=== PATIENT | female | born 1935 | race Caucasian/White ===

== ENCOUNTER 2023-03-26 15:46 | Emergency (ER) | payer MEDICARE, BC, SELFPAY ==
[2023-03-26 15:49] VITALS: BP 171/61; PULSE 65; RESP 18; TEMP 36.6; O2SAT 99; BMI 23.6
--- NOTE | 2023-03-26 15:59 | ED.GENADULT ---
HPI - General Adult General Time Seen by Provider: 15:59 Date Seen: 03/26/23 Chief complaint: Weakness Stated complaint: stiff fingers Time Seen by Provider: 03/26/23 15:59 Source: patient and RN notes reviewed Mode of arrival: ambulatory Limitations: no limitations History of Present Illness HPI narrative: Charley Summers is a very pleasant 87-year-old female with history of presumed aortic stenosis, diabetes currently on metformin and insulin who comes to the emergency room for evaluation of lightheadedness blurred vision and right arm discomfort and limited mobility. Charley Summers notes that she was baking on apple crisp this morning at approximately 1000 hours. Suddenly she became sweaty and her vision was blurred in both eyes. She states that this lasted for about 5 minutes and then she started having discomfort down her right arm. She thought perhaps she was having a low blood sugar episode and therefore drank some non diet soda in the Fridge. However, the discomfort began creeping further down her arm and eventually involved her hand and she was unable to bend her fingers or move her wrist. This lasted for an additional 15 minutes and then completely went away. Since that time she has had complete resolution of all symptoms and no further abnormalities. She has had no chest pain during this entire day and no shortness of breath. She has not been ill lately. She denies any abnormality when walking into the hospital today. She had called the clinic with the event that happened this morning and they told her to come to the emergency room. Fortunately patient did not fall today. She denies any lower extremity symptoms or loss of bowel or bladder control. Recently patient has had evaluation for aortic stenosis with recent echocardiogram. She has not heard the results of that. This was not a stress test but strictly an echocardiogram at [facility] facility. Related Data Home Medications Medication Instructions Recorded Confirmed amlodipine 5 mg tablet 5 mg PO DAILY 03/26/23 03/26/23 atorvastatin 40 mg tablet 40 mg PO QPM 03/26/23 03/26/23 chlorthalidone 25 mg tablet 25 mg PO DAILY 03/26/23 03/26/23 fosinopril 40 mg tablet 40 mg PO DAILY 03/26/23 03/26/23 insulin NPH isoph U-100 human 100 13 unit subcut BID 03/26/23 03/26/23 unit/mL subcutaneous suspension (Humulin N NPH U-100 Insulin (isophane susp)) ketorolac 0.5 % eye drops 1 drp ophthalmic (eye) BID 03/26/23 03/26/23 metformin 500 mg tablet 500 mg PO BID 03/26/23 03/26/23 timolol maleate 0.5 % eye drops 1 drp ophthalmic (eye-left) BID 03/26/23 03/26/23 Allergies Allergy/AdvReac Type Severity Reaction Status Date / Time Sulfa (Sulfonamide AdvReac Verified 03/26/23 17:32 Antibiotics) penecillin AdvReac swelling Uncoded 03/26/23 17:32 Review of Systems Status of ROS: Reports: 10 or more systems reviewed and unremarkable except as noted in History and below Const: Denies: fever, chills or fatigue Eyes: Reports: blurry vision; Denies: blind spots or eye discomfort ENMT: Denies: throat pain, neck pain or difficulty swallowing Cardio: Denies: chest pain, palpitations, swelling of feet/ankles or shortness of breath with exertion Resp: Denies: shortness of breath or cough GI: Denies: abdominal pain, nausea, vomiting, diarrhea or difficulty swallowing : Denies: painful urination Musculo: Reports: extremity pain (Right arm) and muscle weakness; Denies: neck pain Neuro: Reports: weakness in extremities; Denies: headache or dizziness Endo: Denies: fatigue [facility] Social History Smoking Status: Never smoker How often do you have a drink containing alcohol: never How often do you have six or more drinks on one occasion: Never AUDIT-C Alcohol total score: 0 Non-prescribed substance use: denies use Exam Narrative: Exam Narrative: Alert and oriented. No acute distress. GCS of 15. NIH SS 0. EOM is full with pupils are equal minimal reactivity with left pupil which has had recent retinal surgery. No field cut. Head is atraumatic normocephalic. Cranial nerves 2-12 intact Oral cavity with moist mucous membranes. Eyebrow raise smile gritting of the teeth all symmetrical. Tongue is midline. No lymphadenopathy and neck is supple. Heart with regular rate and rhythm and lungs are clear bilaterally. Three to 4/6 systolic murmur is noted. Lungs clear bilaterally Abdomen soft nontender Lower extremities without edema calf tenderness. Moving all extremities. Romberg is negative. Finger to nose bilaterally within normal limits. Const: Vital Signs, click to edit/add: Vital Signs - 24 hr 03/26/23 15:49 03/26/23 19:36 Temperature 97.8 F Pulse Rate [Right Pulse Oximeter] 65 68 Respiratory Rate 18 18 Blood Pressure [Ri ght Upper Arm] 171/61 H 159/68 H Pulse Oximetry 99 99 Oxygen Delivery Me thod Room Air Room Air Documenting provider has reviewed patient's vital signs: yes Course Course ED Course: Differential diagnosis includes but is not limited to acute stroke, TIA, hypotensive episode, cardiac arrhythmia, acute coronary event, anxiety. At this time patient has had resolution of all symptoms. Examination is reassuring. Will check CT of the brain, neck and head angio as well as chest x-ray EKG cardiac enzymes CBC comprehensive panel and urinalysis. Reevaluation(s) Reevaluation #1: Patient continues to be asymptomatic. Chest x-ray without any abnormality. Laboratory values are reassuring with normal kidney function and white count. Glucose is elevated at 293. Reevaluation #2: Head CT including angio negative for acute findings at this time. Reevaluation #3: Able to obtain copy of echocardiogram which does show progression of aortic stenosis to severe. Ejection fraction of 60-65%. Consultations Consultation #1: [facility] contacted in regards to this patient. At this time given reassuring head CT and angios recommending outpatient follow-up for MRI of the brain without contrast. In the meantime suggested of aspirin 81 mg daily. Vital Signs Vital signs: Initial Vital Signs Temperature 97.8 F 03/26/23 15:49 Temperature Source Temporal Artery Scan 03/26/23 15:49 Pulse Rate 65 03/26/23 15:49 Pulse Rhythm Regular 03/26/23 15:49 Respiratory Rate 18 03/26/23 15:49 Blood Pressure 171/61 H 03/26/23 15:49 Blood Pressure Mean 97 03/26/23 15:49 Blood Pressure Position Sitting 03/26/23 15:49 Pulse Oximetry 99 03/26/23 15:49 Oxygen Delivery Method Room Air 03/26/23 15:49 Vital Signs Temperature 97.8 F 03/26/23 15:49 Pulse Rate 65 03/26/23 15:49 Respiratory Rate 18 03/26/23 15:49 Blood Pressure 171/61 H 03/26/23 15:49 Pulse Oximetry 99 03/26/23 15:49 Oxygen Delivery Method Room Air 03/26/23 15:49 Temperature 97.8 F 03/26/23 15:49 Pulse Rate 68 03/26/23 19:36 Respiratory Rate 18 03/26/23 19:36 Blood Pressure 159/68 H 03/26/23 19:36 Pulse Oximetry 99 03/26/23 19:36 Oxygen Delivery Method Room Air 03/26/23 19:36 Medications Administered Medications: Discontinued Medications Generic Name Dose Route Start Last Admin Trade Name Jenaro PRN Reason Stop Dose Admin Aspirin 81 mg 03/26/23 19:09 03/26/23 18:14 Aspirin 81 Mg Tab.Chew PO 03/26/23 19:10 81 mg ONCE ONE Administration Medical Decision Making MDM Narrative Medical decision making narrative: 1. TIA-patient appears to have had 20 minute episode of blurred vision, diaphoresis, right arm discomfort but with difficulty moving arm. She had no difficulty standing and denies any right leg symptoms. She had no headache. Brain CT as well as head and neck angio do not show any acute findings at this time but certainly some chronic stenosis in atherosclerotic plaques. Patient remained stable in the emergency room. I had the pleasure of speaking to a neurologist from [facility] and this time he does suggest baby aspirin 81 mg daily. First dose given in the emergency room tonight. Does recommend outpatient follow-up for MRI without contrast of the brain. 2. Hyperglycemia-likely secondary to non diet ingestion of soda. Will need to continue to monitor. Will hold off on metformin at this time. Patient may elect to increase her nighttime dose of insulin based on suggestions from primary doctor. She states sometimes she forgets the nighttime dose but I am encouraging her to make sure she does take the full dose tonight as well as recheck her blood sugar. 3. Aortic stenosis-systolic murmur very obvious upon auscultation. I was able to obtain echocardiogram which does show severe aortic stenosis. This is progression from moderate for since 2020. Recommend follow-up with network support manager as she has this already scheduled. No evidence of heart failure tonight. No evidence of cardiac arrhythmia during her time in the emergency room. 2. Disposition-home at this time. Return to the emergency room for recurrence of symptoms. Recommend if this happens again to sit down immediately and to avoid a fall. Then call 911 or proceed immediately to the hospital. Medical Records Medical records reviewed: Yes I reviewed the patient's medical records Lab Data Lab results reviewed: Yes I reviewed the patient's lab results Labs: Lab Results 03/26/23 03/26/23 Range/Units 16:30 18:44 WBC 9.27 (4.50-11.00) K/uL RBC 4.21 (4.00-5.20) m/uL Hgb 12.3 (12.0-16.0) gm/dL Hct 37.7 (33.0-51.0) % MCV 90 (80-100) fL MCH 29 (26-34) pg MCHC 33 (32-36) gm/dL RDW Coeff of Yoel 12.8 (11.5-15.5) % Plt Count 249 (140-440) K/uL Neut % (Auto) 73.9 H (42.0-72.0) % Lymph % (Auto) 17.0 L (20-44) % Mcleod % (Auto) 5.8 (0.0-11.0) % Eos % (Auto) 2.7 (0.0-7.0) % Baso % (Auto) 0.4 (0.0-3.0) % Neut # (Auto) 6.90 (1.7-7.0) K/uL Lymph # (Auto) 1.60 (0.90-2.90) K/uL Mcleod # (Auto) 0.50 (0.00-0.90) K/UL Eos # (Auto) 0.25 (0.00-0.50) K/uL Baso # (Auto) 0.04 (0.00-0.30) K/uL Abs Immat Gran (auto) 0.02 (0.00-0.30) K/uL Imm/Tot Granulo (auto) 0.2 % Sodium 138 (135-149) mmol/L Potassium 3.8 (3.6-5.1) mmol/L Chloride 103 (96-114) mmol/L Carbon Dioxide 25 (20-32) mmol/L Anion Gap 10 (7-15) mEq/L BUN 29 (7-30) mg/dL Creatinine 1.2 (0.5-1.5) mg/dL Estimated Creat Clear 25.39 Estimated GFR 44 ml/min Glucose 293 H (60-115) mg/dL Calcium 9.3 (8.4-10.6) mg/dL Total Bilirubin 0.7 (0.1-1.5) mg/dL AST 20 (12-35) U/L ALT 14 (4-35) U/L Alkaline Phosphatase 99 (40-150) U/L Total Protein 7.1 (6.0-8.3) g/dL Albumin 4.3 (3.3-5.0) g/dL Urine Color Yellow (Yellow) Urine Appearance Clear (Clear) Urine pH 6.5 (5.0-8.5) Ur Specific Labelle 1.015 (1.000-1.030) Urine Protein Negative (Negative) Urine Glucose (UA) 2+ A (Negative) Urine Ketones Negative (Negative) Urine Blood Negative (Negative) Urine Nitrite Negative (Negative) Urine Bilirubin Negative (Negative) Urine Urobilinogen 0.2 (0.2-1.0) Ur Leukocyte Esterase Trace A (Negative) Urine RBC 0-2 (0-2) Urine WBC 2-5 (0-5) Ur Squamous Epith Cells None (None-Few) Urine Bacteria None (None) POC Troponin I 0.00 L (0.01-0.04) ng/ml Imaging Data Chest x-ray: Attestation: I have reviewed the pertinent imaging results. My impression: no acute infiltrates. No evidence of a widened mediastinum. Radiologist's impression: Cardiovasculature and mediastinum: Heart size and vasculature are normal in caliber and appearance. Lungs and pleural spaces: Lungs are clear. No sign of infiltrate or mass. No sign of pleural effusion. No pneumothorax. Bones and soft tissues: No significant findings. IMPRESSION: No acute findings and no significant changes from the prior exam. CT scan - head: Attestation: I have reviewed the pertinent imaging results. Radiologist's impression: No acute intracranial hemorrhage. The salcedo-white matter interface is preserved. No ventricular obstruction. Mild diffuse parenchymal volume loss. Prominent atherosclerotic calcification of the carotid siphons and left intracranial vertebral artery. No suspicious calvarial lesion. Evidence of prior left lens replacement. Paranasal sinuses and mastoid air cells are predominantly clear. IMPRESSION: 1. No acute intracranial abnormality. 2. Mild diffuse parenchymal volume loss and prominent intracranial atherosclerotic vascular calcifications. Head and neck angio: Attestation: I have reviewed the pertinent imaging results. Radiologist's impression: CTA head: No proximal large vessel occlusion or flow-limiting stenosis involving the major intracranial arteries. Atherosclerotic plaque involving the dominant left intradural vertebral artery. CTA neck: Mild stenosis and atherosclerotic irregularity of the internal carotid artery origins from atherosclerotic plaque. Major cervical arteries are otherwise patent. ECG Data Attestation: I personally reviewed and interpreted this ECG as follows: Interpretation: by my interpretation EKG shows sinus bradycardia at a rate of 59. Obvious left bundle-branch block is noted. No other acute ST or T-wave changes are noted. Normal QT and MN intervals. Discharge Plan Discharge Clinical Impression: TIA (transient ischemic attack) Patient Disposition: Home, Self-Care Condition: Unchanged Additional Instructions: After my discussion with Neurology we are going to put you on a baby aspirin daily for the prevention of stroke. You will need to follow-up with your primary MD for scheduling of an outpatient MRI brain without contrast. Return for any worsening symptoms. Follow-up with your network support manager as scheduled. Prescriptions: No Action atorvastatin 40 mg tablet 40 mg PO QPM metformin 500 mg tablet 500 mg PO BID chlorthalidone 25 mg tablet 25 mg PO DAILY amlodipine 5 mg tablet 5 mg PO DAILY ketorolac 0.5 % drops 1 drp ophthalmic (eye) BID fosinopril 40 mg tablet 40 mg PO DAILY Humulin N NPH U-100 Insulin 100 unit/mL suspension 13 unit subcut BID timolol maleate 0.5 % drops 1 drp ophthalmic (eye-left) BID Follow Up/Referrals: Jhonny Guerrero MD [Primary Care Provider] - Stand Alone Forms: [employer] Info Instructions
--- NOTE | 2023-03-26 16:24 | CRLHL7_ITS ---
For Patients: As a result of the Century Cures Act, medical imaging exams and procedure reports are released immediately into your electronic medical record. You may view this report before your referring provider. If you have questions, please contact your health care provider. INDICATION: Cardiac murmur. TECHNIQUE: Chest 1 views. COMPARISON: July 09, 2009. FINDINGS: Cardiovasculature and mediastinum: Heart size and vasculature are normal in caliber and appearance. Lungs and pleural spaces: Lungs are clear. No sign of infiltrate or mass. No sign of pleural effusion. No pneumothorax. Bones and soft tissues: No significant findings. IMPRESSION: No acute findings and no significant changes from the prior exam. Dictated by Rafael Pierre MD @ 03/26/2023 5:37:26 PM (Electronically Signed)
--- NOTE | 2023-03-26 16:24 | CRLHL7_ITS ---
For Patients: As a result of the Century Cures Act, medical imaging exams and procedure reports are released immediately into your electronic medical record. You may view this report before your referring provider. If you have questions, please contact your health care provider. INDICATION: Vision changes, night sweats, diarrhea, right upper extremity paresthesias. TECHNIQUE: Noncontrast CT of the head with multiplanar reformat in bone and soft tissue algorithms. COMPARISON: None available. FINDINGS: No acute intracranial hemorrhage. The salcedo-white matter interface is preserved. No ventricular obstruction. Mild diffuse parenchymal volume loss. Prominent atherosclerotic calcification of the carotid siphons and left intracranial vertebral artery. No suspicious calvarial lesion. Evidence of prior left lens replacement. Paranasal sinuses and mastoid air cells are predominantly clear. IMPRESSION: 1. No acute intracranial abnormality. 2. Mild diffuse parenchymal volume loss and prominent intracranial atherosclerotic vascular calcifications. Please note that all CT scans at this facility use dose modulation, iterative reconstruction, and/or weight-based dosing when appropriate to reduce radiation dose to as low as reasonably achievable. Dictated by Keron Lyon MD @ 03/26/2023 6:17:19 PM (Electronically Signed)
--- NOTE | 2023-03-26 16:24 | CRLHL7_ITS ---
For Patients: As a result of the Century Cures Act, medical imaging exams and procedure reports are released immediately into your electronic medical record. You may view this report before your referring provider. If you have questions, please contact your health care provider. INDICATION: Acute stroke, blurry vision, right shoulder numbness. TECHNIQUE: CTA neck with contrast bolus tracking, 3D angiographic rendering using maximum intensity projection (MIP) and images permanently archived. FINDINGS: There is carotid atherosclerosis. There is a mild stenosis of the proximal left ICA, less than 50% by NASCET. There is no significant right carotid artery stenosis or dissection. There is no significant vertebral artery stenosis or dissection. The soft tissues of the neck are within normal limits. The cervical spine is in normal alignment. Degenerative changes are noted in the cervical spine. IMPRESSION: Mild left ICA stenosis, less than 50% by NASCET. Please note that all CT scans at this facility use dose modulation, iterative reconstruction, and/or weight-based dosing when appropriate to reduce radiation dose to as low as reasonably achievable. Dictated by Leo Iqbal MD @ 03/27/2023 7:15:31 AM (Electronically Signed)
--- NOTE | 2023-03-26 16:24 | CRLHL7_ITS ---
For Patients: As a result of the Century Cures Act, medical imaging exams and procedure reports are released immediately into your electronic medical record. You may view this report before your referring provider. If you have questions, please contact your health care provider. INDICATION: Acute stroke, blurry vision, right shoulder numbness. TECHNIQUE: CTA head with contrast bolus tracking, 3D angiographic rendering using maximum intensity projection (MIP) and images permanently archived. FINDINGS: There is scattered intracranial atherosclerotic disease with heavily calcified plaque around the carotid siphons and intracranial vertebral arteries. There is otherwise normal opacification of the intracranial vasculature. There is no large vessel occlusion. No aneurysm is identified. IMPRESSION: No large vessel occlusion. Please note that all CT scans at this facility use dose modulation, iterative reconstruction, and/or weight-based dosing when appropriate to reduce radiation dose to as low as reasonably achievable. Dictated by Leo Iqbal MD @ 03/27/2023 7:12:36 AM (Electronically Signed)
[2023-03-26 16:40] LABS: Basophils Absolute Auto 0.04 K/uL (0.00-0.30); Basophils Percent Auto 0.4 % (0.0-3.0); Eosinophils Absolute Auto 0.25 K/uL (0.00-0.50); Eosinophils Percent Auto 2.7 % (0.0-7.0); Hematocrit 37.7 % (33.0-51.0); Hemoglobin* 12.3 gm/dL (12.0-16.0); Immature Granulocytes Abs Auto 0.02 K/uL (0.00-0.30); Immature Granulocytes Pct Auto 0.2 %; Mean Corpuscular HGB Conc 33 gm/dL (32-36); Mean Corpuscular Hemoglobin 29 pg (26-34); Mean Corpuscular Volume 90 fL (80-100); Monocytes Percent Auto 5.8 % (0.0-11.0); Neutrophils Percent Auto 73.9 % (42.0-72.0); Platelet Count* 249 K/uL (140-440); RDW Coefficient of Variation % 12.8 % (11.5-15.5); Red Blood Count 4.21 m/uL (4.00-5.20); White Blood Count* 9.27 K/uL (4.50-11.00)
[2023-03-26 16:52] LABS: Albumin* 4.3 g/dL (3.3-5.0); Chloride* 103 mmol/L (96-114)
[2023-03-26 16:53] LABS: Potassium* 3.8 mmol/L (3.6-5.1); Sodium* 138 mmol/L (135-149)
[2023-03-26 16:55] LABS: Alanine Aminotransferase* 14 U/L (4-35); Alkaline Phosphatase* 99 U/L (40-150); Anion Gap 10 mEq/L (7-15); Aspartate Amino Transferase* 20 U/L (12-35); Bilirubin Total* 0.7 mg/dL (0.1-1.5); Blood Urea Nitrogen* 29 mg/dL (7-30); Carbon Dioxide* 25 mmol/L (20-32); Creatinine* 1.2 mg/dL (0.5-1.5); Est. Creatinine Clearance* 25.39; Estimated Glomerular Filt Rate 44 ml/min; Glucose* 293 mg/dL (60-115); Total Protein* 7.1 g/dL (6.0-8.3)
[2023-03-26 16:56] LABS: Calcium* 9.3 mg/dL (8.4-10.6)
[2023-03-26 17:29] LABS: Slide Review Reflex No
[2023-03-26] MEDS: ASPIRIN 81 MG TAB.CHEW PO (18:14)
[2023-03-26 18:53] LABS: Appearance Urine Clear (Clear); Bilirubin Urine Negative (Negative); Blood Urine Negative (Negative); Color Urine Yellow (Yellow); Glucose Urine 2+ (Negative); Ketones Urine Negative (Negative); Leukocyte Esterase Urine Trace (Negative); Nitrite Urine Negative (Negative); Protein Urine Negative (Negative); Specific Gravity Urine 1.015 (1.000-1.030); Urobilinogen Urine 0.2 (0.2-1.0); pH Urine 6.5 (5.0-8.5)
[2023-03-26 19:04] LABS: RBC Urine 0-2 (0-2)
--- NOTE | 2023-03-26 19:09 | ED.NURSE ---
on phone with neuro. Images pushed to [facility].
[2023-03-26 19:36] VITALS: BP 159/68; PULSE 68; RESP 18; O2SAT 99
== END 2023-03-26 19:35 | disposition home or self-care (01) ==
PROVIDERS: Emergency Provider Family Medicine; PCP Family Medicine
DX: G45.9 Transient cerebral ischemic attack, unspecified (principal)
CPT/HCPCS: 36415; 70450; 70496; 70498; 71045; 80053; 81001; 84484; 85025; 87086; 93005; 99284; 99285; A9270; Q9967

== ENCOUNTER 2023-04-08 07:00 | Outpatient (CLI) | payer MEDICARE, BC, SELFPAY ==
--- NOTE | 2023-04-08 07:15 | MR_ITS ---
Final Report Patient: PAU NAVA Facility:?[facility] Patient ID:?[id number] Site Patient ID:?[id number]. Site :?[id number] Study:?MRI Head W/O-04/08/2023 9:29:27 AM Ordering Physician:MYRIAM ONEAL Final Report: Indication: Transient ischemic attack Technique: Noncontrast sagittal T1 weighted, axial FLAIR, axial T2 weighted, and axial diffusion weighted sequences are provided. Comparison: CT 03/26/2023 Findings: Mild age-related generalized parenchymal volume loss. Multiple scattered foci of T2 prolongation in the subcortical white matter of both cerebral hemispheres. The midline structures are centrally located with no evidence of shift. There are no suspicious intra or extra-axial fluid collections. No region of restricted diffusion. Expected flow voids in the cavernous carotids and basilar artery. Left globe pseudophakia. Impression: 1. No evidence of acute intracranial abnormality. No recent ischemic infarcts. 2. Moderate supratentorial chronic small vessel white matter ischemic changes. 3. Mild age related parenchymal volume loss. Dictated by Chilo Deleon MD @ 04/12/2023 9:27:56 PM Dictated by: Chilo Deleon MD @ 04/12/2023 21:28:04 (Electronic Signature)
== END 2023-04-08 07:01 | disposition home or self-care (01) ==
LOC: MRI 07:02
PROVIDERS: PCP Family Medicine; Visit Provider Family Medicine
DX: G45.9 Transient cerebral ischemic attack, unspecified (principal)
CPT/HCPCS: 70551

== ENCOUNTER 2023-08-20 07:39 | Outpatient (CLI) | payer MEDICARE, BC, SELFPAY ==
--- NOTE | 2023-08-20 08:00 | CRLHL7_ITS ---
For Patients: As a result of the Century Cures Act, medical imaging exams and procedure reports are released immediately into your electronic medical record. You may view this report before your referring provider. If you have questions, please contact your health care provider. Indication: Right hydronephrosis, left renal mass Technique: Nuclear medicine renal Lasix study per protocol after the intravenous administration of 10.2 millicuries technetium 99 M Mag 3 and 20 milligrams of IV Lasix. Comparison: Report only CT angio chest, abdomen and pelvis April 30, 2023 Findings: Flow: Prompt and symmetric. Split renal function: 50 percent left, 50 percent right. Renal phase: Normal extraction and excretion of the radiopharmaceutical bilaterally. Residual activity throughout the dilated right renal pelvis is noted prior to administration of Lasix. Collecting system clearance: Left is normal prior to administration of Lasix. After the administration of Lasix there is minimal clearance from the right collecting system, with the right T 1/2<< 20 minutes. Impression: Symmetric renal function with high-grade right-sided obstruction Dictated by Vern Guzman MD @ 08/20/2023 12:21:52 PM (Electronically Signed)
== END 2023-08-20 07:40 | disposition home or self-care (01) ==
PROVIDERS: PCP Family Medicine; Visit Provider Urology
DX: N13.30 Unspecified hydronephrosis (principal); N28.89 Other specified disorders of kidney and ureter
CPT/HCPCS: 78708; A9562; J1940

== ENCOUNTER 2023-10-09 21:00 | Emergency (ER) | payer MEDICARE, BC, SELFPAY ==
[2023-10-09 21:03] VITALS: BP 166/71; PULSE 70; RESP 16; TEMP 36.2; O2SAT 97; BMI 21.4
--- NOTE | 2023-10-09 22:54 | ED_ITS ---
HPI - General Adult General Chief complaint: Abdominal Pain Stated complaint: R flank pain, catheter removed yesterday Time Seen by Provider: 10/09/23 22:53 History of Present Illness HPI narrative: pain on right side and all over stomach. Pt has greenberg cath removed yesterday. Did a self cath last night and this morning. Little urine production throughout the day. Stomach pain started all afternoon. Pain rated 5/ 10. 88-year-old woman presenting to the emergency depart with concern of right and low abdominal pain. 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 Apparently during this evaluation noted a cyst or lesion on the right kidney and then during subsequent evaluation noting marked hydronephrosis in the right renal collecting system. She does acknowledge a history of urinary retention but unclear as to why this was occurring when I ask. Did have a Greenberg removed yesterday and since that time has only dribbled a little bit of urine. Increasing pain over the course the day. No fever. She does admit to some chills but she says she always feels cold like that. No complaint of nausea. No vomiting. Daughter does emphasize history of recurrent urinary tract infections. Related Data Home Medications ?Medication ?Instructions ?Recorded ?Confirmed amlodipine 5 mg tablet 5 mg PO DAILY 03/26/23 03/26/23 atorvastatin 40 mg tablet 40 mg PO QPM 03/26/23 03/26/23 chlorthalidone 25 mg tablet 25 mg PO DAILY 03/26/23 03/26/23 fosinopril 40 mg tablet 40 mg PO DAILY 03/26/23 03/26/23 insulin NPH isoph U-100 human 100 13 unit subcut BID 03/26/23 03/26/23 unit/mL subcutaneous suspension (Humulin N NPH U-100 Insulin (isophane susp)) ketorolac 0.5 % eye drops 1 drp ophthalmic (eye) BID 03/26/23 03/26/23 metformin 500 mg tablet 500 mg PO BID 03/26/23 03/26/23 timolol maleate 0.5 % eye drops 1 drp ophthalmic (eye-left) BID 03/26/23 03/26/23 Allergies Allergy/AdvReac Type Severity Reaction Status Date / Time Sulfa (Sulfonamide AdvReac Verified 03/26/23 17:32 Antibiotics) penecillin AdvReac swelling Uncoded 03/26/23 17:32 Review of Systems Status of ROS: Reports: 6 or more systems reviewed and unremarkable except as noted in History and below [facility] Social History Smoking Status: Never smoker How often do you have a drink containing alcohol: never How often do you have six or more drinks on one occasion: Never AUDIT-C Alcohol total score: 0 Non-prescribed substance use: denies use Exam Narrative: Exam Narrative: Pleasant. NAD. Sitting quite still. Breathing easily. Lungs are clear. Heart in regular rate and rhythm. Abdomen is soft and mildly uncomfortable to palpation in the low abdomen. I think she is rather stoic. Abdomen is little protuberant. No flank pain to percussion. Extremities are well perfused without edema. Const: Vital Signs, click to edit/add: Vital Signs - 24 hr 10/09/23 21:03 Temperature 97.2 F L Pulse Rate [Left P ulse Oximeter] 70 Respiratory Rate 16 Blood Pressure [Le ft Upper Arm] 166/71 H Pulse Oximetry 97 Oxygen Delivery Me thod Room Air Documenting provider has reviewed patient's vital signs: yes Course Vital Signs Vital signs: Initial Vital Signs Temperature 97.2 F L 10/09/23 21:03 Temperature Source Temporal Artery Scan 10/09/23 21:03 Pulse Rate 70 10/09/23 21:03 Pulse Rhythm Regular 10/09/23 21:03 Respiratory Rate 16 10/09/23 21:03 Blood Pressure 166/71 H 10/09/23 21:03 Blood Pressure Mean 102 10/09/23 21:03 Blood Pressure Position Sitting 10/09/23 21:03 Pulse Oximetry 97 10/09/23 21:03 Oxygen Delivery Method Room Air 10/09/23 21:03 Vital Signs Temperature 97.2 F L 10/09/23 21:03 Pulse Rate 70 10/09/23 21:03 Respiratory Rate 16 10/09/23 21:03 Blood Pressure 166/71 H 10/09/23 21:03 Pulse Oximetry 97 10/09/23 21:03 Oxygen Delivery Method Room Air 10/09/23 21:03 Temperature 97.9 F 10/10/23 01:15 Pulse Rate 70 10/10/23 01:15 Respiratory Rate 18 10/10/23 01:15 Blood Pressure 158/68 H 10/10/23 01:15 Pulse Oximetry 98 10/10/23 01:15 Oxygen Delivery Method Room Air 10/10/23 01:15 Medications Administered Medications: Discontinued Medications Generic Name Dose Route Start Last Admin Trade Name Jenaro PRN Reason Stop Dose Admin Ceftriaxone Sodium 1 gm 10/10/23 01:01 10/10/23 01:17 Ceftriaxone 1 Gm Vial IM 10/10/23 01:02 1 gm ONCE ONE Administration Lidocaine HCl 2.1 ml 10/10/23 01:01 10/10/23 01:17 Lidocaine 1% 5 Ml (Pf) 5 Ml Vial IM 2.1 ml DIRECTED PRN Administration Pain Medical Decision Making MDM Narrative Medical decision making narrative: Likely urinary retention. Like to assess with a bladder scan. Anticipate replacing catheter and urinalysis. Differential would include urinary retention, urinary tract infection/cystitis/pyelo Scan for nearly 250 mL of urine. Suspect closer to double that due to troublesome measurements historically with this bladder scanner. Greenberg is placed. She does feel much better on reassessment. Did have closer to 500 mL out. Urinalysis concerning [place] [id number]. Some elevated blood pressure here but otherwise vitals look good. Was given a g of Rocephin prior to departure. Initiating cephalexin. See patient discharge plan for further discussion Medical Records Medical records reviewed: Yes I reviewed the patient's medical records Lab Data Lab results reviewed: Yes I reviewed the patient's lab results Labs: Lab Results 10/09/23 10/09/23 10/09/23 Range/Units 00:00 00:10 23:44 WBC 15.09 H (4.50-11.00) K/uL RBC 4.07 (4.00-5.20) m/uL Hgb 11.3 L (12.0-16.0) gm/dL Hct 35.8 (33.0-51.0) % MCV 88 (80-100) fL MCH 28 (26-34) pg MCHC 32 (32-36) gm/dL RDW Coeff of Yoel 13.1 (11.5-15.5) % Plt Count 250 (140-440) K/uL Neut % (Auto) 77.4 H (42.0-72.0) % Lymph % (Auto) 10.1 L (20-44) % [place] % (Auto) 7.8 (0.0-11.0) % Eos % (Auto) 4.2 (0.0-7.0) % Baso % (Auto) 0.2 (0.0-3.0) % Neut # (Auto) 11.70 H (1.7-7.0) K/uL Lymph # (Auto) 1.50 (0.90-2.90) K/uL [place] # (Auto) 1.20 H (0.00-0.90) K/UL Eos # (Auto) 0.60 H (0.00-0.50) K/uL Baso # (Auto) 0.00 (0.00-0.30) K/uL Sodium 136 (135-149) mmol/L Potassium 3.7 (3.6-5.1) mmol/L Chloride 101 (96-114) mmol/L Carbon Dioxide 28 (20-32) mmol/L Anion Gap 7 (7-15) mEq/L BUN 33 H (7-30) mg/dL Creatinine 1.2 (0.5-1.5) mg/dL Estimated Creat Clear 24.92 Estimated GFR 44 ml/min Glucose 152 H (60-115) mg/dL Calcium 9.3 (8.4-10.6) mg/dL Urine Color Yellow (Yellow) Urine Appearance Cloudy A (Clear) Urine pH 5.0 (5.0-8.5) Ur Specific [place] 1.025 (1.000-1.030) Urine Protein 3+ A (Negative) Urine Glucose (UA) Negative (Negative) Urine Ketones Negative (Negative) Urine Blood 3+ A (Negative) Urine Nitrite Negative (Negative) Urine Bilirubin Negative (Negative) Urine Urobilinogen 0.2 (0.2-1.0) Ur Leukocyte Esterase 1+ A (Negative) Urine RBC 25-50 A (0-2) Urine WBC 50-100 A (0-5) Ur Squamous Epith Cells Few (None-Few) Urine Bacteria Many A (None) Discharge Plan Discharge Clinical Impression: Urinary retention, Urinary tract infection Patient Disposition: Home w/ Parent or Adult Condition: Stable Additional Instructions: Stay well-hydrated. Urine culture will be pending here will call you if choice of antibiotics needs to be changed Return for escalating fever, repeated vomiting, significant increase in pain, decreasing urinary out. Please call on Thursday to follow-up with your primary care provider or Urology by Thursday for further recommendations. Cephalexin from [facility]. Take this for 8 days Prescriptions: No Action atorvastatin 40 mg tablet 40 mg PO QPM metformin 500 mg tablet 500 mg PO BID chlorthalidone 25 mg tablet 25 mg PO DAILY amlodipine 5 mg tablet 5 mg PO DAILY ketorolac 0.5 % drops 1 drp ophthalmic (eye) BID fosinopril 40 mg tablet 40 mg PO DAILY Humulin N NPH U-100 Insulin 100 unit/mL suspension 13 unit subcut BID timolol maleate 0.5 % drops 1 drp ophthalmic (eye-left) BID Follow Up/Referrals: Jhonny Guerrero MD [Primary Care Provider] - Stand Alone Forms: [email or web address] ([employer]) Info Instructions
[2023-10-10 00:14] LABS: Appearance Urine Cloudy (Clear); Bilirubin Urine Negative (Negative); Blood Urine 3+ (Negative); Color Urine Yellow (Yellow); Glucose Urine Negative (Negative); Ketones Urine Negative (Negative); Leukocyte Esterase Urine 1+ (Negative); Nitrite Urine Negative (Negative); Protein Urine 3+ (Negative); Specific Gravity Urine 1.025 (1.000-1.030); Urobilinogen Urine 0.2 (0.2-1.0)
[2023-10-10 00:22] LABS: Bacteria Urine Many; RBC Urine 25-50 (0-2); Squamous Epithelial Cell Urine Few (None-Few); WBC Urine 50-100 (0-5)
[2023-10-10 00:38] LABS: Chloride* 101 mmol/L (96-114); Potassium* 3.7 mmol/L (3.6-5.1); Sodium* 136 mmol/L (135-149)
[2023-10-10 00:41] LABS: Anion Gap 7 mEq/L (7-15); Blood Urea Nitrogen* 33 mg/dL (7-30); Carbon Dioxide* 28 mmol/L (20-32); Creatinine* 1.2 mg/dL (0.5-1.5); Est. Creatinine Clearance* 24.92; Estimated Glomerular Filt Rate 44 ml/min; Glucose* 152 mg/dL (60-115)
[2023-10-10 00:42] LABS: Calcium* 9.3 mg/dL (8.4-10.6)
[2023-10-10 00:52] LABS: Hematocrit 35.8 % (33.0-51.0); Hemoglobin* 11.3 gm/dL (12.0-16.0); Mean Corpuscular Volume 88 fL (80-100); Red Blood Count 4.07 m/uL (4.00-5.20); White Blood Count* 15.09 K/uL (4.50-11.00)
[2023-10-10 00:53] LABS: Basophils Percent Auto 0.2 % (0.0-3.0); Eosinophils Percent Auto 4.2 % (0.0-7.0); Lymphocytes Percent Auto 10.1 % (20-44); Mean Corpuscular HGB Conc 32 gm/dL (32-36); Mean Corpuscular Hemoglobin 28 pg (26-34); Monocytes Percent Auto 7.8 % (0.0-11.0); Neutrophils Percent Auto 77.4 % (42.0-72.0); Platelet Count* 250 K/uL (140-440); RDW Coefficient of Variation % 13.1 % (11.5-15.5); Slide Review Reflex No
[2023-10-10 01:15] VITALS: BP 158/68; PULSE 70; RESP 18; TEMP 36.6; O2SAT 98
[2023-10-10] MEDS: cefTRIAXone 1 GM VIAL IM (01:17)
[2023-10-10] MEDS: LIDOCAINE 1% 5 ml (pf) 5 ML VIAL 2.1 ML IM (01:17)
== END 2023-10-10 01:25 | disposition home or self-care (01) ==
PROVIDERS: Emergency Provider Family Medicine; PCP Family Medicine
DX: N39.0 Urinary tract infection, site not specified (principal)
CPT/HCPCS: 51702; 36415; 80048; 81001; 85025; 87086; 87186; 96372; 99283; 99284; J0696

== ENCOUNTER 2024-05-06 09:49 | Inpatient (IN) | payer MEDICARE, BC, SELFPAY ==
[2024-05-06] VITALS (8 sets, daily range): BP systolic 96–109; BP diastolic 39–68; PULSE 60–68; RESP 16–18; TEMP 36.3–37; O2SAT 96–100; BMI 18.3; BMI 18.2
--- OUTSIDE RECORDS SUMMARY | 2024-05-06 09:52 | XMS_ITS | Clinical Summary ---
Author Organization [employer] [facility] Address [facility] [place] [address] Care Team Providers Care Deicer Inspector Electric Name Role Phone Jhonny Guerrero MD Primary Care Provider Allergies Active Allergy Reactions Criticality Noted Date Comments Penicillins Edema Unknown 09/16/2005 Sulfa (Sulfonamide Antibiotics) Edema Unknown 08/24 Medications ketorolac 0.5 % ophthalmic (ACULAR) solution Place 1 Drop into both eyes two times daily. 1 Bottle 4 9 Active aspirin (ECOTRIN) 81 mg enteric coated tablet Take 81 mg by mouth once daily. 4 Active clopidogreL (PLAVIX) 75 mg tabletIndications:A SCVD (arteriosclerotic cardiovascular disease) Take 1 Tablet (75 mg) by mouth once daily. 90 Tablet 3 05/15/2023 4:27 PM CDT 4 Active amLODIPine (NORVASC) 5 mg tabletIndications:H TN (hypertension) Take 1 Tablet (5 mg) by mouth once daily. 90 Tablet 3 4 Active chlorthalidone (HYGROTON) 25 mg tabletIndications:H ypertension, unspecified type Take 1 Tablet (25 mg) by mouth once daily. 90 Tablet 3 4 Active fosinopril sodium (MONOPRIL) 40 mg tabletIndications:H ypertension, unspecified type Take 1 Tablet (40 mg) by mouth once daily. 90 Tablet 3 4 Active ezetimibe (ZETIA) 10 mg tabletIndications:H yperlipidemia, unspecified hyperlipidemia type Take 1 Tablet (10 mg) by mouth once daily. 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 Take 30-60 minutes before procedure. 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 15 mL 2 4 Active latanoprost (XALATAN) 0.005 % ophthalmic solutionIndications :Primary open angle glaucoma of right eye, moderate stage Place 1 Drop into both eyes once daily in the evening. 7.5 mL 4 Active empagliflozin (JARDIANCE) 10 mg tabletIndications:T ype 2 diabetes mellitus with stage 3a chronic kidney disease, with long-term current use of insulin (HC) Take 1 Tablet (10 mg) by mouth once daily. 90 Tablet 1 5 Active metFORMIN (GLUCOPHAGE) 500 mg tabletIndications:C ontrolled type 2 diabetes mellitus with complication, with long-term current use of insulin (HC) Take 1 Tablet (500 mg) by mouth two times daily with meals. 180 Tablet 1 5 Active rosuvastatin (CRESTOR) 40 mg tabletIndications:M ixed hyperlipidemia Take 1 Tablet (40 mg) by mouth once daily with evening meal. 90 Tablet 3 5 Active Active Problems Problem Noted Date Diagnosed Date Left kidney mass 08/28/2023 History of permanent cardiac pacemaker placement 06/18/23. 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 06/25/2023 ASCVD; s/p ANGELIA to mLAD 05/15/23. 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, with long-term current use of insulin 01/26/2023 Controlled type 2 diabetes m ellitus with complication, with long-term current use of insulin 09/13/2020 History of syncope 04/02/2020 Low-tension glaucoma of both eyes, moderate stag e 09/23/2019 Regular astigmatism of left eye 08/13/2018 Acute duodenal ulcer 08/18/2017 Overview (08/18/2017): EGD 07/2017 superficial duodenal ulcers, try omeprazole Presbyopia 08/10/2017 Hyperopic astigmatism of right eye 08/10/2017 Hydronephrosis of right kidney 07/28/2016 Stage 3a chronic kidney disease 01/05/2016 Pseudophakia, left eye 08/24/2015 Nuclear senile cataract of right eye 08/24/2015 Irritable bowel 07/09/2012 Essential hypertension 11/15/2010 Mixed hyperlipidemia 11/15/2010 Resolved Problems Problem Noted Date Diagnosed Date Resolved Date Severe aortic stenosis 04/02/202311/29 Weight loss 01/26/2023 04/02/2023 Moderate aortic stenosis 01/02/202209/2023 Systolic murmur 04/02/2020 06/04/2020 Chest pain, unspecified 03/22/200805/24 Long-term (current) use of anticoagulants 12/03/2007 11/27/2010 Unspecified essential hypertension 03/09/2007 11/15/2010 BACKGROUND - DIABETIC RETINOPATHY-MILD OU 07/19/2003 11/22/2012 Type 2 diabetes mellitus wit h stage 3 chronic kidney disease, with long-term current use of insulin 01/14/2002 09/13/2020 Overview (06/29/2009): Next diabetic eye exam 07/03 HYPERTENSION, SECONDARY NOS 03/05/1998 11/15/2010 Encounters Date Type Department Care Team Description 05/06/2024 9:10 AM CDT Office Visit [facility] [address] [place] [address] Lacie Ponce, Gi Problem (Started yesterday, nausea, vomiting, diarrhea, is unable to eat or drink hardly at all.) 05/06/2024 Travel 03/29/2024 Telephone [facility] [address] [place] [address] Jhonny Guerrero MD Form (03/28/24 ANGELIA ) 03/15/2024 9:00 AM INSTITUTIONAL NUTRITION CONSULTANT Office Visit [facility] [address] [place] [address] Stoney Murrieta, OD Eye Exam (DM CEE) 03/15/2024 Travel 03/11/2024 Telephone [facility] [address] [place] [address] Sarahy Xiao PA Follow Up 03/07/2024 Telephone [facility] [address] [place] [address] Desmond Vallejo MD, PhD Refill Request (Clopidogrel) 03/03/2024 9:20 AM INSTITUTIONAL NUTRITION CONSULTANT Office Visit [facility] [address] [place] [address] Sarahy Xiao PA Follow Up (Follow up CT scan on 01/25/24.) 03/03/2024 Telephone [facility] [address] [place] [address] Sarahy Xiao PA DME Supply (Change catheter order) 03/03/2024 Travel 03/02/2024 10:05 AM INSTITUTIONAL NUTRITION CONSULTANT Office Visit [facility] [address] [place] [address] Jhonny Guerrero MD Diabetes (6 month follow up) 03/02/2024 Telephone [facility] [address] [place] [address] Jhonny Guerrero MD Results 03/01/2024 10:15 AM INSTITUTIONAL NUTRITION CONSULTANT Orders Only [facility] [address] [facility] [place] [address] Lab, [place] Lab 03/01/2024 Travel 02/10/2024 Orders Only [facility] Scanner 1 scan: (1-Ord) RCM, 02/10/2024 from Last 3 Months Immunizations Immunization Administration Dates Next Due AMB Influenza, IIV3 (Age >=3 years)(Flu Clinic Only) 01/01/2010 Amb Influenza, Inact (High-d ose Quadrivalent) (Flu Clinic Only) 12/22/2019 COVID-19 VACCINE SPIKEVAX (M ODERNA 50MCG/0.5ML) 12YO+ PFS 11/30/2023,08/28/2023,01/26/2023 COVID-19 vaccine (Babycare NTech 30mcg/0.3mL) 12YO+ BIVALENT PF, MDV 07/30/2022,01/02/2022 COVID-19 vaccine (Babycare NTech 30mcg/0.3mL) 12YO+ ARELY-SUCROSE PF, MDV 07/03/2021 COVID-19 vaccine (Babycare NTech 30mcg/0.3mL) PF, MDV 12/17/2020,04/28/2020,04/07/2020 Influenza, High-dose Inactivated 019,01/30/2016,01/30/2016,02/15,01/18/2014 Influenza, High-dose Quadriv alent Inactivated 11/06/2021 Influenza, IIV3 (Age 6-35 mos) 11/27/2010 Influenza, IIV3 (Age >=3 years) 12/31/19 13,12/17/2011,11/27/2010,01/01,11/08/2008,12/14/2007,12/31/2006 ,12/04/2005,01/09/2005,12/06/2003,11/23,12/20/2001 Influenza, Inactivated AIIV4 (Age 65+ Years) Preserv Free 01/26/2023,11/07/2021,12/17/2020 Influenza, Inactivated IIV3 (Age 65+ Years) Preserv Free 11/30/2023,10/29/2017,11/21/2016 Pneumococcal Poly,23-Valent (Pneumovax) 09/30/2020,02/03/2005,08/08/1996 Pneumococcal conj 13-Valent (Prevnar 13) 01/18/2014 RSV, Recombinant ADJ Reconst ituted (Arexvy 120MCG/0.5mL) 03/05/2023 Td (Age >=7 Years) 06/04/2017,08/08/1996 Tdap 08/27/2006 Zoster (Shingrix-RZV, recombinant) 08/18/2018, Zoster (Zostavax-ZVL, live) 06/04/2010 Family History Medical History Relation Name Comments Heart Disease Brother 1 Cancer-prostate Brother 2 Diabetes Brother 2 Other Brother 2 glaucoma Heart Disease Brother 3 Good Health Daughter Heart Disease Father Did not talk a bout health Diabetes Mother Genetic Other hypertension~ir regular heart beat~heart disease--father, brothers Diabetes Paternal Grandmother Other Sister in brain s rugery age 13 Cancer Son 1 Ed In back not rosalinda e origin Stroke Son 2 Dudley Diabetes Son 3 Petar Good Health Son 4 Cancer-breast No Family History Relation Name Status Comments Brother 1 Brother 2 Alive Brother 3 Daughter Alive Father Mother Other Paternal Grandmother Sister Son 1 Ed Alive Son 2 Dudley Alive Son 3 Petar Alive Son 4 Alive Social History Tobacco Use Types Packs/Day Years Used Date Smoking Tobacco: Never Smokeless Tobacco: Never Tobacco Cessation:Counseling Given: No Alcohol Use Standard Drinks/Week Comments No 0 (1 standard drink = 0.6 oz pur e alcohol) PHQ-2 Answer Date Recorded PHQ-2 TOTAL SCORE 1 09/29/2023 Social Connections Answer Date Recorded Do you often feel lonely or isolated from those around you? 0 06/17/2023 Financial Resource Strain Answer Date R ecorded Difficulty of Paying Living Expenses 3 01/26/2023 Difficulty of Paying Living Expenses Not on file 01/26/2023 Food Insecurity Answer Date Recorded Do you worry your food will run out before you are able to buy more? 1 06/17/2023 Transportation Needs Answer Date Record ed Does lack of transportation keep you from medica l appointments? 1 06/17/2023 Does lack of transportation keep you from work, meetings or getting things that you need? 1 06/17/2023 Housing Stability Answer Date Recorded What is your housing situation today? 1 06/17/2023 Interpersonal Safety Answer Date Record ed Are you being hit, kicked, p ushed or yelled at (see row info)? No 06/17/2023 Interpersonal Safety Abuse 12 - 18 Not on file 06/17/2023 Interpersonal Safety Ambulatory Vulnerability No t on file 06/17/2023 Utilities Answer Date Recorded Do you have trouble paying f or utilities (for example, heat, electricity, water, phone)? 1 06/17/2023 Comments No Sex and Gender Information Value Date Recorded Sex Assigned at Not on file Legal Sex Female 5:20 AM INSTITUTIONAL NUTRITION CONSULTANT Gender Identity Not on file Sexual Orientation Not on file Obstetrics History Para Term AB IAB SAB Ectopic Multiple Livin g Live Births 5 5 5 Date Outcome GA Total Labor Labor/2nd/3rd Weight Sex Type Anes PTL Dorota A1 A5 Name Clin Term Term Term Term Term Last Filed Vital Signs Vital Sign Reading Time Taken Comments Blood Pressure 95/60 05/06/2024 9:05 AM CDT Pulse 71 05/06/2024 9:05 AM CDT Temperature 35.2 C (95.4 F) 05/06/2024 9:16 AM CDT Respiratory Rate 16 09/30/2023 2:45 PM CDT Oxygen Saturation 99% 05/06/2024 9:16 AM CDT Inhaled Oxygen Concentration - - Weight 43.9 kg (96 lb 12.8 oz) 05/06/2024 9:05 A M CDT Height 156.2 cm (5' 1.5) 09/30/2023 12:08 PM CD T Body Mass Index 17.99 09/30/2023 12:08 PM CDT Plan of Treatment Upcoming Encounters Date Type Department Care Team (Late st Contact Info) Description 05/31/2024 Cardiac Device Check [facility] [phone] 06/01/2024 10:00 AM CDT Ancillary Procedure [facility] [address] [place] [phone] 06/10/2024 1:00 PM CDT Office Visit [facility] [address] [facility] [address] [place] [address] Desmond Vallejo MD, PhD [address] [facility] [address] [place] [address] 07/13/2024 9:00 AM CDT Office Visit [facility] [address] [place], [place] [address] [place] [address] [place] [address] 08/01/2024 9:00 AM CDT Ancillary Procedure [facility] [address] [facility] [address] 08/04/2024 8:40 AM CDT Office Visit [facility] [address] [place] [address] Sarahy Xiao PA [address] [place] [address] 08/30/2024 9:00 AM CDT Orders Only [facility] [address] [place] [address] Lab[place] 09/02/2024 9:40 AM CDT Office Visit [facility] [address] [place] [address] Jhonny Guerrero MD [address] [place] [address] Health Maintenance Due Date Last Done Comments COVID-19 vaccine series ( season) 2024 11/30/2023, 08/28/2023, 01/26/2023, Additional history exists Medicare Wellness for age 65+ 08/28/2024, 03/04/2019, 06/04/2017 BMI (ht and wt on same day) for age 18+ 09/28/2024 09/29/2023, 08/28/2023, 07/21/2023, Additional history exists Depression screening for age 12+ 09/30/2024 10/01/2023, 09/29/2023, 09/07/2023, Additional history exists Tetanus booster 06/05/2027 06/04/2017, 0706/2006, 08/08/1996 Tdap Completed 08/27/2006 DEXA/DXA scan for age 65+ Completed 11/19/2010 Zoster (shingles) series for age 50+ Completed 08/18/2018, 06/09/2018, 06/04/2010 Pneumococcal series for age 50+ Completed 09/30/2020, 01/18/2014, 02/03/2005, Additional history exists RSV vaccine for adults or Completed 03/05/2023 Influenza Vaccine Completed 11/30/2023, , 11/07/2021, Additional history exists Medical Devices Implanted Type Area Ride Assembly Supervisor Device Identifier Shelf Expiration Date Model / Serial / Lot Lens Iol 23.0 Wf [id number]. 0 - [id number] Implanted:Qty: 1 on 10/09/2014 by Moose Sands MD at [facility] Left: Eye [employer] 07/24/2019 [id number]. [id number] / [id number] / Procedures Procedure Name Priority Date/Time Associated Diagnosis Comments BASIC METABOLIC PANEL Routine 03/02/2024 10:32 AM INSTITUTIONAL NUTRITION CONSULTANT Stage 3a chronic kidney disease (HC) BASIC METABOLIC PANEL Routine 03/01/2024 10:15 AM INSTITUTIONAL NUTRITION CONSULTANT Stage 3a chronic kidney disease (HC) LIPID PANEL W REFLEX MEASURED LDL Routine 03/01/2024 10:15 AM INSTITUTIONAL NUTRITION CONSULTANT Mixed hyperlipidemia HEMOGLOBIN A1C MONITORING (POCT) Routine 03/01/2024 10:14 AM INSTITUTIONAL NUTRITION CONSULTANT Type 2 diabetes mellitus with stage 3a chronic kidney disease, with long-term current use of insulin (HC) SCAN-EYE EXAM 02/10/2024 12:00 AM INSTITUTIONAL NUTRITION CONSULTANT XR DXA BONE DENSITY 2 SITES AXIAL Routine 11/19/2010 10:21 AM CDT AGE-RELATED BONE LOSS from Last 3 Months or Most Recently Relevant to Health Maintenance Results * (ABNORMAL) BASIC METABOLIC PANEL (03/02/2024 10:32 AM INSTITUTIONAL NUTRITION CONSULTANT) Only the most recent of2 resultswithin the time period is included. GLUCOSE 125(H) 65 - 99 mg/dL [facility] Comment: Fasting reference interval For someone without known diabetes, a glucose value between 100 and 125 mg/dL is consistent with prediabetes and should be confirmed with a follow-up test. UREA NITROGEN (BUN) 48(H) 7 - 25 mg/dL [facility] CREATININE 1.38(H) 0.60 - 0.95 mg/dL [facility] EGFR 37(L) > OR = 60 mL/min/1.7 3m2 [facility] BUN/CREATININE RATIO 35(H) 6 - 22 (calc) [facility] SODIUM 138 135 - 146 mmol/L [facility] POTASSIUM 4.4 3.5 - 5.3 mmol/L [facility] CHLORIDE 100 98 - 110 mmol/L [facility] CARBON DIOXIDE 29 20 - 32 mmol/L [facility] ELECTROLYTE BALANCE 9 7 - 17 mmol/L (calc) [facility] CALCIUM 9.9 8.6 - 10.4 mg/dL [facility] Blood BLOOD SPECIMEN / Unknown 03/02/2024 10:32 AM INSTITUTIONAL NUTRITION CONSULTANT 03/02/2024 10:33 AM INSTITUTIONAL NUTRITION CONSULTANT us Jhonny Guerrero MD CHEMISTRY Final Result [employer] [facility] [address] [place] [address], [facility] [address] [place] [address] * (ABNORMAL) LIPID PANEL W REFLEX MEASURED LDL (03/01/2024 10:15 AM INSTITUTIONAL NUTRITION CONSULTANT) CHOLESTEROL, TOTAL 206(H) <200 mg/dL [facility] HDL CHOLESTEROL 60 > OR = 50 mg/dL [facility] TRIGLYCERIDES 109 <150 mg/dL [facility] LDL-CHOLESTEROL 124(H) mg/dL (calc) [facility] Comment: Reference range: <100 Desirable range <100 mg/dL for primary prevention; <70 mg/dL for patients with CHD or diabetic patients with > or = 2 CHD risk factors. LDL-C is now calculated using the Nikita calculation, which is a validated novel method providing better accuracy than the Friedewald equation in the estimation of LDL-C. Hitesh EDWARDS et al. MARBELLA. 2013;310(19): 1269-1238 (http://education.[employer]faq/XBW097) CHOL/HDLC RATIO 3.4 <5.0 (calc) [facility] NON HDL CHOLESTEROL 146(H) <130 mg/dL (calc) [facility] Comment: For patients with diabetes plus 1 major ASCVD risk factor, treating to a non-HDL-C goal of <100 mg/dL (LDL-C of <70 mg/dL) is considered a therapeutic option. Blood BLOOD SPECIMEN / Unknown 03/01/2024 10:15 AM INSTITUTIONAL NUTRITION CONSULTANT 03/01/2024 10:15 AM INSTITUTIONAL NUTRITION CONSULTANT us Jhonny Guerrero MD CHEMISTRY Final Result [employer] [facility] [address] [place] [address], [place] [phone] [address] * (ABNORMAL) HEMOGLOBIN A1C MONITORING (POCT) (03/01/2024 10:14 AM INSTITUTIONAL NUTRITION CONSULTANT) POC HEMOGLOBIN A1C 7.5(H) <6.0 % OF TOTAL HGB [facility] Comment: Any point of care results exhibiting inconsistency with the patient's clinical status should be repeated using a different testing method. Blood BLOOD SPECIMEN / Unknown 03/01/2024 10:14 AM INSTITUTIONAL NUTRITION CONSULTANT 03/01/2024 10:14 AM INSTITUTIONAL NUTRITION CONSULTANT Jhonny Guerrero MD CHEMISTRY Final Result Performing Organization Address City/[facility]/ZIP Co de Phone Number [facility] [address] [place] [address], [place] [phone] [facility] [address] [place] [address] * SCAN-EYE EXAM (02/10/2024 12:00 AM INSTITUTIONAL NUTRITION CONSULTANT) us Scanner OTHER Final Result * XR DEXA BONE DENSITY 2 SITES (11/19/2010 10:21 AM CDT) Anatomical Region Laterality Modality Spine, HIPS, HIPL, HIPR Other Narrative 11/21/2010 1:24 PM CDT Please see scanned document for results of this study. Procedure Note Rosalba Melchor - 11/21/2010 Please see scanned document for results of this study. Chilo Irizarry MD DEXA Final Resu lt from Last 3 Months or Most Recently Relevant to Health Maintenance Insurance MEDICARE PB ONLY MEDICARE PART B HB ONLY MEDICARE PART A HB ONLY [facility] MEDICARE PB ONLY Advance Directives Documents on File Type Date Recorded Patient Seo Intern Expl anation Healthcare Directive 04/24/2000 001 * Full Code (Latest Code Status on File) Date Activated Date Inactivated Comments 09/30/2023 11:48 AM 09/30/2023 5:25 PM Should be dis cussed pre operatively with anesthesia or surgeon Question Answer Comments Code Status Discussion: Not Discussed * Full Code Date Activated Date Inactivated Comments 06/17/2023 10:08 AM 06/19/2023 4:49 PM Question Answer Comments Code Status Discussion: Reviewed Preferences * Full Code Date Activated Date Inactivated Comments 05/15/2023 3:44 PM 05/16/2023 4:41 PM Question Answer Comments Code Status Discussion: Unable to Assess Preferences, Provider to review later * Full Code Date Activated Date Inactivated Comments 10/09/2014 9:54 AM 10/09/2014 2:22 PM Care Teams Deicer Inspector Electric Relationship Specialty Start Date End Date Jhonny Guerrero MD [address] [place] [address] PCP - General Family Practice 04/02/20
--- NOTE | 2024-05-06 10:19 | ED.GENADULT ---
HPI - General Adult General Chief complaint: Weakness Stated complaint: Vomiting, diarrhea Time Seen by Provider: 05/06/24 10:02 History of Present Illness HPI narrative: Patient is a 88-year-old woman who comes in as a transfer from the [facility] clinic after developing 24 hour history of nausea vomiting diarrhea. She has had no obvious blood in her stool or vomit. She has no overt abdominal pain. She has had no fevers no chills. She is unable to keep anything down feels very dehydrated. She has had no chest pain no shortness of breath no cough no urinary symptoms. Patient self catheterizes and is prone to frequent UTIs. Related Data Home Medications ?Medication ?Instructions ?Recorded ?Confirmed amlodipine 5 mg tablet 5 mg PO DAILY 03/26/23 03/26/23 atorvastatin 40 mg tablet 40 mg PO QPM 03/26/23 03/26/23 chlorthalidone 25 mg tablet 25 mg PO DAILY 03/26/23 03/26/23 fosinopril 40 mg tablet 40 mg PO DAILY 03/26/23 03/26/23 insulin NPH isoph U-100 human 100 13 unit subcut BID 03/26/23 03/26/23 unit/mL subcutaneous suspension (Humulin N NPH U-100 Insulin (isophane susp)) ketorolac 0.5 % eye drops 1 drp ophthalmic (eye) BID 03/26/23 03/26/23 metformin 500 mg tablet 500 mg PO BID 03/26/23 03/26/23 timolol maleate 0.5 % eye drops 1 drp ophthalmic (eye-left) BID 03/26/23 03/26/23 Allergies Allergy/AdvReac Type Severity Reaction Status Date / Time Penicillins Allergy Verified 05/06/24 10:01 Sulfa (Sulfonamide AdvReac Verified 05/06/24 10:01 Antibiotics) Review of Systems Status of ROS: Reports: 10 or more systems reviewed and unremarkable except as noted in History and below [facility] PFS Social History Smoking Status: Never smoker Do you use any of these nicotine containing products: None Second hand tobacco smoke exposure: No How often do you have a drink containing alcohol: never How often do you have six or more drinks on one occasion: Never AUDIT-C Alcohol total score: 0 Non-prescribed substance use: denies use service: No Exam Narrative: Exam Narrative: EXAM GENERAL: Patient appears comfortable and well. EYES: No scleral icterus. LYMPH: No supraclavicular or cervical lymphadenopathy. SKIN: Visible skin seen during exam normal or with benign process only. EXT: No dependent lower extremity pedal edema. HEART: Regular rate and rhythm with no murmurs, rubs, or gallops. LUNGS: Clear to auscultation bilaterally with no crackles or wheezes. ABD: Soft, non tender, non distended. PSYCH: Good eye contact, speech is not pressured. Const: Vital Signs, click to edit/add: Vital Signs - 24 hr 05/06/24 10:01 Temperature 98.6 F Blood Pressure [Ri ght Upper Arm] 105/50 L Pulse Oximetry 99 Oxygen Delivery Me thod Room Air Course Course ED Course: Patient seen examined. Hemoccult pending. CBC comprehensive metabolic panel lactate lipase UA pending. 1 L normal saline 4 mg IV Zofran given. Vital Signs Vital signs: Initial Vital Signs Temperature 98.6 F 05/06/24 10:01 Temperature Source Temporal Artery Scan 05/06/24 10:01 Blood Pressure 105/50 L 05/06/24 10:01 Blood Pressure Mean 68 L 05/06/24 10:01 Blood Pressure Position Semi-Fowlers 05/06/24 10:01 Pulse Oximetry 99 05/06/24 10:01 Oxygen Delivery Method Room Air 05/06/24 10:01 Vital Signs Temperature 98.6 F 05/06/24 10:01 Blood Pressure 105/50 L 05/06/24 10:01 Pulse Oximetry 99 05/06/24 10:01 Oxygen Delivery Method Room Air 05/06/24 10:01 Temperature 98.6 F 05/06/24 10:01 Blood Pressure 105/50 L 05/06/24 10:01 Pulse Oximetry 99 05/06/24 10:01 Oxygen Delivery Method Room Air 05/06/24 10:01 Medications Administered Medications: Generic Name Dose Route Start Last Admin Trade Name Freq PRN Reason Stop Dose Admin Sodium Chloride 1,000 mls @ 1,000 mls/hr 05/06/24 11:28 05/06/24 12:03 0.9 % Sodium Chloride 1000 Ml IV 05/06/24 12:27 1,000 mls/hr .Q1H IZABELLA Administration Discontinued Medications Generic Name Dose Route Start Last Admin Trade Name Jenaro PRN Reason Stop Dose Admin Sodium Chloride 1,000 mls @ 1,000 mls/hr 05/06/24 10:19 05/06/24 11:41 0.9 % Sodium Chloride 1000 Ml IV 05/06/24 11:18 Infused .Q1H IZABELLA Infusion Ondansetron HCl 4 mg 05/06/24 10:17 05/06/24 10:38 Ondansetron 2 Mg/Ml Inj IVP 05/06/24 10:18 4 mg ONCE ONE Administration Medical Decision Making MDM Narrative Medical decision making narrative: Patient is 88-year-old woman with nausea vomiting and weakness. She has a baseline creatinine of 1.2 and today it is 5.2. She has difficulty emptying her bladder and self catheterizes. She has been having trouble keeping up with her fluids. Patient takes blood pressure medications including fosinopril. She also takes metformin. Liver function tests showed elevated transaminase level of both AST and ALT. We did hydrate her in the emergency room and treated her nausea. Stool for occult is pending CT of the abdomen pelvis without contrast shows kidney stones with no obstruction. UA is still pending. This point patient will be admitted for hydration further evaluation of her renal insufficiency and elevation in transaminases. I suspect that she was dehydrated and her symptoms will improve. Would hold her outpatient blood pressure medications in the interim. Lab Data Labs: Lab Results 05/06/24 05/06/24 05/06/24 Range/Units 10:24 10:38 Unknown WBC 13.93 H (4.50-11.00) K/uL RBC 3.83 L (4.00-5.20) m/uL Hgb 10.9 L (12.0-16.0) gm/dL Hct 33.5 (33.0-51.0) % MCV 88 (80-100) fL MCH 29 (26-34) pg MCHC 33 (32-36) gm/dL RDW Coeff of Yoel 14.4 (11.5-15.5) % Plt Count 327 (140-440) K/uL Neut % (Auto) 79.3 H (42.0-72.0) % Lymph % (Auto) 9.3 L (20-44) % [place] % (Auto) 10.8 (0.0-11.0) % Eos % (Auto) 0.1 (0.0-7.0) % Baso % (Auto) 0.1 (0.0-3.0) % Neut # (Auto) 11.00 H (1.7-7.0) K/uL Lymph # (Auto) 1.30 (0.90-2.90) K/uL [place] # (Auto) 1.50 H (0.00-0.90) K/UL Eos # (Auto) 0.00 (0.00-0.50) K/uL Baso # (Auto) 0.00 (0.00-0.30) K/uL Abs Immat Gran (auto) 0.10 (0.00-0.30) K/uL Imm/Tot Granulo (auto) 0.4 % Sodium 130 L (135-149) mmol/L Potassium 4.4 (3.6-5.1) mmol/L Chloride 91 L (96-114) mmol/L Carbon Dioxide 17 L (20-32) mmol/L Anion Gap 22 H (7-15) mEq/L BUN 90 H (7-30) mg/dL Creatinine 5.2 H (0.5-1.5) mg/dL Estimated Creat Clear 5.27 Estimated GFR 8 ml/min Glucose 182 H (60-115) mg/dL Lactate 1.9 (0.5-1.9) mmol/L Calcium 9.4 (8.4-10.6) mg/dL Total Bilirubin 1.0 (0.1-1.5) mg/dL AST 192 H (12-35) U/L ALT 270 H (4-35) U/L Alkaline Phosphatase 111 (40-150) U/L Total Protein 7.6 (6.0-8.3) g/dL Albumin 4.5 (3.3-5.0) g/dL Lipase 260 (23-300) U/L Stool Occult Blood Positive A (Negative) Discharge Plan Discharge Clinical Impression: Acute renal failure Patient Disposition: Admitted As Observation Condition: Stable Activity Level: Other Discharge Diet: Other Prescriptions: No Action atorvastatin 40 mg tablet 40 mg PO QPM metformin 500 mg tablet 500 mg PO BID chlorthalidone 25 mg tablet 25 mg PO DAILY amlodipine 5 mg tablet 5 mg PO DAILY ketorolac 0.5 % drops 1 drp ophthalmic (eye) BID fosinopril 40 mg tablet 40 mg PO DAILY Humulin N NPH U-100 Insulin 100 unit/mL suspension 13 unit subcut BID timolol maleate 0.5 % drops 1 drp ophthalmic (eye-left) BID Follow Up/Referrals: Jhonny Guerrero MD [Primary Care Provider] - Stand Alone Forms: Motorator Info Instructions
[2024-05-06] MEDS: ONDANSETRON 2 MG/ML inj 4 MG IVP ×2 (10:38→18:44)
[2024-05-06] MEDS: 0.9 % SODIUM CHLORIDE 1000 ml 1,000 ML IV ×2 (10:39→12:03)
[2024-05-06 10:50] LABS: Lactate* 1.9 mmol/L (0.5-1.9)
[2024-05-06 10:54] LABS: Basophils Percent Auto 0.1 % (0.0-3.0); Eosinophils Percent Auto 0.1 % (0.0-7.0); Hematocrit 33.5 % (33.0-51.0); Hemoglobin* 10.9 gm/dL (12.0-16.0); Lymphocytes Percent Auto 9.3 % (20-44); Mean Corpuscular HGB Conc 33 gm/dL (32-36); Mean Corpuscular Hemoglobin 29 pg (26-34); Mean Corpuscular Volume 88 fL (80-100); Monocytes Percent Auto 10.8 % (0.0-11.0); Neutrophils Percent Auto 79.3 % (42.0-72.0); Platelet Count* 327 K/uL (140-440); RDW Coefficient of Variation % 14.4 % (11.5-15.5); Red Blood Count 3.83 m/uL (4.00-5.20); White Blood Count* 13.93 K/uL (4.50-11.00)
[2024-05-06 10:55] LABS: Immature Granulocytes Pct Auto 0.4 %
[2024-05-06 10:57] LABS: Slide Review Reflex No
[2024-05-06 11:09] LABS: Albumin* 4.5 g/dL (3.3-5.0); Chloride* 91 mmol/L (96-114)
[2024-05-06 11:10] LABS: Potassium* 4.4 mmol/L (3.6-5.1); Sodium* 130 mmol/L (135-149)
[2024-05-06 11:12] LABS: Alkaline Phosphatase* 111 U/L (40-150); Anion Gap 22 mEq/L (7-15); Aspartate Amino Transferase* 192 U/L (12-35); Blood Urea Nitrogen* 90 mg/dL (7-30); Calcium* 9.4 mg/dL (8.4-10.6); Carbon Dioxide* 17 mmol/L (20-32); Creatinine* 5.2 mg/dL (0.5-1.5); Est. Creatinine Clearance* 5.27; Estimated Glomerular Filt Rate 8 ml/min; Glucose* 182 mg/dL (60-115); Lipase* 260 U/L (23-300); Total Protein* 7.6 g/dL (6.0-8.3)
[2024-05-06 11:13] LABS: Alanine Aminotransferase* 270 U/L (4-35)
--- NOTE | 2024-05-06 11:27 | CRLHL7_ITS ---
For Patients: As a result of the Century Cures Act, medical imaging exams and procedure reports are released immediately into your electronic medical record. You may view this report before your referring provider. If you have questions, please contact your health care provider. Indication: LOWER ABD PAIN X 2 DAYS. N/V/D. PT DOES SELF CATH IN THE MORNINGS Technique: CT abdomen/pelvis without IV contrast Comparison: CT abdomen/pelvis on June 25, 2017 Findings: Lower thorax: No acute abnormality. Abdomen/pelvis: The liver is unremarkable in appearance. Status post cholecystectomy. No significant biliary ductal dilatation. The spleen, pancreas, and bilateral adrenal glands are unremarkable in appearance. There is severe right-sided hydroureteronephrosis and mild left-sided hydroureteronephrosis without obstructing mass or stones. Mild wall thickening of the bilateral ureters, right greater than left. There are few nonobstructing renal calculi/renal vascular calcifications. There is circumferential bladder wall thickening with faint pericystic fat stranding, which can be seen with cystitis. Status post hysterectomy. No suspicious adnexal lesions. No evidence of bowel obstruction or inflammation. The appendix is normal. No free air, free fluid, or fluid collections. No abdominopelvic lymphadenopathy. No abdominal aortic aneurysm. Mild calcific atherosclerosis of the aortoiliac system. Soft tissue/musculoskeletal: Calcified granulomas and scarring in the anterior lower abdominal wall. No acute fracture or malalignment. Mild degenerative anterolisthesis of L4 on L5. Degenerative disc disease at L5-S1. Facet arthropathy of the lower lumbar spine. No suspicious osseous lesions. Impression: 1. Severe right and mild left hydroureteronephrosis without obstructing stone or lesion. 2. Circumferential bladder wall thickening with faint pericystic fat stranding, which can be seen with cystitis. Please note that all CT scans at this facility use dose modulation, iterative reconstruction, and/or weight-based dosing when appropriate to reduce radiation dose to as low as reasonably achievable. Dictated by Nnamdi Bay MD @ 05/06/2024 12:12:42 PM (Electronically Signed)
[2024-05-06 11:40] LABS: Fecal Occult Blood* Positive (Negative)
--- OUTSIDE RECORDS SUMMARY | 2024-05-06 11:49 | XMS_ITS | Clinical Summary ---
Author Organization [facility] Address [facility] [place] [address] Care Team Providers Care Marketing Trainee Name Role Phone Jhonny Guerrero MD Primary [...] Description 05/06/2024 9:10 AM CDT Office Visit [facility] [[email or web address] [address] [place] [address] Lacie Ponce, Gi Problem (Started yesterday, nausea, vomiting, diarrhea, is unable to eat or drink hardly at all.) 05/06/2024 Travel 03/29/2024 Telephone [facility] [[email or web address]] [address] [place] [address] Jhonny Guerrero MD Form (03/28/24 ANGELIA ) 03/15/2024 9:00 AM BANQUET COOK Office Visit [facility] [address] [place] [address] Stoney Murrieta, OD Eye Exam (DM CEE) 03/15/2024 Travel 03/11/2024 Telephone [facility] [address] [place] [address] Sarahy Xiao PA Follow Up 03/07/2024 Telephone [facility] [address] [place] [address] Desmond Vallejo MD, PhD Refill Request (Clopidogrel) 03/03/2024 9:20 AM BANQUET COOK Office Visit [facility] [address] [place] [address] Sarahy Xiao PA Follow Up (Follow up CT scan on 01/25/24.) 03/03/2024 Telephone [facility] [address] [place] [address] Sarahy Xiao PA DME Supply (Change catheter order) 03/03/2024 Travel 03/02/2024 10:05 AM BANQUET COOK Office Visit [facility] [[email or web address]] [address] [facility] [address] Jhonny Guerrero MD Diabetes (6 month follow up) 03/02/2024 Telephone [facility] [[email or web address]] [address] [place] [address] Jhonny Guerrero MD Results 03/01/2024 10:15 AM BANQUET COOK Orders Only [facility] [[email or web address]] [address] [place] [address] Lab, [place] Lab 03/01/2024 Travel 02/10/[address] [facility] Scanner 1 scan: (1-Ord) RCM, 02/10/2024 from Last 3 Months Immunizations Immunization Administration Dates Next Due AMB Influenza, IIV3 (Age >=3 years)(Flu Clinic Only) 01/01/2010 Amb Influenza, Inact (High-d ose Quadrivalent) (Flu Clinic Only) 12/22/2019 COVID-19 VACCINE SPIKEVAX (M ODERNA 50MCG/0.5ML) 12YO+ PFS 11/30/2023,08/28/2023,01/26/2023 COVID-19 vaccine (Platypus TV NTech 30mcg/0.3mL) 12YO+ BIVALENT PF, MDV 07/30/2022,01/02/2022 COVID-19 vaccine (Platypus TV NTech 30mcg/0.3mL) 12YO+ ARELY-SUCROSE PF, MDV 07/03/2021 COVID-19 vaccine (Platypus TV NTech 30mcg/0.3mL) PF, MDV 12/17/2020,04/28/2020,04/07/2020 Influenza, High-dose [...] on file Legal Sex Female 5:20 AM BANQUET COOK Gender Identity Not on file Sexual Orientation [...] Contact Info) Description 05/31/2024 Cardiac Device Check [facility] [phone] 06/01/2024 10:00 AM CDT Ancillary Procedure [facility] [address] [place] [phone] 06/10/2024 1:00 PM CDT Office Visit [facility] [address] [facility] [address] [place] [address] Desmond Vallejo MD, PhD [address] [facility] [address] [place] [address] 07/13/2024 9:00 AM CDT Office Visit [facility] [address] [place], [place] [id number] [place] [address] [place] [address] 08/01/2024 9:00 AM CDT Ancillary Procedure [facility] [[email or web address]] [address] [facility] [address] 08/04/2024 8:40 AM CDT Office Visit [facility] [address] [place] [address] Sarahy Xiao PA [address] [place] [address] 08/30/2024 9:00 AM CDT Orders Only [facility] [[email or web address]] [address] [place] [address] Lab[place] 09/02/2024 9:40 AM CDT Office Visit [facility] [[email or web address]] [address] [place] [address] Jhonny Guerrero MD [address] [place] [address] Health Maintenance Due Date Last Done Comments [...] history exists Medical Devices Implanted Type Area Shake Sawyer Device Identifier Shelf Expiration Date Model / Serial / Lot Lens Iol 23.0 Wf [id number]. [id number] - [id number] Implanted:Qty: 1 on 10/09/2014 by Moose Sands MD at [facility] Left: Eye [employer] 07/24/2019 [id number]. [id number] / [id number] / Procedures Procedure Name Priority Date/Time Associated Diagnosis Comments BASIC METABOLIC PANEL Routine 03/02/2024 10:32 AM BANQUET COOK Stage 3a chronic kidney disease (HC) BASIC METABOLIC PANEL Routine 03/01/2024 10:15 AM BANQUET COOK Stage 3a chronic kidney disease (HC) LIPID PANEL W REFLEX MEASURED LDL Routine 03/01/2024 10:15 AM BANQUET COOK Mixed hyperlipidemia HEMOGLOBIN A1C MONITORING (POCT) Routine 03/01/2024 10:14 AM BANQUET COOK Type 2 diabetes mellitus with stage 3a chronic kidney disease, with long-term current use of insulin (HC) SCAN-EYE EXAM 02/10/2024 12:00 AM BANQUET COOK XR DXA BONE DENSITY 2 SITES AXIAL Routine 11/19/2010 10:21 AM CDT AGE-RELATED BONE LOSS from Last 3 Months or Most Recently Relevant to Health Maintenance Results * (ABNORMAL) BASIC METABOLIC PANEL (03/02/2024 10:32 AM BANQUET COOK) Only the most recent of2 resultswithin the time period is included. GLUCOSE 125(H) 65 - 99 mg/dL [facility] krystyna Sheppard Comment: Fasting reference interval [...] BLOOD SPECIMEN / Unknown 03/02/2024 10:32 AM BANQUET COOK 03/02/2024 10:33 AM BANQUET COOK us Jhonny Guerrero MD CHEMISTRY Final Result [facility] [address] [place] [address], [facility] [address] [place] [address] * (ABNORMAL) LIPID PANEL W REFLEX MEASURED LDL (03/01/2024 10:15 AM BANQUET COOK) CHOLESTEROL, TOTAL 206(H) <200 mg/dL [facility] [...] LDL-C. Hitesh EDWARDS et al. MARBELLA. 2013;310(19): 2478-0565 (http://education.Groove/faq/LZB167) CHOL/HDLC RATIO 3.4 <5.0 (calc) [facility] NON HDL CHOLESTEROL 146(H) <130 mg/dL (calc) [facility] Comment: For patients with diabetes plus 1 major ASCVD risk factor, treating to a non-HDL-C goal of <100 mg/dL (LDL-C of <70 mg/dL) is considered a therapeutic option. Blood BLOOD SPECIMEN / Unknown 03/01/2024 10:15 AM BANQUET COOK 03/01/2024 10:15 AM BANQUET COOK us Jhonny Guerrero MD CHEMISTRY Final Result [facility] [address] [place] [address], [place] [phone] [facility] [address] * (ABNORMAL) HEMOGLOBIN A1C MONITORING (POCT) (03/01/2024 10:14 AM BANQUET COOK) POC HEMOGLOBIN A1C 7.5(H) <6.0 % OF TOTAL HGB [facility] Comment: Any point of care results exhibiting inconsistency with the patient's clinical status should be repeated using a different testing method. Blood BLOOD SPECIMEN / Unknown 03/01/2024 10:14 AM BANQUET COOK 03/01/2024 10:14 AM BANQUET COOK Jhonny Guerrero MD CHEMISTRY Final Result Performing Organization Address [facility]/ZIP Co de Phone Number [facility] [address] [place] [address], [place] [phone] [facility] [address] [place] [address] * SCAN-EYE EXAM (02/10/2024 12:00 AM BANQUET COOK) us Scanner OTHER Final Result * XR [...] HB ONLY MEDICARE PART A HB ONLY [facility]IC[facility] PB ONLY Advance Directives Documents on File Type Date Recorded Patient Scenery Builder Expl anation Healthcare Directive 04/24/2000 001 * [...] 9:54 AM 10/09/2014 2:22 PM Care Teams Marketing Trainee Relationship Specialty Start Date End Date Jhonny Guerrero MD [address] [place] [address] PCP - General Family Practice 04/02/20
[2024-05-06 13:57] LABS: Appearance Urine Turbid (Clear); Bilirubin Urine Negative (Negative); Blood Urine 2+ (Negative); Color Urine Yellow (Yellow); Glucose Urine Negative (Negative); Ketones Urine 1+ (Negative); Leukocyte Esterase Urine 3+ (Negative); Nitrite Urine Negative (Negative); Protein Urine 3+ (Negative); Specific Gravity Urine >= 1.030 (1.000-1.030); Urobilinogen Urine 0.2 (0.2-1.0)
[2024-05-06 14:05] LABS: Bacteria Urine Many; RBC Urine 0-2 (0-2); Squamous Epithelial Cell Urine Few (None-Few); WBC Urine >100 (0-5)
[2024-05-06] MEDS: 0.9 % SODIUM CHLORIDE 500 ML 500 ML IV ×2 (14:23→22:35)
--- NOTE | 2024-05-06 16:12 | P.IMHP_ITS ---
Hospitalist- H&P: HPI History of Present Illness Date Seen: 05/06/24 Chief complaint: Vomiting, diarrhea Narrative: Charley Pyle is a 88 year old female past medical history significant for hypertension, hyperlipidemia, ASCVD, history of permanent pacemaker, status post TAVR, diabetes mellitus type 2, CKD stage 3 is admitted to the medical floor from the ED for further management acute renal failure in setting of vomiting diarrhea and dehydration. Patient reports waking morning not feeling particularly well. Began vomiting with diarrhea around noon. This continued until arrival into the ED earlier today, having subsided following IVF and Zofran. Denies known contacts or exposures. Denies headache. Has had some mild dizziness over the last 24 hours. No falls. Denies chest pain or shortness of breath. No cough. No palpitations. Denies fevers or chills. Currently, abdomen is slightly achey otherwise no focal pains. Reports stools have been dark. Does have a history of a duodenal ulcer in the past. Reports urine is darker and that she does have a history of UTIs. Decreased urine output over the last 24 hours noted. In the ED, creatinine is 5.2, CT shows hydroureteronephrosis. Potassium 4.4. Hemoglobin 10.9. FOBT positive. PCP is Dr. Guerrero. Nonsmoker. No alcohol use. Wishes to be DNR/DNI - has healthcare directive in place. Review of Systems Narrative: REVIEW OF SYSTEMS: Complete review of systems performed and negative unless otherwise stated in HPI or below. [facility] Medical History Left kidney mass ?N28.89 - Other specified disorders of kidney and ureter (ICD-10) Hydronephrosis of right kidney ?N13.30 - Unspecified hydronephrosis (ICD-10) Stage 3a chronic kidney disease (CKD) ?N18.31 - Chronic kidney disease, stage 3a (ICD-10) History of duodenal ulcer ?Z87.19 - Personal history of other diseases of the digestive system (ICD-10) Diabetes mellitus ?E11.9 - Type 2 diabetes mellitus without complications (ICD-10) Hyperlipidemia ?E78.5 - Hyperlipidemia, unspecified (ICD-10) Hypertension ?I10 - Essential (primary) hypertension (ICD-10) ASCVD (arteriosclerotic cardiovascular disease) ?I25.10 - Atherosclerotic heart disease of [place] coronary artery without angina pectoris (ICD-10) Surgical History S/P TAVR (transcatheter aortic valve replacement) ?Z95.2 - Presence of prosthetic heart valve (ICD-10) Social History What is your current living situation?: I presently have a place to live Problems where you live: no known problems Problems where you live details: n/a In the past 12 months, utilities in danger of being shut off: no In past 12 months, lack of transportation kept you from medical appts, meetings, work, or getting things needed for daily living: no In the past 12 mos, have been you worried that your food would run out before you had money to buy more?: never true In the past 12 mos, the food you bought just didn't last and you didn't have money to buy more?: never true Highest level of school completed/degree received: high school graduate Smoking Status: Never smoker Do you use any of these nicotine containing products: None Second hand tobacco smoke exposure: Yes ( and son) How often do you have a drink containing alcohol: monthly or less How often do you have six or more drinks on one occasion: Never AUDIT-C Alcohol total score: 1 Non-prescribed substance use: denies use Caffeine: Yes How often does anyone, including family, friends and others, physically hurt you : never How often does anyone, including family, friends and others, insult or talk down to you: never How often does anyone, including family, friends and others, threaten you with harm: never How often does anyone, including family, friends and others, scream or curse at you: never service: No Meds Home Medications and Allergies Home Medications ?Medication ?Instructions ?Recorded ?Confirmed ?Type amlodipine 5 mg tablet 5 mg PO DAILY 03/26/23 05/06/24 History chlorthalidone 25 mg tablet 25 mg PO DAILY 03/26/23 05/06/24 History fosinopril 40 mg tablet 40 mg PO DAILY 03/26/23 05/06/24 History ketorolac 0.5 % eye drops 1 drp ophthalmic (eye) BID 03/26/23 05/06/24 History metformin 500 mg tablet 500 mg PO BID 03/26/23 05/06/24 History timolol maleate 0.5 % eye drops 1 drp ophthalmic (eye-left) BID 03/26/23 05/06/24 History aspirin 81 mg tablet,delayed 81 mg PO DAILY 05/06/24 05/06/24 History release (Adult Aspirin Regimen) clopidogrel 75 mg tablet 75 mg PO DAILY 05/06/24 05/06/24 History empagliflozin 10 mg tablet 10 mg PO DAILY 05/06/24 05/06/24 History (Jardiance) ezetimibe 10 mg tablet 10 mg PO DAILY 05/06/24 05/06/24 History latanoprost 0.005 % eye drops 1 drp ophthalmic (eye) QPM 05/06/24 05/06/24 History rosuvastatin 40 mg tablet 40 mg PO QPM 05/06/24 05/06/24 History Allergies Allergy/AdvReac Type Severity Reaction Status Date / Time Penicillins Allergy Verified 05/06/24 10:01 Sulfa (Sulfonamide AdvReac Verified 05/06/24 10:01 Antibiotics) Exam Narrative: Exam Narrative: PHYSICAL EXAM General: Very pleasant, appropriately conversant, NAD HEENT: Normocephalic, atraumatic, sclera white, EOMI, oral mucosa dry Cardiovascular: RRR, S1S2. No pitting edema Pulmonary: CTA bilaterally without rhonchi, rales, expiratory wheezes. No dyspnea Abdominal: Soft, nondistended, NTTP, no guarding Neurological: Alert, answering questions appropriately, cranial nerves intact, no focal findings Extremities: No gross joint deformity or swelling. AROMI. Neurovascularly intact Skin: Warm, dry. Const: Vital Signs, click to edit/add: Vital Signs - 24 hr 05/06/24 10:01 05/06/24 13:46 05/06/24 13:52 Temperature 98.6 F 98 F Pulse Rate [Left P ulse Oximeter] 63 Pulse Rate [Right Pulse Oximeter] 66 Respiratory Rate 18 18 Blood Pressure [Ri ght Upper Arm] 105/50 L 102/48 L Pulse Oximetry 99 99 98 Oxygen Delivery Me thod Room Air Room Air Hospitalist - H&P: Result Labs Labs: Short CBC 05/06/24 Range/Units 10:24 WBC 13.93 H (4.50-11.00) K/uL Hgb 10.9 L (12.0-16.0) gm/dL Hct 33.5 (33.0-51.0) % Plt Count 327 (140-440) K/uL BMP 05/06/24 10:38 Sodium 130 L Potassium 4.4 Chloride 91 L Carbon Dioxide 17 L BUN 90 H Creatinine 5.2 H Glucose 182 H Calcium 9.4 Liver Function 05/06/24 Range/Units 10:38 Total Bilirubin 1.0 (0.1-1.5) mg/dL AST 192 H (12-35) U/L ALT 270 H (4-35) U/L Alkaline Phosphatase 111 (40-150) U/L Albumin 4.5 (3.3-5.0) g/dL Urine 05/06/24 Range/Units 13:30 Urine Color Yellow (Yellow) Urine Appearance Turbid A (Clear) Urine pH 5.0 (5.0-8.5) Ur Specific Jeremiah >= 1.030 (1.000-1.030) Urine Protein 3+ A (Negative) Urine Glucose (UA) Negative (Negative) Imaging CT abdomen pelvis: Attestation: I have reviewed the pertinent imaging results. Radiologist's impression: Lower thorax: No acute abnormality. Abdomen/pelvis: The liver is unremarkable in appearance. Status post cholecystectomy. No significant biliary ductal dilatation. The spleen, pancreas, and bilateral adrenal glands are unremarkable in appearance. There is severe right-sided hydroureteronephrosis and mild left-sided hydroureteronephrosis without obstructing mass or stones. Mild wall thickening of the bilateral ureters, right greater than left. There are few nonobstructing renal calculi/renal vascular calcifications. There is circumferential bladder wall thickening with faint pericystic fat stranding, which can be seen with cystitis. Status post hysterectomy. No suspicious adnexal lesions. No evidence of bowel obstruction or inflammation. The appendix is normal. No free air, free fluid, or fluid collections. No abdominopelvic lymphadenopathy. No abdominal aortic aneurysm. Mild calcific atherosclerosis of the aortoiliac system. Soft tissue/musculoskeletal: Calcified granulomas and scarring in the anterior lower abdominal wall. No acute fracture or malalignment. Mild degenerative anterolisthesis of L4 on L5. Degenerative disc disease at L5-S1. Facet arthropathy of the lower lumbar spine. No suspicious osseous lesions. Impression: 1. Severe right and mild left hydroureteronephrosis without obstructing stone or lesion. 2. Circumferential bladder wall thickening with faint pericystic fat stranding, which can be seen with cystitis. Assessment and Plan Assessment and plan (1) Acute renal failure: Problem comment: -Creatinine 5.2, baseline 1.2-1.5, recheck on admission to floor ->4.5 -bilateral hydroureteronephrosis -continue IV hydration -holding home medications pending improvement Status: Acute (2) Hydroureteronephrosis: Problem comment: -CT shows severe right-sided hydroureteronephrosis and mild left-sided hydroureteronephrosis without obstructing mass or stones. Mild wall thickening of the bilateral ureters, right greater than left. There are few nonobstructing renal calculi/renal vascular calcifications -creatinine 5.2, BUN 90, GFR 8, creatinine clearance 5.27 -gentle hydration -IV antibiotics for suspected UTI -Guzman catheter in place, strict I&Os Status: Acute (3) Dehydration: Problem comment: -in setting of acute gastroenteritis -acute renal failure, elevated liver enzymes, hyponatremia, hydroureteronephrosis, hypotensive -has received normal saline boluses, continue gentle hydration, monitoring Status: Acute (4) Vomiting and diarrhea: Problem comment: -improved following IVF and IV Zofran in ED -okay for clears, continue gentle hydration -GI pathogen panel, C difficile ordered -Mag and phos ordered Status: Acute (5) Hyponatremia: Problem comment: -sodium 130, suspect in setting of decreased oral intake, vomiting and diarrhea -will continue gentle IV hydration, hold off on fluid restriction for now given dehydration, recheck sodium on admission to floor and continue to monitor -clear protein supplements as tolerated Status: Acute (6) Elevated liver enzymes: Problem comment: -AST 192, ALT 270, bilirubin WNL at 1.0 -likely in setting of dehydration, acute gastroenteritis -recheck in a.m. Status: Acute (7) GI bleed: Problem comment: -dark stools reported -FOBT + -hemoglobin 10.9, previously 11.3, recheck on admission to floor -hold aspirin and Plavix -history of duodenal ulcer 2018 -start PPI -SCDs for VTE PPX Status: Acute (8) History of duodenal ulcer: Problem comment: -2018 Status: Acute (9) Urinary tract infection: Problem comment: -history of recurrent -UA turbid, pH 5, protein 3+, 3+ LE, WBC > 100, many bacteria -CT shows circumferential bladder wall thickening with faint pericystic fat stranding, which can be seen with cystitis -start ceftriaxone (previous UC sensitive to this) pending UC, discontinue if appropriate Status: Acute (10) Hypertension: Problem comment: -soft pressures, systolics low 100 -hold amlodipine, chlorthalidone, Monopril -continue gentle hydration, monitoring for fluid overload Status: Acute (11) Hyperlipidemia: Problem comment: -hold zetia for now Status: Acute (12) Diabetes mellitus: Problem comment: -most recent A1c 7.5 -given dehydration, acute renal failure, elevated LFTs hold Jardiance and metformin -glucose checks ACHS, insulin sliding scale Status: Acute (13) Stage 3a chronic kidney disease (CKD): Problem comment: -baseline creatinine 1.21-1.50 Status: Acute Total Time Spent Total Time Spent: Today I spent 75 minutes seeing the patient, discussing the patient with ER staff, reviewing Expanse and Epic notes/diagnostics, discussing the care plan with our team that includes social work, PT/OT, pharmacy, RT, shelter and documenting my impressions and plan in the medical record.
[2024-05-06 17:01] LABS: Lab Add On Test New Spec Needed
[2024-05-06 17:06] LABS: Sodium* 131 mmol/L (135-149)
[2024-05-06 17:08] LABS: Creatinine* 4.5 mg/dL (0.5-1.5); Est. Creatinine Clearance* 6.08; Estimated Glomerular Filt Rate 9 ml/min
[2024-05-06 17:09] LABS: Magnesium* 2.7 mg/dL (1.5-2.6)
[2024-05-06] MEDS: cefTRIAXone 1 GM in 0.9 % SODIUM CHLORIDE Mini-bag 100 ML IVPB (17:16)
[2024-05-06 17:21] LABS: Hemoglobin* 8.8 gm/dL (12.0-16.0)
[2024-05-06] MEDS: 0.9 % SODIUM CHLORIDE 1000 ml 1,000 ML 75 ML IV (18:44)
[2024-05-06] MEDS: LATANOPROST 0.005% OPHTH 1 DROP EYE-BOTH (20:38)
[2024-05-06] MEDS: timoloL maleate 0.5 % 1 DROP EYE-LEFT (20:38)
[2024-05-06] MEDS: KETOROLAC OPHTH 0.5% 1 DROP EYE-BOTH (20:38)
[2024-05-06 22:57] LABS: Hemoglobin* 8.4 gm/dL (12.0-16.0)
[2024-05-06 23:11] LABS: Chloride* 101 mmol/L (96-114); Sodium* 131 mmol/L (135-149)
[2024-05-06 23:14] LABS: Anion Gap 14 mEq/L (7-15); Blood Urea Nitrogen* 80 mg/dL (7-30); Carbon Dioxide* 16 mmol/L (20-32); Creatinine* 4.4 mg/dL (0.5-1.5); Est. Creatinine Clearance* 6.22; Estimated Glomerular Filt Rate 9 ml/min; Glucose* 191 mg/dL (60-115)
[2024-05-07] VITALS (7 sets, daily range): BP systolic 84–108; BP diastolic 43–54; PULSE 60–69; RESP 16–18; TEMP 36.4–36.9; O2SAT 97–99
[2024-05-07 02:38] LABS: Hemoglobin* 8.1 gm/dL (12.0-16.0)
[2024-05-07 02:54] LABS: Chloride* 103 mmol/L (96-114); Potassium* 3.9 mmol/L (3.6-5.1); Sodium* 133 mmol/L (135-149)
[2024-05-07 02:57] LABS: Anion Gap 13 mEq/L (7-15); Blood Urea Nitrogen* 79 mg/dL (7-30); Carbon Dioxide* 17 mmol/L (20-32); Creatinine* 4.3 mg/dL (0.5-1.5); Est. Creatinine Clearance* 6.36; Estimated Glomerular Filt Rate 9 ml/min; Glucose* 169 mg/dL (60-115)
[2024-05-07] MEDS: 0.9 % SODIUM CHLORIDE 1000 ml 1,000 ML 125 ML IV ×3 (04:57→23:38)
--- NOTE | 2024-05-07 05:25 | W.PM.CROSSCO ---
Subjective Subjective Principal diagnosis: Hypotension Interval history: Paged by RN for pt has hypotension. SHe was initially monitored on current fluids. HOwever remained hypotensive and per RN asymptomatic. Assessment and Plan Assessment and plan (1) Hydroureteronephrosis: Problem comment: -CT shows severe right-sided hydroureteronephrosis and mild left-sided hydroureteronephrosis without obstructing mass or stones. Mild wall thickening of the bilateral ureters, right greater than left. There are few nonobstructing renal calculi/renal vascular calcifications -creatinine 5.2, BUN 90, GFR 8, creatinine clearance 5.27 -gentle hydration -IV antibiotics for suspected UTI -Guzman catheter in place, strict I&Os Status: Acute Plan # Persistent Hypotension # Diarrhea/GI bleed # Severe AUBREY # b/l Hydroureteronephrosis Persistent hypotension likely from sepsis vs dehydration from diarrhea. Give additional 1L bolus Repeat lactate, f/u procalcitonin increase rocephin to 2g to cover persume pyelonephritis. add vanco which can be discontinued in am if mrsa surveillence negative. transfuse for hg <8 f/u repeat labs this am for renal function. consider nephrology consult for severe aubrey per primary team. Total Time Spent Total Time Spent: 30 min
[2024-05-07] MEDS: 0.9 % SODIUM CHLORIDE 1000 ml 1,000 ML 500 ML IV (05:26)
[2024-05-07 06:11] LABS: Lactate Sepsis w/Reflex* 0.7 mmol/L (0.5-1.9)
[2024-05-07 06:12] LABS: Hematocrit 25.1 % (33.0-51.0); Hemoglobin* 8.2 gm/dL (12.0-16.0); Mean Corpuscular HGB Conc 33 gm/dL (32-36); Mean Corpuscular Hemoglobin 29 pg (26-34); Mean Corpuscular Volume 88 fL (80-100); Platelet Count* 235 K/uL (140-440); Red Blood Count 2.84 m/uL (4.00-5.20)
[2024-05-07 06:19] LABS: Slide Review Reflex No
--- NOTE | 2024-05-07 06:28 | PC.NURSE ---
End of shift [id number]: A&O pleasant and cooperative. Pt reports some nausea upon initial assessment but as night progressed pt denies nausea. Denies pain. Pt hypotensive but asymptomatic. Fran contacted x2 overnight. see orders. Afebrile. Able to turn and repo self in bed. Guzman in place and draining milky, thick, yellow tinged urine. Bed alarm in place. Using call light appropriately.
[2024-05-07 06:58] LABS: Chloride* 105 mmol/L (96-114)
[2024-05-07 06:59] LABS: Albumin* 2.8 g/dL (3.3-5.0); Potassium* 3.8 mmol/L (3.6-5.1); Sodium* 132 mmol/L (135-149)
[2024-05-07 07:01] LABS: Blood Urea Nitrogen* 79 mg/dL (7-30); Creatinine* 3.9 mg/dL (0.5-1.5); Est. Creatinine Clearance* 7.67; Estimated Glomerular Filt Rate 11 ml/min
[2024-05-07 07:02] LABS: Alanine Aminotransferase* 183 U/L (4-35); Alkaline Phosphatase* 69 U/L (40-150); Anion Gap 12 mEq/L (7-15); Aspartate Amino Transferase* 120 U/L (12-35); Bilirubin Total* 0.3 mg/dL (0.1-1.5); Calcium* 7.9 mg/dL (8.4-10.6); Carbon Dioxide* 15 mmol/L (20-32); Glucose* 168 mg/dL (60-115); Magnesium* 2.5 mg/dL (1.5-2.6); Phosphorus* 5.5 mg/dL (2.5-4.5); Total Protein* 5.2 g/dL (6.0-8.3)
--- NOTE | 2024-05-07 07:07 | PM.IMPN1 ---
Progress Note: A&P Assessment and plan (1) Hydroureteronephrosis: Problem details: -CT: severe right-sided hydroureteronephrosis and mild left-sided hydroureteronephrosis without obstructing mass or stones, patient without flank pain or fever -admission creatinine 5.2, BUN 90, GFR 8, creatinine clearance 5.27 -receiving IVF, IV Ceftriaxone for suspected UTI (NGTD on U Cx from 05/06), greenberg catheter in place, strict I&Os Status: Acute (2) Acute renal failure: Problem details: -Creatinine 5.2, baseline 1.2-1.5, recheck on admission to floor ->4.5 -Potassium wnl -presumably prerenal given n/v/d, also may have a postrenal component given hydroureteronephrosis -continue IV hydration, greenberg in place -holding nephrotoxins Status: Acute (3) Stage 3a chronic kidney disease (CKD): Problem details: -baseline creatinine 1.21-1.50 Status: Acute (4) Dehydration: Problem details: -in setting of acute gastroenteritis -acute renal failure, elevated liver enzymes, hyponatremia, hydroureteronephrosis, hypotensive -has received normal saline boluses, continue gentle hydration, monitoring Status: Acute (5) Vomiting and diarrhea: Problem details: -improved following IVF and IV Zofran in ED -okay for clears, continue gentle hydration -GI pathogen panel, C difficile ordered -Mag and phos ordered Status: Acute (6) Elevated liver enzymes: Problem details: -AST 192, ALT 270, bilirubin WNL at 1.0 -likely in setting of dehydration, acute gastroenteritis -trending downward 05/07, continue to follow Status: Acute (7) GI bleed: Problem details: -dark stools reported, FOBT + in ED -baseline Hgb 11-12, here has been 8.2-10.9 -holding aspirin and Plavix, follow Hgb and transfuse if indicated -history of duodenal ulcer 2017, PPI initiated on admission 05/06 -SCDs for VTE PPX Status: Acute (8) Urinary tract infection: Problem details: -history of recurrent UTIs -+ UA in ED, CT exhibited circumferential bladder wall thickening with faint pericystic fat stranding, which can be seen with cystitis -Ceftriaxone initiated, d/c on 05/07 given negative culture, normal WBC, improving VS and clinical picture Status: Acute (9) Hyponatremia: Problem details: -sodium 130, suspect in setting of decreased oral intake, vomiting and diarrhea -improved to 132 on 05/07/24 -low dose IVFs, clear protein supplements as tolerated Status: Acute (10) ASCVD (arteriosclerotic cardiovascular disease): Problem details: -s/p ANGELIA to mLAD 05/15/23, on DAPT -s/p cardiac pacemaker 06/18/23 -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 Status: Acute (11) Hypertension: Problem details: -HYPOTENSION currently with SBP 80-100, asymptomatic -holding home amlodipine, chlorthalidone, Fosinopril -continue gentle hydration, monitoring closely for fluid overload Status: Acute (12) Diabetes mellitus: Problem details: -most recent A1c 7.5 -given dehydration, acute renal failure, elevated LFTs hold Jardiance and metformin -glucose checks ACHS, insulin sliding scale Status: Acute Plan - per above (follow renal function, lytes, Hgb, continue IVFs, advance diet as tolerated, monitor n/v/d) - plans to d/c home when medically appropriate (likely 1-2 more days) Subjective Date Seen: 05/07/24 Interval history: Charley Summers was admitted to the hospital yesterday for AUBREY in the setting of vomiting and diarrhea. Admission creatinine of 5.2 in addition to elevated LFTs (10X baseline), Hgb of 10.9. Potassium wnl. She has had no further nausea, vomiting, or diarrhea since admission. Would like to advance diet today. No fevers, no flank pain. Continues to have hypotension without dizziness or lightheadedness. Pulse 60s. Receiving IVFs. Creatinine this morning is 3.9, Hgb is 8.2 (outpatient baseline 11-12). LFTs trending downward. No concerns for hospitalist staff this morning. Exam Narrative: Exam Narrative: GEN: Alert and oriented, sitting comfortably in bedside chair and nontoxic HEENT: EOMIs bilaterally, no scleral icterus CV: RRR, soft systolic murmur without concerning features R: LCTA bilaterally without concerning wheezing or rales Back: Normal contours, no CVA ttp Ext: wwp, no concerning edema Skin: No concerning skin lesions or rashes on exposed skin Neuro: No focal deficits or resting tremor Psych: Appropriate Const: Vital Signs, click to edit/add: Vital Signs - 24 hr 05/06/24 10:01 05/06/24 13:46 05/06/24 13:52 Temperature 98.6 F 98 F Pulse Rate Pulse Rate [Left P ulse Oximeter] 63 Pulse Rate [Right Pulse Oximeter] 66 Respiratory Rate 18 18 Blood Pressure [Le ft Arm] Blood Pressure [Ri ght Upper Arm] 105/50 L 102/48 L Pulse Oximetry 99 99 [facility] 05/06/24 15:00 05/06/24 16:18 05/06/24 16:18 Temperature 98.3 F Pulse Rate 67 Pulse Rate [Left P ulse Oximeter] 67 60 Pulse Rate [Right Pulse Oximeter] Respiratory Rate 18 18 Blood Pressure [Le ft Arm] 109/39 L Blood Pressure [Ri ght Upper Arm] Pulse Oximetry 100 [facility] 05/06/24 19:39 05/06/24 22:26 05/06/24 23:11 Temperature 98.2 F 97.4 F L Pulse Rate 63 Pulse Rate [Left P ulse Oximeter] 67 68 Pulse Rate [Right Pulse Oximeter] Respiratory Rate 16 16 Blood Pressure [Le ft Arm] 100/56 L 96/68 Blood Pressure [Ri ght Upper Arm] Pulse Oximetry 100 96 [facility] 05/07/24 02:34 05/07/24 04:53 Temperature 97.5 F L Pulse Rate Pulse Rate [Left P ulse Oximeter] 69 63 Pulse Rate [Right Pulse Oximeter] Respiratory Rate 18 16 Blood Pressure [Le ft Arm] 88/43 L 84/54 L Blood Pressure [Ri ght Upper Arm] Pulse Oximetry 98 97 [facility] Labs Labs: Laboratory Results - last 24 hr 05/06/24 05/06/24 05/06/24 10:24 10:38 13:30 WBC 13.93 H RBC 3.83 L Hgb 10.9 L Hct 33.5 MCV 88 MCH 29 MCHC 33 RDW Coeff of Yoel 14.4 Plt Count 327 Neut % (Auto) 79.3 H Lymph % (Auto) 9.3 L [place] % (Auto) 10.8 Eos % (Auto) 0.1 Baso % (Auto) 0.1 Neut # (Auto) 11.00 H Lymph # (Auto) 1.30 [place] # (Auto) 1.50 H Eos # (Auto) 0.00 Baso # (Auto) 0.00 Abs Immat Gran (auto) 0.10 Imm/Tot Granulo (auto) 0.4 Sodium 130 L Potassium 4.4 Chloride 91 L Carbon Dioxide 17 L Anion Gap 22 H BUN 90 H Creatinine 5.2 H Estimated Creat Clear 5.27 Estimated GFR 8 Glucose 182 H Hemoglobin A1c 8.0 H Lactate 1.9 Calcium 9.4 Phosphorus Magnesium Total Bilirubin 1.0 AST 192 H ALT 270 H Alkaline Phosphatase 111 Total Protein 7.6 Albumin 4.5 Lipase 260 Urine Color Yellow Urine Appearance Turbid A Urine pH 5.0 Ur Specific [place] >= 1.030 Urine Protein 3+ A Urine Glucose (UA) Negative Urine Ketones 1+ A Urine Blood 2+ A Urine Nitrite Negative Urine Bilirubin Negative Urine Urobilinogen 0.2 Ur Leukocyte Esterase 3+ A Urine RBC 0-2 Urine WBC >100 A Ur Squamous Epith Cells Few Urine Bacteria Many A Stool Occult Blood Lab Acknowledgement 05/06/24 05/06/24 05/06/24 16:30 16:37 16:51 WBC RBC Hgb Hct MCV MCH MCHC RDW Coeff of Yoel Plt Count Neut % (Auto) Lymph % (Auto) [place] % (Auto) Eos % (Auto) Baso % (Auto) Neut # (Auto) Lymph # (Auto) [place] # (Auto) Eos # (Auto) Baso # (Auto) Abs Immat Gran (auto) Imm/Tot Granulo (auto) Sodium 131 L Potassium Chloride Carbon Dioxide Anion Gap BUN Creatinine 4.5 H Estimated Creat Clear 6.08 Estimated GFR 9 Glucose Hemoglobin A1c Lactate Calcium Phosphorus 6.0 H Magnesium 2.7 H Total Bilirubin AST ALT Alkaline Phosphatase Total Protein Albumin Lipase Urine Color Urine Appearance Urine pH Ur Specific [place] Urine Protein Urine Glucose (UA) Urine Ketones Urine Blood Urine Nitrite Urine Bilirubin Urine Urobilinogen Ur Leukocyte Esterase Urine RBC Urine WBC Ur Squamous Epith Cells Urine Bacteria Stool Occult Blood Lab Acknowledgement Test Added Test Added New Spec Needed 05/06/24 05/06/24 05/06/24 17:16 22:54 Unknown WBC RBC Hgb 8.8 L 8.4 L Hct MCV MCH MCHC RDW Coeff of Yoel Plt Count Neut % (Auto) Lymph % (Auto) [place] % (Auto) Eos % (Auto) Baso % (Auto) Neut # (Auto) Lymph # (Auto) [place] # (Auto) Eos # (Auto) Baso # (Auto) Abs Immat Gran (auto) Imm/Tot Granulo (auto) Sodium 131 L Potassium 4.0 Chloride 101 Carbon Dioxide 16 L Anion Gap 14 BUN 80 H Creatinine 4.4 H Estimated Creat Clear 6.22 Estimated GFR 9 Glucose 191 H Hemoglobin A1c Lactate Calcium 8.0 L Phosphorus Magnesium Total Bilirubin AST ALT Alkaline Phosphatase Total Protein Albumin Lipase Urine Color Urine Appearance Urine pH Ur Specific [place] Urine Protein Urine Glucose (UA) Urine Ketones Urine Blood Urine Nitrite Urine Bilirubin Urine Urobilinogen Ur Leukocyte Esterase Urine RBC Urine WBC Ur Squamous Epith Cells Urine Bacteria Stool Occult Blood Positive A Lab Acknowledgement 05/07/24 05/07/24 05/07/24 02:30 05:21 05:31 WBC 10.00 RBC 2.84 L Hgb 8.1 L 8.2 L Hct 25.1 L MCV 88 MCH 29 MCHC 33 RDW Coeff of Yoel Plt Count 235 Neut % (Auto) Lymph % (Auto) [place] % (Auto) Eos % (Auto) Baso % (Auto) Neut # (Auto) Lymph # (Auto) [place] # (Auto) Eos # (Auto) Baso # (Auto) Abs Immat Gran (auto) Imm/Tot Granulo (auto) Sodium 133 L Potassium 3.9 Chloride 103 Carbon Dioxide 17 L Anion Gap 13 BUN 79 H Creatinine 4.3 H Estimated Creat Clear 6.36 Estimated GFR 9 Glucose 169 H Hemoglobin A1c Lactate 0.7 Calcium 8.0 L Phosphorus Magnesium Total Bilirubin AST ALT Alkaline Phosphatase Total Protein Albumin Lipase Urine Color Urine Appearance Urine pH Ur Specific [place] Urine Protein Urine Glucose (UA) Urine Ketones Urine Blood Urine Nitrite Urine Bilirubin Urine Urobilinogen Ur Leukocyte Esterase Urine RBC Urine WBC Ur Squamous Epith Cells Urine Bacteria Stool Occult Blood Lab Acknowledgement
[2024-05-07] MEDS: PANTOPRAZOLE SODIUM 40 MG INJ IVP ×2 (09:42→20:31)
[2024-05-07] MEDS: timoloL maleate 0.5 % 1 DROP EYE-LEFT ×2 (09:44→20:31)
[2024-05-07] MEDS: KETOROLAC OPHTH 0.5% 1 DROP EYE-BOTH ×2 (09:44→20:31)
[2024-05-07] MEDS: SODIUM CHLORIDE 0.9 % (FLUSH) 10 ML SYRINGE 5 ML IVF ×2 (09:44→20:32)
[2024-05-07 13:26] LABS: Hemoglobin* 8.5 gm/dL (12.0-16.0)
[2024-05-07 13:33] LABS: Chloride* 106 mmol/L (96-114)
[2024-05-07 13:34] LABS: Potassium* 3.9 mmol/L (3.6-5.1); Sodium* 133 mmol/L (135-149)
[2024-05-07 13:36] LABS: Blood Urea Nitrogen* 69 mg/dL (7-30); Creatinine* 3.7 mg/dL (0.5-1.5); Est. Creatinine Clearance* 8.08; Estimated Glomerular Filt Rate 11 ml/min
[2024-05-07 13:37] LABS: Anion Gap 11 mEq/L (7-15); Calcium* 7.9 mg/dL (8.4-10.6); Carbon Dioxide* 16 mmol/L (20-32); Glucose* 205 mg/dL (60-115)
[2024-05-07 15:30] LABS: Basophils Percent Auto 0.3 % (0.0-3.0); Eosinophils Percent Auto 0.3 % (0.0-7.0); Hematocrit 27.6 % (33.0-51.0); Hemoglobin* 8.9 gm/dL (12.0-16.0); Immature Granulocytes Pct Auto 1.1 %; Lymphocytes Percent Auto 9.4 % (20-44); Mean Corpuscular HGB Conc 32 gm/dL (32-36); Mean Corpuscular Hemoglobin 29 pg (26-34); Mean Corpuscular Volume 89 fL (80-100); Monocytes Percent Auto 9.5 % (0.0-11.0); Neutrophils Percent Auto 79.4 % (42.0-72.0); Platelet Count* 241 K/uL (140-440); RDW Coefficient of Variation % 14.9 % (11.5-15.5); Red Blood Count 3.11 m/uL (4.00-5.20); White Blood Count* 11.67 K/uL (4.50-11.00)
--- NOTE | 2024-05-07 15:33 | PC.NURSE ---
Pt up in chair, no complaints of nausea. States poor appetite has been an issue for her for many months and she has been losing weight. Encouraged high protein nutrient rich foods. Didn't care for Ensure, but accepted Clear Enlive and V-8, which she has been sipping on. Refused lunch. States LUQ pain, napped, and woke stating pain had resolved. No BM on shift.
[2024-05-07 15:42] LABS: Slide Review Reflex No
[2024-05-07] MEDS: cefTRIAXone 2 GM in 0.9 % SODIUM CHLORIDE Mini-bag 100 ML IVPB (17:23)
[2024-05-07] MEDS: INSULIN ASPART 100 UNIT/ML SUBCUT ×2 (17:33→20:32)
[2024-05-07] MEDS: LATANOPROST 0.005% OPHTH 1 DROP EYE-BOTH (17:35)
--- NOTE | 2024-05-07 19:03 | PC.NURSE ---
Shift Note 15-19: Pt appears comfortable in her recliner. She drank 100% of her v8 juice and an ensure clear, she had also been sipping cranberry juice and Vanilla Ensure from earlier in the day. BG= 263, sliding scale novolog administered. Pt denies pain and nausea. No BM. BP's continue to be soft, 90's systolic and pt has been asymptomatic. Other VS WNL.
[2024-05-08 02:35] VITALS: BP 105/63; PULSE 63; RESP 16; TEMP 36.4; O2SAT 97
--- NOTE | 2024-05-08 06:19 | PC.NURSE ---
End of shift [id number]: A&O pleasant and cooperative. BP soft overnight but asymptomatic. VS otherwise stable. pt denying any nausea overnight. no BM this shift. up w/ SBA. tolerates well. using call light appropriately.
[2024-05-08 06:44] LABS: Ionized Calcium* 1.16 mmol/L (1.11-1.30)
[2024-05-08 07:00] VITALS: BP 107/60; PULSE 64; RESP 16; TEMP 36.6; O2SAT 95
[2024-05-08 07:21] LABS: Albumin* 2.7 g/dL (3.3-5.0); Chloride* 111 mmol/L (96-114); Potassium* 3.4 mmol/L (3.6-5.1); Sodium* 137 mmol/L (135-149)
[2024-05-08 07:24] LABS: Alanine Aminotransferase* 163 U/L (4-35); Alkaline Phosphatase* 67 U/L (40-150); Anion Gap 9 mEq/L (7-15); Aspartate Amino Transferase* 96 U/L (12-35); Bilirubin Total* 0.2 mg/dL (0.1-1.5); Blood Urea Nitrogen* 57 mg/dL (7-30); Calcium* 7.9 mg/dL (8.4-10.6); Carbon Dioxide* 17 mmol/L (20-32); Creatinine* 2.7 mg/dL (0.5-1.5); Est. Creatinine Clearance* 11.08; Estimated Glomerular Filt Rate 17 ml/min; Glucose* 164 mg/dL (60-115); Magnesium* 2.2 mg/dL (1.5-2.6); Phosphorus* 3.8 mg/dL (2.5-4.5); Total Protein* 5.2 g/dL (6.0-8.3)
[2024-05-08] MEDS: timoloL maleate 0.5 % 1 DROP EYE-LEFT ×2 (08:05→20:44)
[2024-05-08] MEDS: SODIUM CHLORIDE 0.9 % (FLUSH) 10 ML SYRINGE 5 ML IVF ×2 (08:06→20:44)
[2024-05-08] MEDS: PANTOPRAZOLE SODIUM 40 MG INJ IVP ×2 (08:06→20:44)
[2024-05-08] MEDS: 0.9 % SODIUM CHLORIDE 1000 ml 1,000 ML 125 ML IV (08:16)
[2024-05-08] MEDS: KETOROLAC OPHTH 0.5% 1 DROP EYE-BOTH ×2 (08:17→20:44)
[2024-05-08] MEDS: POTASSIUM BICARB 25 MEQ EFFERVESCENT TAB PO (10:13)
[2024-05-08 11:00] VITALS: BP 101/68; PULSE 59; RESP 16; TEMP 36.4; O2SAT 97
--- NOTE | 2024-05-08 11:52 | PM.IMPN1 ---
Progress Note: A&P Assessment and plan (1) Acute renal failure: Problem details: -Creatinine 5.2, baseline 1.2-1.5, recheck on admission to floor ->4.5 -Potassium wnl -presumably prerenal given n/v/d, also may have a postrenal component given hydroureteronephrosis -continue IV hydration, greenberg in place -holding nephrotoxins Status: Acute (2) GI bleed: Problem details: -dark stools reported, FOBT + in ED -baseline Hgb 11-12, here has been 8.2-10.9 -holding aspirin and Plavix, follow Hgb and transfuse if indicated -history of duodenal ulcer 2017, PPI initiated on admission 05/06 -SCDs for VTE PPX -EGD ordered for 05/09 Status: Acute (3) Hydroureteronephrosis: Problem details: -CT: severe right-sided hydroureteronephrosis and mild left-sided hydroureteronephrosis without obstructing mass or stones, patient without flank pain or fever -admission creatinine 5.2, BUN 90, GFR 8, creatinine clearance 5.27 -receiving IVF, IV Ceftriaxone for suspected UTI (NGTD on U Cx from 05/06), greenberg catheter in place, strict I&Os Status: Acute (4) Stage 3a chronic kidney disease (CKD): Problem details: -baseline creatinine 1.21-1.50 Status: Acute (5) Dehydration: Problem details: -in setting of acute gastroenteritis -acute renal failure, elevated liver enzymes, hyponatremia, hydroureteronephrosis, hypotensive -has received normal saline boluses, continue gentle hydration, monitoring Status: Acute (6) Vomiting and diarrhea: Problem details: -improved following IVF and IV Zofran in ED -no further diarrhea to test for pathogens -tolerating po intake Status: Acute (7) Elevated liver enzymes: Problem details: -AST 192, ALT 270, bilirubin WNL at 1.0 -likely in setting of dehydration, acute gastroenteritis -trending downward 05/07, continue to follow Status: Acute (8) Urinary tract infection: Problem details: -history of recurrent UTIs, known chronic hydroureteronephrosis, follows with Urology as an outpatient -+ UA in ED, CT exhibited circumferential bladder wall thickening with faint pericystic fat stranding, which can be seen with cystitis -Ceftriaxone initiated, d/c'd on 05/07 given negative culture, normal WBC, improving VS and clinical picture Status: Acute (9) Hyponatremia: Problem details: -sodium 130, suspect in setting of decreased oral intake, vomiting and diarrhea -improved to 132 on 05/07/24, normalized 137 -low dose IVFs, clear protein supplements as tolerated Status: Acute (10) ASCVD (arteriosclerotic cardiovascular disease): Problem details: -s/p ANGEILA to mLAD 05/15/23, on DAPT -s/p cardiac pacemaker 06/18/23 -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 Status: Acute (11) Hypertension: Problem details: -HYPOTENSION currently with SBP 80-100, asymptomatic -holding home amlodipine, chlorthalidone, Fosinopril Status: Acute (12) Diabetes mellitus: Problem details: -most recent A1c 7.5 -given dehydration, acute renal failure, elevated LFTs hold Jardiance and metformin -glucose checks ACHS (BG 140-264), insulin sliding scale Status: Acute Plan - per above - holding pharmacological ppx - possibly home tomorrow if EGD reassuring and labs continue to improve - son and daughter updated at bedside, questions answered Subjective Date Seen: 05/08/24 Interval history: Charley Summers was admitted to the hospital yesterday for AUBREY in the setting of vomiting and diarrhea. Admission creatinine of 5.2 in addition to elevated LFTs (10X baseline). No hyperkalemia. Since admission: - no further nausea, vomiting, or diarrhea, no fevers or flank pain - advancing diet, IVFs discontinued 05/08/24 - creatinine trending downward (5.2 on admission 05/06, 2.7 on 05/08). Holding Metformin - LFTs trending downward - Hgb 8.2-8.9 during stay, + stool occult blood in ER, no melena or further bleeding, on PPI. Holding ASA/Plavix - BP has been low (90-100/60s), asymptomatic. HR 60s. HOLDING home Amlodipine, Chlorthalidone, Fosinopril Charley Summers continues to feel a little better each day, no concerns for hospitalist staff this morning. Exam Narrative: Exam Narrative: GEN: Alert and oriented, nontoxic HEENT: EOMIs bilaterally, no scleral icterus CV: RRR, soft systolic murmur without radiation R: LCTA bilaterally without concerning wheezing Ab: Soft, no concerning ttp, no distention Ext: wwp, no concerning edema Skin: No concerning skin lesions or rashes on exposed skin Neuro: Nonfocal Psych: Appropriate Const: Vital Signs, click to edit/add: Vital Signs - 24 hr 05/07/24 12:00 05/07/24 15:00 05/07/24 15:00 Temperature 97.6 F 97.6 F Pulse Rate [Left P ulse Oximeter] 60 60 60 Respiratory Rate 16 16 16 Blood Pressure [Le ft Arm] 108/46 L 94/52 L Pulse Oximetry 97 97 Oxygen Delivery Me thod Room Air Room Air 05/07/24 19:44 05/07/24 22:28 05/08/24 02:35 Temperature 98.4 F 98.0 F 97.6 F Pulse Rate [Left P ulse Oximeter] 60 60 63 Respiratory Rate 16 16 16 Blood Pressure [Le ft Arm] 100/50 L 97/51 L 105/63 Pulse Oximetry 99 97 97 Oxygen Delivery Me thod Room Air Room Air Room Air 05/08/24 07:00 05/08/24 07:00 05/08/24 11:00 Temperature 97.9 F 97.6 F Pulse Rate [Left P ulse Oximeter] 64 64 59 L Respiratory Rate 16 16 16 Blood Pressure [Le ft Arm] 107/60 101/68 Pulse Oximetry 95 97 Oxygen Delivery Me thod Room Air Room Air Labs Labs: Laboratory Results - last 24 hr 05/07/24 05/07/24 05/08/24 13:14 15:26 05:53 WBC 11.67 H RBC 3.11 L Hgb 8.5 L 8.9 L Hct 27.6 L MCV 89 MCH 29 MCHC 32 RDW Coeff of Yoel 14.9 Plt Count 241 Neut % (Auto) 79.4 H Lymph % (Auto) 9.4 L [place] % (Auto) 9.5 Eos % (Auto) 0.3 Baso % (Auto) 0.3 Neut # (Auto) 9.30 H Lymph # (Auto) 1.10 [place] # (Auto) 1.10 H Eos # (Auto) 0.00 Baso # (Auto) 0.00 Abs Immat Gran (auto) 0.10 Imm/Tot Granulo (auto) 1.1 Sodium 133 L 137 Potassium 3.9 3.4 L Chloride 106 111 Carbon Dioxide 16 L 17 L Anion Gap 11 9 BUN 69 H 57 H Creatinine 3.7 H 2.7 H Estimated Creat Clear 8.08 11.08 Estimated GFR 11 17 Glucose 205 H 164 H Calcium 7.9 L 7.9 L Ionized Calcium [place] 1.16 Phosphorus 3.8 Magnesium 2.2 Total Bilirubin 0.2 AST 96 H ALT 163 H Alkaline Phosphatase 67 Total Protein 5.2 L Albumin 2.7 L
[2024-05-08 15:00] VITALS: BP 111/61; PULSE 54; RESP 16; TEMP 36.3; O2SAT 97
[2024-05-08 16:01] LABS: Basophils Absolute Auto 0.03 K/uL (0.00-0.30); Basophils Percent Auto 0.3 % (0.0-3.0); Eosinophils Percent Auto 0.9 % (0.0-7.0); Hematocrit 24.5 % (33.0-51.0); Hemoglobin* 8.2 gm/dL (12.0-16.0); Immature Granulocytes Abs Auto 0.12 K/uL (0.00-0.30); Immature Granulocytes Pct Auto 1.1 %; Mean Corpuscular HGB Conc 34 gm/dL (32-36); Mean Corpuscular Hemoglobin 29 pg (26-34); Mean Corpuscular Volume 87 fL (80-100); Monocytes Percent Auto 8.4 % (0.0-11.0); Neutrophils Percent Auto 75.3 % (42.0-72.0); Platelet Count* 217 K/uL (140-440); RDW Coefficient of Variation % 15.3 % (11.5-15.5); Red Blood Count 2.83 m/uL (4.00-5.20); White Blood Count* 10.67 K/uL (4.50-11.00)
[2024-05-08 16:07] LABS: Slide Review Reflex No
[2024-05-08] MEDS: LATANOPROST 0.005% OPHTH 1 DROP EYE-BOTH (19:27)
[2024-05-08 19:29] VITALS: BP 128/68; PULSE 64; RESP 18; TEMP 36.5; O2SAT 95
--- NOTE | 2024-05-08 19:58 | PC.NURSE ---
Shift Note [id number]: Pt friendly and cooperative with cares. VS WNL and LS COA. No BM today. Urine appearance significantly improved since admission. Pt educated on home self catheterization and the importance of sterile technique. Pt educated not to re-use catheter supplies and to discard after single use. Pt and daughter verbalized understanding.
[2024-05-08 22:47] VITALS: BP 99/51; PULSE 69; RESP 18; TEMP 36.7; O2SAT 97
[2024-05-09 03:08] VITALS: BP 119/62; PULSE 67; RESP 16; TEMP 36.5; O2SAT 98
--- NOTE | 2024-05-09 06:02 | PC.NURSE ---
End of shift [id number]: A&O pleasant and cooperative. VSS and afebrile overnight. Pt reports intermittent LLQ pain. Denies any prn pain medication and reports pain subsides quickly. Denies n/v dizziness or lightheadedness. Up w/ sba. Guzman in place and draining clear straw colored urine. Using call light appropriately.
[2024-05-09 06:48] LABS: Albumin* 2.9 g/dL (3.3-5.0); Chloride* 109 mmol/L (96-114); Potassium* 3.4 mmol/L (3.6-5.1); Sodium* 137 mmol/L (135-149)
[2024-05-09 06:50] LABS: Blood Urea Nitrogen* 43 mg/dL (7-30); Creatinine* 2.2 mg/dL (0.5-1.5); Est. Creatinine Clearance* 13.45; Estimated Glomerular Filt Rate 21 ml/min
[2024-05-09 06:51] LABS: Alanine Aminotransferase* 150 U/L (4-35); Alkaline Phosphatase* 83 U/L (40-150); Anion Gap 7 mEq/L (7-15); Aspartate Amino Transferase* 90 U/L (12-35); Bilirubin Total* 0.3 mg/dL (0.1-1.5); Calcium* 8.3 mg/dL (8.4-10.6); Carbon Dioxide* 21 mmol/L (20-32); Glucose* 182 mg/dL (60-115); Total Protein* 5.5 g/dL (6.0-8.3)
[2024-05-09 07:00] VITALS: BP 123/62; PULSE 66; RESP 18; TEMP 36.8; O2SAT 94
--- NOTE | 2024-05-09 08:49 | P.ANES_ITS ---
Anesthesia Charges Start Date/Time Anesthesia Start Date: 05/09/24 Anesthesia Start Time: 08:29 Stop Date/Time Anesthesia Stop Date: 05/09/24 Anesthesia Stop Time: 08:44 Summary Extremes of Age - Over 70 or under 1: THIRD SHIFT LIEUTENANT Coding CPT Codes CPT Codes: ANES UPR GI NDSC PX NOS - 02467 ([id number]) P3 - PATIENT W/SEVERE SYS DISEASE, QK - FLOOR PLAN ADJUSTER 2-4 CNCRNT ANES PROC, QX - THIRD SHIFT LIEUTENANT SVC W/ MD MED DIRECTION Additional Codes: Summary - Extremes of Age - Over 70 or under 1: THIRD SHIFT LIEUTENANT ([id number])
--- NOTE | 2024-05-09 08:49 | W.ANESCHARGE ---
Anesthesia Charges Start Date/Time Anesthesia Start Date: 05/09/24 Anesthesia Start Time: 08:29 Stop Date/Time Anesthesia Stop Date: 05/09/24 Anesthesia Stop Time: 08:44 Summary Extremes of Age - Over 70 or under 1: GENERAL STORE MANAGER Coding CPT Codes CPT Codes: ANES UPR GI NDSC PX NOS - 30888 ([id number]) P3 - PATIENT W/SEVERE SYS DISEASE, QK - DIRECTOR OF EVENT SALES 2-4 CNCRNT ANES PROC, QX - GENERAL STORE MANAGER SVC W/ MD MED DIRECTION Additional Codes: Summary - Extremes of Age - Over 70 or under 1: GENERAL STORE MANAGER ([id number])
[2024-05-09 09:13] VITALS: BP 112/58; PULSE 59; RESP 16; TEMP 36.8; O2SAT 98
[2024-05-09] MEDS: timoloL maleate 0.5 % 1 DROP EYE-LEFT (09:18)
[2024-05-09] MEDS: KETOROLAC OPHTH 0.5% 1 DROP EYE-BOTH (09:20)
[2024-05-09 09:30] VITALS: BP 116/58; PULSE 67; RESP 18; TEMP 36.6; O2SAT 98
--- NOTE | 2024-05-09 09:30 | P.ANES_ITS ---
Anesthesia Charges Start Date/Time Anesthesia Start Date: 05/09/24 Anesthesia Start Time: 08:29 Stop Date/Time Anesthesia Stop Date: 05/09/24 Anesthesia Stop Time: 08:44 Summary Extremes of Age - Over 70 or under 1: MDA Coding CPT Codes CPT Codes: ANES UPR GI NDSC PX NOS - 10495 ([id number]) QK - CNC MILL SET UP OPERATOR 2-4 CNCRNT ANES PROC, QX - PULVERIZER FEEDER SVC W/ MD MED DIRECTION, P3 - PATIENT W/SEVERE SYS DISEASE Additional Codes: Summary - Extremes of Age - Over 70 or under 1: MDA ([id number])
[2024-05-09] MEDS: POTASSIUM BICARB 25 MEQ EFFERVESCENT TAB PO (09:36)
--- NOTE | 2024-05-09 09:41 | P.DS_ITS ---
DS: Providers Provider Date Seen: 05/09/24 Date of admission: 05/06/24 13:46 Primary care physician: Jhonny Guerrero MD Admitting Clinician: Laila Yoo MD Consults: OT, PT, SW Attending Physician on discharge: Laila Yoo MD Date of Discharge: 05/09/24 DS: Diagnosis Discharge Diagnosis (1) Acute renal failure: Status: Acute Problem details: -Creatinine 5.2, baseline 1.2-1.5, trending downward during stay -Potassium wnl -presumably prerenal given n/v/d, also may have a postrenal component given hydroureteronephrosis -held nephrotoxins -d/c creatinine of 2.2 (2) GI bleed: Status: Acute Problem details: -dark stools reported, FOBT + in ED -baseline Hgb 11-12, here has been 8.2-10.9 -holding aspirin and Plavix, follow Hgb and transfuse if indicated -history of duodenal ulcer 2017, PPI initiated on admission 05/06 -SCDs for VTE PPX -EGD 05/09 without any ulcerations or bleeding, area of gastritis biopsies -home on PPI (3) Hydroureteronephrosis: Status: Acute Problem details: -CT: severe right-sided hydroureteronephrosis and mild left-sided hydroureteronephrosis without obstructing mass or stones (chronic) patient without flank pain or fever -admission creatinine 5.2, BUN 90, GFR 8, creatinine clearance 5.27 (4) Stage 3a chronic kidney disease (CKD): Status: Acute Problem details: -baseline creatinine 1.21-1.50 (5) Dehydration: Status: Acute Problem details: -in setting of acute gastroenteritis -acute renal failure, elevated liver enzymes, hyponatremia, hydroureteronephrosis, hypotensive -has received normal saline boluses, continue gentle hydration, monitoring -resolved during stay (6) Vomiting and diarrhea: Status: Acute Problem details: -improved following IVF and IV Zofran in ED -no further diarrhea to test for pathogens (7) Elevated liver enzymes: Status: Acute Problem details: -AST 192, ALT 270, bilirubin WNL at 1.0 -likely in setting of dehydration, acute gastroenteritis -trended downward during stay (8) Urinary tract infection: Status: Acute Problem details: -history of recurrent UTIs, known chronic hydroureteronephrosis, follows with Urology as an outpatient -+ UA in ED, CT exhibited circumferential bladder wall thickening with faint pericystic fat stranding, which can be seen with cystitis -Ceftriaxone initiated, d/c'd on 05/07 given negative culture, normal WBC, improving VS and clinical picture (9) Hyponatremia: Status: Acute Problem details: -sodium 130, suspect in setting of decreased oral intake, vomiting and diarrhea -improved to 132 on 05/07/24, normalized on 05/09 to 137 (10) ASCVD (arteriosclerotic cardiovascular disease): Status: Acute Problem details: -s/p ANGELIA to mLAD 05/15/23, on DAPT -s/p cardiac pacemaker 06/18/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 Admission creatinine of 5.2 in addition to elevated LFTs and new anemia. Electrolytes wnl. During stay: - resolution on hospital day 1 of nausea, vomiting, and diarrhea. Advanced diet during stay - creatinine improved daily with IVFs and holding of nephrotoxins (creatinine 5.2 on admission --> 2.2 on discharge, previous outpatient baseline of 1.2) - LFTs trended downward - Hgb 8.2-8.9 during stay, + stool occult blood in ER, no melena or further bleeding, held ASA/Plavix. treated with PPI. + irritation without bleeding or ulcers on 05/09 EGD - BP lower than baseline during stay (asymptomatic), HR 60s. HELD home Amlodipine, Chlorthalidone, Fosinopril during stay and upon discharage. - seen by therapies, no acute rehab needs identified Patient medically appropriate to discharge home with daughter on 05/09/2024 with close PCP follow-up. Many of her medications are being held upon discharge given hypotension and acute kidney injury; request that PCP recheck blood pressure and CMP during follow-up appointment to make plan to restart these medications. Status at Discharge Functional status at discharge: independent ambulation Overall status at discharge: patient is progressing back to baseline Time Spent with Patient Time attestation: Total time spent providing and/or coordinating discharge services: Time spent: Greater than 30 minutes Specific discharge activities: medication reconciliation, update plan of care with pt and daughter Exam Narrative: Exam Narrative: GEN: Alert and oriented, sitting comfortably in bedside chair HEENT: Normal external ears, EOMIs bilaterally, no scleral icterus CV: RRR, No concerning murmurs R: LCTA bilaterally without concerning wheezing Ab: Soft and nontender, tolerates palpation Ext: wwp, no concerning edema Skin: No concerning skin lesions or rashes on exposed skin Neuro: Nonfocal Psych: Appropriate Const: Vital Signs, click to edit/add: Vital Signs - 24 hr 05/08/24 11:00 05/08/24 15:00 05/08/24 15:00 Temperature 97.6 F 97.4 F L Pulse Rate [Left P ulse Oximeter] 59 L 54 L 54 L Respiratory Rate 16 16 16 Blood Pressure [Le ft Arm] 101/68 111/61 Pulse Oximetry 97 97 Oxygen Delivery Me thod Room Air Room Air 05/08/24 19:29 05/08/24 22:47 05/09/24 03:08 Temperature 97.7 F 98.0 F 97.7 F Pulse Rate [Left P ulse Oximeter] 64 69 67 Respiratory Rate 18 18 16 Blood Pressure [Le ft Arm] 128/68 99/51 L 119/62 Pulse Oximetry 95 97 98 Oxygen Delivery Mi thod Room Air Room Air Room Air 05/09/24 07:00 05/09/24 07:00 05/09/24 09:13 Temperature 98.3 F 98.3 F Pulse Rate [Left P ulse Oximeter] 66 66 59 L Respiratory Rate 18 18 16 Blood Pressure [Le ft Arm] 123/62 112/58 L Pulse Oximetry 94 98 Oxygen Delivery Mi thod Room Air Room Air 05/09/24 09:30 Temperature 97.9 F Pulse Rate [Left P ulse Oximeter] 67 Respiratory Rate 18 Blood Pressure [Le ft Arm] 116/58 L Pulse Oximetry 98 Oxygen Delivery Mi thod Room Air DS: Data Data Completed and Pending Labs on day of discharge: Labs from last 24 hours 05/09/24 05/08/24 06:22 15:50 WBC 10.67 RBC 2.83 L Hgb 8.2 L Hct 24.5 L MCV 87 MCH 29 MCHC 34 RDW Coeff of Yoel 15.3 Plt Count 217 Neut % (Auto) 75.3 H Lymph % (Auto) 14.0 L [place] % (Auto) 8.4 Eos % (Auto) 0.9 Baso % (Auto) 0.3 Neut # (Auto) 8.00 H Lymph # (Auto) 1.50 [place] # (Auto) 0.90 Eos # (Auto) 0.10 Baso # (Auto) 0.03 Abs Immat Gran (auto) 0.12 Imm/Tot Granulo (auto) 1.1 Sodium 137 Potassium 3.4 L Chloride 109 Carbon Dioxide 21 Anion Gap 7 BUN 43 H Creatinine 2.2 H Estimated Creat Clear 13.45 Estimated GFR 21 Glucose 182 H Calcium 8.3 L Total Bilirubin 0.3 AST 90 H ALT 150 H Alkaline Phosphatase 83 Total Protein 5.5 L Albumin 2.9 L Discharge Plan Discharge Disposition: Home, Self-Care Date of Admission: 05/06/24 13:46 Attending Provider on Discharge: Laila Yoo Primary Care Provider: Jhonny Guerrero Condition: Stable Anticipated Discharge Date/Time: 05/09/24 09:24 Discharge Medications: New omeprazole 20 mg Capsule,Delayed Release(Dr/Ec) 20 mg PO BID Qty: 60 0RF Continued ketorolac 0.5 % drops 1 drp ophthalmic (eye) BID Patient Comments: both eyes timolol maleate 0.5 % drops 1 drp ophthalmic (eye-left) BID Patient Comments: left eye latanoprost 0.005 % drops 1 drp ophthalmic (eye) QPM Patient Comments: both eyes clopidogrel 75 mg tablet 75 mg PO DAILY ezetimibe 10 mg tablet 10 mg PO DAILY Jardiance 10 mg tablet 10 mg PO DAILY aspirin [Adult Aspirin Regimen] 81 mg tablet,delayed release (DR/EC) 81 mg PO DAILY Held metformin 500 mg tablet 500 mg PO BID Hold Instructions: discuss with PCP chlorthalidone 25 mg tablet 25 mg PO DAILY Hold Instructions: hold until f/u with PCP amlodipine 5 mg tablet 5 mg PO DAILY Hold Instructions: hold until f/u with Dr. Guerrero fosinopril 40 mg tablet 40 mg PO DAILY Hold Instructions: discuss with PCP at f/u rosuvastatin 40 mg tablet 40 mg PO QPM Hold Instructions: hold until PCP f/u Discharge Orders: Discharge Order (Routine); Ordered 05/09/24 Ordered By: Laila Yoo Patient Education: Omeprazole (By mouth), Weakness (DC) Additional Instructions: NEW medication: - Omeprazole (acid economic consultant); take this twice/day because your stomach did show some evidence of irritation and we want to prevent an ulcer HOLDING medications: - Amlodipine, Fosinopril, and Chlorthalidone (your blood pressure has been low and should come up in the next few days as you get back into a routine) - Metformin and Rosuvastation (for your elevated liver and kidney tests) You will likely restart some or all of these medications after you see Dr. Guerrero in followup (he'll check your Blood Pressure, liver and kidney tests). Activity Level: No strenuous activity Diet Detail: yoav baca as tolerated Follow Up Appointments: Jhonny Guerrero MD [Primary Care Provider] - 05/16/24 1:15 pm ([facility] Forms: [employer] Info Instructions
[2024-05-09 09:45] VITALS: BP 112/62; PULSE 61; RESP 16; TEMP 36.9; O2SAT 99
--- NOTE | 2024-05-09 09:46 | NUTR.NU ---
RDN with nutrition screen related to positive MST. Patient admitted for acute renal failure and GI bleed. Current weight 104lb 4oz; height 5ft 1in; BMI 19.7 kg/m2. Per weight history, weights are stated and cannot be used to accurately assess weight. No weight history to assess at this time. Current diet is NPO for EGD today. Meal intakes 05/07-05/08 were adequate at 50%+. Plan for patient is discharge home today. Not appropriate for nutrition visit at this time. RDN will continue to monitor and attempt to visit befoe discharge.
[2024-05-09] MEDS: OMEPRAZOLE 20 MG CAPSULE DR PO (09:48)
--- NOTE | 2024-05-09 09:50 | PC.SOCIAL ---
Social Work Consult: SW met with patient to determine if there are any needs/resources she would like support with. Patient states that she is doing well and has no concerns at this time. Patient mentions that she has three sons and a daughter who are involved, supportive, and assist her with anything she would need. SW to assist if future needs arise.
--- NOTE | 2024-05-09 11:30 | PC.NURSE ---
Discharge note 1116: VS WNL. Guzman and IV removed with tips intact. Had a EGD with no complications. Pt stated some LLQ pain is chronic and comes and goes, pt denied pain interventions. Remains afebrile. Ambulated SBA. Utilized wheelchair to discharge home with daughter. Belongings list and discharge instructions gone through and signed. Denies N/V and diarrhea.
== END 2024-05-09 11:16 | disposition home or self-care (01) | DRG 683 ==
LOC: ED 12:18 → MEDSURG 13:20
PROVIDERS: Internal Medicine; Admitting Provider Physician Assistant; Emergency Provider Internal Medicine; PCP Family Medicine; Visit Provider Family Medicine
DX: N17.9 Acute kidney failure, unspecified (principal); D62 Acute posthemorrhagic anemia; E87.1 Hypo-osmolality and hyponatremia; K92.2 Gastrointestinal hemorrhage, unspecified; N13.6 Pyonephrosis; I12.9 Hypertensive chronic kidney disease with stage 1 through stage 4 chronic kidney disease, or unspecified chronic kidney disease; E11.22 Type 2 diabetes mellitus with diabetic chronic kidney disease; N18.30 Chronic kidney disease, stage 3 unspecified; Z79.4 Long term (current) use of insulin; Z79.84 Long term (current) use of oral hypoglycemic drugs; R74.01 Elevation of levels of liver transaminase levels; E86.0 Dehydration; R11.2 Nausea with vomiting, unspecified; R19.7 Diarrhea, unspecified; N18.31 Chronic kidney disease, stage 3a; I95.9 Hypotension, unspecified; Z87.440 Personal history of urinary (tract) infections; I25.10 Atherosclerotic heart disease of native coronary artery without angina pectoris; Z87.19 Personal history of other diseases of the digestive system; Z95.2 Presence of prosthetic heart valve; E78.5 Hyperlipidemia, unspecified
CPT/HCPCS: 00731; 36415; 43239; 74176; 80048; 80053; 81001; 81003; 82270; 82330; 82565; 82962; 83036; 83605; 83690; 83735; 84100; 84145; 84295; 85018; 85025; 85027; 87086; 87493; 87505; 97161; 97165; 99100; 99283; 99285; A9270; J0696; J2405; J2470; J2704; J7030

== ENCOUNTER 2024-11-10 23:28 | Observation (INO) | payer MEDICARE, BC, SELFPAY ==
--- OUTSIDE RECORDS SUMMARY | 2024-11-10 23:31 | XMS_ITS | Clinical Summary ---
Author Organization [employer] [facility] Address [address] [place] [address] Care Team Providers Care Medical Editor Name Role Phone Jhonny Guerrero MD Primary Care Provider Allergies Active Allergy Reactions Criticality Noted Date Comments Penicillins Edema Unknown 09/16/2005 Sulfa (Sulfonamide Antibiotics) Edema Unknown 08/24 Medications ketorolac 0.5 % ophthalmic (ACULAR) solution Place 1 Drop into both eyes two times daily. 1 Bottle 4 9 Active clindamycin (CLEOCIN) 300 mg capsuleIndications :SBE (subacute bacterial endocarditis) prophylaxis candidate Take 2 Capsules (600 mg) by mouth one time if needed (dental work) for up to 4 doses. Take 30-60 minutes before procedure. 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 15 mL 2 4 Active clopidogreL 75 mg tabletIndications: ASCVD (arteriosclerotic cardiovascular disease) Take 1 Tablet (75 mg) by mouth once daily. 90 Tablet 3 5 Active empagliflozin 25 mg tabletIndications: Type 2 diabetes mellitus with stage 3a chronic kidney disease, with long-term current use of insulin (HC) Take 1 Tablet (25 mg) by mouth once daily. 90 Tablet 1 5 Active ezetimibe 10 mg tabletIndications: Hyperlipidemia, unspecified hyperlipidemia type TAKE 1 TABLET BY MOUTH EVERY DAY 90 Tablet 2 5 Active metFORMIN (GLUCOPHAGE) 500 mg tabletIndications: Controlled type 2 diabetes mellitus with complication, with long-term current use of insulin (HC) TAKE 1 TABLET (500 MG) BY MOUTH TWICE A DAY WITH MEALS 180 Tablet 1 5 Active latanoprost (XALATAN) 0.005 % ophthalmic solutionIndication s:Primary open angle glaucoma of right eye, moderate stage PLACE 1 DROP INTO BOTH EYES ONCE DAILY IN THE EVENING. 7.5 mL 5 Active cyanocobalamin (VITAMIN B12) 500 mcg tabletIndications: B12 deficiency Take 1 Tablet (500 mcg) by mouth once daily. 90 Tablet 3 5 Active omeprazole 20 mg tabletIndications: Gastritis, presence of bleeding unspecified, unspecified chronicity, unspecified gastritis type Take 1 Tablet (20 mg) by mouth once daily before a meal. 90 Tablet 1 5 025 Discontin ued(*Tracy ent states no longer taking) fosinopriL 20 mg tabletIndications: Hypertension, unspecified type Take 1 Tablet (20 mg) by mouth once daily. 90 Tablet 3 5 025 Discontin ued(*Med complete/ Regimen complete/ Level of care change) Hospital, Clinic, or Other Facility Administered Medication Ordered Dose Route Frequency Start Date End Date Status ferumoxytoL (FERAHEME) 510 mg/17 mL (30 mg/mL) injection 510 mgIndications:Iron deficiency anemia, unspecified iron deficiency anemia type 510 mg IV ONE TIME 11/16/2024 11/16/2024 Active ferumoxytoL (FERAHEME) 510 mg/17 mL (30 mg/mL) injection 510 mgIndications:Iron deficiency anemia, unspecified iron deficiency anemia type 510 mg IV ONE TIME 11/09/2024 11/09/2024 Ended Active Problems Problem Noted Date Diagnosed Date 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 10/31/2024 History of permanent cardiac pacemaker placement 06/18/23. [...] Nuclear senile cataract of right eye 08/24/2015 Essential hypertension 11/15/2010 Mixed hyperlipidemia 11/15/2010 Resolved Problems Problem Noted Date Diagnosed Date Resolved Date Left kidney mass 08/28/2023 10/31/2024 Severe aortic stenosis 04/02/202311/29 Weight loss 01/26/2023 04/02/2023 Moderate aortic stenosis 01/02/202209/2023 Systolic murmur 04/02/2020 06/04/2020 Irritable bowel 07/09/2012 09/22/2024 Chest pain, unspecified 03/22/200805/24 Long-term (current) use of anticoagulants 12/03/2007 11/27/2010 Unspecified essential hypertension 03/09/2007 11/15/2010 BACKGROUND - DIABETIC RETINOPATHY-MILD OU 07/19/2003 11/22/2012 Type 2 diabetes mellitus wit h stage 3 chronic kidney disease, with long-term current use of insulin 01/14/2002 09/13/2020 Overview (06/29/2009): Next diabetic eye exam 07/03 HYPERTENSION, SECONDARY NOS 03/05/1998 11/15/2010 Encounters Date Type Department Care Team Description 11/09/2024 9:00 AM CDT Nurse/Clinic Staff Only [facility] [address] [place] [address] Infusion Therapy (Feraheme 1/2) 11/09/2024 Travel 11/02/2024 Telephone [facility] [address] [place] [address] Jhonny Guerrero MD Medication Management (Feraheme infusions) 10/31/2024 3:45 PM CDT Office Visit [facility] [address] [place] [address] Jhonny Guerrero MD Hospital F/U (left kidney mass/A1C increase) 10/31/2024 Travel 10/25/2024 Orders Only [facility] [address] [place] [address] Toño Abdi RN <No scans attached> 10/25/2024 Telephone [facility] [address] [place] [address] Jhonny Guerrero MD Appointment Request (POST HOSP) 10/20/[address] [address] Tosha Sands PA no reason (No reason, can be deleted) 10/19/2024 9:54 AM CDT Anesthesia Event [facility] [address] [address] Abner Irizarry MD 10/19/2024 6:40 AM CDT - 10/20/2024 2:45 PM CDT Hospital Encounter [address] [address] Scout Huddleston MD Dalzell, MD Colby Damon Melissa, CRNA Reitz, Lucas Spencer, MD Left renal mass; 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, left eye, stage unspecified Discharge Disposition: Home Self Care 10/19/2024 Telephone [facility] [address] [place] [address] Sarahy Xiao PA 10/19/2024 Travel 09/22/2024 3:45 PM CDT Office Visit [facility] [address] [place] [address] Jhonny Guerrero MD Medicare ANNUAL (subsequent) Visit (89 year old); Preoperative Exam (DOS: 10/19/2024, [facility]) 09/22/2024 Travel 09/21/2024 Refill [facility] [address] [place] [address] Stoney Murrieta, OD Refill Request (Latanoprost) 09/20/2024 Refill [facility] [address] [place] [address] Jhonny Guerrero MD Refill Request (Metformin) 09/15/2024 8:15 AM CDT Orders Only [facility] [address] [place] [address] [facility] [place] [facility] 09/15/2024 Travel 09/07/2024 Orders Only [facility] [address] [place] [address] Toño Abdi RN <No scans attached> 08/28/2024 Refill [facility] [address] [place] [address] Jhonny Guerrero MD Refill Request (Fosinopril Sodium) 08/27/2024 Refill [facility] [address] [place] [address] Jhonny Guerrero MD Refill Request (Ezetimibe) 08/23/2024 Orders Only [address] [address] Sarahy Xiao PA <No scans attached> 08/19/2024 8:57 AM CDT - 08/19/2024 2:58 PM CDT Hospital Encounter [address] [address] Sarahy Xiao PA Left kidney mass Discharge Disposition: Home Self Care 08/19/2024 Travel 08/18/2024 Orders Only [facility] On license [place] [address] See Pham MD <No scans attached> 08/16/2024 Telephone [facility] [address] [place] [address] Jhonny Guerrero MD Lab (Lab orders needed) 08/11/2024 Orders Only [facility] [address] [place] [address] Stoney Murrieta, OD <No scans attached> 08/10/2024 Orders Only [facility] Scanner 1 scan: (1-Ord) RCM from Last 3 Months Immunizations Immunization Administration Dates Next Due AMB Influenza, IIV3 (Age >=3 years)(Flu Clinic Only) 01/01/2010 Amb Influenza, Inact (High-d ose Quadrivalent) (Flu Clinic Only) 12/22/2019 COVID-19 VACCINE SPIKEVAX (M ODERNA 50MCG/0.5ML) 12YO+ PFS 06/13/2024,11/30/2023,08/28/2023,01/26 COVID-19 vaccine (Pfizer-Bio NTech 30mcg/0.3mL) 12YO+ BIVALENT PF, MDV 07/30/2022,01/02/2022 COVID-19 vaccine (Pfizer-Bio NTech 30mcg/0.3mL) 12YO+ ARELY-SUCROSE PF, MDV 07/03/2021 COVID-19 vaccine (Pfizer-Bio NTech 30mcg/0.3mL) PF, MDV 12/17/2020,04/28/2020,04/07/2020 Influenza, High-dose [...] PHQ-2 Answer Date Recorded PHQ-2 TOTAL SCORE 0 09/22/2024 Social Connections Answer Date Recorded Do you often feel lonely or isolated from those around you? 0 09/22/2024 Financial Resource Strain Answer Date R ecorded Difficulty of Paying Living Expenses 3 09/22/2024 Difficulty of Paying Living Expenses Not on file 09/22/2024 Food Insecurity Answer Date Recorded Do you worry your food will run out before you are able to buy more? 1 09/22/2024 Transportation Needs Answer Date Record ed Does lack of transportation keep you from medica l appointments? 1 09/22/2024 Does lack of transportation keep you from work, meetings or getting things that you need? 1 09/22/2024 Housing Stability Answer Date Recorded What is your housing situation today? 1 09/22/2024 Interpersonal Safety Answer Date Record ed Are you being hit, kicked, p ushed or yelled at (see row info)? No 10/19/2024 Interpersonal Safety Abuse 12 - 18 Not on file 10/19/2024 Interpersonal Safety Ambulatory Vulnerability No t on file 10/19/2024 Utilities Answer Date Recorded Do you have trouble paying f or utilities (for example, heat, electricity, water, phone)? 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 Gender Identity Not on file Sexual Orientation Not on file Obstetrics History Para Term AB IAB SAB Ectopic Multiple Livin g Live Births 5 5 5 Date Outcome GA Total Labor Labor/2nd/3rd Weight Sex Type Anes PTL Dorota A1 A5 Name Clin Term Term Term Term Term Last Filed Vital Signs Vital Sign Reading Time Taken Comments Blood Pressure 139/60 11/09/2024 10:11 AM CDT Pulse 70 11/09/2024 10:11 AM CDT Temperature 36.3 C (97.3 F) 11/09/2024 10:11 AM CDT Respiratory Rate 16 10/20/2024 8:00 AM CDT Oxygen Saturation 94% 11/09/2024 10:11 AM CDT Inhaled Oxygen Concentration - - Weight 43.5 kg (95 lb 12.8 oz) 10/31/2024 3:42 P M CDT Height 154.9 cm (5' 1) 10/19/2024 7:19 AM CDT Body Mass Index 18.1 10/19/2024 7:19 AM CDT Plan of Treatment Upcoming Encounters Date Type Department Care Team ([facility] st Contact Info) Description 11/14/2024 10:00 AM CDT Office Visit [facility] [address] [place] [address] [place] [address] [place] [address] 11/16/2024 9:00 AM CDT Nurse/Clinic Staff Only [facility] [address] [place] [address] 12/14/2024 10:15 AM CDT Orders Only [facility] [address] [place] [address] [facility] [place] 12/23/2024 9:00 AM CDT Orders Only [facility] [address] [place] [address] [facility] [place] 12/26/2024 9:15 AM FUNERAL DIRECTOR/EMBALMER/OWNER Office Visit [facility] [address] [place] [address] Jhonny Guerrero MD [address] [place] [address] 01/03/2025 10:00 AM FUNERAL DIRECTOR/EMBALMER/OWNER Cardiac Device Check [facility] [address] [place] [phone] 02/20/2025 1:30 PM FUNERAL DIRECTOR/EMBALMER/OWNER Ancillary Procedure [facility] [address] [place] [address] 02/22/2025 9:45 AM FUNERAL DIRECTOR/EMBALMER/OWNER Office Visit [facility] [address] [place] [address] Cristopher Anthony MD [address] [id number] Health Maintenance Due Date Last Done Comments COVID-19 vaccine series ( season) 2024 06/13/2024, 11/30/2023, 08/28/2023, Additional history exists Influenza Vaccine (#1) 2024 , 01/26/2023, 11/07/2021, Additional history exists BMI (ht and wt on same day) for age 18+ 09/22/2025 09/22/2024, 06/10/2024, 09/29/2023, Additional history exists Depression screening for age 12+ 09/22/2025 09/22/2024, 10/01/2023, 09/29/2023, Additional history exists Medicare Wellness for age 65+ 09/23/2025 09/22/2024, 08/28/2023, 03/04/2019, Additional history exists Tetanus booster 06/05/2027 06/04/2017, 0706/2006, 08/08/1996 DEXA/DXA scan for age 65+ Completed 11/19/2010 Zoster (shingles) series for age 50+ Completed 08/18/2018, 06/09/2018, 06/04/2010 Pneumococcal series for age 50+ Completed 09/30/2020, 01/18/2014, 02/03/2005, Additional history exists RSV vaccine for adults or Completed 03/05/2023 Hepatitis B series for 19+ Aged Out N o longer eligible based on patient's age to complete this topic Medical Devices Implanted Type Area Design Engineer Agricultural Equipment Device Identifier Shelf Expiration Date Model / Serial / Lot Lens Iol 23.0 Wf [id number]. 0 - [id number] Implanted:Qty: 1 on 10/09/2014 by Moose Sands MD at [facility] Left: Eye [employer] 07/24/2019 [id number] / [id number] / Procedures Procedure Name Priority Date/Time Associated Diagnosis Comments CBC WITH AUTO DIFFERENTIAL Routine 10/31/2024 4:39 PM CDT Anemia of unknown etiology HEPATIC FUNCTION PANEL Routine 4:39 PM CDT Elevated LFTs CBC WITH AUTO DIFFERENTIAL Routine 10/31/2024 4:39 PM CDT Anemia of unknown etiology METHYLMALONIC ACID BLOOD Routine 10/31/2024 4:39 PM CDT Anemia of unknown etiology VITAMIN B12 Routine 10/31/2024 4:39 PM CDT Anemia of unknown etiology IRON PLUS IRON BINDING CAP Routine 10/31/2024 4:39 PM CDT Anemia of unknown etiology GLUCOSE METER Timed 10/20/2024 12:02 PM CDT GLUCOSE METER Timed 10/20/2024 7:48 AM CDT CREATININE Early AM 10/20/2024 7:24 AM CDT HEMOGLOBIN Early AM 10/20/2024 7:24 AM CDT GLUCOSE METER Timed 10/19/2024 10:00 PM CDT GLUCOSE METER Timed 10/19/2024 5:28 PM CDT GLUCOSE METER Timed 10/19/2024 4:01 PM CDT XR CHEST 1 VIEW PORTABLE Routine 10/19/2024 3:57 PM CDT HEMOGLOBIN NORRIS 10/19/2024 3:43 PM CDT GLUCOSE METER Timed 10/19/2024 11:[address] CRYOTHERAPY KIDNEY LEFT Routine 10/19/2024 11:22 AM CDT Left renal mass ENDOTRACHEAL TUBE Routine 10/19/2024 10: 20 AM CDT ENDOTRACHEAL TUBE Routine 10/19/2024 10: 20 AM CDT ENDOTRACHEAL TUBE Routine 10/19/2024 10: 20 AM CDT TYPE & SCREEN STAT 10/19/2024 9:48 AM CDT PLATELET COUNT STAT 10/19/2024 8:53 AM CDT HEMOGLOBIN STAT 10/19/2024 8:53 AM CDT CREATININE STAT 10/19/2024 8:53 AM CDT PROTIME-INR STAT 10/19/2024 8:53 AM CDT GLUCOSE METER Timed 10/19/2024 8:01 AM CDT URINE ALBUMIN TO CREATININE RATIO, RANDOM Routine 09/15/2024 8:25 AM CDT Type 2 diabetes mellitus with stage 3a chronic kidney disease, with long-term current use of insulin (HC) BASIC METABOLIC PANEL Routine 09/15/2024 8:14 AM CDT Hypertension, unspecified type Stage 3a chronic kidney disease (HC) HEMOGLOBIN A1C Routine 09/15/2024 8:14 AM CDT Type 2 diabetes mellitus with stage 3a chronic kidney disease, with long-term current use of insulin (HC) CBC W PLT NO DIFF Routine 09/15/2024 8:1 4 AM CDT Stage 3a chronic kidney disease (HC) HEPATIC FUNCTION PANEL Routine 8:14 AM CDT Elevated liver enzymes PACER NIDA DUAL CHAMBER WO REPROG Routine 09/01/2024 6:57 AM CDT Fitting or adjustment of cardiac pacemaker CT ABDOMEN LIMITED WO Routine 08/19/2024 12:02 PM CDT Left kidney mass US BIOPSY RENAL LEFT Routine 08/19/2024 11:53 AM CDT Left kidney mass PATH FNA CYTOLOGY ASP CYTOLOGY Today 08/19/2024 11:25 AM CDT PLATELET COUNT STAT 08/19/2024 9:07 AM CDT PROTIME-INR STAT 08/19/2024 9:07 AM CDT SCAN-EYE EXAM 08/10/2024 12:00 AM CDT XR DXA BONE DENSITY 2 SITES AXIAL Routine 11/19/2010 10:21 AM CDT AGE-RELATED BONE LOSS from Last 3 Months or Most Recently Relevant to Health Maintenance Results * (ABNORMAL) METHYLMALONIC ACID BLOOD (10/31/2024 4:39 PM CDT) METHYLMALONIC ACID 515(H) 85 - 423 nmol/L 11/01/2024 7:27 PM CDT [email or web address] Comment: See Note 1 Serum methylmalonic acid (MMA) levels are used to diagnose and monitor several rare inborn errors of metabolism, including methylmalonic aciduria. The enzymatic conversion of MMA to succinic acid requires vitamin B12 (adenosyl-cobalamin) as a cofactor. Serum MMA levels are also used for assessing functional vitamin B12 deficiency. Vitamin B12 is essential for neurodevelopment, particularly early in . Undiagnosed maternal vitamin B12 deficiency may be associated with adverse / outcomes, such as neural tube defects and intrauterine growth restriction. [facility] utilized Multi-Modal Decomposition (MMD) analysis to establish first and second trimester-specific MMA reference intervals in , as given below: MMA, First trimester (<13 wks gestation): 58-167 nmol/L MMA, Second trimester (13-23 wks gestation): 63-241 nmol/L Note 1 This test was developed and its analytical performance characteristics have been determined by [facility]. It has not been cleared or approved by the FDA. This assay has been validated pursuant to the CLIA regulations and is used for clinical purposes. Blood BLOOD SPECIMEN / Unknown [facility] / Unknown 10/31/2024 4:39 PM CDT 10/31/2024 4:41 PM CDT us Jhonny Guerrero MD SEND OUTS Final Result [address] [place] [address], * (ABNORMAL) CBC WITH AUTO DIFFERENTIAL (10/31/2024 4:39 PM CDT) [facility] WHITE BLOOD CELL COUNT 8.9 3.8 - 10.8 Thousand/ uL 11/01/2024 3:26 AM CDT [facility] RED BLOOD CELL COUNT 3.00(L) 3.80 - 5.10 Million/u L 11/01/2024 3:26 AM CDT [facility] HEMOGLOBIN 8.4(L) 11.7 - 15.5 g/dL 11/01/2024 3:26 AM CDT [facility] HEMATOCRIT 27.5(L) 35.0 - 45.0 % 11/01/2024 3:26 AM CDT [facility] MCV 91.7 80.0 - 100.0 fL 11/01/2024 3:26 AM CDT [facility] MCH 28.0 27.0 - 33.0 pg 11/01/2024 3:26 AM CDT [facility] MCHC 30.5(L) 32.0 - 36.0 g/dL 11/01/2024 3:26 AM CDT [facility] Comment: For adults, a slight decrease in the calculated MCHC value (in the range of 30 to 32 g/dL) is most likely not clinically significant; however, it should be interpreted with caution in correlation with other red cell parameters and the patient's clinical condition. RDW 12.9 11.0 - 15.0 % 11/01/2024 3:26 AM CDT [facility] PLATELET COUNT 290 140 - 400 Thousand/ uL 11/01/2024 3:26 AM CDT [facility] MPV 9.6 7.5 - 12.5 fL 11/01/2024 3:26 AM CDT [facility] NEUTROPHILS 79.2 % 11/01/2024 3:26 AM CDT [facility] LYMPHOCYTES 12.8 % 11/01/2024 3:26 AM CDT [facility] MONOCYTES 7.6 % 11/01/2024 3:26 AM CDT [facility] EOSINOPHILS 0.2 % 11/01/2024 3:26 AM CDT [facility] BASOPHILS 0.2 % 11/01/2024 3:26 AM CDT [facility] ABSOLUTE NEUTROPHILS 7049 1500 - 7800 cells/uL 11/01/2024 3:26 AM CDT [facility] ABSOLUTE LYMPHOCYTES 1139 850 - 3900 cells/uL 11/01/2024 3:26 AM CDT [facility] ABSOLUTE MONOCYTES 676 200 - 950 cells/uL 11/01/2024 3:26 AM CDT [facility] ABSOLUTE EOSINOPHILS 18 15 - 500 cells/uL 11/01/2024 3:26 AM CDT [facility] ABSOLUTE BASOPHILS 18 0 - 200 cells/uL 11/01/2024 3:26 AM CDT [facility] Blood BLOOD SPECIMEN / Unknown [facility] / Unknown 10/31/2024 4:39 PM CDT 10/31/2024 4:41 PM CDT Jhonny Guerrero MD HEMATOLOGY Final Result Performing Organization Address [facility]/ZIP Co de Phone Number [facility] [address] [address], [place] [phone] * (ABNORMAL) IRON PLUS IRON BINDING CAP (10/31/2024 4:39 PM CDT) Pathologist [facility] IRON, TOTAL 16(L) 45 - 160 mcg/dL 11/01/2024 3:50 AM CDT [facility] IRON BINDING CAPACITY 222(L) 250 - 450 mcg/dL (calc) 11/01/2024 3:50 AM CDT [facility] % SATURATION 7(L) 16 - 45 % (calc) 11/01/2024 3:50 AM CDT [facility] Blood BLOOD SPECIMEN / Unknown [facility] / Unknown 10/31/2024 4:39 PM CDT 10/31/2024 4:41 PM CDT us Jhonny Guerrero MD CHEMISTRY Final Result Performing Organization Address [facility]/ZIP Co de Phone Number [facility] [address] [address], [place] [phone] * VITAMIN B12 (10/31/2024 4:39 PM CDT) Pathologist [facility] VITAMIN B12 381 200 - 1100 pg/mL 11/01/2024 4:28 AM CDT [facility] Comment: Please Note: Although the reference range for vitamin B12 is 200-1100 pg/mL, it has been reported that between 5 and 10% of patients with values between 200 and 400 pg/mL may experience neuropsychiatric and hematologic abnormalities due to occult B12 deficiency; less than 1% of patients with values above 400 pg/mL will have symptoms. Blood BLOOD SPECIMEN / Unknown [facility] / Unknown 10/31/2024 4:39 PM CDT 10/31/2024 4:41 PM CDT Jhonny Guerrero MD CHEMISTRY Final Result [facility] [address] [place] [address], * (ABNORMAL) HEPATIC FUNCTION PANEL (10/31/2024 4:39 PM CDT) Only the most recent of2 resultswithin the time period is included. ALBUMIN 3.4(L) 3.6 - 5.1 g/dL 11/01/2024 3:50 AM CDT [facility] PROTEIN, TOTAL 6.2 6.1 - 8.1 g/dL 11/01/2024 3:50 AM CDT [facility] BILIRUBIN, TOTAL 0.4 0.2 - 1.2 mg/dL 11/01/2024 3:50 AM CDT [facility] BILIRUBIN, DIRECT 0.1 < OR = 0.2 mg/dL 11/01/2024 3:50 AM CDT [facility] BILIRUBIN, INDIRECT 0.3 0.2 - 1.2 mg/dL (calc) 11/01/2024 3:50 AM CDT [facility] ALKALINE PHOSPHATASE 90 37 - 153 U/L 11/01/2024 3:50 AM CDT [facility] ALT 11 6 - 29 U/L 11/01/2024 3:50 AM CDT [facility] AST 14 10 - 35 U/L 11/01/2024 3:50 AM CDT [facility] GLOBULIN 2.8 1.9 - 3.7 g/dL (calc) 11/01/2024 3:50 AM CDT [facility] ALBUMIN/GLOBULIN RATIO 1.2 1.0 - 2.5 (calc) 11/01/2024 3:50 AM CDT [facility] Blood BLOOD SPECIMEN / Unknown [facility] / Unknown 10/31/2024 4:39 PM CDT 10/31/2024 4:41 PM CDT Jhonny Guerrero MD CHEMISTRY Final Result [facility] [address] [address], * (ABNORMAL) GLUCOSE METER (10/20/2024 12:02 PM CDT) Only the most recent of7 resultswithin the time period is included. GLUCOSE METER 317(H) 65 - 100 mg/dL 10/20/2024 12:12 PM CDT [facility] Blood BLOOD SPECIMEN / Unknown 10/20/2024 12:02 PM CDT 10/20/2024 12:12 PM CDT Scout Huddleston MD CHEMISTRY Final Resul t Performing Organization Address City/[facility]/ZIP Co de Phone Number [facility] SENDOUT INTERNAL ZIP [phone] [place] [phone] * (ABNORMAL) Hemoglobin (10/20/2024 7:24 AM CDT) Only the most recent of3 resultswithin the time period is included. HEMOGLOBIN 7.5(L) 12.0 - 16.0 g/dL 10/20/2024 8:06 AM CDT [facility] MCV 90 80 - 100 fL 10/20/2024 8:06 AM CDT [facility] Blood BLOOD SPECIMEN / Unknown Venipuncture / Unknown 10/20/2024 7:24 AM CDT 10/20/2024 7:51 AM CDT Scout Huddleston MD HEMATOLOGY Final Resul t [facility] SENDOUT INTERNAL ZIP [phone] [place] [address] * (ABNORMAL) CREATININE (10/20/2024 7:24 AM CDT) Only the most recent of2 resultswithin the time period is included. eGFR 42(L) >90 mL/min/1.7 3m2 10/20/2024 8:35 AM CDT [facility] Comment:As of 2021, eG FR is calculated by the CKD-EPI creatinine equation without race adjustment. eGFR can be influenced by muscle mass, exercise, and diet. The reported eGFR is an estimation only and is only applicable if the renal function is stable. CREATININE 1.23(H) 0.50 - 0.90 mg/dL 10/20/2024 8:35 AM CDT [facility] Blood BLOOD SPECIMEN / Unknown Venipuncture / Unknown 10/20/2024 7:24 AM CDT 10/20/2024 7:51 AM CDT Allyson Weathers MD CHEMISTRY F inal Result [facility] SENDOUT INTERNAL ZIP [phone] [place] [address] * XR CHEST 1 VIEW PORTABLE (10/19/2024 3:57 PM CDT) Anatomical Region Laterality Modality HEART, THORAX, CHEST Computed Ra diography 10/19/2024 3:57 PM CDT Impressions 10/19/2024 10:52 PM CDT Left pacemaker. Heart normal in size. Lungs are clear. Narrative 10/19/2024 10:52 PM CDT For Patients: As a result of the Cures Act, medical imaging exams and procedure reports are released immediately into your electronic medical record. You may view this report before your referring provider. If you have questions, please contact your health care provider. EXAM: XR CHEST 1 VIEW PORTABLE LOCATION: [facility] DATE: 10/19/2024 INDICATION: Trauma COMPARISON: 06/19/2023 Procedure Note Lj Kern MD - 10/19/2024 For Patients: As a result of the s Act, medical imagingexams and procedure reports are released immediately into your electronicmedical record. You may view this report before your referring provider.If you have questions, please contact your health care provider. EXAM: XR CHEST 1 VIEW PORTABLE LOCATION: [facility] DATE: 10/19/2024 INDICATION: Trauma COMPARISON: 06/19/2023 IMPRESSION: Left pacemaker. Heart normal in size. Lungs are clear. us Scout Huddleston MD GENERAL IMAGING Final Resul t * CT CRYOTHERAPY KIDNEY LEFT (10/19/2024 11:22 AM CDT) Anatomical Region Laterality Modality KIDNEY L Computed Tomogra phy, Other, Other 10/19/2024 11:2 2 AM CDT Impressions 10/19/2024 1:[address]-guided cryoablation of the superior left renal mass, requiring the use of 3 cryoprobes, as detailed above. Narrative 10/19/2024 1:19 PM CDT For Patients: As a result of the Cures Act, medical imaging exams and procedure reports are released immediately into your electronic medical record. You may view this report before your referring provider. If you have questions, please contact your health care provider. KATY RADIOLOGY LOCATION: [facility] DATE: 10/19/2024 PROCEDURE: CT GUIDED LEFT RENAL MASS CRYOABLATION INTERVENTIONAL RADIOLOGIST: Scout Huddleston MD. INDICATION: 81-year-old female with an enlarging biopsy-proven renal cell carcinoma of the posterior/superior left upper kidney. MODERATE SEDATION: General endotracheal anesthesia. CONTRAST: None. ANTIBIOTICS: None. ADDITIONAL MEDICATIONS: None. CT FLUOROSCOPIC TIME: 8 seconds. RADIATION DOSE: Dose Length Product: 867 mGy-cm. Dose reduction techniques were utilized. COMPLICATIONS: No immediate complications. PROCEDURE/TECHNIQUE: A nonenhanced CT study was performed for localization purposes. Dose reduction techniques were used. Using intermittent CT fluoroscopy, a variable length adjustable cryoprobe was inserted into the upper medial aspect of the left upper renal mass and stuck into place. Using intermittent CT fluoroscopy, a second variable length adjustable cryoprobe was inserted into the upper lateral aspect of the left upper renal mass and stuck into place. Using intermittent CT fluoroscopy, a third variable length adjustable cryoprobe was inserted into the lower margin of the left upper renal mass. Using intermittent CT fluoroscopy, an 18-gauge trocar needle was inserted into the posterior retroperitoneum along the posterior margin of the renal mass. Hydrodissection was performed with 60 mL of dilute contrast. A 10 minute freeze cycle was performed. The third cryoprobe was allowed to thaw. Using intermittent CT fluoroscopy, the cryoprobe was repositioned higher into the lower aspect of the left upper renal mass. An additional 10 minute freeze cycle was performed with intermittent CT monitoring to evaluate for a ice ball coverage. After each cryoprobe had thawed, they were removed. A completion nonenhanced CT study was obtained to evaluate for perirenal hemorrhage or complication. FINDINGS: The initial CT shows the large mass arising from the upper pole of the left kidney. Images obtained during cryoprobe placement show the cryoprobes which appear to transect the mass. With hydrodissection the kidney is displaced from the paraspinous musculature. Images obtained during the initial freeze cycle show an excellent ablation defect involving the upper margin of the mass. A portion of the lower margin of the mass is not treated with the cryoprobe placement. Images obtained following repositioning of the third cryoprobe and subsequent freezing show the ablation defect which appears to encompass the entire location of the mass. Completion images show the ablation defect which appears to encompass the entire mass. No perirenal hemorrhage. No pneumothorax. Procedure Note Scout Huddleston MD - 10/19/2024 For Patients: As a result of the Century Cures Act, medical imagingexams and procedure reports are released immediately into your electronicmedical record. You may view this report before your referring provider.If you have questions, please contact your health care provider. KATY RADIOLOGY LOCATION: [facility] DATE: 10/19/2024 PROCEDURE: CT GUIDED LEFT RENAL MASS CRYOABLATION INTERVENTIONAL RADIOLOGIST: Scout Huddleston MD. 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 MODERATE SEDATION: General endotracheal anesthesia. CONTRAST: None. ANTIBIOTICS: None. ADDITIONAL MEDICATIONS: None. CT FLUOROSCOPIC TIME: 8 seconds. RADIATION DOSE: Dose Length Product: 867 mGy-cm. Dose reductiontechniques were utilized. COMPLICATIONS: No immediate complications. PROCEDURE/TECHNIQUE: A nonenhanced CT study was performed for localization purposes. Dosereduction techniques were used. Using intermittent CT fluoroscopy, a variable length adjustable cryoprobewas inserted into the upper medial aspect of the left upper renal mass andstuck into place. Using intermittent CT fluoroscopy, a second variable length adjustablecryoprobe was inserted into the upper lateral aspect of the left upperrenal mass and stuck into place. Using intermittent CT fluoroscopy, a third variable length adjustablecryoprobe was inserted into the lower margin of the left upper renal mass. Using intermittent CT fluoroscopy, an 18-gauge trocar needle was insertedinto the posterior retroperitoneum along the posterior margin of the renalmass. Hydrodissection was performed with 60 mL of dilute contrast. A 10 minute freeze cycle was performed. The third cryoprobe was allowed tothaw. Using intermittent CT fluoroscopy, the cryoprobe was repositioned higherinto the lower aspect of the left upper renal mass. An additional 10 minute freeze cycle was performed with intermittent CTmonitoring to evaluate for a ice ball coverage. After each cryoprobe hadthawed, they were removed. A completion nonenhanced CT study was obtained to evaluate for perirenalhemorrhage or complication. FINDINGS: The initial CT shows the large mass arising from the upper pole of theleft kidney. Images obtained during cryoprobe placement show the cryoprobes whichappear to transect the mass. With hydrodissection the kidney is displacedfrom the paraspinous musculature. Images obtained during the initial freeze cycle show an excellent ablationdefect involving the upper margin of the mass. A portion of the lowermargin of the mass is not treated with the cryoprobe placement. Images obtained following repositioning of the third cryoprobe andsubsequent freezing show the ablation defect which appears to encompassthe entire location of the mass. Completion images show the ablation defect which appears to encompass theentire mass. No perirenal hemorrhage. No pneumothorax. IMPRESSION: Successful CT-guided cryoablation of the superior left renal mass,requiring the use of 3 cryoprobes, as detailed above. us Scout Huddleston MD CT Final Resul t * HCHG TUBE PR1, HCHG STYLET PR1, HCHG MOUTHPIECE PR1 (10/19/2024 10:20 AM CDT) Kae Shah CRNA - 10/19/2024 10:20 AM CDT Kae BowmanKYE 10/19/2024 10:20 AM Procedure: ETT Patient location during procedure: OR ETT Properties Mask Ventilation: easy (2 handed d/t CT positioning) Final Technique: direct laryngoscopy Type: straight Location: oral Cuffed: yes Tube Size: 7.0 mm Stylet: yes Laryngoscope Blade: Donahue Blade Size: 2 Cormack-Lehane Grade View: 1 Insertion Attempts: 1 Placement Verification: auscultation, end tidal CO2 and symmetrical chest wall movement Assessment: pharynx clear, atraumatic and dentition unchanged Secured at: 21 Measured From: lips Tooth guard used and removed: yes Difficulty: 0 (not difficult) Abner Irizarry MD ANESTHESIA PX NOTE ORDERA BLES Final Result * TYPE & SCREEN (10/19/2024 9:48 AM CDT) ABORH O Rh Positive 10/19/2024 10:45 AM CDT [facility] ANTIBODY SCREEN Negative Negative 10/19/2024 10:45 AM CDT [facility] B[facility]OD [facility] SPECIMEN EXPIRATION DATE/TIME 10/22/24 23:59 10/19/2024 10:45 AM CDT [facility] Blood BLOOD SPECIMEN / Unknown Non-Lab Venipuncture / Unknown 10/19/2024 9:48 AM CDT 10/19/2024 10:00 AM CDT Kae Robinstt [facility] B[facility] Final Resul t Performing Organization Address City/State/[facility] Co de Phone Number [facility] B[facility]OD BANK [address] [place] [address] * Platelet Count (10/19/2024 8:53 AM CDT) Only the most recent of2 resultswithin the time period is included. PLATELET COUNT 286 140 - 440 thou/cu mm 10/19/2024 8:59 AM CDT [facility] MPV 8.7 6.5 - 11.0 fL 10/19/2024 8:59 AM CDT [facility] Blood BLOOD SPECIMEN / Unknown Non-Lab Venipuncture / Unknown 10/19/2024 8:53 AM CDT 10/19/2024 8:53 AM CDT Narrative [facility] - 10/19/2024 8:59 AM CDT If not done within past 14 days. Nurse to release order. Goal platelets greater than or equal to 80. If not done within past 14 days. Nurse to release order. Mena Arias NP HEMATOLOGY Final Res ult Performing Organization Address City/[facility]/ZIP Co de Phone Number [facility] SENDOUT INTERNAL ZIP [phone] [place] [phone] * (ABNORMAL) Protime - INR (10/19/2024 8:53 AM CDT) Only the most recent of2 resultswithin the time period is included. INR 1.1 <1.3 10/19/2024 9:05 AM CDT [facility] PROTIME 13.0(H) 10.6 - 12.4 sec 10/19/2024 9:05 AM CDT [facility] Blood BLOOD SPECIMEN / Unknown Non-Lab Venipuncture / Unknown 10/19/2024 8:53 AM CDT 10/19/2024 8:53 AM CDT Narrative [facility] - 10/19/2024 9:05 AM CDT Therapeutic Range 2.0-3.0 for most anticoagulated patients 2.5-3.5 or 4.0 for high risk patients The INR is only used for patients on stable oral anticoagulant therapy. It makes no significant contribution to the diagnosis or treatment of patients whose Protime is prolonged for other reasons. INR results are increased when heparin levels exceed 1.0 U/mL, which corresponds to an aPTT >125 seconds if the patient is on UFH. Mena Arias NP HEMATOLOGY Final Res ult [facility] SENDOUT INTERNAL ZIP [phone] [place] [phone] * (ABNORMAL) URINE ALBUMIN TO CREATININE RATIO, RANDOM (09/15/2024 8:25 AM CDT) ALB RAND URINE 51.6 mg/L 09/15/2024 4:16 PM CDT [facility] CREATININE,URIN E 0.30 g/L 09/15/2024 4:16 PM CDT [facility] ALBUMIN TO CREATININE RATIO,RAND UR 172.0(H) <30.0 mg/g creat 09/15/2024 4:16 PM CDT [facility] Urine URINE SPECIMEN / Unknown Non-Blood / Unknown 09/15/2024 8:25 AM CDT 09/15/2024 8:25 AM CDT Narrative [facility] - 09/15/2024 4:16 PM CDT If Albumin to Creatinine Ratio is elevated, consider the following: Elevations seen with incipient nephropathy associated with diabetes mellitus or hypertension. Stress, exercise,hematuria, and urinary tract infection may also produce elevated results. If clinically indicated, confirm with 24 Hour Albumin to Creatinine Ratio. us Jhonny Guerrero MD URINE Final Result Performing Organization Address [facility] Co de Phone Number [facility] [address] [place] [address], * (ABNORMAL) HEMOGLOBIN A1C (09/15/2024 8:14 AM CDT) HEMOGLOBIN A1C 8.7(H) <5.7 % [employer] [facility] Comment: For someone without known diabetes, a hemoglobin A1c value of 6.5% or greater indicates that they may have diabetes and this should be confirmed with a follow-up test. For someone with known diabetes, a value <7% indicates that their diabetes is well controlled and a value greater than or equal to 7% indicates suboptimal control. A1c targets should be individualized based on duration of diabetes, age, comorbid conditions, and other considerations. Currently, no consensus exists regarding use of hemoglobin A1c for diagnosis of diabetes for children. Blood BLOOD SPECIMEN / Unknown 09/15/2024 8:14 AM CDT 09/15/2024 8:15 AM CDT us Jhonny Guerrero MD CHEMISTRY Final Result Hole [address] [facility] [address] [place] [address], [place] [phone] [facility] [address] [place] [address] * (ABNORMAL) CBC W PLT NO DIFF (09/15/2024 8:14 AM CDT) WHITE BLOOD CELL COUNT 9.9 3.8 - 10.8 Thousand/u L [facility] RED BLOOD CELL COUNT 3.87 3.80 - 5.10 Million/uL [facility] HEMOGLOBIN 11.2(L) 11.7 - 15.5 g/dL [facility] HEMATOCRIT 35.7 35.0 - 45.0 % [facility] MCV 92.2 80.0 - 100.0 fL [facility] MCH 28.9 27.0 - 33.0 pg [facility] MCHC 31.4(L) 32.0 - 36.0 g/dL [facility] Comment: For adults, a slight decrease in the calculated MCHC value (in the range of 30 to 32 g/dL) is most likely not clinically significant; however, it should be interpreted with caution in correlation with other red cell parameters and the patient's clinical condition. RDW 12.7 11.0 - 15.0 % [facility] PLATELET COUNT 333 140 - 400 Thousand/u L [facility] MPV 8.9 7.5 - 12.5 fL [facility] Blood BLOOD SPECIMEN / Unknown 09/15/2024 8:14 AM CDT 09/15/2024 8:15 AM CDT us Jhonny Guerrero MD HEMATOLOGY Final Result [address] [facility] [address] [place] [address], [place] [phone] [facility] [address] [place] [address] * (ABNORMAL) BASIC METABOLIC PANEL (09/15/2024 8:14 AM CDT) GLUCOSE 156(H) 65 - 99 mg/dL JUN[employer]EL[employer]andro Sheppard Comment: Fasting reference interval For someone without known diabetes, a glucose value >125 mg/dL indicates that they may have diabetes and this should be confirmed with a follow-up test. UREA NITROGEN (BUN) 24 7 - 25 mg/dL [facility] [employer] [facility] [facility] Sheppard CREATININE 1.45(H) 0.60 - 0.95 mg/dL [facility] EGFR 35(L) > OR = 60 mL/min/1.7 3m2 [facility] BUN/CREATININE RATIO 17 6 - 22 (calc) [facility] SODIUM 138 135 - 146 mmol/L [facility] POTASSIUM 4.5 3.5 - 5.3 mmol/L [facility] CHLORIDE 102 98 - 110 mmol/L [facility] CARBON DIOXIDE 26 20 - 32 mmol/L [facility] ELECTROLYTE BALANCE 10 7 - 17 mmol/L (calc) [facility] CALCIUM 9.4 8.6 - 10.4 mg/dL [facility] [employer] [facility] Blood BLOOD SPECIMEN / Unknown 09/15/2024 8:14 AM CDT 09/15/2024 8:15 AM CDT Jhonny Guerrero MD CHEMISTRY Final Result Hole [address] [facility] [address] [place] [address], [facility] [address] [place] [address] * CT ABDOMEN LIMITED WO (08/19/2024 12:02 PM CDT) Anatomical Region Laterality Modality Abdomen, Pelvis, AORTA, LIVER, SPLEEN Computed Tomography 08/19/2024 12:0 2 PM CDT Impressions 08/20/2024 12:39 PM CDT Limited noncontrast CT images of the upper abdomen were obtained prior to and immediately following left renal mass biopsy. Similar dilation of the right renal pelvis with associated wall thickening. On postprocedural images, trace postprocedural gas is seen within the left upper quadrant and tracking within the left kidney. Trace fluid or blood products are seen along the biopsy tract) series 6 image 31). No appreciable pneumothorax. Please see separately dictated ultrasound-guided biopsy report for additional details of the procedure. Narrative 08/20/2024 12:39 PM CDT For Patients: As a result of the Cures Act, medical imaging exams and procedure reports are released immediately into your electronic medical record. You may view this report before your referring provider. If you have questions, please contact your health care provider. EXAM: CT ABDOMEN LIMITED WO LOCATION: [facility] DATE: 08/19/2024 INDICATION: Left Kidney Mass COMPARISON: 08/01/2024 Procedure Note Bishop Ortiz MD - 08/20/2024 For Patients: As a result of the Cures Act, medical imagingexams and procedure reports are released immediately into your electronicmedical record. You may view this report before your referring provider.If you have questions, please contact your health care provider. EXAM: CT ABDOMEN LIMITED WO LOCATION: [facility] DATE: 08/19/2024 INDICATION: Left Kidney Mass COMPARISON: 08/01/2024 IMPRESSION: Limited noncontrast CT images of the upper abdomen were obtained prior toand immediately following left renal mass biopsy. Similar dilation of theright renal pelvis with associated wall thickening. On postproceduralimages, trace postprocedural gas is seen within the left upper quadrantand tracking within the left kidney. Trace fluid or blood products areseen along the biopsy tract) series 6 image 31). No appreciablepneumothorax. Please see separately dictated ultrasound-guided biopsyreport for additional details of the procedure. us Sarahy ROWE CT Final Resul t * US BIOPSY RENAL LEFT (08/19/2024 11:53 AM CDT) Anatomical Region Laterality Modality KIDNEY L Ultrasound, Othe r 08/19/2024 11:5 3 AM CDT Impressions 08/19/2024 12:16 PM CDT Status post ultrasound-guided biopsy left renal mass. Reference CPT Code: 70178, 34732, 66627 Narrative 08/19/2024 12:16 PM CDT For Patients: As a result of the Cures Act, medical imaging exams and procedure reports are released immediately into your electronic medical record. You may view this report before your referring provider. If you have questions, please contact your health care provider. EXAM: 1. PERCUTANEOUS BIOPSY LEFT RENAL MASS 2. ULTRASOUND GUIDANCE 3. CONSCIOUS SEDATION LOCATION: [facility] DATE: 08/19/2024 INDICATION: Left Kidney Mass PROCEDURE: Informed consent obtained. Site marked. Prior images reviewed. Required items made available. Patient identity confirmed verbally and with arm band. Patient reevaluated immediately before administering sedation. [place] protocol was followed. Time out performed. The site was prepped and draped in sterile fashion. 10 mL of 1% lidocaine was infused into the local soft tissues. Using standard technique and under direct ultrasound guidance, a 18 gauge biopsy needle was used to make 7 core biopsies. Tissue was submitted to Pathology. The patient tolerated the procedure well. No complications. SEDATION: Versed 0.5 mg. Fentanyl 25 mcg. The procedure was performed with administration intravenous conscious sedation with appropriate preoperative, intraoperative, and postoperative evaluation. 20 minutes of supervised face to face conscious sedation time was provided by a radiology nurse under my direct supervision. Procedure Note Bishop Ortiz MD - 08/19/2024 For Patients: As a result of the Cures Act, medical imagingexams and procedure reports are released immediately into your electronicmedical record. You may view this report before your referring provider.If you have questions, please contact your health care provider. EXAM: 1. PERCUTANEOUS BIOPSY LEFT RENAL MASS 2. ULTRASOUND GUIDANCE 3. CONSCIOUS SEDATION LOCATION: [facility] DATE: 08/19/2024 INDICATION: Left Kidney Mass PROCEDURE: Informed consent obtained. Site marked. Prior images reviewed.Required items made available. Patient identity confirmed verbally andwith arm band. Patient reevaluated immediately before administeringsedation. [place] protocol was followed. Time out performed. The sitewas prepped and draped in sterile fashion. 10 mL of 1% lidocaine wasinfused into the local soft tissues. Using standard technique and underdirect ultrasound guidance, a 18 gauge biopsy needle was used to make 7core biopsies. Tissue was submitted to Pathology. The patient tolerated the procedure well. No complications. SEDATION: Versed 0.5 mg. Fentanyl 25 mcg. The procedure was performed withadministration intravenous conscious sedation with appropriatepreoperative, intraoperative, and postoperative evaluation. 20 minutes of supervised face to face conscious sedation time was providedby a radiology nurse under my direct supervision. IMPRESSION: Status post ultrasound-guided biopsy left renal mass. Reference CPT Code: 48976, 29560, 93261 us Sarahy ROWE US Final Resul t * FNA Cytology MEDICAL ESTHETICIAN (08/19/2024 11:25 AM CDT) Case Report Medical Cytology Report Case: [id number] Authorizing Provider: Sarahy Xiao PA Collected: 08/19/2024 1125 Ordering Location: [facility] Received: 08/19/2024 1233 Pathologist: Skylar Carrillo MD Specimen: Left Kidney 08/22/2024 10:47 AM CDT [facility] Final Diagnosis A) LEFT KIDNEY MASS, ULTRASOUND GUIDED CORE BIOPSY: 1. 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 No uninvolved renal parenchyma available for evaluation 08/22/2024 10:47 AM CDT [facility] at 1047 CDT Comment A) Case seen in consultation with Dr. Hastings. 08/22/2024 10:47 AM CDT [facility] Clinical Information Ms. Pyle is a 89 y.o. female with a recent follow-up abdominal CT scan findings: Indication: Left renal mass Comparison: 01/25/2024, outside CT 05/06/2024 Findings: Heterogeneously enhancing mass upper pole left kidney appears to have increased slightly in the interim now measuring up to 3.4 cm, previously measuring 3 cm. Bilateral renal stones are similar. Chronic distention of the renal pelvis and visualized ureters, right greater than left, not significantly changed. Simple cyst left kidney is again noted. Other smaller cysts are present elsewhere. Spleen is nonenlarged. Pancreas is normal. Status post cholecystectomy. Similar appearance of the biliary tree. Atherosclerotic changes. No hiatal hernia. No pleural effusion. Grade 1 degenerative spondylolisthesis L4 on L5. Impression: Slight increased size of the solid heterogeneous mass arising from the upper pole of the left kidney. Chronic bilateral hydroureteronephros is, right greater than left. Bilateral renal stones are not significantly changed. 08/22/2024 10:47 AM T [facility] Gross Description A) Received identified as Left Kidney is a radiologic guided biopsy specimen. The core biopsy sampling measures 0.2 cm x 0.2 cm in aggregate. The specimen consists of: -6 Air dried slides -1 Formalin vial -0 RPMI vials The following were prepared from the specimen submitted: -6 Diff-Quik stained slides -1 H&E stained cell block slide The biopsy material is entirely submitted in 1 cassette. A2 Cell block material was removed from the patient and placed directly in formalin at 1140 on 08/19/24 and fixed in formalin at least 6 hours and no more than 72 hours. 08/22/2024 10:47 AM [facility] Adequacy Assessment A) Varun assessed adequacy from the air-dried smears at the time of the procedure with an impression of Not Adequate. 08/22/2024 10:47 AM T [facility] Microscopic Description Specimen adequacy: Adequate for interpretation. All slides were reviewed. The microscopic appearance substantiates the diagnosis. 08/22/2024 10:47 AM T [facility] Additional Information Cytology is screened at [facility], Central Laboratory - [address], [place] [address] and [facility] - [address], [place] [address] and [facility] - [address] [place] [address] Interpreted at [facility], Central Laboratory - [address], [place] [address] 08/22/2024 10:47 AM [facility] Aspirate (Left Kidney) 08/19/2024 11:25 AM CDT 08/19/2024 12:33 PM CDT Sarahy ROWE PATHOLOGY/CYTOLOGY Final Re sult [facility] 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
[2024-11-10 23:54] VITALS: BP 148/74; PULSE 70; RESP 18; TEMP 36.7; O2SAT 98; BMI 16.8
[2024-11-11] VITALS (8 sets, daily range): BP systolic 113–158; BP diastolic 49–67; PULSE 59–95; RESP 16–18; TEMP 36.3–36.8; O2SAT 96–100; BMI 16.8
--- NOTE | 2024-11-11 00:46 | CRLHL7_ITS ---
For Patients: As a result of the Century Cures Act, medical imaging exams and procedure reports are released immediately into your electronic medical record. You may view this report before your referring provider. If you have questions, please contact your health care provider. INDICATION: Left lower quadrant abdominal pain TECHNIQUE: CT Abdomen and pelvis without i.v. contrast. Coronal and sagittal reformats were obtained. COMPARISON: 08/01/2024, 08/19/2024, 05/06/2024 FINDINGS: Lower chest: Unremarkable. Pacer wires are partially visualized in the right atrium and ventricle. 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 Liver: Unremarkable. Spleen: Unremarkable. Pancreas: Unremarkable. Gallbladder: Previous cholecystectomy noted with no significant intra- or extrahepatic biliary ductal dilatation seen. Kidney: Severe right renal pelvicaliectasis and right hydroureter is present with interval development of gas seen in the right renal pelvis. Moderate left renal pelviectasis is present and increased compared to prior exam. Adrenal: Unremarkable. 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 The appendix is not identified. Vascular: Unremarkable. Lymph: Unremarkable. Peritoneum: Unremarkable. No pneumoperitoneum is seen. No significant ascites is noted. Pelvis: The patient is status post hysterectomy. Soft tissue: Unremarkable. Bone: Unremarkable for age. IMPRESSIONS: 1. 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 Bowel perforation can not be excluded. 2. Severe right renal pelvicaliectasis and right hydroureter is present with interval development of gas seen in the right renal pelvis. Retrograde flow of gas from the bladder wall or a gas-forming urinary tract infection should be considered. The findings were verbally communicated with Dr. Barbosa at 1:33 AM. Dictated by Miguel Pleitez MD @ 11/11/2024 1:32:37 AM Please note that all CT scans at this facility use dose modulation, iterative reconstruction, and/or weight-based dosing when appropriate to reduce radiation dose to as low as reasonably achievable. Dictated by: Miguel Pleitez MD @ 11/11/2024 01:34:10 (Electronically Signed)
--- OUTSIDE RECORDS SUMMARY | 2024-11-11 00:52 | XMS_ITS | Clinical Summary ---
Author Organization [facility] Address [address] [place] [address] Care Team Providers Care Cath Lab Name Role Phone Jhonny Guerrero MD Primary [...] 11/09/2024 9:00 AM CDT Nurse/Clinic Staff Only [facility] [address] [place] [address] Infusion Therapy (Feraheme 1/2) 11/09/2024 Travel 11/02/2024 Telephone [facility] [address] [place] [address] Jhonny Guerrero MD Medication Management (Feraheme infusions) 10/31/2024 3:45 PM CDT Office Visit [facility] [address] [place] [address] Jhonny Guerrero MD Hospital F/U (left kidney mass/A1C increase) 10/31/2024 Travel 10/25/2024 Orders Only [facility] [address] [place] [address] Toño Abdi RN <No scans attached> 10/25/2024 Telephone [facility] [address] [place] [address] Jhonny Guerrero MD Appointment Request (POST HOSP) 10/20/[address] [address] Tosha Sands PA no reason (No reason, can be deleted) 10/19/2024 9:54 AM CDT Anesthesia Event [facility] [address] [address] Abner Irizarry MD 10/19/2024 6:40 AM CDT - 10/20/2024 2:45 PM CDT Hospital Encounter [address] [address] Scout Huddleston MD Dalzell, MD Colby Damon Melissa, CRNA Reitz, Lucas Spencer, MD Left renal mass; 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 [address] [place] [address] Sarahy Xiao PA 10/19/2024 Travel 09/22/2024 3:45 PM CDT Office Visit [facility] [address] [place] [address] Jhonny Guerrero MD Medicare ANNUAL (subsequent) Visit (89 year old); Preoperative Exam (DOS: 10/19/2024, [facility]) 09/22/2024 Travel 09/21/2024 Refill [facility] [address] [place] [address] Stoney Murrieta, OD Refill Request (Latanoprost) 09/20/2024 Refill [facility] [address] [place] [address] Jhonny Guerrero MD Refill Request (Metformin) 09/15/2024 8:15 AM CDT Orders Only [facility] [address] [place] [address] Lab[facility] [place] [facility] 09/15/2024 Travel 09/07/2024 Orders Only [facility] [address] [place] [address] Toño Abdi RN <No scans attached> 08/28/2024 Refill [facility] [address] [place] [address] Jhonny Guerrero MD Refill Request (Fosinopril Sodium) 08/27/2024 Refill [facility] [address] [place] [address] Jhonny Guerrero MD Refill Request (Ezetimibe) 08/23/2024 Orders Only [address] [address] Sarahy Xiao PA <No scans attached> 08/19/2024 8:57 AM CDT - 08/19/2024 2:58 PM CDT Hospital Encounter [address] [address] Sarahy Xiao PA Left kidney mass Discharge Disposition: Home Self Care 08/19/2024 Travel 08/18/2024 Orders Only [facility] [place] [address] See Pham MD <No scans attached> 08/16/2024 Telephone [facility] [address] [place] [address] Jhonny Guerrero MD Lab (Lab orders needed) 08/11/2024 Orders Only [facility] [address] [place] [address] Stoney Murrieta, OD <No scans attached> from Last 3 Months Immunizations Immunization Administration [...] Heart Disease Father Did not talk a [employer] Diabetes Mother Genetic Other hypertension~ir regular [...] on file Legal Sex Female 5:20 AM A/C TECHNICIAN Gender Identity Not on file Sexual Orientation [...] Care Team (Late st Contact Info) Description 11/14/2024 10:00 AM CDT Office Visit [facility] [address] [place] [address] [place] [address] [place] [address] 11/16/2024 9:00 AM CDT Nurse/Clinic Staff Only [facility] [address] [place] [address] 12/14/2024 10:15 AM CDT Orders Only [facility] [address] [place] [address] [facility] [place] 12/23/2024 9:00 AM CDT Orders Only [facility] [address] [place] [address] [facility] [place] 12/26/2024 9:15 AM A/C TECHNICIAN Office Visit [facility] [address] [place] [address] Jhonny Guerrero MD [address] [place] [address] 01/03/2025 10:00 AM A/C TECHNICIAN Cardiac Device Check [facility] [address] [place] [phone] 02/20/2025 1:30 PM A/C TECHNICIAN Ancillary Procedure [facility] [address] [place] [address] 02/22/2025 9:45 AM A/C TECHNICIAN Office Visit [facility] [address] [place] [address] Cristopher Anthony MD [address] [address] Health Maintenance Due Date Last Done Comments COVID-19 vaccine series (2024- season) 2024 06/13/2024, 11/30/2023, 08/28/2023, Additional history [...] this topic Medical Devices Implanted Type Area Leaf Blender Device Identifier Shelf Expiration Date Model / Serial / Lot Lens Iol 23.0 Wf [id number]. 0 - [id number] Implanted:Qty: 1 on 10/09/2014 by Moose Sands MD at [facility] Left: Eye [employer] 07/24/2019 [id number]. 0# / [id number] / Procedures Procedure Name Priority Date/Time [...] CDT PROTIME-INR STAT 08/19/2024 9:07 AM CDT XR DXA BONE DENSITY 2 SITES AXIAL Routine 11/19/2010 10:21 AM CDT AGE-RELATED BONE LOSS from Last 3 Months or Most Recently Relevant to Health Maintenance Results * (ABNORMAL) METHYLMALONIC ACID BLOOD (10/31/2024 4:39 PM CDT) METHYLMALONIC ACID 515(H) 85 - 423 nmol/L 11/01/2024 7:27 PM CDT [facility] Comment: See Note 1 Serum methylmalonic [...] neural tube defects and intrauterine growth restriction. [email or web address] utilized Multi-Modal Decomposition (MMD) analysis to establish first and second trimester-specific MMA reference intervals in , as given below: MMA, First trimester (<13 wks gestation): 58-167 nmol/L MMA, Second trimester (13-23 wks gestation): 63-241 nmol/L Note 1 This test was developed and its analytical performance characteristics have been determined by [email or web address]. It has not been cleared or approved by the FDA. This assay has been validated pursuant to the CLIA regulations and is used for clinical purposes. Blood BLOOD SPECIMEN / Unknown [facility] / Unknown 10/31/2024 4:39 PM CDT 10/31/2024 4:41 PM CDT us Jhonny Guerrero MD SEND OUTS Final Result [facility] [address] [place] [address], [place] [phone] * (ABNORMAL) CBC WITH AUTO DIFFERENTIAL (10/31/2024 4:39 PM CDT) WHITE BLOOD CELL COUNT 8.9 3.8 - [...] MD HEMATOLOGY Final Result Performing Organization Address [facility] Co de Phone Number [facility] [address] [address], [place] [phone] * (ABNORMAL) IRON PLUS IRON BINDING CAP (10/31/2024 4:39 PM CDT) Pathologist [facility] IRON, TOTAL 16(L) 45 - 160 mcg/dL [...] CDT Jhonny Guerrero MD CHEMISTRY Final Result Performing Organization Address [facility] Co de Phone Number [facility] [address] [address], [place] [phone] * VITAMIN B12 (10/31/2024 4:39 PM CDT) VITAMIN B12 381 200 - 1100 pg/mL [...] Guerrero MD CHEMISTRY Final Result [facility] [address] [place] [address], * (ABNORMAL) HEPATIC FUNCTION PANEL (10/31/2024 4:39 [...] Guerrero MD CHEMISTRY Final Result [facility] [address] [address], * (ABNORMAL) GLUCOSE METER (10/20/2024 12:02 PM CDT) Only the most recent of7 resultswithin the time period is included. GLUCOSE METER 317(H) 65 - 100 mg/dL 10/20/2024 12:12 PM CDT [facility] Blood BLOOD SPECIMEN / Unknown 10/20/2024 12:02 PM CDT 10/20/2024 12:12 PM CDT Scout Huddleston MD CHEMISTRY Final Resul t Performing Organization Address City/[facility]/ZIP Co de Phone Number [facility] SENDOUT INTERNAL ZIP [phone] [place] [address] * (ABNORMAL) Hemoglobin (10/20/2024 7:24 AM CDT) Only the most recent of3 resultswithin the time period is included. HEMOGLOBIN 7.5(L) 12.0 - 16.0 g/dL 10/20/2024 8:06 AM CDT [facility] MCV 90 80 - 100 fL 10/20/2024 8:06 AM CDT [facility] Blood BLOOD SPECIMEN / Unknown Venipuncture / Unknown 10/20/2024 7:24 AM CDT 10/20/2024 7:51 AM CDT Scout Huddleston MD HEMATOLOGY Final Resul t [facility] SENDOUT INTERNAL ZIP [address] [place] [address] * (ABNORMAL) CREATININE (10/20/2024 7:24 AM CDT) Only the most recent of2 resultswithin the time period is included. eGFR 42(L) >90 mL/min/1.7 3m2 10/20/2024 8:35 AM CDT [facility] Comment:As of 2021, eG FR is calculated by the CKD-EPI creatinine equation without race adjustment. eGFR can be influenced by muscle mass, exercise, and diet. The reported eGFR is an estimation only and is only applicable if the renal function is stable. CREATININE 1.23(H) 0.50 - 0.90 mg/dL 10/20/2024 8:35 AM CDT [facility] Blood BLOOD SPECIMEN / Unknown Venipuncture / Unknown 10/20/2024 7:24 AM CDT 10/20/2024 7:51 AM CDT us Allyson Weathers MD CHEMISTRY F inal Result [facility] SENDOUT [place] [address] [phone] [place] [address] * XR CHEST 1 VIEW PORTABLE (10/19/2024 [...] EXAM: XR CHEST 1 VIEW PORTABLE LOCATION: [facility] DATE: 10/19/2024 INDICATION: Trauma COMPARISON: 06/19/2023 Procedure Note Lj Kern MD - 10/19/2024 For Patients: As a result of the Cures Act, medical imagingexams and procedure reports are released immediately into your electronicmedical record. You may view this report before your referring provider.If you have questions, please contact your health care provider. EXAM: XR CHEST 1 VIEW PORTABLE LOCATION: [facility] DATE: 10/19/2024 INDICATION: Trauma [...] questions, please contact your health care provider. [facility] LOCATION: [facility] DATE: 10/19/2024 PROCEDURE: CT [...] perirenal hemorrhage. No pneumothorax. Procedure Note Scout Hudldeston MD - 10/19/2024 For Patients: As a result of the Cures Act, medical imagingexams and procedure reports are released immediately into your electronicmedical record. You may view this report before your referring provider.If you have questions, please contact your health care provider. [facility] LOCATION: [facility] DATE: 10/19/2024 PROCEDURE: CT [...] CRNA - 10/19/2024 10:20 AM CDT Kae Bowman CRNA 10/19/2024 10:20 AM Procedure: ETT Patient location [...] O Rh Positive 10/19/2024 10:45 AM CDT [facility] ANTIBODY SCREEN Negative Negative 10/19/2024 10:45 AM CDT [facility] SPECIMEN EXPIRATION DATE/TIME 10/22/24 23:59 10/19/2024 10:45 AM CDT [facility] Blood BLOOD SPECIMEN / Unknown Non-Lab Venipuncture / Unknown 10/19/2024 9:48 AM CDT 10/19/2024 10:00 AM CDT Kae Bowman [facility] BLOOD [facility] Final Resul t [facility] BLOOD BANK [address] [place] [address] * Platelet Count (10/19/2024 8:53 AM CDT) Only the most recent of2 resultswithin the time period is included. PLATELET COUNT 286 140 - 440 thou/cu mm 10/19/2024 8:59 AM CDT [facility] MPV 8.7 6.5 - 11.0 fL 10/19/2024 8:59 AM CDT [facility] Blood BLOOD SPECIMEN / Unknown Non-Lab Venipuncture / Unknown 10/19/2024 8:53 AM CDT 10/19/2024 8:53 AM CDT Narrative [facility] - 10/19/2024 8:59 AM CDT If not done within past 14 days. Nurse to release order. Goal platelets greater than or equal to 80. If not done within past 14 days. Nurse to release order. Mena Arias NP HEMATOLOGY Final Res ult Performing Organization Address [facility] Co de Phone Number [facility] SENDOUT INTERNAL ZIP [address] [place] [address] * (ABNORMAL) Protime - INR (10/19/2024 8:53 AM CDT) Only the most recent of2 resultswithin the time period is included. INR 1.1 <1.3 10/19/2024 9:05 AM CDT [facility] PROTIME 13.0(H) 10.6 - 12.4 sec 10/19/2024 9:05 AM CDT [facility] Blood BLOOD SPECIMEN / Unknown Non-Lab Venipuncture / Unknown 10/19/2024 8:53 AM CDT 10/19/2024 8:53 AM CDT [facility] - 10/19/2024 9:05 AM CDT Therapeutic [...] HEMATOLOGY Final Res ult Performing Organization Address [facility] Co de Phone Number [facility] SENDOUT INTERNAL ZIP [address] [address] [place] [address] * (ABNORMAL) URINE ALBUMIN TO CREATININE RATIO, RANDOM (09/15/2024 8:25 AM CDT) ALB RAND URINE 51.6 mg/L 09/15/2024 4:16 PM CDT [facility] CREATININE,URIN E 0.30 g/L 09/15/2024 4:16 PM CDT [facility] ALBUMIN TO CREATININE RATIO,RAND UR 172.0(H) <30.0 mg/g creat 09/15/2024 4:16 PM [address] [facility] Urine URINE SPECIMEN / Unknown Non-Blood / Unknown 09/15/2024 8:25 AM CDT 09/15/2024 8:25 AM CDT Narrative [facility] - 09/15/2024 4:16 PM CDT If Albumin to Creatinine Ratio is elevated, consider the following: Elevations seen with incipient nephropathy associated with diabetes mellitus or hypertension. Stress, exercise,hematuria, and urinary tract infection may also produce elevated results. If clinically indicated, confirm with 24 Hour Albumin to Creatinine Ratio. Jhonny Guerrero MD URINE Final Result [facility] [address] [place] [address], [place] * (ABNORMAL) HEMOGLOBIN A1C (09/15/2024 8:14 AM CDT) HEMOGLOBIN A1C 8.7(H) <5.7 % [email or web address] Comment: For someone without known diabetes, [...] CDT Jhonny Guerrero MD CHEMISTRY Final Result [facility] [address] [place] [address], [email or web address] [address] [place] [address] * (ABNORMAL) CBC W PLT NO DIFF (09/15/2024 8:14 AM CDT) Pathologist [facility] WHITE BLOOD CELL COUNT 9.9 3.8 - [...] 09/15/2024 8:15 AM CDT Jhonny Guerrero MD HEMATOLOGY Final Result [facility] [address] [place] [address], [facility] [address] [place] [address] * (ABNORMAL) BASIC METABOLIC PANEL (09/15/2024 8:14 AM CDT) Pathologist [facility] GLUCOSE 156(H) 65 - 99 mg/dL [facility] Comment: Fasting reference interval For someone without known diabetes, a glucose value >125 mg/dL indicates that they may have diabetes and this should be confirmed with a follow-up test. UREA NITROGEN (BUN) 24 7 - 25 mg/dL [facility] CREATININE 1.45(H) 0.60 - 0.95 mg/dL [facility] EGFR 35(L) > OR = 60 mL/min/1.7 3m2 [facility] BUN/CREATININE RATIO 17 6 - 22 (calc) [facility] SODIUM 138 135 - 146 mmol/L [facility] POTASSIUM 4.5 3.5 - 5.3 mmol/L [facility] CHLORIDE 102 98 - 110 mmol/L [facility] CARBON DIOXIDE 26 20 - 32 mmol/L [facility] ELECTROLYTE BALANCE 10 7 - 17 mmol/L (calc) [facility] CALCIUM 9.4 8.6 - 10.4 mg/dL [email or web address] Blood BLOOD SPECIMEN / Unknown 09/15/2024 8:14 AM CDT 09/15/2024 8:15 AM CDT Jhonny Guerrero MD CHEMISTRY Final Result [facility] [address] [place] [address], [email or web address] [address] [place] [address] * CT ABDOMEN LIMITED WO (08/19/2024 12:02 [...] provider. EXAM: CT ABDOMEN LIMITED WO LOCATION: [facility] DATE: 08/19/2024 INDICATION: Left Kidney Mass COMPARISON: 08/01/2024 Procedure Note Bishop Ortiz MD - 08/20/2024 For Patients: As a result of the Cures Act, medical imagingexams and procedure reports are released immediately into your electronicmedical record. You may view this report before your referring provider.If you have questions, please contact your health care provider. EXAM: CT ABDOMEN LIMITED WO LOCATION: [facility] DATE: 08/19/2024 INDICATION: Left Kidney [...] biopsy left renal mass. Reference CPT Code: 09919, 91684, 14387 Narrative 08/19/2024 12:16 PM CDT For Patients: As a result of the Cures Act, medical imaging exams and procedure reports are released immediately into your electronic medical record. You may view this report before your referring provider. If you have questions, please contact your health care provider. EXAM: 1. PERCUTANEOUS BIOPSY LEFT RENAL MASS 2. ULTRASOUND GUIDANCE 3. CONSCIOUS SEDATION LOCATION: [facility] DATE: 08/19/2024 INDICATION: Left Kidney Mass PROCEDURE: Informed consent obtained. Site marked. Prior images reviewed. Required items made available. Patient identity confirmed verbally and with arm band. Patient reevaluated immediately before administering sedation. [place] protocol was followed. Time out performed. The [...] 2. ULTRASOUND GUIDANCE 3. CONSCIOUS SEDATION LOCATION: [facility] DATE: 08/19/2024 INDICATION: Left Kidney Mass PROCEDURE: Informed consent obtained. Site marked. Prior images reviewed.Required items made available. Patient identity confirmed verbally andwith arm band. Patient reevaluated immediately before administeringsedation. [place] protocol was followed. Time out performed. The [...] biopsy left renal mass. Reference CPT Code: 97394, 09474, 97961 us Sarahy ROWE US Final Resul t * [facility] Cytology MID LEVEL GAME DESIGNER (08/19/2024 11:25 AM CDT) Case Report Medical Cytology Report Case: [id number] Authorizing Provider: Sarahy Xiao PA Collected: 08/19/2024 1125 Ordering Location: [facility] Received: 08/19/2024 1233 Pathologist: Skylar Carrillo MD Specimen: Left Kidney 08/22/2024 10:47 AM CDT [facility] Final Diagnosis A) LEFT KIDNEY MASS, ULTRASOUND GUIDED CORE BIOPSY: 1. 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 No uninvolved renal parenchyma available for evaluation 08/22/2024 10:47 AM CDT [facility] at 1047 CDT Comment A) Case seen in consultation with Dr. Hastings. 08/22/2024 10:47 AM CDT [facility] Clinical Information Ms. Pyle [...] are not significantly changed. 08/22/2024 10:47 AM CDT [facility] Gross Description A) Received identified as [...] more than 72 hours. 08/22/2024 10:47 AM CDT [facility] Adequacy Assessment A) Varun assessed adequacy from the air-dried smears at the time of the procedure with an impression of Not Adequate. 08/22/2024 10:47 AM CDT [facility] Microscopic Description Specimen adequacy: Adequate for interpretation. All slides were reviewed. The microscopic appearance substantiates the diagnosis. 08/22/2024 10:47 AM CDT [facility] Additional Information Cytology is screened at [facility] - [address], [place] [address] and [facility] - [address] [place] [address] and [facility] - [address] [place] [address] Interpreted at [facility] - [address], [place] [address] 08/22/2024 10:47 AM T [facility] Aspirate (Left Kidney) 08/19/2024 11:25 AM CDT 08/19/2024 12:33 PM CDT Sarahy ROWE PATHOLOGY/CYTOLOGY Final Re sult [facility] [address] [place] [address], 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
[2024-11-11 00:59] LABS: Hematocrit 28.8 % (33.0-51.0); Hemoglobin* 9.1 gm/dL (12.0-16.0); Immature Granulocytes Pct Auto 0.6 %; Mean Corpuscular HGB Conc 32 gm/dL (32-36); Mean Corpuscular Hemoglobin 28 pg (26-34); Mean Corpuscular Volume 88 fL (80-100); RDW Coefficient of Variation % 14.3 % (11.5-15.5); Red Blood Count 3.28 m/uL (4.00-5.20); White Blood Count* 12.83 K/uL (4.50-11.00)
[2024-11-11 01:11] LABS: Albumin* 3.6 g/dL (3.3-5.0); Chloride* 100 mmol/L (96-114); Potassium* 4.5 mmol/L (3.6-5.1); Sodium* 133 mmol/L (135-149)
[2024-11-11 01:14] LABS: Alanine Aminotransferase* 19 U/L (4-35); Alkaline Phosphatase* 114 U/L (40-150); Anion Gap 8 mEq/L (7-15); Aspartate Amino Transferase* 33 U/L (12-35); Bilirubin Direct* 0.4 mg/dL (0.0-0.5); Bilirubin Total* 0.7 mg/dL (0.1-1.5); Blood Urea Nitrogen* 29 mg/dL (7-30); Carbon Dioxide* 25 mmol/L (20-32); Creatinine* 1.5 mg/dL (0.5-1.5); Est. Creatinine Clearance* 16.52; Estimated Glomerular Filt Rate 33 ml/min; Immature Granulocytes Abs Auto 0.10 K/uL (0.00-0.30); Lymphocytes Absolute Auto 1.00 K/uL (0.90-2.90); Slide Review Reflex No; Total Protein* 7.1 g/dL (6.0-8.3)
[2024-11-11 01:15] LABS: Calcium* 9.4 mg/dL (8.4-10.6); Glucose* 256 mg/dL (60-115)
[2024-11-11 01:20] LABS: Appearance Urine Cloudy (Clear)
[2024-11-11] MEDS: ONDANSETRON 2 MG/ML inj 4 MG IVP (01:49)
[2024-11-11] MEDS: cefTRIAXone 1 GM in 0.9 % SODIUM CHLORIDE Mini-bag 100 ML IVPB (02:47)
[2024-11-11 02:49] LABS: Lab Add On Test New Spec Needed
[2024-11-11 02:51] LABS: Lactate* 0.8 mmol/L (0.5-1.9)
--- NOTE | 2024-11-11 03:03 | ED.ABDPAIN ---
HPI - Abdominal Pain General Date Seen: 11/11/24 Chief Complaint: Abdominal Pain Stated Complaint: abdominal/vaginal pain Time Seen by Provider: 11/11/24 00:33 Source: patient Mode of arrival: ambulatory Limitations: no limitations History of Present Illness HPI narrative: Patient is an 89-year-old female with history of chronic right hydronephrosis and hydroureter who underwent a cryotherapy procedure to a left renal mass on 10/19/2024 at [facility]. She was feeling well and tell about four days ago when she started having some lower abdominal pain. That got much worse this evening. No fevers but she has had chills. She has urinary retention and catheterizes herself 3 times daily. She is able to void in between times. She comes to the ER shortly after midnight with severe left lower quadrant abdominal pain. She has had normal bowel movements each of the last two days. She has recently undergone an iron infusion. Her current medication list includes Plavix 75 mg daily, Jardiance 25 mg daily, Zetia 10 mg daily, metformin 500 mg b.i.d., omeprazole 20 mg daily, timolol 0.5% one drop left eye b.i.d. and latanoprost 0.005% one drop each eye daily. She has been on fosinopril but that is been on hold due to normal blood pressures. Related Data Home Medications ?Medication ?Instructions ?Recorded ?Confirmed amlodipine 5 mg tablet 5 mg PO DAILY 03/26/23 11/10/24 Held on 05/09/24. Instructions: hold until f/u with Dr. Guerrero chlorthalidone 25 mg tablet 25 mg PO DAILY 03/26/23 11/10/24 Held on 05/09/24. Instructions: hold until f/u with PCP fosinopril 40 mg tablet 40 mg PO DAILY 03/26/23 05/06/24 Held on 05/09/24. Instructions: discuss with PCP at f/u ketorolac 0.5 % eye drops 1 drp ophthalmic (eye) BID 03/26/23 11/11/24 metformin 500 mg tablet 500 mg PO BID 03/26/23 11/11/24 timolol maleate 0.5 % eye drops 1 drp ophthalmic (eye-left) BID 03/26/23 05/06/24 aspirin 81 mg tablet,delayed 81 mg PO DAILY 05/06/24 05/06/24 release (Adult Aspirin Regimen) clopidogrel 75 mg tablet 75 mg PO DAILY 05/06/24 05/06/24 empagliflozin 10 mg tablet 10 mg PO DAILY 05/06/24 11/10/24 (Jardiance) ezetimibe 10 mg tablet 10 mg PO DAILY 05/06/24 05/06/24 latanoprost 0.005 % eye drops 1 drp ophthalmic (eye) QPM 05/06/24 11/11/24 rosuvastatin 40 mg tablet 40 mg PO QPM 05/06/24 05/06/24 Held on 05/09/24. Instructions: hold until PCP f/u Previous Rx's ?Medication ?Instructions ?Recorded omeprazole 20 mg capsule,delayed 20 mg PO BID #60 caps 05/09/24 release Allergies Allergy/AdvReac Type Severity Reaction Status Date / Time Penicillins Allergy Verified 11/11/24 00:00 Sulfa (Sulfonamide AdvReac Verified 11/11/24 00:00 Antibiotics) Review of Systems Narrative Review of systems is outlined above otherwise noted to be negative. [facility] Medical History (Updated 11/11/24 @ 02:51 by Chilo Minor MD) History of pacemaker ?Z95.0 - Presence of cardiac pacemaker (ICD-10) Mixed hyperlipidemia (11/15/10) ?E78.2 - Mixed hyperlipidemia (ICD-10) Irritable bowel (07/09/12) ?K58.9 - Irritable bowel syndrome, unspecified (ICD-10) History of syncope (04/02/20) ?Z87.898 - Personal history of other specified conditions (ICD-10) Essential hypertension (11/15/10) ?I10 - Essential (primary) hypertension (ICD-10) Acute duodenal ulcer (08/18/17) ?K26.3 - Acute duodenal ulcer without hemorrhage or perforation (ICD-10) Stage 3a chronic kidney disease (01/05/16) ?N18.31 - Chronic kidney disease, stage 3a (ICD-10) Hydroureteronephrosis ?N13.30 - Unspecified hydronephrosis (ICD-10) Hyponatremia ?E87.1 - Hypo-osmolality and hyponatremia (ICD-10) Urinary tract infection ?N39.0 - Urinary tract infection, site not specified (ICD-10) Left kidney mass ?N28.89 - Other specified disorders of kidney and ureter (ICD-10) Hydronephrosis of right kidney ?N13.30 - Unspecified hydronephrosis (ICD-10) Stage 3a chronic kidney disease (CKD) ?N18.31 - Chronic kidney disease, stage 3a (ICD-10) History of duodenal ulcer ?Z87.19 - Personal history of other diseases of the digestive system (ICD-10) Diabetes mellitus ?E11.9 - Type 2 diabetes mellitus without complications (ICD-10) Hyperlipidemia ?E78.5 - Hyperlipidemia, unspecified (ICD-10) Hypertension ?I10 - Essential (primary) hypertension (ICD-10) ASCVD (arteriosclerotic cardiovascular disease) ?I25.10 - Atherosclerotic heart disease of [place] coronary artery without angina pectoris (ICD-10) Surgical History (Updated 05/17/24 @ 00:01 by Mike Perez) S/P TAVR (transcatheter aortic valve replacement) ?Z95.2 - Presence of prosthetic heart valve (ICD-10) Social History What is your current living situation?: I presently have a place to live Problems where you live: no known problems Problems where you live details: n/a In the past 12 months, utilities in danger of being shut off: no In past 12 months, lack of transportation kept you from medical appts, meetings, work, or getting things needed for daily living: no In the past 12 mos, have been you worried that your food would run out before you had money to buy more?: never true In the past 12 mos, the food you bought just didn't last and you didn't have money to buy more?: never true Highest level of school completed/degree received: high school graduate Smoking Status: Never smoker Do you use any of these nicotine containing products: None Second hand tobacco smoke exposure: Yes ( and son) How often do you have a drink containing alcohol: monthly or less How often do you have six or more drinks on one occasion: Never AUDIT-C Alcohol total score: 1 Non-prescribed substance use: denies use Caffeine: Yes How often does anyone, including family, friends and others, physically hurt you: never How often does anyone, including family, friends and others, insult or talk down to you: never How often does anyone, including family, friends and others, threaten you with harm: never How often does anyone, including family, friends and others, scream or curse at you: never service: No Exam Narrative: Exam Narrative: Vitals noted. HEENT: Conjunctiva clear. Tympanic membranes are pearly white bilaterally. Posterior pharynx is clear without erythema or exudate. Neck is supple without adenopathy. Lungs: Clear to auscultation in all levy. No wheezes, rales, rhonchi. Heart: Regular rate and rhythm without murmur. Abdomen: Soft with left lower quadrant tenderness. No guarding, rigidity, rebound. No CVA tenderness. Bowel sounds are normal. No palpable masses. Extremities: No cyanosis or edema. Good distal pulses. Skin: No abnormalities noted of the exposed skin. Neurologic: Awake, alert, fully oriented. Neurologic exam is nonfocal. Cognitively she is sharp. Const: Vital Signs, click to edit/add: Vital Signs - 24 hr 11/10/24 23:54 11/11/24 00:54 11/11/24 02:00 Temperature 98.1 F Pulse Rate 73 Pulse Rate [Right Pulse Oximeter] 70 Respiratory Rate 18 18 Blood Pressure [Ri ght Upper Arm] 148/74 H Pulse Oximetry 98 98 96 Oxygen Delivery Me thod Room Air Course Course ED Course: Patient seen and examined. Labs and a CT of her abdomen and pelvis are ordered. She is given morphine 1 mg IV for pain. Reevaluation(s) Reevaluation #1: She continues to complain of 10 of 10 pain and is given another 2 mg of IV morphine along with Zofran 4 mg IV. Guzman catheter is placed with significant improvement in [place] symptoms. [place] [address], hemoglobin 9.1. Basic metabolic panel is normal other than a sodium of 133 and a glucose of 256. Lactate is 0.8. LFTs are normal. Urinalysis shows 3+ protein, 2+ glucose, 3+ blood. Micro shows 25-50 red cells, greater than 100 white cells, many bacteria. CT of the abdomen and pelvis without contrast shows: 1. 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 Bowel perforation can not be excluded. 2. Severe right renal pelvicaliectasis and right hydroureter is present with interval development of gas seen in the right renal pelvis. Retrograde flow of gas from the bladder wall or a gas-forming urinary tract infection should be considered. Reevaluation #2: The case is discussed with Dr. Leon urologist from [facility] who feels that the patient can be admitted locally. I then spoke with our eHospitalist who kindly agrees to admit her for further care. She is given Rocephin 1 g IV prior to transfer to the floor. Vital Signs Vital signs: Initial Vital Signs Temperature 98.1 F 11/10/24 23:54 Temperature Source Temporal Artery Scan 11/10/24 23:54 Pulse Rate 70 11/10/24 23:54 Respiratory Rate 18 11/10/24 23:54 Blood Pressure 148/74 H 11/10/24 23:54 Blood Pressure Mean 98 11/10/24 23:54 Blood Pressure Position Sitting 11/10/24 23:54 Pulse Oximetry 98 11/10/24 23:54 Oxygen Delivery Method Room Air 11/10/24 23:54 Vital Signs Temperature 98.1 F 11/10/24 23:54 Pulse Rate 70 11/10/24 23:54 Respiratory Rate 18 11/10/24 23:54 Blood Pressure 148/74 H 11/10/24 23:54 Pulse Oximetry 98 11/10/24 23:54 Oxygen Delivery Method Room Air 11/10/24 23:54 Temperature 98.1 F 11/10/24 23:54 Pulse Rate 73 11/11/24 02:00 Respiratory Rate 18 11/11/24 02:00 Blood Pressure 148/74 H 11/10/24 23:54 Pulse Oximetry 96 11/11/24 02:00 Oxygen Delivery Method Room Air 11/10/24 23:54 Medications Administered Medications: Discontinued Medications Generic Name Dose Route Start Last Admin Trade Name Freq PRN Reason Stop Dose Admin Ceftriaxone Sodium 1 gm/ 100 mls @ 200 mls/hr 11/11/24 02:34 11/11/24 02:47 Sodium Chloride IVPB 11/11/24 02:35 200 mls/hr ONCE ONE Administration Morphine Sulfate 1 mg 11/11/24 00:50 11/11/24 01:18 Morphine 2 Mg/Ml Inj IVP 11/11/24 00:51 1 mg ONCE ONE Administration Morphine Sulfate 2 mg 11/11/24 01:41 11/11/24 01:54 Morphine 2 Mg/Ml Inj IVP 11/11/24 01:42 2 mg ONCE ONE Administration Ondansetron HCl 4 mg 11/11/24 01:45 11/11/24 01:49 Ondansetron 2 Mg/Ml Inj IVP 11/11/24 01:46 4 mg ONCE ONE Administration MDM - Abdominal Pain Lab Data Labs: Lab Results 11/11/24 11/11/24 11/11/24 Range/Units 00:54 01:15 02:33 WBC 12.83 H (4.50-11.00) K/uL RBC 3.28 L (4.00-5.20) m/uL Hgb 9.1 L (12.0-16.0) gm/dL Hct 28.8 L (33.0-51.0) % MCV 88 (80-100) fL MCH 28 (26-34) pg MCHC 32 (32-36) gm/dL RDW Coeff of Yoel 14.3 (11.5-15.5) % Plt Count 347 (140-440) K/uL Neut % (Auto) 85.4 H (42.0-72.0) % Lymph % (Auto) 7.6 L (20-44) % [place] % (Auto) 6.0 (0.0-11.0) % Eos % (Auto) 0.2 (0.0-7.0) % Baso % (Auto) 0.2 (0.0-3.0) % Neut # (Auto) 11.00 H (1.7-7.0) K/uL Lymph # (Auto) 1.00 (0.90-2.90) K/uL [place] # (Auto) 0.80 (0.00-0.90) K/UL Eos # (Auto) 0.00 (0.00-0.50) K/uL Baso # (Auto) 0.00 (0.00-0.30) K/uL Abs Immat Gran (auto) 0.10 (0.00-0.30) K/uL Imm/Tot Granulo (auto) 0.6 % Sodium 133 L (135-149) mmol/L Potassium 4.5 (3.6-5.1) mmol/L Chloride 100 (96-114) mmol/L Carbon Dioxide 25 (20-32) mmol/L Anion Gap 8 (7-15) mEq/L BUN 29 (7-30) mg/dL Creatinine 1.5 (0.5-1.5) mg/dL Estimated Creat Clear 16.52 Estimated GFR 33 ml/min Glucose 256 H (60-115) mg/dL Lactate (0.5-1.9) mmol/L Calcium 9.4 (8.4-10.6) mg/dL Total Bilirubin 0.7 (0.1-1.5) mg/dL Direct Bilirubin 0.4 (0.0-0.5) mg/dL AST 33 (12-35) U/L ALT 19 (4-35) U/L Alkaline Phosphatase 114 (40-150) U/L Total Protein 7.1 (6.0-8.3) g/dL Albumin 3.6 (3.3-5.0) g/dL Urine Color [place] A (Yellow) Urine Appearance Cloudy A (Clear) Urine pH 7.0 (5.0-8.5) Ur Specific [place] 1.025 (1.000-1.030) Urine Protein 3+ A (Negative) Urine Glucose (UA) 2+ A (Negative) Urine Ketones Negative (Negative) Urine Blood 3+ A (Negative) Urine Nitrite Negative (Negative) Urine Bilirubin Negative (Negative) Urine Urobilinogen 0.2 (0.2-1.0) Ur Leukocyte Esterase 1+ A (Negative) Urine RBC 25-50 A (0-2) Urine WBC >100 A (0-5) Ur Squamous Epith Cells None (None-Few) Urine Bacteria Many A (None) Lab Acknowledgement New Spec Needed A 11/11/24 Range/Units 02:47 WBC (4.50-11.00) K/uL RBC (4.00-5.20) m/uL Hgb (12.0-16.0) gm/dL Hct (33.0-51.0) % MCV (80-100) fL MCH (26-34) pg MCHC (32-36) gm/dL RDW Coeff of [place] (11.5-15.5) % Plt Count (140-440) K/uL Neut % (Auto) (42.0-72.0) % Lymph % (Auto) (20-44) % [place] % (Auto) (0.0-11.0) % Eos % (Auto) (0.0-7.0) % Baso % (Auto) (0.0-3.0) % Neut # (Auto) (1.7-7.0) K/uL Lymph # (Auto) (0.90-2.90) K/uL [place] # (Auto) (0.00-0.90) K/UL Eos # (Auto) (0.00-0.50) K/uL Baso # (Auto) (0.00-0.30) K/uL Abs Immat Gran (auto) (0.00-0.30) K/uL Imm/Tot Granulo (auto) % Sodium (135-149) mmol/L Potassium (3.6-5.1) mmol/L Chloride (96-114) mmol/L Carbon Dioxide (20-32) mmol/L Anion Gap (7-15) mEq/L BUN (7-30) mg/dL Creatinine (0.5-1.5) mg/dL Estimated Creat Clear Estimated GFR ml/min Glucose (60-115) mg/dL Lactate 0.8 (0.5-1.9) mmol/L Calcium (8.4-10.6) mg/dL Total Bilirubin (0.1-1.5) mg/dL Direct Bilirubin (0.0-0.5) mg/dL AST (12-35) U/L ALT (4-35) U/L Alkaline Phosphatase (40-150) U/L Total Protein (6.0-8.3) g/dL Albumin (3.3-5.0) g/dL Urine Color (Yellow) Urine Appearance (Clear) Urine pH (5.0-8.5) Ur Specific [place] (1.000-1.030) Urine Protein (Negative) Urine Glucose (UA) (Negative) Urine Ketones (Negative) Urine Blood (Negative) Urine Nitrite (Negative) Urine Bilirubin (Negative) Urine Urobilinogen (0.2-1.0) Ur Leukocyte Esterase (Negative) Urine RBC (0-2) Urine WBC (0-5) Ur Squamous Epith Cells (None-Few) Urine Bacteria (None) Lab Acknowledgement Discharge Plan Discharge Clinical Impression: Emphysematous cystitis, Left kidney mass Patient Disposition: Admitted As Observation Condition: Improved
--- NOTE | 2024-11-11 04:46 | W.PM.TELEH&P ---
Telehealth- H&P: HPI History of Present Illness Date Seen: 11/11/24 Chief complaint: abdominal/vaginal pain Narrative: Charley Pyle is seen as an Interactive Telehealth visit. Charley Pyle is a 89 year old female who has a past medical history notable for hypertension, type 2 diabetes, hyperlipidemia, aortic stenosis status post TAVR, pacemaker in place, ASCVD, CKD stage III, chronic urinary retention with intermittent straight cath, chronic right hydronephrosis and hydroureter, left renal mass status post cryotherapy on 10/19 who started to feel unwell 4 days prior to admission. She started having some mild lower abdominal pain, mostly on the left lower quadrant. On the evening of admission around 7 PM the pain got much worse she had some chills without any fevers. She also had an episode of vomiting after dinner. She says she has fairly chronic chills but they were worse than her baseline. She has had normal bowel movements recently. She has not noticed any dysuria. She is not noticed any hematuria. She says she felt well after her initial cryotherapy. She denies any history of infection with resistant organisms In the ER she underwent imaging which showed: Emphysematous cystitis with inflammatory changes and suspected gas. There is also severe right renal pelvicalicectasis and right hydroureter for with gas in the right renal pelvis. The ER provider discussed the case with urology from [place] [facility] they recommended local admission and treatment with IV ceftriaxone. Review of Systems Status of ROS: Reports: 10 or more systems reviewed and unremarkable except as noted in History and below [facility] Medical History (Updated 11/11/24 @ 02:51 by Chilo Minor MD) History of pacemaker ?Z95.0 - Presence of cardiac pacemaker (ICD-10) Mixed hyperlipidemia (11/15/10) ?E78.2 - Mixed hyperlipidemia (ICD-10) Irritable bowel (07/09/12) ?K58.9 - Irritable bowel syndrome, unspecified (ICD-10) History of syncope (04/02/20) ?Z87.898 - Personal history of other specified conditions (ICD-10) Essential hypertension (11/15/10) ?I10 - Essential (primary) hypertension (ICD-10) Acute duodenal ulcer (08/18/17) ?K26.3 - Acute duodenal ulcer without hemorrhage or perforation (ICD-10) Stage 3a chronic kidney disease (01/05/16) ?N18.31 - Chronic kidney disease, stage 3a (ICD-10) Hydroureteronephrosis ?N13.30 - Unspecified hydronephrosis (ICD-10) Hyponatremia ?E87.1 - Hypo-osmolality and hyponatremia (ICD-10) Urinary tract infection ?N39.0 - Urinary tract infection, site not specified (ICD-10) Left kidney mass ?N28.89 - Other specified disorders of kidney and ureter (ICD-10) Hydronephrosis of right kidney ?N13.30 - Unspecified hydronephrosis (ICD-10) Stage 3a chronic kidney disease (CKD) ?N18.31 - Chronic kidney disease, stage 3a (ICD-10) History of duodenal ulcer ?Z87.19 - Personal history of other diseases of the digestive system (ICD-10) Diabetes mellitus ?E11.9 - Type 2 diabetes mellitus without complications (ICD-10) Hyperlipidemia ?E78.5 - Hyperlipidemia, unspecified (ICD-10) Hypertension ?I10 - Essential (primary) hypertension (ICD-10) ASCVD (arteriosclerotic cardiovascular disease) ?I25.10 - Atherosclerotic heart disease of [place] coronary artery without angina pectoris (ICD-10) Surgical History (Updated 05/17/24 @ 00:01 by Mike Perez) S/P TAVR (transcatheter aortic valve replacement) ?Z95.2 - Presence of prosthetic heart valve (ICD-10) Social History What is your current living situation?: I presently have a place to live Problems where you live: no known problems Problems where you live details: n/a In the past 12 months, utilities in danger of being shut off: no In past 12 months, lack of transportation kept you from medical appts, meetings, work, or getting things needed for daily living: no In the past 12 mos, have been you worried that your food would run out before you had money to buy more?: never true In the past 12 mos, the food you bought just didn't last and you didn't have money to buy more?: never true Highest level of school completed/degree received: high school graduate Smoking Status: Never smoker Do you use any of these nicotine containing products: None Second hand tobacco smoke exposure: Yes ( and son) How often do you have a drink containing alcohol: monthly or less How often do you have six or more drinks on one occasion: Never AUDIT-C Alcohol total score: 1 Non-prescribed substance use: denies use Caffeine: Yes How often does anyone, including family, friends and others, physically hurt you: never How often does anyone, including family, friends and others, insult or talk down to you: never How often does anyone, including family, friends and others, threaten you with harm: never How often does anyone, including family, friends and others, scream or curse at you: never service: No Meds Home Medications and Allergies Home Medications ?Medication ?Instructions ?Recorded ?Confirmed ?Type amlodipine 5 mg tablet 5 mg PO DAILY 03/26/23 11/10/24 History Held on 05/09/24. Instructions: hold until f/u with Dr. Guerrero chlorthalidone 25 mg tablet 25 mg PO DAILY 03/26/23 11/10/24 History Held on 05/09/24. Instructions: hold until f/u with PCP fosinopril 40 mg tablet 40 mg PO DAILY 03/26/23 05/06/24 History Held on 05/09/24. Instructions: discuss with PCP at f/u ketorolac 0.5 % eye drops 1 drp ophthalmic (eye) BID 03/26/23 11/11/24 History metformin 500 mg tablet 500 mg PO BID 03/26/23 11/11/24 History timolol maleate 0.5 % eye drops 1 drp ophthalmic (eye-left) BID 03/26/23 05/06/24 History aspirin 81 mg tablet,delayed 81 mg PO DAILY 05/06/24 05/06/24 History release (Adult Aspirin Regimen) clopidogrel 75 mg tablet 75 mg PO DAILY 05/06/24 05/06/24 History empagliflozin 10 mg tablet 10 mg PO DAILY 05/06/24 11/10/24 History (Jardiance) ezetimibe 10 mg tablet 10 mg PO DAILY 05/06/24 05/06/24 History latanoprost 0.005 % eye drops 1 drp ophthalmic (eye) QPM 05/06/24 11/11/24 History rosuvastatin 40 mg tablet 40 mg PO QPM 05/06/24 05/06/24 History Held on 05/09/24. Instructions: hold until PCP f/u omeprazole 20 mg capsule,delayed 20 mg PO BID #60 caps 05/09/24 Rx release Allergies Allergy/AdvReac Type Severity Reaction Status Date / Time Penicillins Allergy Verified 11/11/24 03:52 Sulfa (Sulfonamide AdvReac Verified 11/11/24 03:52 Antibiotics) Exam Narrative Exam Narrative: Physical Exam GENERAL: ?vital signs reviewed, well developed and nourished, in no distress, non-toxci HEENT: pupils are equal round and reactive, extraocular movements are grossly within normal limits and oral mucosa is moist. NECK: Supple without lymphadenopathy or thyromegaly according to nursing staff examination observation HEART: Regular rate and rhythm with SONIA LUNGS: Clear to auscultation bilaterally with good air movement throughout ABDOMEN: Observation from nurse assisted exam, abdomen appears soft, minimal tenderness in LLQ, and nondistended with Positive bowel sounds noted. EXTREMITIES: Strength and sensation is observed to be grossly within normal limits in the upper and lower extremities.? No focal strength deficit is observed. SKIN:? Observed warm and dry with color normal, some brusiung on the kkness Const Vital Signs, click to edit/add: Vital Signs - 24 hr 11/10/24 23:54 11/11/24 00:54 11/11/24 02:00 Temperature 98.1 F Pulse Rate 73 Pulse Rate [Pulse Oximeter] Pulse Rate [Right Pulse Oximeter] 70 Respiratory Rate 18 18 Blood Pressure [Right Arm] Blood Pressure [Right Upper Arm] 148/74 H Pulse Oximetry 98 98 96 Oxygen Delivery Method Room Air 11/11/24 03:00 11/11/24 03:40 11/11/24 03:40 Temperature 98 F Pulse Rate 75 Pulse Rate [Pulse Oximeter] 95 Pulse Rate [Right Pulse Oximeter] Respiratory Rate 17 16 Blood Pressure [Right Arm] 158/67 H Blood Pressure [Right Upper Arm] Pulse Oximetry 97 100 Oxygen Delivery Method Room Air Room Air Hospitalist - H&P: Result Labs Labs: Short CBC 11/11/24 Range/Units 00:54 WBC 12.83 H (4.50-11.00) K/uL Hgb 9.1 L (12.0-16.0) gm/dL Hct 28.8 L (33.0-51.0) % Plt Count 347 (140-440) K/uL BMP 11/11/24 00:54 Sodium 133 L Potassium 4.5 Chloride 100 Carbon Dioxide 25 BUN 29 Creatinine 1.5 Glucose 256 H Calcium 9.4 Liver Function 11/11/24 Range/Units 00:54 Total Bilirubin 0.7 (0.1-1.5) mg/dL Direct Bilirubin 0.4 (0.0-0.5) mg/dL AST 33 (12-35) U/L ALT 19 (4-35) U/L Alkaline Phosphatase 114 (40-150) U/L Albumin 3.6 (3.3-5.0) g/dL Urine 11/11/24 Range/Units 01:15 Urine Color [place] A (Yellow) Urine Appearance Cloudy A (Clear) Urine pH 7.0 (5.0-8.5) Ur Specific [place] 1.025 (1.000-1.030) Urine Protein 3+ A (Negative) Urine Glucose (UA) 2+ A (Negative) Assessment and Plan Assessment and plan (1) Emphysematous cystitis: Status: Acute (2) Mixed hyperlipidemia: Status: Acute (3) Essential hypertension: Status: Acute (4) Stage 3a chronic kidney disease: Status: Acute (5) Left kidney mass: Problem comment: -CT September 2023 shows solid mass arising from the upper pole of the left kidney is stable in size measuring 3.0 x 2.8 x 2.4 cm Status: Acute (6) Hydronephrosis of right kidney: Status: Acute (7) S/P TAVR (transcatheter aortic valve replacement): Status: Acute Plan Emphysematous cystitis ER discussed the case with [facility] urology They did not recommend broad-spectrum antibiotics Continue ceftriaxone Prior urine cultures reviewed which showed no significant resistant organisms, typically due to E. coli Nontoxic-appearing, no hypotension or lactic acidosis Ceftriaxone 2 g every 24 hours NS 75 mL/h Follow-up urine and blood cultures White count 12.[address] abdomen pelvis personally reviewed: Showed emphysematous cystitis with gas in the bladder and right renal pelvis Hyponatremia Mild Sodium 133 which is around baseline Recheck labs CKD stage IIIa Baseline creatinine looks like around 2.2 was actually improved to 1.5 on this admission Hypertension Home antihypertensives are being titrated Type 2 diabetes Sliding scale insulin Hold metformin due to risk of lactic acidosis Type 2 diabetes Sliding scale insulin for now Avoid Jardiance in the setting of infection Full code confirmed on admission Prior to admission home medications that were felt to be needed immediately have been ordered. The remainder of the home medications will await pharmacy reconciliation and will be ordered by the attending provider in the a.m. Telehealth Visit: Today's History and Physical is provided via interactive telehealth by Dr. Garrison Nesbitt MD. Patient is located at [place], [place]. Provider is located at [facility]. Nursing staff assisted with the patient's exam. The visit being done today meets criteria for a telehealth visit and the patient or patients parent/guardian is aware the visit is a telehealth visit. Camera Start Time: 429 Camera End Time: 437 Telehealth: Statement Statement Telehealth Visit: Today's History and Physical is provided via interactive telehealth by Garrison Nesbitt MD.? Patient is located at [facility].? Provider is located at [facility].? Nursing staff assisted with the patient's exam. The visit being done today meets criteria for a telehealth visit and the patient or patient?s parent/guardian is aware the visit is a telehealth visit. Camera Start Time: 04:29 Camera End Time: 04:37
[2024-11-11 06:41] LABS: Hematocrit 26.1 % (33.0-51.0); Hemoglobin* 8.3 gm/dL (12.0-16.0); Immature Granulocytes Pct Auto 0.4 %; Mean Corpuscular HGB Conc 32 gm/dL (32-36); Mean Corpuscular Hemoglobin 28 pg (26-34); Mean Corpuscular Volume 88 fL (80-100); RDW Coefficient of Variation % 14.5 % (11.5-15.5); Red Blood Count 2.96 m/uL (4.00-5.20); White Blood Count* 12.44 K/uL (4.50-11.00)
[2024-11-11 06:48] LABS: Immature Granulocytes Abs Auto 0.00 K/uL (0.00-0.30); Lymphocytes Absolute Auto 0.90 K/uL (0.90-2.90); Slide Review Reflex No
[2024-11-11 06:56] LABS: Chloride* 101 mmol/L (96-114)
[2024-11-11 06:57] LABS: Potassium* 4.4 mmol/L (3.6-5.1); Sodium* 133 mmol/L (135-149)
[2024-11-11 06:59] LABS: Blood Urea Nitrogen* 29 mg/dL (7-30); Creatinine* 1.4 mg/dL (0.5-1.5); Est. Creatinine Clearance* 17.75; Estimated Glomerular Filt Rate 36 ml/min
[2024-11-11 07:00] LABS: Anion Gap 5 mEq/L (7-15); Calcium* 8.7 mg/dL (8.4-10.6); Carbon Dioxide* 27 mmol/L (20-32); Glucose* 227 mg/dL (60-115)
[2024-11-11] MEDS: INSULIN ASPART 100 UNIT/ML SUBCUT ×3 (08:29→18:07)
--- NOTE | 2024-11-11 14:57 | PC.NURSE ---
End of Shift Note (253)? ? Patient has been very pleasant and cooperative throughout shift. Admitted for UTI. AOx4. Afebrile. VSS. Folley in place. Ambulates assist of one. Self caths at home. No pain reported by end of shift.?Call light within reach.?
[2024-11-11] MEDS: LATANOPROST 0.005% OPHTH 1 DROP EYE-BOTH (18:07)
[2024-11-12 00:28] VITALS: BP 102/52; PULSE 64; RESP 20; TEMP 36.7; O2SAT 99
[2024-11-12 02:45] VITALS: BP 123/56; PULSE 60; RESP 18; TEMP 36.5; O2SAT 99
[2024-11-12] MEDS: cefTRIAXone 2 GM in 0.9 % SODIUM CHLORIDE Mini-bag 100 ML IVPB (04:06)
--- NOTE | 2024-11-12 05:14 | PC.NURSE ---
Shift note ([id number]): Patient pleasant, alert and oriented. Independent in room. Catheter patent and draining clear light yellow urine. Denies pain or urinary symptoms.?
[2024-11-12 08:25] VITALS: BP 108/52; PULSE 70; RESP 18; TEMP 36.4; O2SAT 95
[2024-11-12 08:30] VITALS: PULSE 70; RESP 18
[2024-11-12 11:00] VITALS: BP 133/49; PULSE 66; RESP 18; O2SAT 99
--- NOTE | 2024-11-12 15:27 | PC.NURSE ---
Nursing Care Hours: [id number] Pt this shift calm and cooperative, alert and oriented. No c/o pain. Guzman removed and IV saline locked. Pt ambulating independently with cane, stable gait. Tolerating meals. IV removed for discharge. Instructions went over with pt and family member. All questions and concerns addressed. Pt wheeled out to vehicle in stable condition.
--- NOTE | 2024-11-12 17:03 | PM.DS1 ---
DS: Providers Provider Date Seen: 11/12/24 Date of admission: 11/11/24 03:27 Primary care physician: Jhonny Guerrero MD Admitting Clinician: Garrison Nesbitt MD Consults: 11/11/24 04:58 Consult to Physical Therapy [CONS] Routine Comment: Reason(s) for PT Consult:: Balance Assessment Any Restrictions?:: No Restrictions Attending Physician on discharge: Brandon Reyes MD Date of Discharge: 11/12/24 DS: Diagnosis Discharge Diagnosis (1) Emphysematous cystitis: Status: Acute Problem details: UC 11/11/2024, Klebsiella pneumoniae: resistant to ampicillin, intermediate sensitivity to nitrofurantoin, and sensitive to all other antibiotics tested, including ceftriaxone (which we treated her with in hospital, and she responded to). Discharged home on 5 more days of cefdinir 300 mg po bid. (2) Recurrent UTI (urinary tract infection): Status: Acute Problem details: Reviewed principles of prevention including optimal self-catheterization, hydration, cranberry juice consumption, and introduced idea of topical intravaginal estrogen which she will review with her primary sub acute care nurse. (3) Self-catheterizes urinary bladder: Status: Acute (4) Stage 3a chronic kidney disease: Status: Acute (5) Left kidney mass: Status: Acute Problem details: -CT September 2023 shows solid mass arising from the upper pole of the left kidney is stable in size measuring 3.0 x 2.8 x 2.4 cm (6) Hydronephrosis of right kidney: Status: Acute (7) Essential hypertension: Status: Acute (8) S/P TAVR (transcatheter aortic valve replacement): Status: Acute DS: Summary Hospital Course Hospital Course: Admission history of present illness: 89 year old female who has a past medical history notable for hypertension, type 2 diabetes, hyperlipidemia, aortic stenosis status post TAVR, pacemaker in place, ASCVD, CKD stage III, chronic urinary retention with intermittent straight cath, chronic right hydronephrosis and hydroureter, left renal mass status post cryotherapy on 10/19 who started to feel unwell 4 days prior to admission. She started having some mild lower abdominal pain, mostly on the left lower quadrant. On the evening of admission around 7 PM the pain got much worse she had some chills without any fevers. She also had an episode of vomiting after dinner. She says she has fairly chronic chills but they were worse than her baseline. She has had normal bowel movements recently. She has not noticed any dysuria. She is not noticed any hematuria. She says she felt well after her initial cryotherapy. She denies any history of infection with resistant organisms In the ER she underwent imaging which showed: Emphysematous cystitis with inflammatory changes and suspected gas. There is also severe right renal pelvicalicectasis and right hydroureter for with gas in the right renal pelvis. The ER provider discussed the case with urology from [place] [facility] they recommended local admission and treatment with IV ceftriaxone. 11/12/2024: Patient's condition improves remarkably with IV fluid administration and initiation of IV ceftriaxone. Urine culture grew out Klebsiella pneumoniae, which is sensitive to ceftriaxone. Switched her to oral cefdinir and dosed for her renal function at 300 mg once daily, to complete a full course of treatment for red occasion of infection. Needs follow-up with her primary sub acute care nurse. Status at Discharge Functional status at discharge: uses cane/walker Overall status at discharge: patient is progressing back to baseline Time Spent with Patient Time attestation: Total time spent providing and/or coordinating discharge services: Time spent: Greater than 30 minutes Exam Narrative: Exam Narrative: GENERAL: ?vital signs reviewed, well developed and nourished, in no distress, non-toxci HEENT: pupils are equal round and reactive, extraocular movements are grossly within normal limits and oral mucosa is moist. NECK: Supple without lymphadenopathy or thyromegaly according to nursing staff examination observation HEART: Regular rate and rhythm with SONIA LUNGS: Clear to auscultation bilaterally with good air movement throughout ABDOMEN: Observation from nurse assisted exam, abdomen appears soft, minimal tenderness in LLQ, and nondistended with Positive bowel sounds noted. EXTREMITIES: Strength and sensation is observed to be grossly within normal limits in the upper and lower extremities.? No focal strength deficit is observed. SKIN:? Observed warm and dry with color normal, some brusiung on the knees Const: Vital Signs, click to edit/add: Vital Signs - 24 hr 11/11/24 19:00 11/12/24 00:28 11/12/24 02:45 Temperature 98.2 F 98.0 F 97.7 F Pulse Rate [Pulse Oximeter] 68 64 60 Respiratory Rate 16 20 18 Blood Pressure [Ri ght Arm] 115/49 L 102/52 L 123/56 L Pulse Oximetry 98 99 99 Oxygen Delivery Me thod Room Air Room Air Room Air 11/12/24 08:25 11/12/24 08:30 11/12/24 11:00 Temperature 97.5 F L Pulse Rate [Pulse Oximeter] 70 70 66 Respiratory Rate 18 18 18 Blood Pressure [Ri ght Arm] 108/52 L 133/49 L Pulse Oximetry 95 99 Oxygen Delivery Me thod Room Air Room Air DS: Data Data Completed and Pending Completed studies during hospitalization: Procedures Excision of Esophagus, Via Natural or Artificial Opening Endoscopic, Diagnostic (05/06/24) Excision of Stomach, Via Natural or Artificial Opening Endoscopic, Diagnostic (05/06/24) Imaging CT scan - abdomen: Attestation: I have reviewed the pertinent imaging results. Radiologist's impression: FINDINGS: Lower chest: Unremarkable. Pacer wires are partially visualized in the right atrium and ventricle. 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 Liver: Unremarkable. Spleen: Unremarkable. Pancreas: Unremarkable. Gallbladder: Previous cholecystectomy noted with no significant intra- or extrahepatic biliary ductal dilatation seen. Kidney: Severe right renal pelvicaliectasis and right hydroureter is present with interval development of gas seen in the right renal pelvis. Moderate left renal pelviectasis is present and increased compared to prior exam. Adrenal: Unremarkable. 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 The appendix is not identified. Vascular: Unremarkable. Lymph: Unremarkable. Peritoneum: Unremarkable. No pneumoperitoneum is seen. No significant ascites is noted. Pelvis: The patient is status post hysterectomy. Soft tissue: Unremarkable. Bone: Unremarkable for age. IMPRESSIONS: 1. 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 Bowel perforation can not be excluded. 2. Severe right renal pelvicaliectasis and right hydroureter is present with interval development of gas seen in the right renal pelvis. Retrograde flow of gas from the bladder wall or a gas-forming urinary tract infection should be considered. Discharge Plan Discharge Disposition: Home, Self-Care Date of Admission: 11/11/24 03:27 Attending Provider on Discharge: Brandon Reyes Primary Care Provider: Jhonny Guerrero Condition: Improved Anticipated Discharge Date/Time: 11/12/24 11:30 Discharge Medications: New cefdinir 300 mg capsule 300 mg PO DAILY Qty: 5 0RF Rx Instructions: Dose adjusted for renal function Continued metformin 500 mg tablet 500 mg PO BID ketorolac 0.5 % drops 1 drp ophthalmic (eye) BID Patient Comments: both eyes timolol maleate 0.5 % drops 1 drp ophthalmic (eye-left) BID Patient Comments: left eye latanoprost 0.005 % drops 1 drp ophthalmic (eye) QPM Patient Comments: both eyes clopidogrel 75 mg tablet 75 mg PO DAILY ezetimibe 10 mg tablet 10 mg PO DAILY empagliflozin 25 mg tablet 25 mg PO DAILY Discharge Orders: Discharge Order (Routine); Ordered 11/12/24 Ordered By: Brandon Reyes Patient Education: Conjugated Estrogens (Into the vagina), Cefdinir (By mouth), How to Catheterize Yourself (Woman) (GEN), Catheter-associated Urinary Tract Infection (DC) Additional Instructions: 1. Follow-up with primary sub acute care nurse in 5-10 days 2. Return to clinic or hospital sooner if needed Activity Level: No Restrictions and Activity as Tolerated Discharge Diet: Regular and Other Diet Detail: Adequate hydration Follow Up Appointments: Jhonny Guerrero MD [Primary Care Provider, Family Practice] - 11/22/24 1:15 pm Forms: Patient Belongings, [facility] Info Instructions
== END 2024-11-12 12:20 | disposition home or self-care (01) ==
LOC: ED 11-11 03:25 → MEDSURG 11-11 03:27
PROVIDERS: Admitting Provider Internal Medicine; Emergency Provider Family Medicine; PCP Family Medicine; Visit Provider Internal Medicine
DX: N30.80 Other cystitis without hematuria (principal); N28.89 Other specified disorders of kidney and ureter; E78.2 Mixed hyperlipidemia; I10 Essential (primary) hypertension; N18.30 Chronic kidney disease, stage 3 unspecified; N13.2 Hydronephrosis with renal and ureteral calculous obstruction; Y84.6 Urinary catheterization as the cause of abnormal reaction of the patient, or of later complication, without mention of misadventure at the time of the procedure
CPT/HCPCS: 36415; 74176; 80048; 80076; 81001; 81003; 82962; 83605; 85025; 87086; 94761; 96365; 96366; 96375; 97112; 97116; 97161; 99284; 99285; A9270; G0378; J0696; J2270; J2405; J7030

== ENCOUNTER 2024-12-12 15:20 | Inpatient (IN) | payer MEDICARE, BC, SELFPAY ==
[2024-12-12] VITALS (9 sets, daily range): BP systolic 98–117; BP diastolic 50–70; PULSE 64–88; RESP 14–18; TEMP 36.4–36.6; O2SAT 93–98; BMI 17.0; BMI 16.7
--- OUTSIDE RECORDS SUMMARY | 2024-12-12 15:25 | XMS_ITS | Clinical Summary ---
Author Organization [employer] Address [address] [place] [address] Care Team Providers Care Form Layer Name Role Phone Jhonny Guerrero MD Primary Care Provider Allergies Active Allergy Reactions Criticality Noted Date Comments Penicillins Edema Unknown 09/16/2005 Sulfa (Sulfonamide Antibiotics) Edema Unknown 08/24 Medications ketorolac 0.5 % ophthalmic (ACULAR) solution Place 1 Drop into both eyes two times daily. 1 Bottle 4 9 Active clindamycin (CLEOCIN) 300 mg capsuleIndications: SBE [...] mL 2 4 Active clopidogreL 75 mg tabletIndications:A SCVD (arteriosclerotic cardiovascular disease) Take 1 Tablet (75 mg) by mouth once daily. 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 90 Tablet 1 5 Active ezetimibe 10 mg tabletIndications:H yperlipidemia, unspecified hyperlipidemia type TAKE 1 TABLET BY MOUTH EVERY DAY 90 Tablet 2 5 Active metFORMIN (GLUCOPHAGE) 500 mg tabletIndications:C ontrolled type 2 diabetes mellitus with complication, with long-term current use of insulin (HC) TAKE 1 TABLET (500 MG) BY MOUTH TWICE A DAY WITH MEALS 180 Tablet 1 5 Active latanoprost (XALATAN) 0.005 % ophthalmic solutionIndications :Primary open angle glaucoma of right eye, moderate stage PLACE 1 DROP INTO BOTH EYES ONCE DAILY IN THE EVENING. 7.5 mL 5 Active cyanocobalamin (VITAMIN B12) 500 mcg tabletIndications:B 12 deficiency Take 1 Tablet (500 mcg) by mouth once daily. 90 Tablet 3 5 Active fosinopriL (MONOPRIL) 20 mg tablet Take 1 Tablet (20 mg) by mouth once daily. 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); [...] Encounters Date Type Department Care Team Description 12/12/2024 Nurse Triage [facility] [address] [place] [address] Jhonny Guerrero MD Head Injury; Blood Pressure 12/06/2024 Orders Only [facility] Scanner 1 scan: (1-Ord) [place] [facility], 12/06/2024 11/22/2024 1:15 PM CDT Office Visit [facility] [address] [place] [address] [address] Jhonny Guerrero MD Hospital F/U ([facility], 11/10/2024 - 11/12/2024, bladder infection ) 11/22/2024 Travel 11/16/2024 9:00 AM CDT Nurse/Clinic Staff Only [facility] [address] [place] [address] Infusion Therapy (Feraheme 2/2) 11/16/2024 Travel 11/14/2024 10:00 AM CDT Office Visit [facility] [address] [place] [address] Stoney Murrieta, OD Follow Up (4 Month IOP ck ) 11/14/2024 Travel 11/11/2024 Orders Only [facility] Scanner 1 scan: (1-Ord) [facility], CT ABDOMEN PELVIS WO CON, 11/11/2024 11/09/2024 9:00 AM CDT Nurse/Clinic Staff Only [facility] [address] [place] [address] Infusion Therapy (Feraheme 1/2) 11/09/2024 Travel 11/02/2024 Telephone [facility] [address] [place] [address] Jhonny Guerrero MD Medication Management (Feraheme infusions) 10/31/2024 3:45 PM CDT Office Visit [facility] [address] [place] [address] Jhonny Guerrero MD Hospital F/U (left kidney mass/A1C increase) 10/31/2024 Travel 10/25/2024 Orders Only [facility] [address] [place] [address] Toño Abdi RN <No scans attached> 10/25/2024 Telephone [facility] [address] [place] [address] Jhonny Guerrero MD Appointment Request (POST HOSP) 10/20/2024 Telephone [place] [address] [place] [address] Tosha Sands PA no reason (No reason, can be deleted) 10/19/2024 9:54 AM CDT Anesthesia Event [facility] [address] [place] [address] Abner Irizarry MD 10/19/2024 6:40 AM CDT - 10/20/2024 2:45 PM CDT Hospital Encounter [facility] [address] [place] [address] Scout Huddleston MD [place], MD Colby Damon Melissa, KYE Irizarry, Abner Valderrama MD Left renal mass; 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, left eye, stage unspecified Discharge Disposition: Home Self Care 10/19/2024 Telephone [facility] [address] [place] [address] Sarahy Xiao PA 10/19/2024 Travel 09/22/2024 3:45 PM CDT Office Visit [facility] [address] [place] [address] Jhonny Guerrero MD Medicare ANNUAL (subsequent) Visit (89 year old); Preoperative Exam (DOS: 10/19/2024, [facility]) 09/22/2024 Travel 09/21/2024 Refill [facility] [address] [facility] [place] [address] Stoney Murrieta OD Refill Request (Latanoprost) 09/20/2024 Refill [facility] [address] [place] [address] Jhonny Guerrero MD Refill Request (Metformin) 09/15/2024 8:15 AM CDT Orders Only [facility] [address] [place] [address] Lab, [place] [facility] 09/15/2024 Travel from Last 3 Months Immunizations Immunization Administration Dates Next Due AMB Influenza, IIV3 (Age >=3 years)(Flu Clinic Only) 01/01/2010 Amb Influenza, Inact (High-d ose Quadrivalent) (Flu Clinic Only) 12/22/2019 COVID-19 VACCINE SPIKEVAX (M ODERNA 50MCG/0.5ML) 12YO+ PFS 06/13/2024,11/30/2023,08/28/2023,01/26 COVID-19 vaccine (AdGrokBio NTech 30mcg/0.3mL) 12YO+ BIVALENT PF, MDV 07/30/2022,01/02/2022 COVID-19 vaccine ([employer]-Bio NTech 30mcg/0.3mL) 12YO+ ARELY-SUCROSE PF, MDV 07/03/2021 COVID-19 vaccine (AdGrokBio NTech 30mcg/0.3mL) PF, MDV 12/17/2020,04/28/2020,04/07/2020 Influenza, High-dose [...] isolated from those around you? 0 09/22/2024 Alcohol Use Answer Date Recorded How often do you have a drink containing alcohol ? 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 Gender Identity Not on file Sexual Orientation Not on file Obstetrics History Para Term AB IAB SAB Ectopic Multiple Livin g Live Births 5 5 5 Date Outcome GA Total Labor Labor/2nd/3rd Weight Sex Type Anes PTL Dorota A1 A5 Name Clin Term Term Term Term Term Last Filed Vital Signs Vital Sign Reading Time Taken Comments Blood Pressure 162/73 11/22/2024 1:08 PM CDT Pulse 69 11/22/2024 1:08 PM CDT Temperature 36.2 C (97.2 F) 11/16/2024 10:16 AM CDT Respiratory Rate 16 10/20/2024 8:00 AM CDT Oxygen Saturation 99% 11/22/2024 1:08 PM CDT Inhaled Oxygen Concentration - - Weight 41.8 kg (92 lb 3.2 oz) 11/22/2024 1:08 PM CDT Height 154.9 cm (5' 1) 10/19/2024 7:19 AM CDT Body Mass Index 17.42 10/19/2024 7:19 AM CDT Plan of Treatment Upcoming Encounters Date Type Department Care Team (Late st Contact Info) Description 12/23/2024 9:00 AM CDT Orders Only [facility] [address] [facility] [address] [place] 12/26/2024 9:15 AM STOCK PARTS INSPECTOR Office Visit [facility] [address] [place] [address] Jhonny Guerrero MD [address] [place] [address] 01/03/2025 10:00 AM STOCK PARTS INSPECTOR Cardiac Device Check [facility] [address] [place] [phone] 02/20/2025 1:30 PM STOCK PARTS INSPECTOR Ancillary Procedure [facility] [address] [place] [address] 02/22/2025 9:45 AM STOCK PARTS INSPECTOR Office Visit [facility] [address] [place] [address] Cristopher Anthony MD [address] [address] 03/14/2025 10:00 AM STOCK PARTS INSPECTOR Office Visit [facility] [address] [place] [address] 03/20/2025 10:00 AM STOCK PARTS INSPECTOR Office Visit [facility] [address] [place], [place] [id number] [place] [address] [place] [address] Health Maintenance Due Date Last Done Comments [...] Additional history exists Tetanus booster 06/05/2027 06/04/2017, 06/2006, 08/08/1996 DEXA/DXA scan for age 65+ Completed 11/19/2010 Zoster (shingles) series for age 50+ Completed 08/18/2018, 06/09/2018, 06/04/2010 Pneumococcal series for age 50+ Completed 09/30/2020, 01/18/2014, 02/03/2005, Additional history exists RSV vaccine for adults or Completed 03/05/2023 Hepatitis B series for 19+ Aged Out N o longer eligible based on patient's age to complete this topic Medical Devices Implanted Type Area Track Watchman Device Identifier Shelf Expiration Date Model / Serial / Lot Lens Iol 23.0 Wf [id number]. [id number] - [id number] Implanted:Qty: 1 on 10/09/2014 by Moose Sands MD at [facility] Left: Eye [employer] 07/24/2019 [id number]. 0# / [id number] / Procedures Procedure Name Priority Date/Time Associated Diagnosis Comments SCAN-EYE EXAM 12/06/2024 12:00 AM CDT SCAN-CT INTERPRETATION 12:00 AM CDT CBC WITH AUTO DIFFERENTIAL Routine 10/31/2024 4:39 [...] Routine 8:14 AM CDT Elevated liver enzymes XR DXA BONE DENSITY 2 SITES AXIAL Routine 11/19/2010 10:21 AM CDT AGE-RELATED BONE LOSS from Last 3 Months or Most Recently Relevant to Health Maintenance Results * SCAN-EYE EXAM (12/06/2024 12:00 AM CDT) us Scanner OTHER Final Result * SCAN-CT INTERPRETATION (11/11/2024 12:00 AM CDT) Anatomical Region Laterality Modality Other us Scanner OTHER Final Result * (ABNORMAL) METHYLMALONIC ACID BLOOD (10/31/2024 4:39 PM CDT) METHYLMALONIC ACID 515(H) 85 - 423 nmol/L 11/01/2024 7:27 PM CDT [facility] Comment: See Note 1 Serum methylmalonic [...] neural tube defects and intrauterine growth restriction. [email or web address] utilized Multi-Modal Decomposition (MMD) analysis to establish first and second trimester-specific MMA reference intervals in , as given below: MMA, First trimester (<13 wks gestation): 58-167 nmol/L MMA, Second trimester (13-23 wks gestation): 63-241 nmol/L Note 1 This test was developed and its analytical performance characteristics have been determined by [email or web address]. It has not been cleared or approved by the FDA. This assay has been validated pursuant to the CLIA regulations and is used for clinical purposes. Blood BLOOD SPECIMEN / Unknown [facility] / Unknown 10/31/2024 4:39 PM CDT 10/31/2024 4:41 PM CDT us Jhonny Guerrero MD SEND OUTS Final Result [facility] [place] [address] [place] [address], * (ABNORMAL) CBC WITH AUTO DIFFERENTIAL (10/31/2024 [...] Jhonny Guerrero MD HEMATOLOGY Final Result [email or web address] [address] [place] [address], * (ABNORMAL) IRON PLUS IRON BINDING CAP (10/31/2024 4:39 PM CDT) Pathologist [facility] IRON, TOTAL 16(L) 45 - 160 mcg/dL [...] MD CHEMISTRY Final Result Performing Organization Address [facility] Phone Number [facility] [address] [address], * VITAMIN B12 (10/31/2024 4:39 PM CDT) [...] MD CHEMISTRY Final Result Performing Organization Address [facility] Phone Number [facility] [address] [address], * (ABNORMAL) HEPATIC FUNCTION PANEL (10/31/2024 4:39 [...] us Jhonny Guerrero MD CHEMISTRY Final Result [facility] [address] [address], * (ABNORMAL) GLUCOSE METER (10/20/2024 12:02 PM CDT) Only the most recent of7 resultswithin the time period is included. [facility] GLUCOSE METER 317(H) 65 - 100 mg/dL 10/20/2024 12:12 PM CDT [facility] Blood BLOOD SPECIMEN / Unknown 10/20/2024 12:02 PM CDT 10/20/2024 12:12 PM CDT us Scout Huddleston MD CHEMISTRY Final Resul t [facility] SENDOUT INTERNAL ZIP [address] [place] [address] * (ABNORMAL) Hemoglobin (10/20/2024 7:24 AM CDT) Only the most recent of3 resultswithin the time period is included. HEMOGLOBIN 7.5(L) 12.0 - 16.0 g/dL 10/20/2024 8:06 AM CDT [facility] MCV 90 80 - 100 fL 10/20/2024 8:06 AM CDT [facility] Blood BLOOD SPECIMEN / Unknown Venipuncture / Unknown 10/20/2024 7:24 AM CDT 10/20/2024 7:51 AM CDT us Scout Huddleston MD HEMATOLOGY Final Resul t [facility] SENDOUT INTERNAL ZIP [phone] [place] [address] * (ABNORMAL) CREATININE (10/20/2024 7:24 AM CDT) Only the most recent of2 resultswithin the time period is included. eGFR 42(L) >90 mL/min/1.7 3m2 10/20/2024 8:35 AM CDT [facility] Comment:As of 2021, eG FR is calculated by the CKD-EPI creatinine equation without race adjustment. eGFR can be influenced by muscle mass, exercise, and diet. The reported eGFR is an estimation only and is only applicable if the renal function is stable. CREATININE 1.23(H) 0.50 - 0.90 mg/dL 10/20/2024 8:35 AM CDT [facility] Blood BLOOD SPECIMEN / Unknown Venipuncture / Unknown 10/20/2024 7:24 AM CDT 10/20/2024 7:51 AM CDT us Allyson Weathers MD CHEMISTRY F inal Result [facility] SENDOUT INTERNAL ZIP [address] [place] [address] * XR CHEST 1 VIEW PORTABLE (10/19/2024 [...] EXAM: XR CHEST 1 VIEW PORTABLE LOCATION: [facility] MEDICAL IMAGING DATE: 10/19/2024 INDICATION: Trauma COMPARISON: 06/19/2023 Procedure Note Lj Kern MD - 10/19/2024 For Patients: As a result of the Cures Act, medical imagingexams and procedure reports are released immediately into your electronicmedical record. You may view this report before your referring provider.If you have questions, please contact your health care provider. EXAM: XR CHEST 1 VIEW PORTABLE LOCATION: [facility] MEDICAL IMAGING DATE: 10/19/2024 INDICATION: Trauma COMPARISON: [...] questions, please contact your health care provider. [facility] LOCATION: [facility] MEDICAL IMAGING DATE: 10/19/2024 PROCEDURE: CT GUIDED [...] For Patients: As a result of the 21st Century Cures Act, medical imagingexams and procedure reports are released immediately into your electronicmedical record. You may view this report before your referring provider.If you have questions, please contact your health care provider. [facility] LOCATION: [facility] MEDICAL IMAGING DATE: 10/19/2024 PROCEDURE: CT GUIDED [...] use of 3 cryoprobes, as detailed above. Scout Huddleston MD CT Final Resul t * HCHG TUBE PR1, HCHG STYLET PR1, HCHG MOUTHPIECE PR1 (10/19/2024 10:20 AM CDT) Narrative Kae Bowman CRNA - 10/19/2024 10:20 AM CDT Kae [...] O Rh Positive 10/19/2024 10:45 AM CDT [facility] BLOOD BANK ANTIBODY SCREEN Negative Negative 10/19/2024 10:45 AM CDT [facility] BLOOD BANK SPECIMEN EXPIRATION DATE/TIME 10/22/24 23:59 10/19/2024 10:45 AM CDT [facility] BLOOD BANK Blood BLOOD SPECIMEN / Unknown Non-Lab Venipuncture / Unknown 10/19/2024 9:48 AM CDT 10/19/2024 10:00 AM CDT us Kae Bowman FLORAL DEPARTMENT SPECIALIST BLOOD BANK Final Resul t Performing Organization Address [facility] Co de Phone Number [facility] BLOOD BANK [address] [place] [address] * Platelet Count (10/19/2024 8:53 AM CDT) PLATELET COUNT 286 140 - 440 thou/cu mm 10/19/2024 8:59 AM CDT [facility] MPV 8.7 6.5 - 11.0 fL 10/19/2024 8:59 AM CDT [facility] Blood BLOOD SPECIMEN / Unknown Non-Lab Venipuncture / Unknown 10/19/2024 8:53 AM CDT 10/19/2024 8:53 AM CDT Narrative [facility] - 10/19/2024 8:59 AM CDT If not done within past 14 days. Nurse to release order. Goal platelets greater than or equal to 80. If not done within past 14 days. Nurse to release order. us Mena Arias MEDICAL TRANSCRIPTION SUPERVISOR HEMATOLOGY Final Res ult Performing Organization Address City/[facility]/ZIP Co de Phone Number [facility] SENDOUT [address] [phone] [place] [address] * (ABNORMAL) Protime - INR (10/19/2024 8:53 AM CDT) INR 1.1 <1.3 10/19/2024 9:05 AM CDT [facility] PROTIME 13.0(H) 10.6 - 12.4 sec 10/19/2024 9:05 AM CDT [facility] Blood BLOOD SPECIMEN / Unknown Non-Lab Venipuncture / Unknown 10/19/2024 8:53 AM CDT 10/19/2024 8:53 AM CDT Narrative [facility] - 10/19/2024 9:05 AM CDT Therapeutic [...] Mena Arias NP HEMATOLOGY Final Res ult [facility] SENDOUT INTERNAL ZIP [address] [place] [address] * (ABNORMAL) URINE ALBUMIN TO CREATININE RATIO, RANDOM (09/15/2024 8:25 AM CDT) ALB RAND URINE 51.6 mg/L 09/15/2024 4:16 PM CDT [facility]ORAT[facility] CREATININE,URIN E 0.30 g/L 09/15/2024 4:16 PM CDT [facility] TRAL LABORATORY ALBUMIN TO CREATININE RATIO,RAND UR 172.0(H) <30.0 mg/g creat 09/15/2024 4:16 PM CDT [facility] TRAL LABORATORY Urine URINE SPECIMEN / Unknown Non-Blood / Unknown 09/15/2024 8:25 AM CDT 09/15/2024 8:25 AM CDT [facility] LABORATORY-C[facility]AL LABORATORY - 09/15/2024 4:16 PM CDT If Albumin to Creatinine Ratio is elevated, consider the following: Elevations seen with incipient nephropathy associated with diabetes mellitus or hypertension. Stress, exercise,hematuria, and urinary tract infection may also produce elevated results. If clinically indicated, confirm with 24 Hour Albumin to Creatinine Ratio. us Jhonny Guerrero MD URINE Final Result [facility] [address] [place] [address], * (ABNORMAL) HEMOGLOBIN A1C (09/15/2024 8:14 AM CDT) HEMOGLOBIN A1C 8.7(H) <5.7 % [email or web address] Comment: For someone without known diabetes, [...] us Jhonny Guerrero MD CHEMISTRY Final Result [facility] [address] [place] [address], [email or web address] [address] [place] [address] * (ABNORMAL) CBC W PLT NO DIFF [...] CDT Jhonny Guerrero MD HEMATOLOGY Final Result [facility] [address] [place] [address], [email or web address] [address] [place] [address] * (ABNORMAL) BASIC METABOLIC PANEL (09/15/2024 8:14 AM CDT) GLUCOSE 156(H) 65 - 99 mg/dL [email or web address] Comment: Fasting reference interval For someone without [...] 146 mmol/L [facility] POTASSIUM 4.5 3.5 - 5.3 mmol/L [facility] CHLORIDE 102 98 - 110 mmol/L [facility] CARBON DIOXIDE 26 20 - 32 mmol/L [facility] ELECTROLYTE BALANCE 10 7 - 17 mmol/L (calc) [facility] CALCIUM 9.4 8.6 - 10.4 mg/dL [facility] Blood BLOOD SPECIMEN / Unknown 09/15/2024 8:14 AM CDT 09/15/2024 8:15 AM CDT Jhonny Guerrero MD CHEMISTRY Final Result [facility] [address] [place] [address], [place] [phone] [facility] [address] [place] [address] * XR DEXA BONE DENSITY 2 SITES [...] HB ONLY MEDICARE PART A HB ONLY [facility] MEDICARE PB ONLY Advance Directives Documents on File Type Date Recorded Patient Maintenance Shop Technician Expl anation Healthcare Directive 04/24/2000 001 * [...] 9:54 AM 10/09/2014 2:22 PM Care Teams Form Layer Relationship Specialty Start Date End Date Jhonny Guerrero MD [address] [place] [address] PCP - General Family Practice 04/02/20
--- NOTE | 2024-12-12 15:28 | CRLHL7_ITS ---
For Patients: As a result of the Century Cures Act, medical imaging exams and procedure reports are released immediately into your electronic medical record. You may view this report before your referring provider. If you have questions, please contact your health care provider. INDICATION: Fell, hit head, on Plavix. COMPARISON: None. TECHNIQUE: CT of the brain / head without intravenous contrast. Multiplanar axial, coronal, and sagittal reformats were reconstructed. FINDINGS: No intracranial hemorrhage. Mild parenchymal volume loss. 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 No acute or subacute cortically based infarct. Scattered white matter hypodensities may be related to chronic microvascular ischemia. Heavy left vertebral artery and carotid calcifications. No mass or mass effect. Normal ventricles. No skull fractures. No worrisome focal bone lesion. Small right forehead contusion. IMPRESSION: Small right forehead contusion. No skull fracture. No intracranial hemorrhage. Please note that all CT scans at this facility use dose modulation, iterative reconstruction, and/or weight-based dosing when appropriate to reduce radiation dose to as low as reasonably achievable. Dictated by Maritza Haynes MD @ 12/12/2024 3:59:35 PM (Electronically Signed)
--- NOTE | 2024-12-12 16:06 | ED.HEATRA ---
HPI - Head Injury General Time Seen by Provider: 16:07 Date Seen: 12/12/24 Chief complaint: Head Injury/Pain Stated complaint: Fell and hit head/Diarrhea Time Seen by Provider: 12/12/24 16:03 Source: patient and RN notes reviewed Mode of arrival: ambulatory Limitations: no limitations History of Present Illness HPI Narrative: This 89yo is coming into the ED with complaint of head injury that happened about 3 a.m. this morning when she had to get up to go to the bathroom. She had to get to the bathroom as she started with nonbloody diarrhea, has had multiple episodes today. No LOC, no headache or visual changes. No neck pain. She hit her forehead, has a bandage on it. Her son stays with her at night, was with her and she was noted to have multiple episodes of diarrhea. Her daughter whom is with her now notes that she thought the diarrhea had improved but when patient tried to eat toast and some watermelon, she had recurrence of multiple episodes. Her daughter worries that she is developing dehydration, states that she has this happen easily. No abdominal pain with this, no nausea or vomiting. Describes stool as liguidy brown and nonbloody. No fevers noted. No recent antibiotic use and no history of C difficile that they are aware of. Patient is on Plavix. Patient does have Imodium on hand, has a history of some irritable bowel and will sometimes have diarrhea. She has not tried any Imodium. Related Data Home Medications ?Medication ?Instructions ?Recorded ?Confirmed ketorolac 0.5 % eye drops 1 drp ophthalmic (eye) BID 03/26/23 11/11/24 metformin 500 mg tablet 500 mg PO BID 03/26/23 11/11/24 timolol maleate 0.5 % eye drops 1 drp ophthalmic (eye-left) BID 03/26/23 11/11/24 clopidogrel 75 mg tablet 75 mg PO DAILY 05/06/24 11/11/24 ezetimibe 10 mg tablet 10 mg PO DAILY 05/06/24 11/11/24 latanoprost 0.005 % eye drops 1 drp ophthalmic (eye) QPM 05/06/24 11/11/24 empagliflozin 25 mg tablet 25 mg PO DAILY 11/11/24 11/11/24 Previous Rx's ?Medication ?Instructions ?Recorded cefdinir 300 mg capsule 300 mg PO DAILY #5 caps 11/12/24 Allergies Allergy/AdvReac Type Severity Reaction Status Date / Time Penicillins Allergy Verified 12/12/24 18:24 Sulfa (Sulfonamide AdvReac Verified 12/12/24 18:24 Antibiotics) Review of Systems Status of ROS: Reports: 6 or more systems reviewed and unremarkable except as noted in History and below [facility] Medical History Self-catheterizes urinary bladder ?Z78.9 - Other specified health status (ICD-10) History of pacemaker ?Z95.0 - Presence of cardiac pacemaker (ICD-10) Mixed hyperlipidemia (11/15/10) ?E78.2 - Mixed hyperlipidemia (ICD-10) Irritable bowel (07/09/12) ?K58.9 - Irritable bowel syndrome, unspecified (ICD-10) History of syncope (04/02/20) ?Z87.898 - Personal history of other specified conditions (ICD-10) Essential hypertension (11/15/10) ?I10 - Essential (primary) hypertension (ICD-10) Acute duodenal ulcer (08/18/17) ?K26.3 - Acute duodenal ulcer without hemorrhage or perforation (ICD-10) Stage 3a chronic kidney disease (01/05/16) ?N18.31 - Chronic kidney disease, stage 3a (ICD-10) Hydroureteronephrosis ?N13.30 - Unspecified hydronephrosis (ICD-10) Hyponatremia ?E87.1 - Hypo-osmolality and hyponatremia (ICD-10) Urinary tract infection ?N39.0 - Urinary tract infection, site not specified (ICD-10) Left kidney mass ?N28.89 - Other specified disorders of kidney and ureter (ICD-10) Hydronephrosis of right kidney ?N13.30 - Unspecified hydronephrosis (ICD-10) Stage 3a chronic kidney disease (CKD) ?N18.31 - Chronic kidney disease, stage 3a (ICD-10) History of duodenal ulcer ?Z87.19 - Personal history of other diseases of the digestive system (ICD-10) Diabetes mellitus ?E11.9 - Type 2 diabetes mellitus without complications (ICD-10) Hyperlipidemia ?E78.5 - Hyperlipidemia, unspecified (ICD-10) Hypertension ?I10 - Essential (primary) hypertension (ICD-10) ASCVD (arteriosclerotic cardiovascular disease) ?I25.10 - Atherosclerotic heart disease of campo coronary artery without angina pectoris (ICD-10) Surgical History S/P TAVR (transcatheter aortic valve replacement) ?Z95.2 - Presence of prosthetic heart valve (ICD-10) Social History What is your current living situation?: I presently have a place to live Problems where you live: no known problems Problems where you live details: n/a In the past 12 months, utilities in danger of being shut off: no In past 12 months, lack of transportation kept you from medical appts, meetings, work, or getting things needed for daily living: no In the past 12 mos, have been you worried that your food would run out before you had money to buy more?: never true In the past 12 mos, the food you bought just didn't last and you didn't have money to buy more?: never true Highest level of school completed/degree received: high school graduate Smoking Status: Never smoker Do you use any of these nicotine containing products: None Second hand tobacco smoke exposure: Yes ( and son) How often do you have a drink containing alcohol: monthly or less How often do you have six or more drinks on one occasion: Never AUDIT-C Alcohol total score: 1 Non-prescribed substance use: denies use Caffeine: Yes How often does anyone, including family, friends and others, physically hurt you: never How often does anyone, including family, friends and others, insult or talk down to you: never How often does anyone, including family, friends and others, threaten you with harm: never How often does anyone, including family, friends and others, scream or curse at you: never service: No Exam Const: Vital Signs, click to edit/add: Vital Signs - 24 hr 12/12/24 15:28 12/12/24 17:01 12/12/24 17:32 Temperature 97.5 F L Pulse Rate Pulse Rate [Pulse Oximeter] 88 Respiratory Rate 16 Blood Pressure 106/57 L 106/56 L Blood Pressure [Ri ght Upper Arm] 110/70 Pulse Oximetry 97 Oxygen Delivery Me thod Room Air 12/12/24 18:02 Temperature Pulse Rate 75 Pulse Rate [Pulse Oximeter] Respiratory Rate Blood Pressure 117/52 L Blood Pressure [Ri ght Upper Arm] Pulse Oximetry 95 Oxygen Delivery Me thod Room Air This 89-year-old female is initially sleeping, resting in the bed in exam room 5. She weak and easily with my voice. She is otherwise alert, interactive, no apparent distress. She has a bandage over her right forehead, this is removed in reveals an abraded area over the forehead with some congealed blood, no true laceration, looks like a deeper abrasion with underlying ecchymosis/hematoma. No active bleeding noted. This wound is on her right forehead. Face atraumatic, sclera clear, conjugate gaze, symmetrical facial function. She has a few scattered drops of dried blood leftover on her face. Anterior nares normal. Her speech is normal. She has no midline or paraspinous tenderness of her neck, no complaints of pain range of motion of her neck. Lungs are clear, no wheezing or crackles, no tachypnea. CV regular rate and rhythm, no significant murmur heard. Abdomen is slender in soft, no distension, bowel sounds are present and sound normal. There is no rebound or guarding, no organomegaly or masses. She is frail appearing and has slender build. She can move her arms and legs, has a cane at her bedside. Documenting provider has reviewed patient's vital signs: yes Course Course ED Course: Patient had a head CT appropriately ordered by nursing staff in triage. This has been read by Radiology and I am able to review with them that there is no evidence of any intracranial hemorrhage or bleeding, no skull fracture. We need to confirm her tetanus is up-to-date. This wound is an abraded area, there is nothing to repair. Will have nursing staff rebounded with bacitracin, we discussed wound care going forward. She does have some underlying diarrhea and daughter's concern for dehydration. We will place an IV, will give her 500 mL normal saline and check some baseline labs. If she does produce stool, will check C difficile. Patient does have a history of irritable bowel and some intermittent diarrhea but this may be out of the usual for her. This certainly could be a gastroenteritis. Will see where her labs are, her abdominal exam and history is quite benign, doubt any acute surgical abdomen or concerning etiology like diverticulitis, colitis at this time. If labs are concerning, may consider abdominal imaging. Did discuss that we have seen GI symptomatology such as diarrhea with COVID recently. Patient is declining testing for this at this time, certainly can support her decision making at this time. Reevaluation(s) Time of Reevaluation #1: 16:49 Reevaluation #1: Lab did call with an [place], [place] [address] range, predominance of neutrophils. Her lactate is normal. This does make consideration for things like colitis, potential community-acquired C difficile, even potentially complicated UTI. Will need to consider CT imaging but need to wait on her creatinine, will order with contrast if I am able to. Have added on the liver panel. She does not meet septic criteria at this time with her vitals, no fever. Certainly need to worry about bacterial infectious etiology. Have updated the hospitalist Dr. Hagan as I think with this white count, very likely potential for admission. Time of Reevaluation #2: 17:59 Reevaluation #2: Have reviewed with patient and her daughter as well as nursing staff the elevated white count, need for abdominal imaging. Nursing staff will use some bacitracin and a light bandage to her forehead. We did discuss the concern with patient and her daughter about underlying bacterial infection within the abdomen given the elevated white count and her symptom of diarrhea. She has not produced any stool here. Consultations Consultation #1: Dr. Walker did review with me that this patient had been in the hospital in October, did look up the records. She had Klebsiella in her urine, had a UTI. Patient has allergies to penicillin and sulfa. She was discharged on a cephalosporin. Thus, we have opted to give her ciprofloxacin. We did look at her CT imaging, she has a very distended bladder, likely acute urinary retention on chronic urinary retention issues. She has worsening of her hyponatremia. She initially received 500 mL normal saline, will start 75 mL an hour infusion. We have tended a C difficile, has not been collected yet. She has been on recent antibiotics based on her history despite both daughter and patient telling me she had not been. Thus, do need to consider C difficile as causative etiology of diarrhea but do suspect she could be just getting some overflow liquidy stool due to the very large distended bladder she has. Nursing staff has been requested to place a catheter because of the urinary retention. Dr. Hagan will be accepting this patient, he is here to meet with her now. Time: 18:41 Vital Signs Vital signs: Initial Vital Signs Temperature 97.5 F L 12/12/24 15:28 Temperature Source Temporal Artery Scan 12/12/24 15:28 Pulse Rate 88 12/12/24 15:28 Respiratory Rate 16 12/12/24 15:28 Blood Pressure 110/70 12/12/24 15:28 Blood Pressure Mean 83 12/12/24 15:28 Blood Pressure Position Sitting 12/12/24 15:28 Pulse Oximetry 97 12/12/24 15:28 Oxygen Delivery Method Room Air 12/12/24 15:28 Vital Signs Temperature 97.5 F L 12/12/24 15:28 Pulse Rate 88 12/12/24 15:28 Respiratory Rate 16 12/12/24 15:28 Blood Pressure 110/70 12/12/24 15:28 Pulse Oximetry 97 12/12/24 15:28 Oxygen Delivery Method Room Air 12/12/24 15:28 Temperature 97.5 F L 12/12/24 15:28 Pulse Rate 75 12/12/24 18:02 Respiratory Rate 16 12/12/24 15:28 Blood Pressure 117/52 L 12/12/24 18:02 Pulse Oximetry 95 12/12/24 18:02 Oxygen Delivery Method Room Air 12/12/24 18:02 Medications Administered Medications: Discontinued Medications Generic Name Dose Route Start Last Admin Trade Name Freq PRN Reason Stop Dose Admin Bacitracin Zinc 1 each 12/12/24 17:02 12/12/24 17:02 Bacitracin 0.9 Gm Packet TOPICAL 12/12/24 17:03 1 each ONCE ONE Administration Sodium Chloride 500 mls @ 500 mls/hr 12/12/24 16:14 12/12/24 18:03 0.9 % Sodium Chloride 500 Ml IV 12/12/24 17:13 Infused .Q1H ONE Infusion MDM - Head Injury MDM Narrative Medical decision making narrative: Patient's Td in her outside chart is up-to-date on 06/04/2017. She has had Tdap before. Lab Data Attestation: I reviewed the patient's lab results. Labs: Lab Results 12/12/24 12/12/24 12/12/24 Range/Units 16:30 16:47 17:50 WBC 33.65 H* (4.50-11.00) K/uL RBC 2.99 L (4.00-5.20) m/uL Hgb 8.6 L (12.0-16.0) gm/dL Hct 27.1 L (33.0-51.0) % MCV 91 (80-100) fL MCH 29 (26-34) pg MCHC 32 (32-36) gm/dL RDW Coeff of Yoel 16.2 H (11.5-15.5) % Plt Count 277 (140-440) K/uL Neut % (Auto) 91.1 H (42.0-72.0) % Lymph % (Auto) 3.8 L (20-44) % [place] % (Auto) 4.5 (0.0-11.0) % Eos % (Auto) 0.0 (0.0-7.0) % Baso % (Auto) 0.0 (0.0-3.0) % Neut # (Auto) 30.70 H (1.7-7.0) K/uL Lymph # (Auto) 1.30 (0.90-2.90) K/uL [place] # (Auto) 1.50 H (0.00-0.90) K/UL Eos # (Auto) 0.00 (0.00-0.50) K/uL Baso # (Auto) 0.00 (0.00-0.30) K/uL Abs Immat Gran (auto) 0.20 (0.00-0.30) K/uL Imm/Tot Granulo (auto) 0.6 % Diff Slide Review Acceptable Review (Acceptable) Sodium 126 L (135-149) mmol/L Potassium 4.3 (3.6-5.1) mmol/L Chloride 98 (96-114) mmol/L Carbon Dioxide 20 (20-32) mmol/L Anion Gap 8 (7-15) mEq/L BUN 40 H (7-30) mg/dL Creatinine 1.4 (0.5-1.5) mg/dL Estimated Creat Clear 17.90 Estimated GFR 36 ml/min Glucose 234 H (60-115) mg/dL Hemoglobin A1c 7.5 H (0-5.6) % Lactate 1.4 (0.5-1.9) mmol/L Calcium 8.8 (8.4-10.6) mg/dL Total Bilirubin 0.5 (0.1-1.5) mg/dL Direct Bilirubin 0.3 (0.0-0.5) mg/dL AST 42 H (12-35) U/L ALT 23 (4-35) U/L Alkaline Phosphatase 116 (40-150) U/L C-Reactive Protein 7.8 H (0.5-1.0) mg/dL Total Protein 6.1 (6.0-8.3) g/dL Albumin 3.1 L (3.3-5.0) g/dL Urine Color Yellow (Yellow) Urine Appearance Cloudy A (Clear) Urine pH 6.5 (5.0-8.5) Ur Specific [place] 1.010 (1.000-1.030) Urine Protein 1+ A (Negative) Urine Glucose (UA) 2+ A (Negative) Urine Ketones Negative (Negative) Urine Blood 1+ A (Negative) Urine Nitrite Negative (Negative) Urine Bilirubin Negative (Negative) Urine Urobilinogen 0.2 (0.2-1.0) Ur Leukocyte Esterase 3+ A (Negative) Urine RBC 5-10 A (0-2) Urine WBC >100 A (0-5) Ur Squamous Epith Cells Few (None-Few) Urine Bacteria Few A (None) Lab Acknowledgement Test Added Test Added Imaging Data CT scan - head: Attestation: I have reviewed the pertinent imaging results. Radiologist's impression: Patient: PAU NAVA Facility:?[facility] Patient ID:?[id number] Site Patient ID:?[id number]. Site :?[id number] Study:?CT-Head WITHOUT-12/12/2024 3:48:32 PM Ordering Physician:?PROVIDER TEMP Final Report: INDICATION: Fell, hit head, on Plavix. COMPARISON: None. TECHNIQUE: CT of the brain / head without intravenous contrast. Multiplanar axial, coronal, and sagittal reformats were reconstructed. FINDINGS: No intracranial hemorrhage. Mild parenchymal volume loss. 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 No acute or subacute cortically based infarct. Scattered white matter hypodensities may be related to chronic microvascular ischemia. Heavy left vertebral artery and carotid calcifications. No mass or mass effect. Normal ventricles. No skull fractures. No worrisome focal bone lesion. Small right forehead contusion. IMPRESSION: Small right forehead contusion. No skull fracture. No intracranial hemorrhage. Please note that all CT scans at this facility use dose modulation, iterative reconstruction, and/or weight-based dosing when appropriate to reduce radiation dose to as low as reasonably achievable. Dictated by Maritza Haynes MD @ 12/12/2024 3:59:35 PM (Electronic Signature) CT scan - abdomen: Attestation: I have reviewed the pertinent imaging results. My impression: Did visualize and see the very distended bladder. Await Radiology over-read. Radiologist's impression: Patient: PAU NAVA Facility:?[facility] Patient ID:?[id number] Site Patient ID:?[id number]. Site :?[id number] Study:?CT-Abdomen/Pelvis 44CC ISOVUE 370-12/12/2024 6:27:33 PM Ordering Physician:?Brady Bernard Final Report: INDICATION: WBC 33K, DIARRHEA. FALL TECHNIQUE: CT abdomen and pelvis acquired with 44 cc Isovue 370 IV contrast. COMPARISON: October 2024 and dating back to 2016. FINDINGS: Lower chest: Motion. TAVR. Dense mitral annular calcification. ICD/pacer. ABDOMEN: Liver: Normal enhancement. No focal suspicious hepatic lesions. Gallbladder and biliary: Cholecystectomy. Prominence of the bile ducts which can be seen in a normal post cholecystectomy setting. Spleen: Normal size and enhancement. Pancreas: Normal enhancement without peripancreatic inflammatory changes or ductal dilatation. Adrenal glands: Normal adrenal glands. Kidneys and ureters: Upper pole left renal area of nodular enhancement with fat halo in region prior soft tissue mass, likely sequela of prior ablation. Punctate nonobstructing renal stones. Similar bilateral hydroureteronephrosis greater on the right compared to the left, no delayed nephrogram. GI tract: The stomach is relatively decompressed. Normal caliber small and large bowel loops. Appendix is not definitively visualized. Lack of formed stool in the large bowel suggesting decreased transit time. Vascular structures: Normal caliber aorta with atherosclerotic calcifications. Lymph nodes: No lymphadenopathy in the abdomen or pelvis by size criteria. Peritoneum: No free air, free fluid, or focal drainable fluid collection. PELVIS: Genitourinary system: Urinary bladder is distended. Mild circumferential wall thickening. SKELETAL STRUCTURES AND SOFT TISSUES: Stable anterior abdominal wall subcutaneous calcifications. Lumbar spondylosis. Grade 1 anterolisthesis of L5 on S1 secondary to bilateral L5 pars defects. IMPRESSION: 1. Urinary bladder is distended. Mild circumferential wall thickening.Similar bilateral hydroureteronephrosis greater on the right compared to the left, no delayed nephrogram. Recommend correlation with urinalysis if not already performed to assess for underlying UTI. 2. Normal caliber bowel loops. 3. Nonobstructing bilateral renal stones. 4. Upper pole left renal area of nodular enhancement with fat halo in region of prior soft tissue mass, likely sequela of prior ablation. Please note that all CT scans at this facility use dose modulation, iterative reconstruction, and/or weight-based dosing when appropriate to reduce radiation dose to as low as reasonably achievable. Dictated by Chilo Harrison MD @ 12/12/2024 6:39:06 PM (Electronic Signature) Discharge Plan Discharge Clinical Impression: Acute on chronic urinary retention, Acute UTI, Hyponatremia Diarrhea Qualifiers: Diarrhea type: unspecified type Qualified Code(s): R19.7 - Diarrhea, unspecified Patient Disposition: Admitted As Inpatient
[2024-12-12] MEDS: 0.9 % SODIUM CHLORIDE 500 ML 500 ML IV (16:30)
[2024-12-12 16:39] LABS: Lactate* 1.4 mmol/L (0.5-1.9)
[2024-12-12 16:40] LABS: Hematocrit* 27.1 % (33.0-51.0); Hemoglobin* 8.6 gm/dL (12.0-16.0); Immature Granulocytes Pct Auto 0.6 %; Mean Corpuscular HGB Conc 32 gm/dL (32-36); Mean Corpuscular Hemoglobin 29 pg (26-34); Mean Corpuscular Volume 91 fL (80-100); RDW Coefficient of Variation % 16.2 % (11.5-15.5); Red Blood Count* 2.99 m/uL (4.00-5.20)
[2024-12-12 16:43] LABS: Immature Granulocytes Abs Auto 0.20 K/uL (0.00-0.30); Lymphocytes Absolute Auto 1.30 K/uL (0.90-2.90); Slide Review Reflex Yes; White Blood Count* 33.65 K/uL (4.50-11.00)
[2024-12-12 16:57] LABS: Albumin* 3.1 g/dL (3.3-5.0); Chloride* 98 mmol/L (96-114)
[2024-12-12 16:58] LABS: Potassium* 4.3 mmol/L (3.6-5.1); Sodium* 126 mmol/L (135-149)
[2024-12-12 17:00] LABS: Alanine Aminotransferase* 23 U/L (4-35); Alkaline Phosphatase* 116 U/L (40-150); Anion Gap 8 mEq/L (7-15); Aspartate Amino Transferase* 42 U/L (12-35); Bilirubin Direct* 0.3 mg/dL (0.0-0.5); Bilirubin Total* 0.5 mg/dL (0.1-1.5); Carbon Dioxide* 20 mmol/L (20-32); Total Protein* 6.1 g/dL (6.0-8.3)
[2024-12-12 17:01] LABS: Calcium* 8.8 mg/dL (8.4-10.6); Glucose* 234 mg/dL (60-115)
[2024-12-12] MEDS: BACITRACIN 0.9 GM PACKET 1 EACH TOPICAL (17:02)
[2024-12-12 17:56] LABS: Blood Urea Nitrogen* 40 mg/dL (7-30); Creatinine* 1.4 mg/dL (0.5-1.5); Est. Creatinine Clearance* 17.90; Estimated Glomerular Filt Rate 36 ml/min
--- NOTE | 2024-12-12 17:58 | CRLHL7_ITS ---
For Patients: As a result of the Century Cures Act, medical imaging exams and procedure reports are released immediately into your electronic medical record. You may view this report before your referring provider. If you have questions, please contact your health care provider. INDICATION: WBC 33K, DIARRHEA. FALL TECHNIQUE: CT abdomen and pelvis acquired with 44 cc Isovue 370 IV contrast. COMPARISON: October 2024 and dating back to 2016. FINDINGS: Lower chest: Motion. TAVR. Dense mitral annular calcification. ICD/pacer. ABDOMEN: Liver: Normal enhancement. No focal suspicious hepatic lesions. Gallbladder and biliary: Cholecystectomy. Prominence of the bile ducts which can be seen in a normal post cholecystectomy setting. Spleen: Normal size and enhancement. Pancreas: Normal enhancement without peripancreatic inflammatory changes or ductal dilatation. Adrenal glands: Normal adrenal glands. Kidneys and ureters: Upper pole left renal area of nodular enhancement with fat halo in region prior soft tissue mass, likely sequela of prior ablation. Punctate nonobstructing renal stones. Similar bilateral hydroureteronephrosis greater on the right compared to the left, no delayed nephrogram. GI tract: The stomach is relatively decompressed. Normal caliber small and large bowel loops. Appendix is not definitively visualized. Lack of formed stool in the large bowel suggesting decreased transit time. Vascular structures: Normal caliber aorta with atherosclerotic calcifications. Lymph nodes: No lymphadenopathy in the abdomen or pelvis by size criteria. Peritoneum: No free air, free fluid, or focal drainable fluid collection. PELVIS: Genitourinary system: Urinary bladder is distended. Mild circumferential wall thickening. SKELETAL STRUCTURES AND SOFT TISSUES: Stable anterior abdominal wall subcutaneous calcifications. Lumbar spondylosis. Grade 1 anterolisthesis of L5 on S1 secondary to bilateral L5 pars defects. IMPRESSION: 1. Urinary bladder is distended. Mild circumferential wall thickening.Similar bilateral hydroureteronephrosis greater on the right compared to the left, no delayed nephrogram. Recommend correlation with urinalysis if not already performed to assess for underlying UTI. 2. Normal caliber bowel loops. 3. Nonobstructing bilateral renal stones. 4. Upper pole left renal area of nodular enhancement with fat halo in region of prior soft tissue mass, likely sequela of prior ablation. Please note that all CT scans at this facility use dose modulation, iterative reconstruction, and/or weight-based dosing when appropriate to reduce radiation dose to as low as reasonably achievable. Dictated by Chlio Harrison MD @ 12/12/2024 6:39:06 PM (Electronically Signed)
[2024-12-12 18:08] LABS: Appearance Urine Cloudy (Clear)
[2024-12-12 18:51] LABS: Slide Review Acceptable Review (Acceptable)
[2024-12-12] MEDS: CIPROFLOXACIN 400 MG/200 ML PIGGYBACK 200 MG IVPB (19:09)
--- NOTE | 2024-12-12 19:25 | PM.IMHP1 ---
Assessment and Plan Assessment and plan (1) Acute UTI: Problem comment: Recurrent. Likely related to urinary retention as well as self catheterization. Treated in the hospital 1 month ago for same problem. Culture grew Klebsiella resistant to ampicillin and susceptible to cephalosporins and quinolones. Has severe leukocytosis. Admit for IV antibiotics pending urine culture and clinical course. At risk for resistant organisms. Empagliflozin may also contribute to risk for recurrent urinary infection. Status: Acute (2) Diarrhea: Problem comment: Has been on antibiotics recently. Check for C diff. does have a history of irritable bowel as well. Monitor. Possibly a cause for volume depletion. Cautious IV fluids. Patient had severe acute kidney injury from a diarrheal illness in April. Status: Acute (3) Stage 5 chronic kidney disease: Problem comment: April 2024 had a GFR of 8, stage 5, which is now improved to 36, stage IIIB Status: Acute (4) Hyponatremia: Problem comment: Normal saline and monitor. Anticipate this will correct with resolution of her illness. Status: Acute (5) Acute on chronic urinary retention: Problem comment: Patient was able to void prior to catheter placement after voiding she still had over 600 mL of retained urine. No symptoms. She self catheterizes twice a day at home. Likely this will need to increase to 3 times a day or she should have a Guzman catheter placed. Should have follow-up with Urology outpatient Status: Acute (6) Left kidney mass: Problem comment: -CT September 2023 shows solid mass arising from the upper pole of the left kidney is stable in size measuring 3.0 x 2.8 x 2.4 cm. Renal cell carcinoma. Cryoablation September of 2024 Status: Acute (7) Status post cryoablation of mass of kidney: Problem comment: September 2024, [place] Status: Acute (8) Anemia: Problem comment: Is had anemia for the last 7 months with hemoglobin between 8 and 9. Had unremarkable upper endoscopy in April 2024. Monitor for bleeding. Monitor for progression of anemia Status: Acute (9) Leukocytosis: Problem comment: White blood count of 33.6 with 91% neutrophils presumably due to kidney/bladder infection. Status: Acute (10) Closed head injury: Problem comment: No obvious serious sequelae at this point. Continue to monitor Status: Acute (11) Hydroureteronephrosis: Problem comment: -CT: severe right-sided hydroureteronephrosis and mild left-sided hydroureteronephrosis without obstructing mass or stones (chronic) patient without flank pain or fever Most likely caused by bladder outlet obstruction. Status: Acute Plan 89-year-old female admitted to the hospital with a fall and head injury and discovered to have worsening urinary retention . Severe leukocytosis and borderline hypotension probably related to current urinary infection. Admit for IV antibiotics, IV fluids and close monitoring pending urine culture. 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 this morning when she had to get up to go to the bathroom. She had to get to the bathroom as she started with nonbloody diarrhea, has had multiple episodes today. No LOC, no headache or visual changes. No neck pain. She hit her forehead, had a lot of bleeding and now has a bandage on it. Her son stays with her at night, was with her and she was noted to have multiple episodes of diarrhea. Her daughter whom is with her now notes that she thought the diarrhea had improved but when patient tried to eat toast and some watermelon, she had recurrence of multiple episodes. Her daughter worries that she is developing dehydration, states that she has this happen easily. No abdominal pain with this, no nausea or vomiting. Describes stool as liguidy brown and nonbloody. No fevers noted. Was treated with ceftriaxone and cefdinir for a urinary tract infection 1 month ago. no history of C difficile that they are aware of. Patient is on Plavix. Patient does have Imodium on hand, has a history of some irritable bowel and will sometimes have diarrhea. She has not tried any Imodium. 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 At that time she was found to have an enlarged bladder and bilateral hydronephrosis. She does self catheterization twice a day for her nonfunctioning bladder and urinary retention. She reports this has been working for her. Two months ago she had cryo ablation of a left renal cell carcinoma. She has occasional episodes of diarrhea and is worse in the last day. She has not had abdominal pain or vomiting or fever that she is aware of. She has chronic anemia with a hemoglobin between 8 and 9 for the last 7 months. She has stage 4-5 chronic kidney disease. April of 2024 she had a creatinine of 5.2 giving a GFR of 8. That has improved to a creatinine of 1.4 with a GFR of 36 more recently. Review of Systems Narrative: Other than issues above she reports generally doing well. She is not aware of any significant bladder symptoms. Medical Decision Making Medical Decision Making Has patient completed a Health Care Directive: Yes [facility] Medical History (Updated 12/12/24 @ 20:30 by Adrián Hagan MD) Hydroureteronephrosis ?N13.30 - Unspecified hydronephrosis (ICD-10) Anemia ?D64.9 - Anemia, unspecified (ICD-10) Stage 5 chronic kidney disease ?N18.5 - Chronic kidney disease, stage 5 (ICD-10) Self-catheterizes urinary bladder ?Z78.9 - Other specified health status (ICD-10) History of pacemaker ?Z95.0 - Presence of cardiac pacemaker (ICD-10) Mixed hyperlipidemia (11/15/10) ?E78.2 - Mixed hyperlipidemia (ICD-10) Irritable bowel (07/09/12) ?K58.9 - Irritable bowel syndrome, unspecified (ICD-10) History of syncope (04/02/20) ?Z87.898 - Personal history of other specified conditions (ICD-10) Essential hypertension (11/15/10) ?I10 - Essential (primary) hypertension (ICD-10) Acute duodenal ulcer (08/18/17) ?K26.3 - Acute duodenal ulcer without hemorrhage or perforation (ICD-10) Stage 3a chronic kidney disease (01/05/16) ?N18.31 - Chronic kidney disease, stage 3a (ICD-10) Hyponatremia ?E87.1 - Hypo-osmolality and hyponatremia (ICD-10) Urinary tract infection ?N39.0 - Urinary tract infection, site not specified (ICD-10) Left kidney mass ?N28.89 - Other specified disorders of kidney and ureter (ICD-10) Hydronephrosis of right kidney ?N13.30 - Unspecified hydronephrosis (ICD-10) Stage 3a chronic kidney disease (CKD) ?N18.31 - Chronic kidney disease, stage 3a (ICD-10) History of duodenal ulcer ?Z87.19 - Personal history of other diseases of the digestive system (ICD-10) Diabetes mellitus ?E11.9 - Type 2 diabetes mellitus without complications (ICD-10) Hyperlipidemia ?E78.5 - Hyperlipidemia, unspecified (ICD-10) Hypertension ?I10 - Essential (primary) hypertension (ICD-10) ASCVD (arteriosclerotic cardiovascular disease) ?I25.10 - Atherosclerotic heart disease of [place] coronary artery without angina pectoris (ICD-10) Surgical History Status post cryoablation of mass of kidney ?Z98.890 - Other specified postprocedural states (ICD-10) S/P TAVR (transcatheter aortic valve replacement) ?Z95.2 - Presence of prosthetic heart valve (ICD-10) Family History (Updated 12/12/24 @ 20:15 by Adrián Hagan MD) Brother Diabetes Heart disease Prostate cancer Mother Diabetes Son Diabetes Stroke Father Heart disease Social History (Updated 12/12/24 @ 20:19 by Adrián Hagan MD) Narrative: She lives [facility] with her son. She walks with a cane. She does not smoke. Rarely drinks alcohol. Code status is DNR. Healthcare decision-making by her daughter, Day or her son, Gio. What is your current living situation?: I presently have a place to live Problems where you live: no known problems Problems where you live details: n/a In the past 12 months, utilities in danger of being shut off: no In past 12 months, lack of transportation kept you from medical appts, meetings, work, or getting things needed for daily living: no In the past 12 mos, have been you worried that your food would run out before you had money to buy more?: never true In the past 12 mos, the food you bought just didn't last and you didn't have money to buy more?: never true Highest level of school completed/degree received: high school graduate Smoking Status: Never smoker Do you use any of these nicotine containing products: None Second hand tobacco smoke exposure: Yes ( and son) How often do you have a drink containing alcohol: monthly or less How often do you have six or more drinks on one occasion: Never AUDIT-C Alcohol total score: 1 Non-prescribed substance use: denies use Caffeine: Yes How often does anyone, including family, friends and others, physically hurt you: never How often does anyone, including family, friends and others, insult or talk down to you: never How often does anyone, including family, friends and others, threaten you with harm: never How often does anyone, including family, friends and others, scream or curse at you: never service: No Meds Home Medications and Allergies Home Medications ?Medication ?Instructions ?Recorded ?Confirmed ?Type ketorolac 0.5 % eye drops 1 drp ophthalmic (eye) BID 03/26/23 11/11/24 History metformin 500 mg tablet 500 mg PO BID 03/26/23 11/11/24 History timolol maleate 0.5 % eye drops 1 drp ophthalmic (eye-left) BID 03/26/23 11/11/24 History clopidogrel 75 mg tablet 75 mg PO DAILY 05/06/24 11/11/24 History ezetimibe 10 mg tablet 10 mg PO DAILY 05/06/24 11/11/24 History latanoprost 0.005 % eye drops 1 drp ophthalmic (eye) QPM 05/06/24 11/11/24 History empagliflozin 25 mg tablet 25 mg PO DAILY 11/11/24 11/11/24 History cefdinir 300 mg capsule 300 mg PO DAILY #5 caps 11/12/24 Rx Allergies Allergy/AdvReac Type Severity Reaction Status Date / Time Penicillins Allergy Verified 12/12/24 18:24 Sulfa (Sulfonamide AdvReac Verified 12/12/24 18:24 Antibiotics) Exam Narrative: Exam Narrative: She is alert and appears in no obvious distress. She gives her own history. Right forehead has a fairly large abrasion with swelling/bruising now covered with a dressing. No other trauma. Eyes are normal. Extraocular movements are full. Visual levy are intact. Pupils are equal and round reactive to light. No facial asymmetry. Oropharynx is normal. Neck is supple without mass or adenopathy or tenderness. Respirations are clear to auscultation without wheezing rales or rhonchi. Cardiovascular: S1, S2, 1/6 systolic murmur. No gallop or rub. Regular rate and rhythm. Abdomen is soft without tenderness or mass. She is examined after Guzman catheter is placed. External genitalia normal. Urinary catheter draining a cloudy yellow urine. Upper extremities with symmetric full strength bilaterally. Her hands are slightly cool to touch and have mildly delayed capillary refill. Lower extremities without edema. She has intact pulses and lower extremity strength is symmetric and full bilaterally. Feet are somewhat cool to touch with sluggish capillary refill Const: Vital Signs, click to edit/add: Vital Signs - 24 hr 12/12/24 15:28 12/12/24 17:01 12/12/24 17:32 Temperature 97.5 F L Pulse Rate Pulse Rate [Pulse Oximeter] 88 Respiratory Rate 16 Blood Pressure 106/57 L 106/56 L Blood Pressure [Ri ght Upper Arm] 110/70 Pulse Oximetry 97 Oxygen Delivery Me thod Room Air 12/12/24 18:02 Temperature Pulse Rate 75 Pulse Rate [Pulse Oximeter] Respiratory Rate Blood Pressure 117/52 L Blood Pressure [Ri ght Upper Arm] Pulse Oximetry 95 Oxygen Delivery Me thod Room Air Documenting provider has reviewed patient's vital signs: yes Hospitalist - H&P: Result Labs Labs: Short CBC 12/12/24 Range/Units 16:30 WBC 33.65 H* (4.50-11.00) K/uL Hgb 8.6 L (12.0-16.0) gm/dL Hct 27.1 L (33.0-51.0) % Plt Count 277 (140-440) K/uL BMP 12/12/24 16:30 Sodium 126 L Potassium 4.3 Chloride 98 Carbon Dioxide 20 BUN 40 H Creatinine 1.4 Glucose 234 H Calcium 8.8 Liver Function 12/12/24 Range/Units 16:30 Total Bilirubin 0.5 (0.1-1.5) mg/dL Direct Bilirubin 0.3 (0.0-0.5) mg/dL AST 42 H (12-35) U/L ALT 23 (4-35) U/L Alkaline Phosphatase 116 (40-150) U/L Albumin 3.1 L (3.3-5.0) g/dL Urine 10/20/25 Range/Units 17:50 Urine Color Yellow (Yellow) Urine Appearance Cloudy A (Clear) Urine pH 6.5 (5.0-8.5) Ur Specific [place] 1.010 (1.000-1.030) Urine Protein 1+ A (Negative) Urine Glucose (UA) 2+ A (Negative) Imaging CT scan - head: Radiologist's impression: INDICATION: Fell, hit head, on Plavix. COMPARISON: None. TECHNIQUE: CT of the brain / head without intravenous contrast. Multiplanar axial, coronal, and sagittal reformats were reconstructed. FINDINGS: No intracranial hemorrhage. Mild parenchymal volume loss. 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 No acute or subacute cortically based infarct. Scattered white matter hypodensities may be related to chronic microvascular ischemia. Heavy left vertebral artery and carotid calcifications. No mass or mass effect. Normal ventricles. No skull fractures. No worrisome focal bone lesion. Small right forehead contusion. IMPRESSION: Small right forehead contusion. No skull fracture. No intracranial hemorrhage. CT scan - abdomen: Radiologist's impression: INDICATION: WBC 33K, DIARRHEA. FALL TECHNIQUE: CT abdomen and pelvis acquired with 44 cc Isovue 370 IV contrast. COMPARISON: October 2024 and dating back to 2016. FINDINGS: Lower chest: Motion. TAVR. Dense mitral annular calcification. ICD/pacer. ABDOMEN: Liver: Normal enhancement. No focal suspicious hepatic lesions. Gallbladder and biliary: Cholecystectomy. Prominence of the bile ducts which can be seen in a normal post cholecystectomy setting. Spleen: Normal size and enhancement. Pancreas: Normal enhancement without peripancreatic inflammatory changes or ductal dilatation. Adrenal glands: Normal adrenal glands. Kidneys and ureters: Upper pole left renal area of nodular enhancement with fat halo in region prior soft tissue mass, likely sequela of prior ablation. Punctate nonobstructing renal stones. Similar bilateral hydroureteronephrosis greater on the right compared to the left, no delayed nephrogram. GI tract: The stomach is relatively decompressed. Normal caliber small and large bowel loops. Appendix is not definitively visualized. Lack of formed stool in the large bowel suggesting decreased transit time. Vascular structures: Normal caliber aorta with atherosclerotic calcifications. Lymph nodes: No lymphadenopathy in the abdomen or pelvis by size criteria. Peritoneum: No free air, free fluid, or focal drainable fluid collection. PELVIS: Genitourinary system: Urinary bladder is distended. Mild circumferential wall thickening. SKELETAL STRUCTURES AND SOFT TISSUES: Stable anterior abdominal wall subcutaneous calcifications. Lumbar spondylosis. Grade 1 anterolisthesis of L5 on S1 secondary to bilateral L5 pars defects. IMPRESSION: 1. Urinary bladder is distended. Mild circumferential wall thickening.Similar bilateral hydroureteronephrosis greater on the right compared to the left, no delayed nephrogram. Recommend correlation with urinalysis if not already performed to assess for underlying UTI. 2. Normal caliber bowel loops. 3. Nonobstructing bilateral renal stones. 4. Upper pole left renal area of nodular enhancement with fat halo in region of prior soft tissue mass, likely sequela of prior ablation.
[2024-12-12] MEDS: METFORMIN 500 MG TABLET PO (21:24)
[2024-12-12] MEDS: KETOROLAC OPHTH 0.5% 1 DROP EYE-BOTH (21:24)
[2024-12-12] MEDS: INSULIN ASPART 100 UNIT/ML SUBCUT (21:25)
[2024-12-12] MEDS: timoloL maleate 0.5 % 1 DROP EYE-LEFT (21:26)
[2024-12-13] MEDS: cefTRIAXone 1 GM in 0.9 % SODIUM CHLORIDE Mini-bag 100 ML IVPB (00:29)
[2024-12-13 02:21] VITALS: BP 93/53; PULSE 70; RESP 18; TEMP 36.4; O2SAT 93
[2024-12-13 06:05] VITALS: BMI 17.0
--- NOTE | 2024-12-13 06:18 | PC.NURSE ---
end of shift: Pt. is AOx4. Pt. SBA/ x1 assist w/ GB & walker. Weakness, with upper body strength to lift herself up to stand & make adjustments. Greenberg catheter in place w/ no kinks, hung below tubing. Lynette-cares and greenberg catheter cares performed by NARS.
[2024-12-13 06:38] LABS: Lactate* 0.9 mmol/L (0.5-1.9)
[2024-12-13 06:47] LABS: Hematocrit* 24.3 % (33.0-51.0); Immature Granulocytes Pct Auto 0.2 %; Mean Corpuscular HGB Conc 31 gm/dL (32-36); Mean Corpuscular Hemoglobin 29 pg (26-34); Mean Corpuscular Volume 91 fL (80-100); RDW Coefficient of Variation % 16.2 % (11.5-15.5); Red Blood Count* 2.67 m/uL (4.00-5.20); White Blood Count* 20.36 K/uL (4.50-11.00)
[2024-12-13 06:57] LABS: Immature Granulocytes Abs Auto 0.00 K/uL (0.00-0.30)
[2024-12-13 06:58] LABS: Hemoglobin* 7.6 gm/dL (12.0-16.0); Lymphocytes Absolute Auto 1.80 K/uL (0.90-2.90); Slide Review Reflex No
[2024-12-13 07:01] LABS: Chloride* 101 mmol/L (96-114)
[2024-12-13 07:02] LABS: Potassium* 3.4 mmol/L (3.6-5.1)
[2024-12-13 07:05] LABS: Blood Urea Nitrogen* 37 mg/dL (7-30); Calcium* 8.3 mg/dL (8.4-10.6); Carbon Dioxide* 25 mmol/L (20-32); Creatinine* 1.3 mg/dL (0.5-1.5); Est. Creatinine Clearance* 19.32; Estimated Glomerular Filt Rate 40 ml/min; Glucose* 70 mg/dL (60-115)
[2024-12-13 07:47] LABS: Anion Gap 7 mEq/L (7-15); Sodium* 133 mmol/L (135-149)
[2024-12-13 07:51] VITALS: BP 107/55; PULSE 73; RESP 16; TEMP 36.6; O2SAT 94
[2024-12-13] MEDS: EMPAGLIFLOZIN 25 MG TABLET PO (09:17)
[2024-12-13] MEDS: CLOPIDOGREL 75 MG TABLET PO (09:17)
[2024-12-13] MEDS: EZETIMIBE 10 MG TABLET PO (09:17)
[2024-12-13] MEDS: CIPROFLOXACIN 250 MG TABLET PO ×2 (09:17→20:31)
[2024-12-13] MEDS: KETOROLAC OPHTH 0.5% 1 DROP EYE-BOTH ×2 (09:18→20:31)
[2024-12-13] MEDS: timoloL maleate 0.5 % 1 DROP EYE-LEFT ×2 (09:18→20:31)
[2024-12-13] MEDS: METFORMIN 500 MG TABLET PO ×2 (10:06→20:32)
[2024-12-13 11:47] VITALS: BP 113/45; PULSE 68; RESP 16; TEMP 36.5; O2SAT 94
--- NOTE | 2024-12-13 13:13 | PC.SOCIAL ---
Initial Psychosocial Assessment: 1.??? Assessment completed with: Patient and patient's daughter 2.??? Pt lives at address and phone number on face sheet? Patient lives at address on facesheet and phone number is correct. 3.?Insurance information? on face sheet is correct? Yes 4.?Contacts? on face sheet are correct? Yes 5.??? Does pt have a Healthcare Directive, POLST or Guardian? No 6.??? Who is the pt?s main source/sources of emotional/physical support? Family and friends 7.??? Prior to admission did pt need assistance? Yes/No Patient receives support from her children. 8.??? Who provided and what was the assistance needed? Patient's children bring her to the store for grocery shopping and assist with some activities around the house - yard work, driving, garbage disposal, etc. 9.??? Was Home Health being provided, by what agency? No 10. Does pt use/have medical equipment at home already? What? Cane 11. Will there be a need for additional assistance at discharge and is this available in previous setting? No 12. If pt needs to go to a higher level of care, are they open to this and do they have facilities they are interested in? N/A 13. How would pt plan to transport at discharge? Family 14. Is there anyone pt would like pediatric social worker to contact to discuss discharge plans? No Other information: SW met with patient to discuss resource/support needs. Patient states that her son Dudley lives with her multimedia authoring specialist and he doesn't work due to past strokes. Patient reports that he helps when she falls and she can always call for him. Patient states that she has another son that visits frequently and her daughter. Patient mentions that she has two friends that call her daily too. Patient states if her son isn't there, which doesn't happen often, she feels she could get to a phone if she fell and was not interested in any emergency alert buttons/pendants. Patient states she has no concerns or needs at this time. SW met with daughter and patient and discussed that it's recommended patient decrease her driving more for safety and patient and daughter state they have alternatives to patient driving, like patient's friends, and son Dudley that lives with her. No other needs/requests at this time. SW to assist if any needs arise.
--- NOTE | 2024-12-13 14:29 | W.PC.NUTR.HO ---
Hospital Nutrition Assessment Patient Data Patient Gender: F Patient Age: 89 Height: 5 ft 1 in Weight: 90 lb 3.2 oz Body Mass Index: 17.0 Usual Body Weight: 104 lb Weight Calculations [place] Body Weight (lbs): 105.00 [place] Body Weight (kg): 47.63 Percent of [place] Body Weight: 86 Adjusted Body Weight (lbs): 101.30 Adjusted Body Weight (kg): 45.95 Percent of Usual Body Weight: 87 Basal Energy Expenditure (BEE): 921.51 Activity/Stress Factors Injury Factor/Activity Factor Value: 1.3 Total Energy Requirements Kcal requirements (current wt): 1197.963 Protein Need (current wt): 1.3 Total Protein (current wt): 53.188 Fluid Need (current wt): 30 Total Fluid (current wt): 1227.421 Nutrition Assessment Diet Order: Diabetic Are you following a diet prescribed by a doctor: No Are you following a special diet: No Allergies: NKFA Appetite Prior to Admission: Decreased Appetite and Intake: 75% of one meal consumed, Refused lunch today Supplements and/or snacks: Other - see comment (Patient reports drinking 2 [employer] brand nutrition supplements each day) Hx Appetite Changes: Yes Hx Weight Loss: Yes Diarrhea: Yes Chewing Difficulty: No Swallowing Difficulty: No Pressure Ulcer: No Clinical History: Hydroureteronephrosis Anemia Stage 5 chronic kidney disease History of pacemaker Mixed hyperlipidemia (11/15/10) Irritable bowel (07/09/12) History of syncope (04/02/20) Essential (primary) hypertension (ICD-10) Acute duodenal ulcer (08/18/17) Stage 3a chronic kidney disease (01/05/16) Hyponatremia Urinary tract infection Left kidney mass Hydronephrosis of right kidney Diabetes mellitus Hyperlipidemia Hypertension ASCVD (arteriosclerotic cardiovascular disease) Current Living Situation: Lives with her son Medications Medications: Reviewed Lab Results Lab Results: Reviewed Education Dietary Topic: High Calorie/High Protein Topic Comment: Discussed importance of not skipping meals. Patient was encouraged to have 3 meals and 3 snacks each day. She was also encouraged to continue to drink her nutrition supplements. Discussed simple meal and snack ideas. High calorie, high protein nutrition therapy handouts provided from [facility] including sample menu. Patient declined need for education for her designated rn transitional care. RDN's contact information was provided. Response to Teaching: Verbalize Understanding Teaching Methods: Verbal and Handout Teaching Recipient: Patient Assessment/Plan PES Statement: Unintentional weight loss related to decreased appetite/intake as evidenced by 14.2 lb (6.5 kg)/13.6% weight loss in 7 months. Nutritional Assessment Summary: 89-year-old female admitted to the hospital with a fall and head injury and discovered to have worsening urinary retention. Severe leukocytosis and borderline hypotension probably related to current urinary infection. Patient also with significant weight loss of 13.6% since April 2024. Patient reports having a heart procedure and ever since this her appetite has been decreased. Patient reports breakfast is hit or miss. Sometimes she has peanut butter toast. Lunch is a sandwich and soup. Supper might be meat, potato and vegetable. Sometimes she goes out to supper with her son. Patient also reports drinking 2 [employer] brand nutrition supplements each day. Patient was provided education on high calorie, high protein diet. Also encouraged to have 5-6 small meals each day. Patient has only consumed 1 meal at 75% today. Plan to provide vanilla premier protein BID to assist in meeting estimated nutrition needs. This will provide 300 kcals and 60 grams protein per day. Vanilla ensure enlive is not available at this time. When it becomes available will switch supplement as higher calories are warranted. Goals: 50-75% intake of meals and supplements Plan/Recommendation: Offer premier protein BID in morning and afternoon between meals. RDN to monitor and follow up as needed. Malnutrition Assessment Current Energy Intake: Less Than 75% Estimated Timeframe Of Energy Intake: Greater Than Or Equal To 3 Months Weight Changes: >10% In 6 Months Recommended Malnutrition Diagnosis: Further Physical Evaluation Required By MD To Determine
[2024-12-13 14:35] VITALS: BMI 17.0
[2024-12-13 15:30] VITALS: BP 107/45; PULSE 76; RESP 18; TEMP 36.9; O2SAT 95
--- NOTE | 2024-12-13 16:10 | P.IMPN_ITS ---
Assessment and Plan Assessment and plan (1) Closed head injury: Problem comment: -forehead lac; superficial. -no obvious concussion; imaging reassuring Status: Acute (2) Acute on chronic urinary retention: Problem comment: -greenberg placed -will contact [place] [facility]; Armani Anthony MD treating urologist. question suprapubic catheter placement. -[phone] [place] location (Sarahy is the RN who cares for patient) Status: Acute (3) Hydroureteronephrosis: Problem comment: -CT: severe right-sided hydroureteronephrosis and mild left-sided hydroureteronephrosis without obstructing mass or stones (chronic) patient without flank pain or fever Most likely caused by bladder outlet obstruction. Status: Acute (4) Acute UTI: Problem comment: Recurrent two organisms, no sepsis flags. WBC coming down. oral cipro after IV cipro/rocephin is likely efficient no blood cultures but BP stable. not tachycardic. afebrile. Status: Acute (5) Leukocytosis: Problem comment: White blood count of 33.6 with 91% neutrophils presumably due to kidney/bladder infection. -improving 12/13 Status: Acute (6) Anemia: Problem comment: Is had anemia for the last 7 months with hemoglobin between 8 and 9. Had unremarkable upper endoscopy in April 2024. Monitor for bleeding. Monitor for progression of anemia -pt has had iron infusions with [facility] -will check iron panal, ferritin Status: Acute (7) Diarrhea: Problem comment: Has been on antibiotics recently. Check for C diff. does have a history of irritable bowel as well. Monitor. Possibly a cause for volume depletion. Cautious IV fluids. Patient had severe acute kidney injury from a diarrheal illness in April. -no stool since arrival Status: Acute (8) Hyponatremia: Problem comment: Normal saline and monitor. Anticipate this will correct with resolution of her illness. -improving Status: Acute (9) Left kidney mass: Problem comment: -CT September 2023 shows solid mass arising from the upper pole of the left kidney is stable in size measuring 3.0 x 2.8 x 2.4 cm. Renal cell carcinoma. Cryoablation September of 2024 Status: Acute (10) Status post cryoablation of mass of kidney: Problem comment: September 2024[facility] Status: Acute Subjective Date Seen: 12/13/24 Interval history: Daily Progress Note - Hospital Medicine Day #: 2 CC: fall, acute on chronic urinary retention; acute UTI, acute anemia 24 HOUR UPDATE: -patient is feeling better -hemoglobin down to 7.6 from 8.6, princess was 8.2 and previous months White blood cell count has come down from 33.6 down to 20.3. Platelets are normal Sodium has improved to 133 from 126. Potassium is a bit low at 3.4. BUN and creatinine have improved slightly. A1c 7.5. Lactate has improved. Magnesium is in the normal range. CRP is stable Urine cultures pending. No blood cultures were obtained. All imaging is reviewed [facility] labs: iron total, 16. iron binding capacity 222, percent sat, 7. Objective: alert, asks appropriate questions. quite vibrant. Vitals: see above skull: small skin tear/abrasion center forehead. superficial with a layer of sloughed skin Lungs: Clear. Cardiac: S1S2. Disposition/Potential discharge - home in 1-2 days Today I spent 50minutes seeing the patient, reviewing Expanse and EPIC notes/diagnostics, discussing the care plan with our care time that includes social work, PT/OT, pharmacy, RT, fdc and documenting my impressions and plan in the medical record. Exam Const: Vital Signs, click to edit/add: Vital Signs - 24 hr 12/12/24 17:01 12/12/24 17:32 12/12/24 18:02 Temperature Pulse Rate 75 Pulse Rate [Pulse Oximeter] Respiratory Rate Blood Pressure 106/57 L 106/56 L 117/52 L Blood Pressure [Le ft Arm] Pulse Oximetry 95 Oxygen Delivery Me thod Room Air 12/12/24 18:23 12/12/24 19:26 12/12/24 20:29 Temperature Pulse Rate 76 88 Pulse Rate [Pulse Oximeter] 74 Respiratory Rate 16 16 Blood Pressure 99/50 L Blood Pressure [Le ft Arm] 107/59 L Pulse Oximetry 93 98 97 Oxygen Delivery Me thod Room Air Room Air 12/12/24 23:00 12/12/24 23:23 12/13/24 02:21 Temperature 97.8 F 97.6 F Pulse Rate Pulse Rate [Pulse Oximeter] 70 64 70 Respiratory Rate 18 14 18 Blood Pressure Blood Pressure [Le ft Arm] 98/54 L 93/53 L Pulse Oximetry 98 93 Oxygen Delivery Il thod Room Air Room Air 12/13/24 07:51 12/13/24 11:47 12/13/24 15:30 Temperature 97.9 F 97.7 F 98.4 F Pulse Rate Pulse Rate [Pulse Oximeter] 73 68 76 Respiratory Rate 16 16 18 Blood Pressure Blood Pressure [Le ft Arm] 107/55 L 113/45 L 107/45 L Pulse Oximetry 94 94 95 Oxygen Delivery Me thod Room Air Room Air Room Air 12/13/24 15:30 Temperature Pulse Rate Pulse Rate [Pulse Oximeter] 76 Respiratory Rate 18 Blood Pressure Blood Pressure [Le ft Arm] Pulse Oximetry Oxygen Delivery Me thod Labs Labs: Laboratory Results - last 24 hr 12/12/24 12/12/24 12/12/24 16:30 16:47 17:50 WBC 33.65 H* RBC 2.99 L Hgb 8.6 L Hct 27.1 L MCV 91 MCH 29 MCHC 32 RDW Coeff of Yoel 16.2 H Plt Count 277 Neut % (Auto) 91.1 H Lymph % (Auto) 3.8 L [place] % (Auto) 4.5 Eos % (Auto) 0.0 Baso % (Auto) 0.0 Neut # (Auto) 30.70 H Lymph # (Auto) 1.30 [place] # (Auto) 1.50 H Eos # (Auto) 0.00 Baso # (Auto) 0.00 Abs Immat Gran (auto) 0.20 Imm/Tot Granulo (auto) 0.6 Diff Slide Review Acceptable Review Sodium 126 L Potassium 4.3 Chloride 98 Carbon Dioxide 20 Anion Gap 8 BUN 40 H Creatinine 1.4 Estimated Creat Clear 17.90 Estimated GFR 36 Glucose 234 H Hemoglobin A1c 7.5 H Lactate 1.4 Calcium 8.8 Magnesium Total Bilirubin 0.5 Direct Bilirubin 0.3 AST 42 H ALT 23 Alkaline Phosphatase 116 C-Reactive Protein 7.8 H Total Protein 6.1 Albumin 3.1 L Urine Color Yellow Urine Appearance Cloudy A Urine pH 6.5 Ur Specific [place] 1.010 Urine Protein 1+ A Urine Glucose (UA) 2+ A Urine Ketones Negative Urine Blood 1+ A Urine Nitrite Negative Urine Bilirubin Negative Urine Urobilinogen 0.2 Ur Leukocyte Esterase 3+ A Urine RBC 5-10 A Urine WBC >100 A Ur Squamous Epith Cells Few Urine Bacteria Few A Lab Acknowledgement Test Added Test Added 12/13/24 12/13/24 05:57 08:25 WBC 20.36 H RBC 2.67 L Hgb 7.6 L* Hct 24.3 L MCV 91 MCH 29 MCHC 31 L RDW Coeff of Yoel 16.2 H Plt Count 263 Neut % (Auto) 87.6 H Lymph % (Auto) 8.9 L [place] % (Auto) 3.2 Eos % (Auto) 0.1 Baso % (Auto) 0.0 Neut # (Auto) 17.80 H Lymph # (Auto) 1.80 [place] # (Auto) 0.70 Eos # (Auto) 0.00 Baso # (Auto) 0.00 Abs Immat Gran (auto) 0.00 Imm/Tot Granulo (auto) 0.2 Diff Slide Review Sodium 133 L Potassium 3.4 L Chloride 101 Carbon Dioxide 25 Anion Gap 7 BUN 37 H Creatinine 1.3 Estimated Creat Clear 19.32 Estimated GFR 40 Glucose 70 Hemoglobin A1c Lactate 0.9 Calcium 8.3 L Magnesium 1.8 Total Bilirubin Direct Bilirubin AST ALT Alkaline Phosphatase C-Reactive Protein 7.9 H Total Protein Albumin Urine Color Urine Appearance Urine pH Ur Specific [place] Urine Protein Urine Glucose (UA) Urine Ketones Urine Blood Urine Nitrite Urine Bilirubin Urine Urobilinogen Ur Leukocyte Esterase Urine RBC Urine WBC Ur Squamous Epith Cells Urine Bacteria Lab Acknowledgement Test Added
[2024-12-13] MEDS: LATANOPROST 0.005% OPHTH 1 DROP EYE-BOTH (17:49)
[2024-12-13] MEDS: BACITRACIN OINTMENT BULK TUBE 1 APPLIC TOPICAL (17:49)
[2024-12-13 18:01] LABS: Iron* 39 ug/dL (37-170)
[2024-12-13 18:10] LABS: Percent Iron Saturation 31 % (20-50); Total Iron Binding Capacity 127 ug/dL (265-497)
[2024-12-13 19:00] VITALS: BP 117/58; PULSE 79; RESP 18; TEMP 36.7; O2SAT 95
[2024-12-13 23:00] VITALS: BP 119/63; PULSE 84; RESP 18; TEMP 36.8; O2SAT 93
[2024-12-14] VITALS (18 sets, daily range): BP systolic 107–138; BP diastolic 54–87; PULSE 61–95; RESP 16–20; TEMP 36.4–36.8; O2SAT 94–99
[2024-12-14 06:32] LABS: Hematocrit* 23.9 % (33.0-51.0); Immature Granulocytes Pct Auto 0.4 %; Mean Corpuscular HGB Conc 31 gm/dL (32-36); Mean Corpuscular Hemoglobin 28 pg (26-34); Mean Corpuscular Volume 91 fL (80-100); RDW Coefficient of Variation % 16.2 % (11.5-15.5); Red Blood Count* 2.64 m/uL (4.00-5.20); White Blood Count* 13.60 K/uL (4.50-11.00)
[2024-12-14 06:43] LABS: Immature Granulocytes Abs Auto 0.10 K/uL (0.00-0.30)
[2024-12-14 06:44] LABS: Chloride* 104 mmol/L (96-114); Hemoglobin* 7.5 gm/dL (12.0-16.0); Lymphocytes Absolute Auto 1.60 K/uL (0.90-2.90); Potassium* 3.4 mmol/L (3.6-5.1); Slide Review Reflex No; Sodium* 134 mmol/L (135-149)
[2024-12-14 06:46] LABS: Blood Urea Nitrogen* 37 mg/dL (7-30); Creatinine* 1.2 mg/dL (0.5-1.5); Est. Creatinine Clearance* 21.70; Estimated Glomerular Filt Rate 44 ml/min
[2024-12-14 06:47] LABS: Anion Gap 6 mEq/L (7-15); Calcium* 8.4 mg/dL (8.4-10.6); Carbon Dioxide* 24 mmol/L (20-32); Glucose* 115 mg/dL (60-115)
[2024-12-14] MEDS: CLOPIDOGREL 75 MG TABLET PO (09:24)
[2024-12-14] MEDS: METFORMIN 500 MG TABLET PO ×2 (09:25→20:58)
[2024-12-14] MEDS: EZETIMIBE 10 MG TABLET PO (09:25)
[2024-12-14] MEDS: timoloL maleate 0.5 % 1 DROP EYE-LEFT ×2 (09:26→21:01)
[2024-12-14] MEDS: KETOROLAC OPHTH 0.5% 1 DROP EYE-BOTH ×2 (09:27→21:01)
[2024-12-14] MEDS: CIPROFLOXACIN 250 MG TABLET PO ×2 (09:27→21:00)
--- NOTE | 2024-12-14 16:04 | P.IMPN_ITS ---
Assessment and Plan Assessment and plan (1) Closed head injury: Problem comment: -forehead lac; superficial. -no obvious concussion; imaging reassuring Status: Acute (2) Acute on chronic urinary retention: Problem comment: -greenberg placed -will contact [place] [facility]; Armani Anthony MD treating urologist. question suprapubic catheter placement. -[phone] [place] location (Sarahy is the RN who cares for patient) -Pt has appt on 12/15 with urology to discuss suprapubic cath placement. will discharge with greenberg catheter. Status: Acute (3) Hydroureteronephrosis: Problem comment: -CT: severe right-sided hydroureteronephrosis and mild left-sided hydroureteronephrosis without obstructing mass or stones (chronic) patient without flank pain or fever Most likely caused by bladder outlet obstruction. Status: Acute (4) Acute UTI: Problem comment: Recurrent awaiting ID/Sens. no sepsis flags. WBC coming down. oral cipro after IV cipro/rocephin is likely efficient no blood cultures but BP stable. not tachycardic. afebrile. Status: Acute (5) Leukocytosis: Problem comment: White blood count of 33.6 with 91% neutrophils presumably due to kidney/bladder infection. -improving Status: Acute (6) Anemia: Problem comment: Is had anemia for the last 7 months with hemoglobin between 8 and 9. Had unremarkable upper endoscopy in April 2024. Monitor for bleeding. Monitor for progression of anemia -[facility] -will check iron panal, ferritin -transfused 1 unit of RBCS 12/14 Status: Acute (7) Diarrhea: Problem comment: Has been on antibiotics recently. Check for C diff. does have a history of irritable bowel as well. Monitor. Possibly a cause for volume depletion. Cautious IV fluids. Patient had severe acute kidney injury from a diarrheal illness in April. -no stool since arrival Status: Acute (8) Hyponatremia: Problem comment: Normal saline and monitor. Anticipate this will correct with resolution of her illness. -improving Status: Acute (9) Left kidney mass: Problem comment: -CT September 2023 shows solid mass arising from the upper pole of the left kidney is stable in size measuring 3.0 x 2.8 x 2.4 cm. Renal cell carcinoma. Cryoablation September of 2024 Status: Acute (10) Status post cryoablation of mass of kidney: Problem comment: September 2024, [place] Status: Acute Subjective Date Seen: 12/14/24 Interval history: Daily Progress Note - Hospital Medicine #: 3 CC: fall, acute on chronic urinary retention; acute UTI, acute anemia 24 HOUR UPDATE: -patient is feeling better -hemoglobin down to 7.5 from 8.6, princess was 8.2 and previous months White blood cell count has come down from 33.6 down to 20.3 to 13.6 Platelets are normal Sodium has improved to 133 from 126. Potassium is a bit low at 3.4. BUN and creatinine have improved slightly. A1c 7.5. Lactate has improved. Magnesium is in the normal range. CRP is stable Urine cultures pending. No blood cultures were obtained. All imaging is reviewed [facility] labs: iron total, 16. iron binding capacity 222, percent sat, 7. Objective: alert, asks appropriate questions. quite vibrant. Vitals: see above skull: small skin tear/abrasion center forehead. superficial with a layer of sloughed skin Lungs: Clear. Cardiac: S1S2. Disposition/Potential discharge - home in 1-2 days Today I spent 50minutes seeing the patient, reviewing Expanse and EPIC notes/diagnostics, discussing the care plan with our care time that includes social work, PT/OT, pharmacy, RT, assisted and documenting my impressions and plan in the medical record. Exam Const: Vital Signs, click to edit/add: Vital Signs - 24 hr 12/13/24 19:00 12/13/24 23:00 12/13/24 23:00 Temperature 98.1 F 98.3 F Pulse Rate Pulse Rate [Pulse Oximeter] 79 84 Respiratory Rate 18 18 18 Blood Pressure Blood Pressure [Le ft Arm] 117/58 L 119/63 Pulse Oximetry 95 93 Oxygen Delivery Me thod Room Air Room Air 12/14/24 03:49 12/14/24 07:00 12/14/24 08:15 Temperature 97.6 F 97.8 F Pulse Rate Pulse Rate [Pulse Oximeter] 73 63 63 Respiratory Rate 20 18 18 Blood Pressure Blood Pressure [Le ft Arm] 138/60 107/87 Pulse Oximetry 95 97 Oxygen Delivery Me thod Room Air Room Air 12/14/24 11:30 12/14/24 11:31 12/14/24 11:55 Temperature 97.8 F 97.8 F 97.8 F Pulse Rate 65 68 Pulse Rate [Pulse Oximeter] 65 Respiratory Rate 18 18 18 Blood Pressure 122/57 L 131/58 L Blood Pressure [Le ft Arm] 122/57 L Pulse Oximetry 97 97 98 Oxygen Delivery Me thod Room Air Room Air Room Air 12/14/24 11:56 12/14/24 12:26 12/14/24 12:56 Temperature 97.8 F 97.9 F 98.1 F Pulse Rate 68 74 65 Pulse Rate [Pulse Oximeter] Respiratory Rate 18 18 18 Blood Pressure 131/58 L 127/64 121/69 Blood Pressure [Le ft Arm] Pulse Oximetry 98 99 99 Oxygen Delivery Me thod Room Air Room Air Room Air 12/14/24 13:26 12/14/24 13:56 12/14/24 14:26 Temperature 98.0 F 98.1 F 98.1 F Pulse Rate 67 68 70 Pulse Rate [Pulse Oximeter] Respiratory Rate 18 18 18 Blood Pressure 119/63 123/54 L 121/61 Blood Pressure [Le ft Arm] Pulse Oximetry 99 98 99 Oxygen Delivery Me thod Room Air Room Air Room Air 12/14/24 14:53 Temperature 98.2 F Pulse Rate 63 Pulse Rate [Pulse Oximeter] Respiratory Rate 18 Blood Pressure 124/75 Blood Pressure [Le ft Arm] Pulse Oximetry 98 Oxygen Delivery Me thod Room Air Labs Labs: Laboratory Results - last 24 hr 12/13/24 12/13/24 12/14/24 05:57 16:49 05:51 WBC 13.60 H RBC 2.64 L Hgb 7.5 L* Hct 23.9 L MCV 91 MCH 28 MCHC 31 L RDW Coeff of Yoel 16.2 H Plt Count 241 Neut % (Auto) 80.3 H Lymph % (Auto) 11.6 L [place] % (Auto) 5.7 Eos % (Auto) 1.7 Baso % (Auto) 0.3 Neut # (Auto) 10.90 H Lymph # (Auto) 1.60 [place] # (Auto) 0.80 Eos # (Auto) 0.20 Baso # (Auto) 0.00 Abs Immat Gran (auto) 0.10 Imm/Tot Granulo (auto) 0.4 Sodium 134 L Potassium 3.4 L Chloride 104 Carbon Dioxide 24 Anion Gap 6 L BUN 37 H Creatinine 1.2 Estimated Creat Clear 21.70 Estimated GFR 44 Glucose 115 Calcium 8.4 Magnesium 1.8 Iron 39 TIBC 127 L % Saturation 31 Ferritin 971.0 H C-Reactive Protein 6.5 H Lab Acknowledgement Test Added Blood Type O Positive Antibody Screen NEGATIVE Crossmatch ([facility]) See Detail
[2024-12-14] MEDS: LATANOPROST 0.005% OPHTH 1 DROP EYE-BOTH (18:27)
[2024-12-14] MEDS: BACITRACIN OINTMENT BULK TUBE 1 APPLIC TOPICAL (18:27)
--- NOTE | 2024-12-14 19:02 | PC.NURSE ---
End of Shift: Patient pleasant and cooperative, A&O. VSS, afebrile. No pain reported this shift. Tolerating regular diet, no nausea. Blood transfusion complete this shift, no acute reactions noted. SBA with walker/gait belt.
[2024-12-15 00:13] VITALS: BP 134/85; PULSE 89; RESP 18; TEMP 37; O2SAT 98
[2024-12-15 03:31] VITALS: BP 132/64; PULSE 64; RESP 16; TEMP 36.6; O2SAT 97
--- NOTE | 2024-12-15 06:45 | PC.NURSE ---
End of shift: Pt pleasant, alert and oriented.?VSS. Guzman patent and draining. ?Denies pain. Moves with SBA-1a, tolerated well. Pt in bed, appears to be resting, call light within reach.
[2024-12-15 06:52] LABS: Hematocrit* 28.1 % (33.0-51.0); Hemoglobin* 9.0 gm/dL (12.0-16.0); Immature Granulocytes Abs Auto 0.08 K/uL (0.00-0.30); Immature Granulocytes Pct Auto 0.8 %; Mean Corpuscular HGB Conc 32 gm/dL (32-36); Mean Corpuscular Hemoglobin 29 pg (26-34); Mean Corpuscular Volume 90 fL (80-100); RDW Coefficient of Variation % 16.8 % (11.5-15.5); Red Blood Count* 3.14 m/uL (4.00-5.20); White Blood Count* 9.67 K/uL (4.50-11.00)
[2024-12-15 07:02] LABS: Lymphocytes Absolute Auto 1.80 K/uL (0.90-2.90); Slide Review Reflex No
[2024-12-15 07:06] LABS: Chloride* 104 mmol/L (96-114); Potassium* 3.4 mmol/L (3.6-5.1); Sodium* 134 mmol/L (135-149)
[2024-12-15 07:09] LABS: Blood Urea Nitrogen* 31 mg/dL (7-30); Creatinine* 1.1 mg/dL (0.5-1.5); Est. Creatinine Clearance* 23.52; Estimated Glomerular Filt Rate 48 ml/min
[2024-12-15 07:10] LABS: Anion Gap 6 mEq/L (7-15); Calcium* 8.5 mg/dL (8.4-10.6); Carbon Dioxide* 24 mmol/L (20-32); Glucose* 96 mg/dL (60-115)
[2024-12-15] MEDS: METFORMIN 500 MG TABLET PO (08:09)
[2024-12-15] MEDS: KETOROLAC OPHTH 0.5% 1 DROP EYE-BOTH (08:10)
[2024-12-15] MEDS: EZETIMIBE 10 MG TABLET PO (08:10)
[2024-12-15] MEDS: CLOPIDOGREL 75 MG TABLET PO (08:10)
[2024-12-15] MEDS: CIPROFLOXACIN 250 MG TABLET PO (08:11)
[2024-12-15] MEDS: timoloL maleate 0.5 % 1 DROP EYE-LEFT (08:12)
[2024-12-15 08:25] VITALS: BP 144/73; PULSE 68; RESP 18; TEMP 36.5; O2SAT 98
--- NOTE | 2024-12-15 09:16 | P.DS_ITS ---
DS: Providers Provider Date Seen: 12/15/24 Date of admission: 12/12/24 19:20 Primary care physician: Jhonny Guerrero MD Admitting Clinician: Adrián Hagan MD Consults: 12/12/24 20:17 Consult to Occupational Therapy [CONS] Routine Comment: Reason(s) for OT Consult:: Evaluate and Treat Any Restrictions?:: No Restrictions Consult to Physical Therapy [CONS] Routine Comment: Reason(s) for PT Consult:: Evaluate and Treat Any Restrictions?:: No Restrictions Attending Physician on discharge: Jaylene Chavez MD [facility] Date of Discharge: 12/15/24 DS: Diagnosis Discharge Diagnosis (1) Acute UTI: Status: Acute Problem details: -Recurrent -Culture ultimately only grew less than 50 K Gram-positive justina. However given her presentation, leukocytosis we still feel this is a UTI and treated appropriately. -no sepsis flags. WBC coming down. -oral cipro after IV cipro/rocephin is likely efficient -no blood cultures but BP stable. not tachycardic. afebrile. (2) Leukocytosis: Status: Acute Problem details: White blood count of 33.6 with 91% neutrophils presumably due to kidney/bladder infection. -improving (3) Closed head injury: Status: Acute Problem details: -forehead lac; superficial. -no obvious concussion; imaging reassuring (4) Acute on chronic urinary retention: Status: Acute Problem details: -rgeenberg placed -[facility] to see after discharge. Armani Anthony MD treating urologist. -question suprapubic catheter placement. -discharge with greenberg catheter. (5) Hydroureteronephrosis: Status: Acute Problem details: -CT: severe right-sided hydroureteronephrosis and mild left-sided hydroureteronephrosis without obstructing mass or stones (chronic) patient without flank pain or fever Most likely caused by bladder outlet obstruction. (6) Anemia: Status: Acute Problem details: Is had anemia for the last 7 months with hemoglobin between 8 and 9. Had unremarkable upper endoscopy in April 2024. Monitor for bleeding. Monitor for progression of anemia -pt has had iron infusions with [facility] -will check iron panal, ferritin -transfused 1 unit of RBCS 12/14 -discharge hemoglobin, 9.0. Tong had been 7.5 (7) Stage 3a chronic kidney disease: Status: Acute Problem details: Creatinine on discharge 1.1, BUN 31. Creatinine clearance 24 (8) Poor balance: Status: Acute (9) Frail elderly: Status: Acute (10) Status post cryoablation of mass of kidney: Status: Acute Problem details: September 2024, [place] (11) Hyponatremia: Status: Acute Problem details: Normal saline and monitor. Anticipate this will correct with resolution of her illness. -improving (12) Left kidney mass: Status: Acute Problem details: -CT September 2023 shows solid mass arising from the upper pole of the left kidney is stable in size measuring 3.0 x 2.8 x 2.4 cm. Renal cell carcinoma. Cryoablation September of 2024 (13) S/P TAVR (transcatheter aortic valve replacement): Status: Acute DS: Summary Hospital Course Hospital Course: BRIEF HOSPITAL COURSE: Patient was admitted for 4 days. Synopsis of acute inpatient issues are outlined above. Chronic medical conditions with notable findings outlined above. Patient presented with a significant leukocytosis after a fall at home. She had a superficial abrasion on her forehead but otherwise seemed un injured in the mechanical fall in her bedroom. However we did find this leukocytosis and noted that she had acute on chronic urinary retention with bilateral hydrureter. She self catheterizes at a baseline. She has recurrent UTIs in her medical history. We placed a Greenberg catheter. We started her on antibiotics for presumed UTI based on her UA. The urine culture ultimately did not grow a pathogenic organism. Her given her presentation we felt like she likely did have a UTI. She was treated with IV antibiotics and ultimately oral Cipro. We based antibiotic choice on a October 2024 urine culture. Her white blood cell count decreased nicely as did her inflammatory markers with treatment. She has acute on chronic anemia during this hospitalization. She was transfused 1 unit of packed red blood cells. There had been a report of diarrhea prior to her fall, and with her history of antibiotic usage we were concerned about C diff. However, she never had diarrhea while an inpatient with us. Her electrolyte abnormalities including her potassium and sodium were monitored and managed. Given her advancing age, recurrent UTI, recurrent falls we suggested she speak with her urologist about a suprapubic cath. She demonstrated how she normally does her b.i.d. self urethral catheterizations and they are precarious for falls. She does have an appointment actually on the day of discharge with her urology group. To that and all of her imaging, labs and notes were faxed and printed for the patient. Imaging was pushed to the [employer] a system. DISCHARGE MEDICATIONS: See Reconciled list - SIGNIFICANT CHANGES: Continue to completion, Cipro 250 mg b.i.d. Specific instructions to the patient and follow-up are outlined below. REVIEW OF SYSTEMS No new chest pain or dyspnea Pain controlled No voiding difficulties Tolerating diet challenge PHYSICAL EXAM: CONSTITUTIONAL: Conversive, good historian. A/O. Knows setting and context. GENERAL: Well-developed and above ideal body weight, in no respiratory distress. VITAL SIGNS: see record. HEENT: Sclerae are anicteric. No petechiae. CARDIAC: rhythm is regular. There is no S3 or rub. No harsh murmurs. Extremities show trace edema with symmetrical pulses. PULM: good air entry with no wheeze. NEURO: Speech is fluent. A brief neurologic exam is negative. SKIN: Forehead, central shallow abrasion healing. PSYCHIATRIC: Euthymic. DISPOSITION: Home with daughter Time spent on discharge 37 minutes. Status at Discharge Functional status at discharge: uses cane/walker Overall status at discharge: patient is progressing back to baseline Time Spent with Patient Time attestation: Total time spent providing and/or coordinating discharge services: Time spent: Greater than 30 minutes Exam Const: Vital Signs, click to edit/add: Vital Signs - 24 hr 12/14/24 11:30 12/14/24 11:31 12/14/24 11:55 Temperature 97.8 F 97.8 F 97.8 F Pulse Rate 65 68 Pulse Rate [Pulse Oximeter] 65 Respiratory Rate 18 18 18 Blood Pressure 122/57 L 131/58 L Blood Pressure [Le ft Arm] 122/57 L Pulse Oximetry 97 97 98 Oxygen Delivery Me thod Room Air Room Air Room Air 12/14/24 11:56 12/14/24 12:26 12/14/24 12:56 Temperature 97.8 F 97.9 F 98.1 F Pulse Rate 68 74 65 Pulse Rate [Pulse Oximeter] Respiratory Rate 18 18 18 Blood Pressure 131/58 L 127/64 121/69 Blood Pressure [Le ft Arm] Pulse Oximetry 98 99 99 Oxygen Delivery Me thod Room Air Room Air Room Air 12/14/24 13:26 12/14/24 13:56 12/14/24 14:26 Temperature 98.0 F 98.1 F 98.1 F Pulse Rate 67 68 70 Pulse Rate [Pulse Oximeter] Respiratory Rate 18 18 18 Blood Pressure 119/63 123/54 L 121/61 Blood Pressure [Le ft Arm] Pulse Oximetry 99 98 99 Oxygen Delivery Me thod Room Air Room Air Room Air 12/14/24 14:53 12/14/24 15:00 12/14/24 15:50 Temperature 98.2 F 97.7 F Pulse Rate 63 Pulse Rate [Pulse Oximeter] 61 61 Respiratory Rate 18 18 18 Blood Pressure 124/75 Blood Pressure [Le ft Arm] 120/58 L Pulse Oximetry 98 98 Oxygen Delivery Me thod Room Air Room Air 12/14/24 15:52 12/14/24 19:50 12/14/24 23:00 Temperature 97.7 F 98.2 F Pulse Rate 61 Pulse Rate [Pulse Oximeter] 95 89 Respiratory Rate 18 16 18 Blood Pressure 120/58 L Blood Pressure [Le ft Arm] 133/67 Pulse Oximetry 98 94 Oxygen Delivery Me thod Room Air Room Air 12/15/24 00:13 12/15/24 03:31 12/15/24 08:25 Temperature 98.6 F 97.8 F 97.7 F Pulse Rate Pulse Rate [Pulse Oximeter] 89 64 68 Respiratory Rate 18 16 18 Blood Pressure Blood Pressure [Le ft Arm] 134/85 132/64 144/73 H Pulse Oximetry 98 97 98 Oxygen Delivery Me thod Room Air Room Air Room Air DS: Data Data Completed and Pending Completed studies during hospitalization: Procedures Excision of Esophagus, Via Natural or Artificial Opening Endoscopic, Diagnostic (05/06/24) Excision of Stomach, Via Natural or Artificial Opening Endoscopic, Diagnostic (05/06/24) Labs on day of discharge: Labs from last 24 hours 12/15/24 12/14/24 05:50 05:51 WBC 9.67 RBC 3.14 L Hgb 9.0 L Hct 28.1 L MCV 90 MCH 29 MCHC 32 RDW Coeff of Yoel 16.8 H Plt Count 246 Neut % (Auto) 71.3 Lymph % (Auto) 18.2 L Stevens % (Auto) 7.2 Eos % (Auto) 2.1 Baso % (Auto) 0.4 Neut # (Auto) 6.89 Lymph # (Auto) 1.80 Stevens # (Auto) 0.70 Eos # (Auto) 0.20 Baso # (Auto) 0.04 Abs Immat Gran (auto) 0.08 Imm/Tot Granulo (auto) 0.8 Sodium 134 L Potassium 3.4 L Chloride 104 Carbon Dioxide 24 Anion Gap 6 L BUN 31 H Creatinine 1.1 Estimated Creat Clear 23.52 Estimated GFR 48 Glucose 96 Calcium 8.5 Blood Type O Positive Antibody Screen NEGATIVE Crossmatch (AHG) See Detail Preliminary micro results at discharge 12/12/24 17:50 Urine Culture - Preliminary Urine Catheterized < 50,000 COL/ML MIXED GRAM POSITIVE JUSTINA ISOLATED NO FURTHER WORKUP Discharge Plan Discharge Disposition: Home, Self-Care Date of Admission: 12/12/24 19:20 Attending Provider on Discharge: Jaylene Chavez Primary Care Provider: Jhonny Guerrero Condition: Improved Anticipated Discharge Date/Time: 12/15/24 09:06 Discharge Medications: New ciprofloxacin HCl 250 mg Tablet 250 mg PO BID Qty: 10 0RF Continued metformin 500 mg tablet 500 mg PO BID ketorolac 0.5 % drops 1 drp ophthalmic (eye) BID Patient Comments: both eyes timolol maleate 0.5 % drops 1 drp ophthalmic (eye-left) BID Patient Comments: left eye latanoprost 0.005 % drops 1 drp ophthalmic (eye) QPM Patient Comments: both eyes clopidogrel 75 mg tablet 75 mg PO DAILY ezetimibe 10 mg tablet 10 mg PO DAILY cyanocobalamin (vitamin B-12) 500 mcg tablet 500 mcg PO DAILY Rx Instructions: Take 1 Tablet (500 mcg) by mouth once daily. fosinopril 20 mg tablet 20 mg PO DAILY Discontinued empagliflozin 25 mg tablet 25 mg PO DAILY Discharge Orders: Discharge Order (Routine); Ordered 12/15/24 Ordered By: Jaylene Chavez Patient Education: Ciprofloxacin (By mouth) Additional Instructions: 1. I've held the empagliflozin as it can increase the sugar content in your urine and increase your rate of UTIs. If your blood sugars start to rise, your PCP can address with a different medication. 2. During this stay, your urine culture didn't grow a specific bacteria. Given your history and elevated WBC this stay, I believe you have had a UTI and thus I will have you complete a week of antibiotics, ciprofloxacin. 3. Good luck with the suprapubic catherization; I think this is a good change for you. Activity Level: Activity as Tolerated Discharge Diet: Regular Follow Up Appointments: [facility] [Provider Group] Referral Note: today, 11:40 am at the [place] office. Jhonny Guerrero MD [Primary Care Provider, Family Practice] - 01/16/25 10:55 am Referral Note: [facility] for follow-up. Forms: [employer] Info Instructions
--- NOTE | 2024-12-15 10:36 | PC.NURSE ---
Discharge - Pt alert, oriented, cooperative. Up with standby assistance and cane or walker/gait belt. Pt uses call light appropriately and does not appear to be impulsive. Guzman catheter patent and draining, collection bag switched to leg bag for d/c to [place] for urology appt. Dressing on forehead CDI. Pt denies pain, tolerating RA and regular diet/fluids. IV removed with catheter intact. D/C education provided to pt and family member with verbalized understanding. Pt d/c to appt in [place] with family member via wheelchair at approximately 1025.
== END 2024-12-15 10:25 | disposition home or self-care (01) | DRG 699 ==
LOC: ED 19:01 → MEDSURG 19:21
PROVIDERS: Family Medicine; Admitting Provider Family Medicine; Emergency Provider Family Medicine; PCP Family Medicine; Visit Provider Family Medicine
DX: T83.518A Infection and inflammatory reaction due to other urinary catheter, initial encounter (principal); C64.2 Malignant neoplasm of left kidney, except renal pelvis; E87.1 Hypo-osmolality and hyponatremia; N13.6 Pyonephrosis; Z68.1 Body mass index [BMI] 19.9 or less, adult; R54 Age-related physical debility; R19.7 Diarrhea, unspecified; B96.89 Other specified bacterial agents as the cause of diseases classified elsewhere; R33.8 Other retention of urine; D64.9 Anemia, unspecified; I12.9 Hypertensive chronic kidney disease with stage 1 through stage 4 chronic kidney disease, or unspecified chronic kidney disease; N18.31 Chronic kidney disease, stage 3a; E11.22 Type 2 diabetes mellitus with diabetic chronic kidney disease; S00.81XA Abrasion of other part of head, initial encounter; W19.XXXA Unspecified fall, initial encounter; Z95.2 Presence of prosthetic heart valve; I25.10 Atherosclerotic heart disease of native coronary artery without angina pectoris; Z95.0 Presence of cardiac pacemaker
CPT/HCPCS: 51702; 36415; 36430; 70450; 74177; 80048; 80076; 81001; 82728; 82962; 83036; 83540; 83550; 83605; 83735; 85025; 86140; 86850; 86900; 86901; 86922; 87086; 87493; 97116; 97161; 97165; 97530; 97535; 99285; A9270; J0696; J0744; J7030; P9016; Q9967

== ENCOUNTER 2025-01-22 15:28 | Outpatient (CLI) | payer MEDICARE, BC, SELFPAY | END 2025-01-22 15:29 | disposition home or self-care (01) | LOC: AMB 01-26 17:46 | PROVIDERS: PCP Family Medicine; Visit Provider Emergency Medicine | DX: R50.9 Fever, unspecified (principal); R11.10 Vomiting, unspecified; R19.7 Diarrhea, unspecified | CPT/HCPCS: A0425; A0427 ==

== ENCOUNTER 2025-01-22 16:11 | Inpatient (IN) | payer MEDICARE, BC, SELFPAY ==
[2025-01-22] VITALS (17 sets, daily range): BP systolic 97–111; BP diastolic 57–67; PULSE 70–96; RESP 16–18; TEMP 36.8–37.3; O2SAT 89–100; BMI 17.9; BMI 18.1
--- OUTSIDE RECORDS SUMMARY | 2025-01-22 16:13 | XMS_ITS | Clinical Summary ---
Author Organization [employer] Address [address] [place] [id number] Care Team Providers Care Stage Electrician Helper Name Role Phone Jhonny Guerrero MD Primary [...] once daily. 90 Tablet 3 5 Active ezetimibe 10 mg tabletIndications: Hyperlipidemia, [...] Tablet (20 mg) by mouth once daily. 5 Active rosuvastatin (CRESTOR) 20 mg tabletIndications: Hyperlipidemia, unspecified hyperlipidemia type Take 1 Tablet (20 mg) by mouth at bedtime. 90 Tablet 3 5 Active empagliflozin 25 mg tabletIndications: Type 2 diabetes mellitus with stage 3a chronic kidney disease, with long-term current use of insulin (HC) Take 1 Tablet (25 mg) by mouth once daily. 90 Tablet 1 5 025 Discontin ued(*Med complete/ Regimen complete/ Level of care change) Active Problems Problem Noted Date Diagnosed Date Guzman catheter in place 12/26/2024 Abnormal liver enzymes 12/26/2024 Iron deficiency anemia 11/22/2024 Renal cell carcinoma [...] Encounters Date Type Department Care Team Description 01/22/2025 Refill [facility] [address] [place] [address] Stoney Murrieta OD Refill Request (Latanoprost) 01/04/2025 9:30 AM MUCK HAULER Nurse/Clinic Staff Only [facility] [address] [place] [address] Insert (16 fr jenna catheter change); Removal (Patient due for catheter change) 01/04/2025 Travel 01/02/2025 9:45 AM MUCK HAULER Ancillary Procedure [facility] [address] [facility] [address] 01/02/2025 Travel 12/26/2024 9:15 AM MUCK HAULER Office Visit [facility] [address] [place] [address] Jhonny Guerrero MD Diabetes (3 month follow up); Hospital F/U ([facility], 12/12/2024 - 12/15/2024, fall, elevated white count ); Immunization/Inject ion 12/26/2024 Travel 12/23/2024 9:00 AM CDT Orders Only [facility] [address] [place] [address] [place] <No scans attached> 12/23/2024 Travel 12/20/2024 Orders Only [facility] Scanner 1 scan: (1-Ord) INCOMING RECORDS-LABS, [facility], 12/20/2024 12/20/2024 Orders Only [facility] Scanner 1 scan: (1-Ord) INCOMING RECORDS-CT, [facility], 12/20/2024 12/15/2024 11:40 AM CDT Office Visit [facility] [address] [facility] [place] [address] Sarahy Xiao PA Follow Up (Post hospital follow up. Discuss SP catheter) 12/15/2024 Travel 12/14/2024 Telephone [facility] [address] [facility] [address] Sarahy Xiao PA Questions (Patient care plan) 12/14/2024 Telephone [facility] [address] [facility] [place] [address] Sarahy Xiao PA Error-please disregard 12/12/2024 Orders Only [facility] Scanner 1 scan: (1-Ord) [facility], HEAD/BRAIN WO CON, 12/12/2024 12/12/2024 Nurse Triage [facility] [address] [place] [address] Jhonny Guerrero MD Head Injury; Blood Pressure 12/06/2024 Orders Only [facility] Scanner 1 scan: (1-Ord) [place] [facility], 12/06/2024 11/22/2024 1:15 PM CDT Office Visit [facility] [address] [place] [address] Jhonny Guerrero MD Hospital F/U ([facility], 11/10/2024 - 11/12/2024, bladder infection ) 11/22/2024 Travel 11/16/2024 9:00 AM CDT Nurse/Clinic Staff Only [facility] [address] [place] [address] Infusion Therapy (Feraheme 2/2) 11/16/2024 Travel 11/14/2024 10:00 AM CDT Office Visit [facility] [address] [place] [address] Stoney Murrieta, OD Follow Up (4 Month IOP ck ) 11/14/2024 Travel 11/11/2024 Orders Only [facility] Scanner 1 scan: (1-Ord) [facility], CT ABDOMEN PELVIS WO CON, 11/11/2024 11/09/2024 9:00 AM CDT Nurse/Clinic Staff Only [facility] [address] [place] [address] Infusion Therapy (Feraheme 1/2) 11/09/2024 Travel 11/02/2024 Telephone [facility] [address] [place] [address] Jhonny Guerrero MD Medication Management (Feraheme infusions) 10/31/2024 3:45 PM CDT Office Visit [facility] [address] [facility] [place] [address] Jhonny Guerrero MD Hospital F/U (left kidney mass/A1C increase) 10/31/2024 Travel 10/25/2024 Orders Only [facility] [address] [address] Toño Abdi, RN <No scans attached> 10/25/2024 Telephone [facility] [address] [place] [address] Jhonny Guerrero MD Appointment Request (POST HOSP) from Last 3 Months Immunizations Immunization Administration Dates Next Due AMB Influenza, IIV3 (Age >=3 years)(Flu Clinic Only) 01/01/2010 Amb Influenza, Inact (High-d ose Quadrivalent) (Flu Clinic Only) 12/22/2019 COVID-19 VACCINE SPIKEVAX (M ODERNA 50MCG/0.5ML) 12YO+ PFS 12/26/2024,06/13/2024,11/30/2023,08/27,01/26/2023 COVID-19 vaccine (GlassBoxBio NTech 30mcg/0.3mL) 12YO+ BIVALENT PF, MDV 07/30/2022,01/02/2022 COVID-19 vaccine (Charlie App-Bio NTech 30mcg/0.3mL) 12YO+ ARELY-SUCROSE PF, MDV 07/03/2021 COVID-19 vaccine (SameGrain NTech 30mcg/0.3mL) PF, MDV 12/17/2020,04/28/2020,04/07/2020 Influenza, High-dose Inactivated 019,01/30/2016,01/30/2016,02/15,01/18/2014 Influenza, High-dose Quadriv alent Inactivated 11/06/2021 Influenza, IIV3 (Age 6-35 mos) 11/27/2010 Influenza, IIV3 (Age >=3 years) 12/31/19 13,12/17/2011,11/27/2010,01/01,11/08/2008,12/14/2007,12/31/2006 ,12/04/2005,01/09/2005,12/06/2003,11/23,12/20/2001 Influenza, Inactivated AIIV4 (Age 65+ Years) Preserv Free 01/26/2023,11/07/2021,12/17/2020 Influenza, Inactivated IIV3 (Age 65+ Years) Preserv Free 12/26/2024,11/30/2023,10/29/2017,11/21 Pneumococcal Poly,23-Valent (Pneumovax) 09/30/2020,02/03/2005,08/08/1996 Pneumococcal conj 13-Valent [...] on file Legal Sex Female 5:20 AM MUCK HAULER Gender Identity Not on file Sexual Orientation Not on file Obstetrics History Para Term AB IAB SAB Ectopic Multiple Livin g Live Births 5 5 5 Date Outcome GA Total Labor Labor/2nd/3rd Weight Sex Type Anes PTL Dorota A1 A5 Name Clin Term Term Term Term Term Last Filed Vital Signs Vital Sign Reading Time Taken Comments Blood Pressure 145/83 12/26/2024 9:14 AM MUCK HAULER Pulse 61 12/26/2024 9:14 AM MUCK HAULER Temperature 36.2 C (97.2 F) 11/16/2024 10:16 AM CDT Respiratory Rate 16 10/20/2024 8:00 AM CDT Oxygen Saturation 100% 12/26/2024 9:14 AM MUCK HAULER Inhaled Oxygen Concentration - - Weight 43.1 kg (95 lb) 12/26/2024 9:14 AM MUCK HAULER Height 154.9 cm (5' 1) 10/19/2024 7:19 AM CDT Body Mass Index 17.95 10/19/2024 7:19 AM CDT Plan of Treatment Upcoming Encounters Date Type Department Care Team (Late st Contact Info) Description 02/02/2025 9:00 AM MUCK HAULER Orders Only [facility] [address] [place] [address] [place] 02/06/2025 9:40 AM MUCK HAULER Office Visit [facility] [address] [place] [address] Jhonny Guerrero MD [address] [place] [address] 02/07/2025 10:00 AM MUCK HAULER Nurse/Clinic Staff Only [facility] [address] [place] [address] 02/20/2025 1:30 PM MUCK HAULER Ancillary Procedure [facility] [address] [facility] [place] [address] 02/22/2025 9:45 AM MUCK HAULER Office Visit [facility] [address] [place] [address] Cristopher Anthony MD [address] [address] 03/14/2025 10:00 AM MUCK HAULER Office Visit [facility] [address] [place] [address] 03/20/2025 10:00 AM MUCK HAULER Office Visit [facility] [address] [place] [address] [place] [address] [place] [address] 05/05/2025 Cardiac Device Check [facility] [phone] Health Maintenance Due Date Last Done Comments COVID-19 vaccine series (12 - Pfizer risk 2024- season) 2025 12/26/2024, 06/13/2024, 11/30/2023, Additional history exists BMI (ht and wt on same day) for age 18+ 09/22/2025 09/22/2024, 06/10/2024, 09/29/2023, Additional history exists Depression screening for age 12+ 09/22/2025 09/22/2024, 10/01/2023, 09/29/2023, Additional history exists Medicare Wellness for age 65+ 09/23/2025 09/22/2024, 08/28/2023, 03/04/2019, Additional history exists Tetanus booster 06/05/2027 06/04/2017, 07/0 06/2006, 08/08/1996 DEXA/DXA scan for age 65+ Completed 11/19/2010 Zoster (shingles) series for age 50+ Completed 08/18/2018, 06/09/2018, 06/04/2010 Pneumococcal series for age 50+ Completed 09/30/2020, 01/18/2014, 02/03/2005, Additional history exists RSV vaccine for adults or Completed 03/05/2023 Influenza Vaccine Completed 12/26/2024, , 01/26/2023, Additional history exists Hepatitis B series for 19+ Aged Out N o longer eligible based on patient's age to complete this topic Medical Devices Implanted Type Area Machine Cloth Examiner Device Identifier Shelf Expiration Date Model / Serial / Lot Lens Iol 23.0 Wf [id number]. [id number] - [id number] Implanted:Qty: 1 on 10/09/2014 by Moose Sands MD at [facility] Left: Eye [employer] 07/24/2019 [id number]. 0# / [id number] / Procedures Procedure Name Priority Date/Time Associated Diagnosis Comments PACER NIDA DUAL CHAMBER WO REPROG Routine 01/03/2025 9:41 AM MUCK HAULER Fitting or adjustment of cardiac pacemaker US RENAL AND BLADDER COMPLETE Routine 01/02/2025 10:14 AM MUCK HAULER Left kidney mass Urinary retention Hydronephrosis, unspecified hydronephrosis type FERRITIN Routine 12/23/2024 8:56 AM CDT Iron deficiency anemia, unspecified iron deficiency anemia type HEMOGLOBIN Routine 12/23/2024 8:56 AM CDT Iron deficiency anemia, unspecified iron deficiency anemia type IRON PLUS IRON BINDING CAP Routine 12/23/2024 8:56 AM CDT Iron deficiency anemia, unspecified iron deficiency anemia type SCAN CORRESP-LABORATORY RESULTS 12/20/2024 12:00 AM CDT SCAN CORRESP-IMAGING 12/20/2024 12:00 AM CDT SCAN-CT INTERPRETATION 12:00 AM CDT SCAN-EYE EXAM 12/06/2024 12:00 AM CDT SCAN-CT [...] 4:39 PM CDT Anemia of unknown etiology XR DXA BONE DENSITY 2 SITES AXIAL Routine 11/19/2010 10:21 AM CDT AGE-RELATED BONE LOSS from Last 3 Months or Most Recently Relevant to Health Maintenance Results * US RENAL AND BLADDER COMPLETE (01/02/2025 10:14 AM MUCK HAULER) Anatomical Region Laterality Modality Abdomen, AORTA, KIDNEYS Ultrasou nd 01/02/2025 10:2 9 AM MUCK HAULER Impressions 01/02/2025 10:29 AM MUCK HAULER 1. Interval decrease in size of the left upper pole mass consistent with a renal cell carcinoma. 2. No new abnormalities. Dictated by Berto Johnson MD @ 01/02/2025 10:29:07 AM (Electronically Signed) Narrative 01/02/2025 10:29 AM MUCK HAULER For Patients: As a result of the Century Cures Act, medical imaging exams and procedure reports are released immediately into your electronic medical record. You may view this report before your referring provider. If you have questions, please contact your health care provider. INDICATION: Left renal mass. Previous cryoablation. TECHNIQUE: Ultrasound renal and bladder complete. Yadav-scale and color Doppler sonographic images were acquired of the kidneys and urinary bladder. COMPARISON: CT August 01, 2024 FINDINGS: Right kidney: 9.2 x 4.1 x 3.8 cm. Cortex: 0.7 cm cm. Normal echotexture and cortex. No suspicious masses, stones, or hydronephrosis. Left kidney: 9.4 x 3.5 x 3.4 cm. Cortex: 0.6 cm. Solid hypoechoic mass upper pole measures 2.5 x 2.4 x 2.2 centimeter (previous 3.4 x 3.3 x 3.[address] of August 01, 2024). Simple cyst upper pole measures 1.7 x 1.3 x 1.3 centimeters (previous 1.8 x 1.8 by 1.7 cm) Bladder: Guzman catheter. Not evaluated. Procedure Note Berto Johnson MD - 01/02/2025 For Patients: As a result of the Century Cures Act, medical imagingexams and procedure reports are released immediately into your electronicmedical record. You may view this report before your referring provider.If you have questions, please contact your health care provider. INDICATION: Left renal mass. Previous cryoablation. TECHNIQUE: Ultrasound renal and bladder complete. Yadav-scale and color Dopplersonographic images were acquired of the kidneys and urinary bladder. COMPARISON: CT August 01, 2024 FINDINGS: Right kidney: 9.2 x 4.1 x 3.8 cm. Cortex: 0.7 cm cm. Normal echotexture and cortex. No suspicious masses, stones, orhydronephrosis. Left kidney: 9.4 x 3.5 x 3.4 cm. Cortex: 0.6 cm. Solid hypoechoic mass upper pole measures 2.5 x 2.4 x 2.2 centimeter(previous 3.4 x 3.3 x 3.[address] of August 01, 2024). Simple cyst upper pole measures 1.7 x 1.3 x 1.3 centimeters (previous 1.8x 1.8 by 1.7 cm) Bladder: Guzman catheter. Not evaluated. IMPRESSION: 1. Interval decrease in size of the left upper pole mass consistent with arenal cell carcinoma. 2. No new abnormalities. Dictated by Berto Johnson MD @ 01/02/2025 10:29:07 AM (Electronically Signed) us Sarahy ROWE US Final Resul t * (ABNORMAL) IRON PLUS IRON BINDING CAP (12/23/2024 8:56 AM CDT) Only the most recent of2 resultswithin the time period is included. IRON, TOTAL 54 45 - 160 mcg/dL 12/24/2024 5:08 AM CDT [facility] IRON BINDING CAPACITY 196(L) 250 - 450 mcg/dL (calc) 12/24/2024 5:08 AM CDT [facility] % SATURATION 28 16 - 45 % (calc) 12/24/2024 5:08 AM CDT [facility] Blood BLOOD SPECIMEN / Unknown [facility] / Unknown 12/23/2024 8:56 AM CDT 12/23/2024 8:56 AM CDT us Jhonny Guerrero MD CHEMISTRY Final Result Performing Organization Address City/[facility]/ZIP Co de Phone Number [employer] [address] [address], * HEMOGLOBIN (12/23/2024 8:56 AM CDT) HEMOGLOBIN 11.7 11.7 - 15.5 g/dL 12/24/2024 5:08 AM CDT [facility] MCV 89.8 80.0 - 100.0 fL 12/24/2024 5:08 AM CDT [facility] Blood BLOOD SPECIMEN / Unknown [facility] / Unknown 12/23/2024 8:56 AM CDT 12/23/2024 8:56 AM CDT us Jhonny Guerrero MD HEMATOLOGY Final Result Performing Organization Address City/[facility]/ZIP Co de Phone Number [employer] [address] [address], * (ABNORMAL) FERRITIN (12/23/2024 8:56 AM CDT) FERRITIN 1098(H) 16 - 288 ng/mL 12/24/2024 5:18 AM CDT [facility] Blood BLOOD SPECIMEN / Unknown [facility] / Unknown 12/23/2024 8:56 AM CDT 12/23/2024 8:56 AM CDT us Jhonny Guerrero MD CHEMISTRY Final Result [facility] [place] [address] [place] [address], * SCAN CORRESP-LABORATORY RESULTS (12/20/2024 12:00 AM CDT) us Scanner OTHER Final Result * SCAN CORRESP-IMAGING (12/20/2024 12:00 AM CDT) Anatomical Region Laterality Modality Other us Scanner OTHER Final Result * SCAN-CT INTERPRETATION (12/12/2024 12:00 AM CDT) Only the most recent of2 resultswithin the time period is included. Anatomical Region Laterality Modality Other us Scanner OTHER Final Result * SCAN-EYE EXAM (12/06/2024 12:00 AM CDT) us Scanner OTHER Final Result * (ABNORMAL) METHYLMALONIC ACID BLOOD (10/31/2024 4:39 PM CDT) METHYLMALONIC ACID 515(H) 85 - 423 nmol/L 11/01/2024 7:27 PM CDT [facility] Comment: See Note 1 Serum methylmalonic [...] neural tube defects and intrauterine growth restriction. [facility] utilized Multi-Modal Decomposition (MMD) analysis to establish first and second trimester-specific MMA reference intervals in , as given below: MMA, First trimester (<13 wks gestation): 58-167 nmol/L MMA, Second trimester (13-23 wks gestation): 63-241 nmol/L Note 1 This test was developed and its analytical performance characteristics have been determined by [facility]. It has not been cleared or approved by the FDA. This assay has been validated pursuant to the CLIA regulations and is used for clinical purposes. Blood BLOOD SPECIMEN / Unknown [facility] / Unknown 10/31/2024 4:39 PM CDT 10/31/2024 4:41 PM CDT Jhonny Guerrero MD SEND OUTS Final Result [facility] [place] [address], * (ABNORMAL) CBC WITH AUTO DIFFERENTIAL (10/31/2024 [...] 4:41 PM CDT us Jhonny Guerrero MD HEMATOLOGY Final Result [facility] [address] [place] [address], * VITAMIN B12 (10/31/2024 4:39 PM CDT) [...] Guerrero MD CHEMISTRY Final Result [facility] [address] [address], * (ABNORMAL) HEPATIC FUNCTION PANEL (10/31/2024 4:39 PM CDT) Pathologist [facility] ALBUMIN 3.4(L) 3.6 - 5.1 g/dL 11/01/2024 [...] Guerrero MD CHEMISTRY Final Result [facility] [address] [place] [address], * XR DEXA BONE DENSITY 2 SITES (11/19/2010 10:21 AM CDT) Anatomical Region Laterality Modality Spine, HIPS, HIPL, HIPR Other Narrative 11/21/2010 1:24 PM CDT Please see scanned document for results of this study. Procedure Note Rosalba Melchor D - 11/21/2010 Please see scanned document for results of this study. Chilo Irizarry MD DEXA Final Resu lt from Last 3 Months or Most Recently Relevant to Health Maintenance Insurance MEDICARE PB ONLY MEDICARE PART B HB ONLY MEDICARE PART A HB ONLY [facility] MEDICARE PB ONLY Advance Directives Documents on File Type Date Recorded Patient Engineer Fishing Vessel Expl anation Healthcare Directive 04/24/2000 001 * [...] 9:54 AM 10/09/2014 2:22 PM Care Teams Stage Electrician Helper Relationship Specialty Start Date End Date Jhonny Guerrero MD [address] [place] [address] PCP - General Family Practice 04/02/20
--- NOTE | 2025-01-22 16:18 | ED.GENADULT ---
HPI - General Adult General Date Seen: 01/22/25 Chief complaint: Diarrhea Stated complaint: Influenza Symptoms Time Seen by Provider: 01/22/25 16:17 History of Present Illness HPI narrative: 89 yo F who has a history of frailty, urinary tract infections, chronic kidney disease, hyperlipidemia, hypertension, history of transcatheter aortic valve replacement, she has recent UTIs and has a Guzman catheter in place. She is brought to the ER today by EMS from her home, where she lives with her son. Further reports she felt fine this morning and then started having diarrhea today. She also threw up a few times. She had been incontinent of liquidy brown stool. EMS administered Zofran 4 mg IV and 500 mL of saline IV. She was hospitalized from 12/13/201905/17 for urinary tract infection. Culture during that admission grew Gram-positive justina. She was treated in the hospital with IV Cipro and Rocephin and discharged home on oral Cipro. She had a Guzman catheter placed for acute on chronic urinary retention. Plans were for TAVR follow-up with [place] [facility] after discharge. She may need a suprapubic catheter placement. She also has chronic kidney disease. Creatinine was 1.1 and BUN was 31 on discharge. She had had cryoablation of a kidney mass done at [facility] in September. She lives with family. She does have occasional trouble with poor appetite and occasional knee pain affecting her left knee. She has been doing relatively well for the past few days. She ate a good dinner on . No suspicious food. No recent travel. No new antibiotics since she was in the hospital in November. Beginning today she developed GI symptoms with abdominal gurgling, several episodes of brown watery/mucousy diarrhea (no blood). She also had nausea and a couple of episodes of emesis that was nonbloody but was light brown color and watery. She is not really having abdominal pain but does feel her stomach gurgling. She has had fever and chills today but that often happens for her. Because of her symptoms she was on the toilet this afternoon and she got so weak that she could not get herself off the toilet. Her family called 911 for her. EMS established an IV and gave her 500 saline a for Zofran and brought her here to the ER. Now that she is here she still feels like her stomach is little bit girl in but otherwise fine. Related Data Home Medications ?Medication ?Instructions ?Recorded ?Confirmed ketorolac 0.5 % eye drops 1 drp ophthalmic (eye) BID 03/26/23 12/13/24 metformin 500 mg tablet 500 mg PO BID 03/26/23 12/13/24 timolol maleate 0.5 % eye drops 1 drp ophthalmic (eye-left) BID 03/26/23 12/13/24 clopidogrel 75 mg tablet 75 mg PO DAILY 05/06/24 12/13/24 ezetimibe 10 mg tablet 10 mg PO DAILY 05/06/24 12/13/24 latanoprost 0.005 % eye drops 1 drp ophthalmic (eye) QPM 05/06/24 12/13/24 cyanocobalamin (vitamin B-12) 500 500 mcg PO DAILY 12/13/24 12/13/24 mcg tablet fosinopril 20 mg tablet 20 mg PO DAILY 12/13/24 12/13/24 Previous Rx's ?Medication ?Instructions ?Recorded ciprofloxacin HCl 250 mg tablet 250 mg PO BID #10 tabs 12/15/24 Allergies Allergy/AdvReac Type Severity Reaction Status Date / Time Penicillins Allergy Verified 12/12/24 18:24 Sulfa (Sulfonamide AdvReac Verified 12/12/24 18:24 Antibiotics) [facility] Medical History (Updated 01/22/25 @ 19:30 by Eugene Diana MD) Recurrent UTI (urinary tract infection) ?N39.0 - Urinary tract infection, site not specified (ICD-10) Poor balance ?R26.89 - Other abnormalities of gait and mobility (ICD-10) Frail elderly ?R54 - Age-related physical debility (ICD-10) Hydroureteronephrosis ?N13.30 - Unspecified hydronephrosis (ICD-10) Anemia ?D64.9 - Anemia, unspecified (ICD-10) Self-catheterizes urinary bladder ?Z78.9 - Other specified health status (ICD-10) History of pacemaker ?Z95.0 - Presence of cardiac pacemaker (ICD-10) Mixed hyperlipidemia (11/15/10) ?E78.2 - Mixed hyperlipidemia (ICD-10) Irritable bowel (07/09/12) ?K58.9 - Irritable bowel syndrome, unspecified (ICD-10) History of syncope (04/02/20) ?Z87.898 - Personal history of other specified conditions (ICD-10) Essential hypertension (11/15/10) ?I10 - Essential (primary) hypertension (ICD-10) Acute duodenal ulcer (08/18/17) ?K26.3 - Acute duodenal ulcer without hemorrhage or perforation (ICD-10) Stage 3a chronic kidney disease (01/05/16) ?N18.31 - Chronic kidney disease, stage 3a (ICD-10) Hyponatremia ?E87.1 - Hypo-osmolality and hyponatremia (ICD-10) Urinary tract infection ?N39.0 - Urinary tract infection, site not specified (ICD-10) Left kidney mass ?N28.89 - Other specified disorders of kidney and ureter (ICD-10) Hydronephrosis of right kidney ?N13.30 - Unspecified hydronephrosis (ICD-10) Stage 3a chronic kidney disease (CKD) ?N18.31 - Chronic kidney disease, stage 3a (ICD-10) History of duodenal ulcer ?Z87.19 - Personal history of other diseases of the digestive system (ICD-10) Diabetes mellitus ?E11.9 - Type 2 diabetes mellitus without complications (ICD-10) Hyperlipidemia ?E78.5 - Hyperlipidemia, unspecified (ICD-10) Hypertension ?I10 - Essential (primary) hypertension (ICD-10) ASCVD (arteriosclerotic cardiovascular disease) ?I25.10 - Atherosclerotic heart disease of [place] coronary artery without angina pectoris (ICD-10) Surgical History (Updated 12/23/24 @ 00:01 by Background Daemon) Status post cryoablation of mass of kidney ?Z98.890 - Other specified postprocedural states (ICD-10) S/P TAVR (transcatheter aortic valve replacement) ?Z95.2 - Presence of prosthetic heart valve (ICD-10) Family History (Updated 12/12/24 @ 20:15 by Adrián Hagan MD) Brother Diabetes Heart disease Prostate cancer Mother Diabetes Son Diabetes Stroke Father Heart disease Social History (Updated 12/12/24 @ 20:19 by Adrián Hagan MD) Narrative: She lives between [facility] with her son. She walks with a cane. She does not smoke. Rarely drinks alcohol. Code status is DNR. Healthcare decision-making by her daughter, Day or her son, Gio. What is your current living situation?: I presently have a place to live Problems where you live: no known problems Problems where you live details: n/a In the past 12 months, utilities in danger of being shut off: no In past 12 months, lack of transportation kept you from medical appts, meetings, work, or getting things needed for daily living: no In the past 12 mos, have been you worried that your food would run out before you had money to buy more?: never true In the past 12 mos, the food you bought just didn't last and you didn't have money to buy more?: never true Are you following a diet prescribed by a doctor: No Are you following a special diet: No Highest level of school completed/degree received: high school graduate Smoking Status: Never smoker Do you use any of these nicotine containing products: None Second hand tobacco smoke exposure: Yes ( and son) How often do you have a drink containing alcohol: never How often do you have six or more drinks on one occasion: Never AUDIT-C Alcohol total score: 0 Non-prescribed substance use: denies use Caffeine: Yes How often does anyone, including family, friends and others, physically hurt you: never How often does anyone, including family, friends and others, insult or talk down to you: never How often does anyone, including family, friends and others, threaten you with harm: never How often does anyone, including family, friends and others, scream or curse at you: never service: No Exam Narrative: Exam Narrative: Constitutional: Appears well-developed. She is frail appearing and quite slender.. Alert. Conversant. Non toxic. HENT: Head: Atraumatic. Nose: Nose normal. Mouth/Throat: Oral mucosa is clear but mucous membranes are somewhat dry, not desiccated or cracked t. no trismus. Pharynx normal. Tonsils symmetric. No tonsillar enlargement, erythema, or exudate. Eyes: Conjunctivae normal. EOM normal. Pupils equal, round, and reactive to light. No scleral icterus. Neck: Normal range of motion. Neck supple. No tracheal deviation present. Cardiovascular: Normal rate, regular rhythm. No gallop. No friction rub. No murmur heard. Symmetric radial artery pulses Pulmonary/Chest: Effort normal. No stridor. No respiratory distress. No wheezes. No rales. No rhonchi . No tenderness. Abdominal: Soft. Bowel sounds normal. No distension. No mass. Mild right mid abdominal tenderness. No rebound. No guarding. Musculoskeletal: RUE: Normal range of motion. No tenderness. No deformity LUE: Normal range of motion. No tenderness. No deformity RLE: Normal range of motion. No calf edema. No tenderness. No deformity LLE: Normal range of motion in her hip. She does have swelling of her left knee. Healed anterior knee replacement incision (patient reports knee replacement done several decades ago). Subtle swelling any suggestive for a joint effusion. No redness. No definite warmth. Subtle 2-3 cm bruise on the lateral/distal femur.. No calf edema. No tenderness. Ankle and foot are nontender. No deformity Neurological: Alert and oriented to person, place, and time. Normal strength. CN II-VII intact. No sensory deficit. GCS eye subscore is 4. GCS verbal subscore is 5. GCS motor subscore is 6. Normal coordination Skin: Skin is warm and dry. No rash noted. No pallor. Normal capillary refill. Psychiatric: Normal mood. Normal affect. Const: Vital Signs, click to edit/add: Vital Signs - 24 hr 01/22/25 16:15 01/22/25 18:51 01/22/25 19:00 Temperature 99.1 F Pulse Rate 96 90 Pulse Rate [Pulse Oximeter] 88 Respiratory Rate 18 Blood Pressure Blood Pressure [Ri ght Upper Arm] 111/57 L Pulse Oximetry 100 89 96 Oxygen Delivery Me thod Room Air 01/22/25 19:02 01/22/25 19:07 01/22/25 19:15 Temperature Pulse Rate 88 90 Pulse Rate [Pulse Oximeter] Respiratory Rate 18 Blood Pressure 108/65 Blood Pressure [Ri ght Upper Arm] Pulse Oximetry 99 97 Oxygen Delivery Me thod Course Course ED Course: 1800 lact is up,WBC 25,000. another L of LR ordered. CT ordered. repeat lactate and cultures ordered. anticipate admit Reevaluation(s) Reevaluation #1: Recheck-snow ongoing diarrhea. Mild abdominal pain but does not want any pain meds. Blood pressure and pulse stable. Recheck-CT back. Discussed with hospitalist, Dr. Reyes who accepts for admission. Vital Signs Vital signs: Initial Vital Signs Temperature 99.1 F 01/22/25 16:15 Temperature Source Temporal Artery Scan 01/22/25 16:15 Pulse Rate 88 01/22/25 16:15 Respiratory Rate 18 01/22/25 16:15 Blood Pressure 111/57 L 01/22/25 16:15 Blood Pressure Mean 75 01/22/25 16:15 Pulse Oximetry 100 01/22/25 16:15 Oxygen Delivery Method Room Air 01/22/25 16:15 Vital Signs Temperature 99.1 F 01/22/25 16:15 Pulse Rate 88 01/22/25 16:15 Respiratory Rate 18 01/22/25 16:15 Blood Pressure 111/57 L 01/22/25 16:15 Pulse Oximetry 100 01/22/25 16:15 Oxygen Delivery Method Room Air 01/22/25 16:15 Temperature 99.1 F 01/22/25 16:15 Pulse Rate 90 01/22/25 19:15 Respiratory Rate 18 01/22/25 19:07 Blood Pressure 108/65 01/22/25 19:07 Pulse Oximetry 97 01/22/25 19:15 Oxygen Delivery Method Room Air 01/22/25 16:15 Medications Administered Medications: Discontinued Medications Generic Name Dose Route Start Last Admin Trade Name Freq PRN Reason Stop Dose Admin Sodium Chloride 500 mls @ 500 mls/hr 01/22/25 16:22 01/22/25 19:08 0.9 % Sodium Chloride 500 Ml IV 01/22/25 17:21 500 mls/hr .Q1H ONE Administration Lactated Ringer's 1,000 mls @ 1,000 mls/hr 01/22/25 17:52 01/22/25 19:08 Lactated Ringers 1000 Ml IV 01/22/25 18:51 1,000 mls/hr .Q1H ONE Administration Medical Decision Making MDM Narrative Medical decision making narrative: Very pleasant but frail 89-year-old female presenting to the ER today by EMS from her home where she lives with her family. She developed diarrhea and vomiting today that led to generalized nonfocal weakness so severe she cannot get herself off of the toilet at home. Her description of the diarrhea is low voluminous watery but sometimes mucousy diarrhea which does raise concern for possible bacterial enteritis. Given recent UTIs and hospitalizations I do think she has risk factors for C diff. I ordered stool C diff and bacterial stool pathogen panel as well. However her diarrhea actually stopped and has not had any further diarrhea since arriving here in the ER. Laboratory workup in the setting of diarrhea and vomiting shows mild hyponatremia with a sodium 129, borderline low potassium at 3.5. Fortunately BUN and kidney function are normal today. She also has some right-sided abdominal came pain, prompting CT scan to look for colitis, diverticulitis, toxic megacolon, or other surgical pathology. CT scan shows no acute intestinal pathology but does so radiographic findings suggestive for right-sided pyelonephritis. Urinalysis is abnormal, suggesting probable UTI as well. No evidence for appendicitis. She is status post cholecystectomy. No signs of colitis, diverticulitis, perforation, abscess. She does have a history of frequent UTIs and does have an indwelling Guzman catheter. Recent urine cultures have grown Klebsiella and E coli which are generally sensitive isolates. Will start on Rocephin in the ER today for recurrent UTI. With infection consider possible sepsis. Blood pressure is normal. Mental status is normal. She does have a low-grade temperature but is not tachycardic, tachypneic. I will order blood cultures prior to initiation antibiotics. Initial lactic acid is elevated at 3.5. After 2 L of IV crystalloid, repeat lactic acid is trending down to 2.7. Incidentally the patient also has been struggling with some chronic left knee pain and swelling. It is bothering her again today. X-rays of the left knee are negative. There is no real redness or warmth on exam to raise concern for septic arthritis. Would hold off on knee joint aspiration at this time unless symptoms were to get worse in that knee. She will require hospitalization for IV fluids, antibiotics, and further care for her UTI and dehydration. Lab Data Labs: Lab Results 01/22/25 01/22/25 01/22/25 Range/Units 17:09 18:45 20:01 WBC 25.90 H* (4.50-11.00) K/uL RBC 3.71 L (4.00-5.20) m/uL Hgb 10.4 L (12.0-16.0) gm/dL Hct 32.7 L (33.0-51.0) % MCV 88 (80-100) fL MCH 28 (26-34) pg MCHC 32 (32-36) gm/dL RDW Coeff of Yoel 14.0 (11.5-15.5) % Plt Count 252 (140-440) K/uL Neut % (Auto) 95.8 H (42.0-72.0) % Lymph % (Auto) 1.4 L (20-44) % [place] % (Auto) 2.4 (0.0-11.0) % Eos % (Auto) 0.0 (0.0-7.0) % Baso % (Auto) 0.1 (0.0-3.0) % Neut # (Auto) 24.80 H (1.7-7.0) K/uL Lymph # (Auto) 0.40 L (0.90-2.90) K/uL [place] # (Auto) 0.60 (0.00-0.90) K/UL Eos # (Auto) 0.00 (0.00-0.50) K/uL Baso # (Auto) 0.00 (0.00-0.30) K/uL Abs Immat Gran (auto) 0.10 (0.00-0.30) K/uL Imm/Tot Granulo (auto) 0.3 % Diff Slide Review Acceptable Review (Acceptable) Sodium 129 L (135-149) mmol/L Potassium 3.5 L (3.6-5.1) mmol/L Chloride 91 L (96-114) mmol/L Carbon Dioxide 24 (20-32) mmol/L Anion Gap 14 (7-15) mEq/L BUN 23 (7-30) mg/dL Creatinine 1.1 (0.5-1.5) mg/dL Estimated Creat Clear 24.05 Estimated GFR 48 ml/min Glucose 257 H (60-115) mg/dL Lactate 3.5 H 2.7 H (0.5-1.9) mmol/L Calcium 8.6 (8.4-10.6) mg/dL Urine Color Yellow (Yellow) Urine Appearance Slightly Cloudy A (Clear) Urine pH 6.0 (5.0-8.5) Ur Specific [place] 1.020 (1.000-1.030) Urine Protein 3+ A (Negative) Urine Glucose (UA) 1+ A (Negative) Urine Ketones Negative (Negative) Urine Blood 2+ A (Negative) Urine Nitrite Negative (Negative) Urine Bilirubin Negative (Negative) Urine Urobilinogen 0.2 (0.2-1.0) Ur Leukocyte Esterase 3+ A (Negative) Urine RBC 10-25 A (0-2) Urine WBC 50-100 A (0-5) Ur Squamous Epith Cells None (None-Few) Urine Bacteria Moderate A (None) Urine Yeast Many A (None) Imaging Data XR L knee: Attestation: I have reviewed the pertinent imaging results. My impression: No acute fracture. Prosthetic looks to be in appropriate position. Radiologist's impression: IMPRESSION: 1. There is an unremarkable appearance of the knee arthroplasty. Discharge Plan Discharge Clinical Impression: Acute pyelonephritis, Diarrhea, Weakness Patient Disposition: Admitted As Observation
--- NOTE | 2025-01-22 16:42 | CRLHL7_ITS ---
For Patients: As a result of the Cures Act, medical imaging exams and procedure reports are released immediately into your electronic medical record. You may view this report before your referring provider. If you have questions, please contact your health care provider. INDICATION: Knee soreness without injury TECHNIQUE: Knee radiograph 2 views left COMPARISON: None FINDINGS: Bone: No acute fractures or aggressive bone lesions are identified. Joint: The patient is status post a total knee arthroplasty with patellar resurfacing. No radiographic evidence of asymmetric polyethylene wear, prosthetic loosening or infection is seen. No significant knee effusion is seen. Soft tissue: Mild anterior edema and swelling is noted in the suprapatellar region. Overlying fabric artifacts moderately degrade the evaluation of the soft tissues and osseous structures. No radiopaque foreign bodies are seen. IMPRESSION: 1. There is an unremarkable appearance of the knee arthroplasty. Dictated by Miguel Pleitez MD @ 01/22/2025 6:02:50 PM Dictated by: Miguel Pleitez MD @ 01/22/2025 18:02:54 (Electronically Signed)
[2025-01-22 17:22] LABS: Lactate* 3.5 mmol/L (0.5-1.9)
[2025-01-22 17:24] LABS: Hematocrit* 32.7 % (33.0-51.0); Hemoglobin* 10.4 gm/dL (12.0-16.0); Immature Granulocytes Pct Auto 0.3 %; Mean Corpuscular HGB Conc 32 gm/dL (32-36); Mean Corpuscular Hemoglobin 28 pg (26-34); Mean Corpuscular Volume 88 fL (80-100); RDW Coefficient of Variation % 14.0 % (11.5-15.5); Red Blood Count* 3.71 m/uL (4.00-5.20)
[2025-01-22 17:27] LABS: Immature Granulocytes Abs Auto 0.10 K/uL (0.00-0.30); Lymphocytes Absolute Auto 0.40 K/uL (0.90-2.90); Slide Review Reflex Yes; White Blood Count* 25.90 K/uL (4.50-11.00)
[2025-01-22 17:38] LABS: Chloride* 91 mmol/L (96-114); Potassium* 3.5 mmol/L (3.6-5.1); Sodium* 129 mmol/L (135-149)
[2025-01-22 17:41] LABS: Blood Urea Nitrogen* 23 mg/dL (7-30); Creatinine* 1.1 mg/dL (0.5-1.5); Est. Creatinine Clearance* 24.05; Estimated Glomerular Filt Rate 48 ml/min
[2025-01-22 17:42] LABS: Anion Gap 14 mEq/L (7-15); Calcium* 8.6 mg/dL (8.4-10.6); Carbon Dioxide* 24 mmol/L (20-32); Glucose* 257 mg/dL (60-115)
--- NOTE | 2025-01-22 17:51 | CRLHL7_ITS ---
For Patients: As a result of the Cures Act, medical imaging exams and procedure reports are released immediately into your electronic medical record. You may view this report before your referring provider. If you have questions, please contact your health care provider. Indication: Diarrhea, lymphocytosis, right-sided abdominal pain Technique: CT through the abdomen and pelvis following 46 mL Isovue 370 IV contrast Comparison: CT abdomen pelvis performed 12/12/2024 Findings: Lower chest: No acute abnormality appreciated. Hepatobiliary: No significant parenchymal abnormality is appreciated. Cholecystectomy. Spleen: Unremarkable. Pancreas: No acute abnormality appreciated. Adrenal glands: No acute abnormality appreciated. Kidneys: Suspected prior ablation in the left kidney again noted. Nonobstructing renal stones noted. Persistent right hydronephrosis. Increasing areas of ureteral wall thickening and perinephric stranding on the right with new small peripheral areas of hypoenhancement. Bowel: No obstruction. No focal perienteric or pericolonic stranding is appreciated. Vascular: Atherosclerosis again noted. Lymph nodes: No gross lymphadenopathy. Peritoneum: Small volume free fluid. : Marked wall thickening of the bladder which is decompressed by Guzman catheter. Soft tissues: No significant interval change. Bones: No acute fracture. No lytic or blastic lesion. No significant interval change. Impression: Findings suspicious for interval development of UTI and right-sided pyelonephritis. Please note that all CT scans at this facility use dose modulation, iterative reconstruction, and/or weight-based dosing when appropriate to reduce radiation dose to as low as reasonably achievable. Dictated by Alberto Perry MD @ 01/22/2025 7:23:00 PM (Electronically Signed)
[2025-01-22 18:40] LABS: Slide Review Acceptable Review (Acceptable)
[2025-01-22 18:56] LABS: Appearance Urine Slightly Cloudy (Clear)
[2025-01-22] MEDS: LACTATED RINGERS 1000 ML 1,000 ML IV (19:08)
[2025-01-22] MEDS: 0.9 % SODIUM CHLORIDE 500 ML 500 ML IV ×2 (19:08→22:18)
[2025-01-22 20:16] LABS: Lactate* 2.7 mmol/L (0.5-1.9)
[2025-01-22] MEDS: cefTRIAXone 1 GM in 0.9 % SODIUM CHLORIDE Mini-bag 100 ML IVPB (20:54)
--- NOTE | 2025-01-22 21:25 | PM.IMHP1 ---
Assessment and Plan Assessment and plan (1) Complicated urinary tract infection: Problem comment: - initiated IV ceftriaxone after urine culture and blood cultures obtained in the emergency department - await urine culture results Status: Acute (2) Acute pyelonephritis: Problem comment: - CT scan of abdomen and pelvis 01/22/2025 suggests acute right-sided pyelonephritis, new finding compared to previously Status: Acute (3) Hydroureteronephrosis: Problem comment: -CT: severe right-sided hydroureteronephrosis and mild left-sided hydroureteronephrosis without obstructing mass or stones (chronic) patient without flank pain or fever Most likely caused by bladder outlet obstruction. Unchanged from previously. Status: Acute (4) Frail elderly: Status: Acute (5) Lactic acidosis: Problem comment: - IV fluids and monitor Status: Acute (6) Hypokalemia: Problem comment: - replacement and monitor Status: Acute (7) Chronic anemia: Problem comment: - monitor and consider outpatient evaluation as warranted Status: Acute (8) Recurrent UTI (urinary tract infection): Problem comment: - Previously reviewed principles of prevention including optimal self-catheterization, hydration, cranberry juice consumption, and introduced idea of topical intravaginal estrogen which she will review with her primary care transport nurse. - now has chronic indwelling urethral catheter, recommended primary prevention with topical intravaginal estrogen started in the outpatient setting and consideration be given to the possibility of methenamine therapy, consider resuming intermittent caths, and only consider prophylactic antibiotic therapy if all other options fail. Did discuss the possibility of suprapubic catheterization, indicating that this would not necessarily decrease the risk of infection. Status: Acute (9) Hyponatremia: Problem comment: - sodium 129, suspect in setting of decreased oral intake, vomiting and diarrhea - normal saline IV, 2000 mL fluid restriction, monitor Status: Acute (10) Diabetes mellitus type 2 in nonobese: Problem comment: - with her lactic acidosis, hold her metformin, sliding scale insulin q.i.d. a.c. and at bedtime, and check hemoglobin A1c in the morning Status: Acute Plan 1. Reviewed impression, plans, recommendations with patient and her daughter, Day 2. Answered their questions to their satisfaction 3. Continue with other supportive efforts 4. They are agreeable with above stated plans and recommendations Total Time Spent Total Time Spent: 80 minutes Hospitalist- H&P: HPI History of Present Illness Date Seen: 01/22/25 Chief complaint: Nausea, vomiting, diarrhea Narrative: Charley Pyle is a 89 year old woman presents to the emergency department today via EMS and accompanied by her daughter, Day, for further assessment of sudden onset of nausea, vomiting, loose stools. History of urinary retention for number of years for which she perform self-catheterizations. In the past 1-2 years she has had increasing episodes of urinary tract infections. In September 2024 patient underwent cryoablation of a kidney mass at [facility]. Last hospitalized 12/12/2024 through 12/15/2024 with bladder infection. Urine culture at that time grew out 50,000 colony-forming units per mL of Gram-positive organism. Treated as if though she had a UTI and her symptoms improved significantly. Prior to that she had a urine culture is on 11/11/2024 which grew out Klebsiella pneumoniae sensitive to all antibiotics except for resistant to ampicillin. After her November hospitalization patient and family opted to try indwelling urethral catheter instead of the intermittent self caths. They have been considering possible suprapubic catheter as well. Now she presents with symptoms as specified above and finding suggestive of possible complicated UTI with pyelonephrosis. Review of Systems Status of ROS: Reports: 10 or more systems reviewed and unremarkable except as noted in History and below Narrative: Lives with son, Gio. Receives support from multiple family members including daughter, Day. Has been doing relatively well recently. Denies cardiopulmonary symptoms. Denies systemic symptoms including fevers, rigors, diaphoresis, orthostasis, myalgias or arthralgias. Medical Decision Making Medical Decision Making Code Status: DNR DNI resuscitation status Has patient completed a Health Care Directive: Yes During This Stay, Who Would You Like To Make Decisions For You In The Event You Are Unable To Make Them For Yourself?: Either her daughter, Day, home number [phone], or cell phone number [phone]; or her son, Gio, cell phone number [phone]. Relevant situational information: Absolutely does not want to be kept alive as a ?vegetable.? Would like care providers to focus on comfort measures only if she has cardiopulmonary demise. [facility] Medical History (Updated 01/22/25 @ 21:55 by Brandon Reyes MD) Recurrent UTI (urinary tract infection) ?N39.0 - Urinary tract infection, site not specified (ICD-10) Hyponatremia ?E87.1 - Hypo-osmolality and hyponatremia (ICD-10) Poor balance ?R26.89 - Other abnormalities of gait and mobility (ICD-10) Frail elderly ?R54 - Age-related physical debility (ICD-10) Hydroureteronephrosis ?N13.30 - Unspecified hydronephrosis (ICD-10) Anemia ?D64.9 - Anemia, unspecified (ICD-10) Self-catheterizes urinary bladder ?Z78.9 - Other specified health status (ICD-10) History of pacemaker ?Z95.0 - Presence of cardiac pacemaker (ICD-10) Mixed hyperlipidemia (11/15/10) ?E78.2 - Mixed hyperlipidemia (ICD-10) Irritable bowel (07/09/12) ?K58.9 - Irritable bowel syndrome, unspecified (ICD-10) History of syncope (04/02/20) ?Z87.898 - Personal history of other specified conditions (ICD-10) Essential hypertension (11/15/10) ?I10 - Essential (primary) hypertension (ICD-10) Acute duodenal ulcer (08/18/17) ?K26.3 - Acute duodenal ulcer without hemorrhage or perforation (ICD-10) Stage 3a chronic kidney disease (01/05/16) ?N18.31 - Chronic kidney disease, stage 3a (ICD-10) Urinary tract infection ?N39.0 - Urinary tract infection, site not specified (ICD-10) Left kidney mass ?N28.89 - Other specified disorders of kidney and ureter (ICD-10) Hydronephrosis of right kidney ?N13.30 - Unspecified hydronephrosis (ICD-10) Stage 3a chronic kidney disease (CKD) ?N18.31 - Chronic kidney disease, stage 3a (ICD-10) History of duodenal ulcer ?Z87.19 - Personal history of other diseases of the digestive system (ICD-10) Diabetes mellitus ?E11.9 - Type 2 diabetes mellitus without complications (ICD-10) Hyperlipidemia ?E78.5 - Hyperlipidemia, unspecified (ICD-10) Hypertension ?I10 - Essential (primary) hypertension (ICD-10) ASCVD (arteriosclerotic cardiovascular disease) ?I25.10 - Atherosclerotic heart disease of [place] coronary artery without angina pectoris (ICD-10) Surgical History Status post cryoablation of mass of kidney ?Z98.890 - Other specified postprocedural states (ICD-10) S/P TAVR (transcatheter aortic valve replacement) ?Z95.2 - Presence of prosthetic heart valve (ICD-10) Family History Brother Diabetes Heart disease Prostate cancer Mother Diabetes Son Diabetes Stroke Father Heart disease Social History Narrative: She lives [facility] with her son. She walks with a cane. She does not smoke. Rarely drinks alcohol. Code status is DNR. Healthcare decision-making by her daughter, Day or her son, Gio. What is your current living situation?: I presently have a place to live Problems where you live: no known problems Problems where you live details: n/a In the past 12 months, utilities in danger of being shut off: no In past 12 months, lack of transportation kept you from medical appts, meetings, work, or getting things needed for daily living: no In the past 12 mos, have been you worried that your food would run out before you had money to buy more?: never true In the past 12 mos, the food you bought just didn't last and you didn't have money to buy more?: never true Are you following a diet prescribed by a doctor: No Are you following a special diet: No Highest level of school completed/degree received: high school graduate Smoking Status: Never smoker Do you use any of these nicotine containing products: None Second hand tobacco smoke exposure: Yes ( and son) How often do you have a drink containing alcohol: never How often do you have six or more drinks on one occasion: Never AUDIT-C Alcohol total score: 0 Non-prescribed substance use: denies use Caffeine: Yes How often does anyone, including family, friends and others, physically hurt you: never How often does anyone, including family, friends and others, insult or talk down to you: never How often does anyone, including family, friends and others, threaten you with harm: never How often does anyone, including family, friends and others, scream or curse at you: never service: No Meds Home Medications and Allergies Home Medications ?Medication ?Instructions ?Recorded ?Confirmed ?Type ketorolac 0.5 % eye drops 1 drp ophthalmic (eye) BID 03/26/23 12/13/24 History metformin 500 mg tablet 500 mg PO BID 03/26/23 12/13/24 History timolol maleate 0.5 % eye drops 1 drp ophthalmic (eye-left) BID 03/26/23 12/13/24 History clopidogrel 75 mg tablet 75 mg PO DAILY 05/06/24 12/13/24 History ezetimibe 10 mg tablet 10 mg PO DAILY 05/06/24 12/13/24 History latanoprost 0.005 % eye drops 1 drp ophthalmic (eye) QPM 05/06/24 12/13/24 History cyanocobalamin (vitamin B-12) 500 500 mcg PO DAILY 12/13/24 12/13/24 History mcg tablet fosinopril 20 mg tablet 20 mg PO DAILY 12/13/24 12/13/24 History ciprofloxacin HCl 250 mg tablet 250 mg PO BID #10 tabs 12/15/24 Rx Allergies Allergy/AdvReac Type Severity Reaction Status Date / Time Penicillins Allergy Verified 12/12/24 18:24 Sulfa (Sulfonamide AdvReac Verified 12/12/24 18:24 Antibiotics) Exam Narrative: Exam Narrative: I examine the patient in the emergency department. She has 4 blankets covering her and states she is finally feeling warm. Vision and hearing are adequate. Appears comfortable and in no acute distress when I see her. Friendly, articulate, cooperative, oriented x4. No icterus or jaundice. No petechiae, rashes, wounds, or other skin lesions. Hands are cool to touch but other skin is warm. Cranial nerves 3-12 grossly normal. No focal motor neurologic deficits. Thin with cachectic appearance, with loose fitting clothing on a thin frame. Dry buccal mucosa. Dentition in fair repair. No icterus or conjunctival injection. Conjugate gaze. Midline nasal septum. Oropharynx is benign. Neck is supple. Midline trachea. No JVD, hepatojugular reflux, or carotid bruits. No head and neck lymphadenopathy. Lungs are clear to auscultation without wheezing, rhonchi, rales. Thin chest with bony prominences. Chest wall excursions are full. Interestingly she has CVA tenderness on the left not the right. Heart tones with regular rhythm, normal S1-S2, soft systolic murmur, no gallop or rub. PMI is not laterally displaced. Abdomen is thin, with active bowel sounds, soft, nontender. Extremities without edema. No tremor, asterixis, or ataxia. Palpable pulses upper and lower extremities. Capillary refill less than 3 seconds. Const: Vital Signs, click to edit/add: Vital Signs - 24 hr 01/22/25 16:15 01/22/25 18:51 01/22/25 19:00 Temperature 99.1 F Pulse Rate 96 90 Pulse Rate [Pulse Oximeter] 88 Respiratory Rate 18 Blood Pressure Blood Pressure [Ri ght Upper Arm] 111/57 L Pulse Oximetry 100 89 96 Oxygen Delivery Me thod Room Air 01/22/25 19:02 01/22/25 19:07 01/22/25 19:15 Temperature Pulse Rate 88 90 Pulse Rate [Pulse Oximeter] Respiratory Rate 18 Blood Pressure 108/65 Blood Pressure [Ri ght Upper Arm] Pulse Oximetry 99 97 Oxygen Delivery Me thod 01/22/25 19:30 01/22/25 19:31 01/22/25 19:45 Temperature Pulse Rate 92 90 89 Pulse Rate [Pulse Oximeter] Respiratory Rate Blood Pressure 100/67 Blood Pressure [Ri ght Upper Arm] Pulse Oximetry 96 93 Oxygen Delivery Me thod 01/22/25 20:00 01/22/25 20:01 01/22/25 20:15 Temperature Pulse Rate 88 91 92 Pulse Rate [Pulse Oximeter] Respiratory Rate Blood Pressure 104/58 L Blood Pressure [Ri ght Upper Arm] Pulse Oximetry 97 98 94 Oxygen Delivery Me thod 01/22/25 20:30 01/22/25 20:32 01/22/25 20:45 Temperature Pulse Rate 91 89 91 Pulse Rate [Pulse Oximeter] Respiratory Rate Blood Pressure 99/57 L Blood Pressure [Ri ght Upper Arm] Pulse Oximetry 96 95 94 Oxygen Delivery Me thod Hospitalist - H&P: Result Labs Labs: Short CBC 01/22/25 Range/Units 17:09 WBC 25.90 H* (4.50-11.00) K/uL Hgb 10.4 L (12.0-16.0) gm/dL Hct 32.7 L (33.0-51.0) % Plt Count 252 (140-440) K/uL BMP 01/22/25 17:09 Sodium 129 L Potassium 3.5 L Chloride 91 L Carbon Dioxide 24 BUN 23 Creatinine 1.1 Glucose 257 H Calcium 8.6 Urine 01/22/25 Range/Units 18:45 Urine Color Yellow (Yellow) Urine Appearance Slightly Cloudy A (Clear) Urine pH 6.0 (5.0-8.5) Ur Specific [place] 1.020 (1.000-1.030) Urine Protein 3+ A (Negative) Urine Glucose (UA) 1+ A (Negative) Imaging Left knee x-ray: Attestation: I have reviewed the pertinent imaging results. Radiologist's impression: FINDINGS: Bone: No acute fractures or aggressive bone lesions are identified. Joint: The patient is status post a total knee arthroplasty with patellar resurfacing. No radiographic evidence of asymmetric polyethylene wear, prosthetic loosening or infection is seen. No significant knee effusion is seen. Soft tissue: Mild anterior edema and swelling is noted in the suprapatellar region. Overlying fabric artifacts moderately degrade the evaluation of the soft tissues and osseous structures. No radiopaque foreign bodies are seen. IMPRESSION: 1. There is an unremarkable appearance of the knee arthroplasty. CT scan of abdomen and pelvis: Attestation: I have reviewed the pertinent imaging results. Radiologist's impression: Findings: Lower chest: No acute abnormality appreciated. Hepatobiliary: No significant parenchymal abnormality is appreciated. Cholecystectomy. Spleen: Unremarkable. Pancreas: No acute abnormality appreciated. Adrenal glands: No acute abnormality appreciated. Kidneys: Suspected prior ablation in the left kidney again noted. Nonobstructing renal stones noted. Persistent right hydronephrosis. Increasing areas of ureteral wall thickening and perinephric stranding on the right with new small peripheral areas of hypoenhancement. Bowel: No obstruction. No focal perienteric or pericolonic stranding is appreciated. Vascular: Atherosclerosis again noted. Lymph nodes: No gross lymphadenopathy. Peritoneum: Small volume free fluid. : Marked wall thickening of the bladder which is decompressed by Guzman catheter. Soft tissues: No significant interval change. Bones: No acute fracture. No lytic or blastic lesion. No significant interval change. Impression: Findings suspicious for interval development of UTI and right-sided pyelonephritis.
[2025-01-22] MEDS: ACETAMINOPHEN 325 MG TABLET 650 MG PO (22:59)
[2025-01-22] MEDS: LACTATED RINGERS 1000 ML 1,000 ML 75 ML IV (23:25)
[2025-01-22] MEDS: KETOROLAC OPHTH 0.5% 1 DROP EYE-BOTH (23:51)
[2025-01-22] MEDS: timoloL maleate 0.5 % 1 DROP EYE-LEFT (23:52)
--- NOTE | 2025-01-22 23:56 | PC.NURSE ---
End of shift Note 249 Patient was very pleasant and cooperative throughout the shift. VSS. Afebrile. A&Ox3. Moves well SBA with gait belt and walker. Leg bag naz (chronic). Uses call light appropriately. Call light within reach.
[2025-01-23] VITALS (7 sets, daily range): BP systolic 93–139; BP diastolic 54–86; PULSE 60–95; RESP 14–24; TEMP 36.3–36.9; O2SAT 87–98; BMI 18.8
[2025-01-23 06:03] LABS: Lactate* 1.3 mmol/L (0.5-1.9)
[2025-01-23 06:06] LABS: Hematocrit* 26.8 % (33.0-51.0); Hemoglobin* 8.7 gm/dL (12.0-16.0); Immature Granulocytes Pct Auto 0.4 %; Mean Corpuscular HGB Conc 33 gm/dL (32-36); Mean Corpuscular Hemoglobin 29 pg (26-34); Mean Corpuscular Volume 88 fL (80-100); RDW Coefficient of Variation % 14.4 % (11.5-15.5); Red Blood Count* 3.04 m/uL (4.00-5.20)
[2025-01-23 06:21] LABS: Chloride* 95 mmol/L (96-114)
[2025-01-23 06:22] LABS: Potassium* 3.7 mmol/L (3.6-5.1); Sodium* 129 mmol/L (135-149)
[2025-01-23 06:24] LABS: Blood Urea Nitrogen* 22 mg/dL (7-30); Creatinine* 1.1 mg/dL (0.5-1.5); Est. Creatinine Clearance* 25.24; Estimated Glomerular Filt Rate 48 ml/min
[2025-01-23 06:25] LABS: Anion Gap 9 mEq/L (7-15); Calcium* 8.3 mg/dL (8.4-10.6); Carbon Dioxide* 25 mmol/L (20-32); Cholesterol* 76 mg/dL (90-199); Glucose* 262 mg/dL (60-115); Triglycerides* 54 mg/dL (40-149)
[2025-01-23 06:26] LABS: HDL Cholesterol* 32 mg/dL (>=50)
--- NOTE | 2025-01-23 06:40 | PC.NURSE ---
Pt alert, oriented, and VSS. Afebrile. SBA in the room. Thomas patent and draining. 2000 FR. No BM during shift. 1a with walker and gait belt. Utilizes call light appropriately. Pt in bed, appears to be resting, call light within reach.
[2025-01-23 06:48] LABS: Immature Granulocytes Abs Auto 0.10 K/uL (0.00-0.30); Lymphocytes Absolute Auto 1.30 K/uL (0.90-2.90); Slide Review Reflex Yes; White Blood Count* 30.44 K/uL (4.50-11.00)
--- NOTE | 2025-01-23 07:11 | PM.IMPN1 ---
Assessment and Plan Assessment and plan (1) Acute pyelonephritis: Problem comment: - CT scan of abdomen and pelvis 01/22/2025 suggests acute right-sided pyelonephritis, new finding compared to previously - associated with leukocytosis, lactic acidosis, hyponatremia Status: Acute (2) Hyponatremia: Problem comment: - sodium 129, suspect in setting of decreased oral intake, vomiting and diarrhea - normal saline IV, 2000 mL fluid restriction, monitor Status: Acute (3) Complicated urinary tract infection: Problem comment: - initiated IV ceftriaxone after urine culture and blood cultures obtained in the emergency department - await urine culture results Status: Acute (4) Hydroureteronephrosis: Problem comment: - CT: severe right-sided hydroureteronephrosis and mild left-sided hydroureteronephrosis without obstructing mass or stones (chronic) patient without flank pain or fever - Most likely caused by bladder outlet obstruction. Unchanged from previously. 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 Follows with Dr. Anthony of [facility] Status: Acute (8) Hypokalemia: Problem comment: - replacement and monitor, improved 01/23/25 Status: Acute (9) Recurrent UTI (urinary tract infection): Problem comment: - Previously reviewed principles of prevention including optimal self-catheterization, hydration, cranberry juice consumption, and introduced idea of topical intravaginal estrogen which she will review with her primary medical care administrator. - now has chronic indwelling urethral catheter, recommended primary prevention with topical intravaginal estrogen started in the outpatient setting and consideration be given to the possibility of methenamine therapy, consider resuming intermittent caths, and only consider prophylactic antibiotic therapy if all other options fail. Did discuss the possibility of suprapubic catheterization, indicating that this would not necessarily decrease the risk of infection. - continue Urology f/u Status: Acute (10) Diabetes mellitus type 2 in nonobese: Problem comment: - given lactic acidosis on admission, holding Metformin, on SSI - A1C 9.0, was 7.28 May 2024 Status: Acute (11) Frail elderly: Status: Acute Plan - per above - daughter Day and updated by phone + bedside, questions answered Subjective Date Seen: 01/23/25 Interval history: Delio was admitted on 01/22/25 for UTI and R sided pylenophritis; associated with significant leukocytosis (WBC 25), hypotension (90s/50s), HR 90s, elevated lactate. IV Ceftriaxone initiated on admission, cultures pending. Blood sugars 250-260s since admission, A1C 9.0. On Sliding Scale insulin, holding home Metformin. This morning, was feeling a little better, then left-sided pain worsened (left upper quadrant, intermittent). Repeat labs exhibited a lactate of 6.2 and white count has increased to 32. Broadened antibiotic coverage to meropenem, given 500 mL bolus. Repeat imaging noted fluid overloaded with small volume ascites, anasarca, ground-glass opacities in right lower and right middle lobes. No worsening findings of pyelonephritis. Charley Summers feels better after receiving morphine for discomfort. Vital signs remain stable. Exam Narrative: Exam Narrative: GEN: Alert and oriented, appears uncomfortable on initial exam. On repeat exam after morphine administered, appears much more comfortable HEENT: EOMIs bilaterally, no scleral icterus CV: RRR R: No tachypnea, no wheezing Ab: Nontender during my exam, no CVA tenderness (at the point that I am examining her, she notes that pain is intermittent) Ext: wwp, no concerning edema Neuro: Nonfocal Psych: Appropriate Const: Vital Signs, click to edit/add: Vital Signs - 24 hr 01/22/25 16:15 01/22/25 18:51 01/22/25 19:00 Temperature 99.1 F Pulse Rate 96 90 Pulse Rate [Left P ulse Oximeter] Pulse Rate [Pulse Oximeter] 88 Respiratory Rate 18 Blood Pressure Blood Pressure [Ri ght Arm] Blood Pressure [Ri ght Upper Arm] 111/57 L Pulse Oximetry 100 89 96 Oxygen Delivery Me thod Room Air 01/22/25 19:02 01/22/25 19:07 01/22/25 19:15 Temperature Pulse Rate 88 90 Pulse Rate [Left P ulse Oximeter] Pulse Rate [Pulse Oximeter] Respiratory Rate 18 Blood Pressure 108/65 Blood Pressure [Ri ght Arm] Blood Pressure [Ri ght Upper Arm] Pulse Oximetry 99 97 Oxygen Delivery Me thod 01/22/25 19:30 01/22/25 19:31 01/22/25 19:45 Temperature Pulse Rate 92 90 89 Pulse Rate [Left P ulse Oximeter] Pulse Rate [Pulse Oximeter] Respiratory Rate Blood Pressure 100/67 Blood Pressure [Ri ght Arm] Blood Pressure [Ri ght Upper Arm] Pulse Oximetry 96 93 Oxygen Delivery Me thod 01/22/25 20:00 01/22/25 20:01 01/22/25 20:15 Temperature Pulse Rate 88 91 92 Pulse Rate [Left P ulse Oximeter] Pulse Rate [Pulse Oximeter] Respiratory Rate Blood Pressure 104/58 L Blood Pressure [Ri ght Arm] Blood Pressure [Ri ght Upper Arm] Pulse Oximetry 97 98 94 Oxygen Delivery Me thod 01/22/25 20:30 01/22/25 20:32 01/22/25 20:45 Temperature Pulse Rate 91 89 91 Pulse Rate [Left P ulse Oximeter] Pulse Rate [Pulse Oximeter] Respiratory Rate Blood Pressure 99/57 L Blood Pressure [Ri ght Arm] Blood Pressure [Ri ght Upper Arm] Pulse Oximetry 96 95 94 Oxygen Delivery Me thod 01/22/25 21:19 01/22/25 23:00 01/22/25 23:00 Temperature 98.3 F Pulse Rate Pulse Rate [Left P ulse Oximeter] 84 84 Pulse Rate [Pulse Oximeter] Respiratory Rate 18 18 Blood Pressure Blood Pressure [Ri ght Arm] 101/59 L Blood Pressure [Ri ght Upper Arm] Pulse Oximetry 94 95 Oxygen Delivery Me thod Room Air Room Air 01/22/25 23:00 01/23/25 03:35 Temperature 98.3 F 97.4 F L Pulse Rate Pulse Rate [Left P ulse Oximeter] 70 69 Pulse Rate [Pulse Oximeter] Respiratory Rate 16 16 Blood Pressure Blood Pressure [Ri ght Arm] 97/66 104/65 Blood Pressure [Ri ght Upper Arm] Pulse Oximetry 94 96 Oxygen Delivery Me thod Room Air Room Air Labs Labs: Laboratory Results - last 24 hr 11/30/25 11/30/25 11/30/25 17:09 18:45 20:01 WBC 25.90 H* RBC 3.71 L Hgb 10.4 L Hct 32.7 L MCV 88 MCH 28 MCHC 32 RDW Coeff of [place] 14.0 Plt Count 252 Neut % (Auto) 95.8 H Lymph % (Auto) 1.4 L [place] % (Auto) 2.4 Eos % (Auto) 0.0 Baso % (Auto) 0.1 Neut # (Auto) 24.80 H Lymph # (Auto) 0.40 L [place] # (Auto) 0.60 Eos # (Auto) 0.00 Baso # (Auto) 0.00 Abs Immat Gran (auto) 0.10 Imm/Tot Granulo (auto) 0.3 Diff Slide Review Acceptable Review Sodium 129 L Potassium 3.5 L Chloride 91 L Carbon Dioxide 24 Anion Gap 14 BUN 23 Creatinine 1.1 Estimated Creat Clear 24.05 Estimated GFR 48 Glucose 257 H Hemoglobin A1c Lactate 3.5 H 2.7 H Calcium 8.6 Phosphorus Magnesium C-Reactive Protein Triglycerides Cholesterol LDL Cholesterol, Calc HDL Cholesterol TSH Urine Color Yellow Urine Appearance Slightly Cloudy A Urine pH 6.0 Ur Specific [place] 1.020 Urine Protein 3+ A Urine Glucose (UA) 1+ A Urine Ketones Negative Urine Blood 2+ A Urine Nitrite Negative Urine Bilirubin Negative Urine Urobilinogen 0.2 Ur Leukocyte Esterase 3+ A Urine RBC 10-25 A Urine WBC 50-100 A Ur Squamous Epith Cells None Urine Bacteria Moderate A Urine Yeast Many A 01/23/25 05:54 WBC 30.44 H* RBC 3.04 L Hgb 8.7 L Hct 26.8 L MCV 88 MCH 29 MCHC 33 RDW Coeff of [place] 14.4 Plt Count 198 Neut % (Auto) 91.7 H Lymph % (Auto) 4.4 L [place] % (Auto) 3.4 Eos % (Auto) 0.0 Baso % (Auto) 0.1 Neut # (Auto) 27.90 H Lymph # (Auto) 1.30 [place] # (Auto) 1.00 H Eos # (Auto) 0.00 Baso # (Auto) 0.00 Abs Immat Gran (auto) 0.10 Imm/Tot Granulo (auto) 0.4 Diff Slide Review Sodium 129 L Potassium 3.7 Chloride 95 L Carbon Dioxide 25 Anion Gap 9 BUN 22 Creatinine 1.1 Estimated Creat Clear 25.24 Estimated GFR 48 Glucose 262 H Hemoglobin A1c 9.0 H Lactate 1.3 Calcium 8.3 L Phosphorus 3.9 Magnesium 1.6 C-Reactive Protein 6.9 H Triglycerides 54 Cholesterol 76 L LDL Cholesterol, Calc 33 HDL Cholesterol 32 L TSH 0.697 Urine Color Urine Appearance Urine pH Ur Specific [place] Urine Protein Urine Glucose (UA) Urine Ketones Urine Blood Urine Nitrite Urine Bilirubin Urine Urobilinogen Ur Leukocyte Esterase Urine RBC Urine WBC Ur Squamous Epith Cells Urine Bacteria Urine Yeast
[2025-01-23 07:21] LABS: HCO3 VBG 27 mmol/L (21-28); PCO2 VBG 47 mmHG (40-50); PO2 VBG < 30.1 mmHG (25-47); pH VBG 7.362 (7.32-7.43)
[2025-01-23] MEDS: INSULIN ASPART 100 UNIT/ML SUBCUT (08:52)
[2025-01-23] MEDS: EZETIMIBE 10 MG TABLET PO (08:53)
[2025-01-23] MEDS: CLOPIDOGREL 75 MG TABLET PO (08:53)
[2025-01-23] MEDS: SODIUM CHLORIDE 0.9 % (FLUSH) 10 ML SYRINGE 5 ML IVF ×2 (08:53→14:00)
[2025-01-23] MEDS: timoloL maleate 0.5 % 1 DROP EYE-LEFT ×2 (08:53→22:04)
[2025-01-23] MEDS: KETOROLAC OPHTH 0.5% 1 DROP EYE-BOTH ×2 (08:53→21:52)
--- NOTE | 2025-01-23 09:35 | W.PC.NUTR.HO ---
Hospital Nutrition Assessment Patient Data Patient Gender: Female Patient Age: 89 Height: 5 ft 1 in (154.94 cm) Weight: 99 lb 11.2 oz (45.32 kg) Body Mass Index: 18.8 Weight Calculations [place] Body Weight (lbs): 105.00 [place] Body Weight (kg): 47.63 Percent of [place] Body Weight: 95 Adjusted Body Weight (lbs): 103.68 Adjusted Body Weight (kg): 47.03 Basal Energy Expenditure (BEE): 962.72 Basal Energy Expenditure (BEE) Adjusted Weight: 980.00 Activity/Stress Factors Injury Factor/Activity Factor Value: 1.3 Total Energy Requirements Kcal requirements (current wt): 1251.536 Kcal requirements (adj wt): 1274.000 Protein Need (current wt): 1.3 Total Protein (current wt): 58.790 Fluid Need (current wt): 30 Total Fluid (current wt): 1356.695 Nutrition Assessment Diet Order: Regular Food Modified for Dysphagia: 7-Regular Liquid Modified for Dysphagia: 0-Thin Diet Order Comment: 2000 mL Fluid Restriction Allergies: NKFA Appetite Prior to Admission: Fair Appetite and Intake: No intakes since admit. Supplement and/or Snacks: Includes 2 [employer] brand nutrition supplements at home daily Hx Appetite Changes: Yes Hx Weight Loss: No (Gain of 6-9 lbs since last hospitalization, about 30 days ago.) Hx Weight Gain: Yes Nausea: No Vomiting: Yes (in setting of hyponatremia) Diarrhea: Yes (Checking for C.Diff.) Hx Constipation: No Chewing Difficulty: No Swallowing Difficulty: No Diagnosis/Symptom or Procedure: UTI, pyelonephritis Clinical History: Active Problems Diabetes mellitus type 2 in nonobese (Acute) E11.9 Chronic anemia (Acute) D64.9 Hypokalemia (Acute) E87.6 Lactic acidosis (Acute) E87.20 Hyponatremia (Acute) E87.1 Recurrent UTI (urinary tract infection) (Acute) N39.0 Complicated urinary tract infection (Acute) N39.0 Weakness (Acute) R53.1 Diarrhea (Acute) R19.7 Acute pyelonephritis (Acute) N10 Acute UTI (Acute) N39.0 Hydroureteronephrosis (Acute) N13.30 Stage 3a chronic kidney disease (Acute 01/05/16) N18.31 Poor balance (Acute) R26.89 Frail elderly (Acute) R54 Self-catheterizes urinary bladder (Acute) Z78.9 Emphysematous cystitis (Acute) 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 Medications Medications: reviewed. Lab Results Lab Results: reviewed. Sodium - 129 (L) Education Topic Comment: Received diet education for High calorie/high protein diet at previous hospitalization in November 2024. Assessment/Plan PES Statement: Inadequate oral intakes related to vomiting and decreased oral intake prior to arrival as evidenced by no intakes since admit Nutritional Assessment Summary: RDN with MD consult for weight loss. Patient is known to RDN from previous hospitalization in November 2024. At that time, it was suspected patient was at nutrition risk for malnutrition due to decreased oral intakes and weight loss. Per weight records, patient has gained about 6-9 lbs within 30 days. This weight gain is beneficial. RDN visited with patient whom continues have 2 [employer] brand nutrition supplements daily. She is interested in receiving vanilla Ensure Enlive BID while hospitalized. Ensure Enlive BID provided 750 kcals and 40 grams protein daily. This will help her meet her estimated daily energy needs. No meal intakes yet since admit. Discharge Plan-Living Situation: TBD Goals: Adequate oral intakes of 50%+ meals TID and supplements BID. Plan/Recommendation: Diet order per MD order. Regular diet order. Offer Ensure Enlive BID. Patient prefers vanilla flavor. RDN will continue to monitor and follow-up prn.
[2025-01-23] MEDS: FOSINOPRIL SODIUM 20 MG TABLET PO (09:55)
[2025-01-23] MEDS: LACTATED RINGERS 1000 ML 1,000 ML 75 ML IV (11:57)
[2025-01-23] MEDS: ACETAMINOPHEN 325 MG TABLET 650 MG PO (11:59)
[2025-01-23] MEDS: ONDANSETRON ODT 4 MG TAB PO (12:07)
[2025-01-23 12:33] LABS: C.Difficile Negative (Negative); CDIFFEPI 027 PRESUMPTIVE NEGATIVE (Negative)
--- NOTE | 2025-01-23 13:19 | CRLHL7_ITS ---
For Patients: As a result of the Century Cures Act, medical imaging exams and procedure reports are released immediately into your electronic medical record. You may view this report before your referring provider. If you have questions, please contact your health care provider. INDICATION: Worsening pain, assess for abscess, history of left renal mass ablation. TECHNIQUE: CT abdomen and pelvis following administration of 49 cc Isovue 370 IV contrast. COMPARISON: CT abdomen and pelvis 01/22/2025 and 12/22/2024. FINDINGS: Lower chest: New small bilateral pleural effusions. Extensive ground-glass and tree-in-bud opacities within the right lower lobe and to a lesser degree right middle lobe. Bibasilar compressive atelectasis. Prosthetic aortic valve. Mitral valve calcifications. Incompletely assessed cardiac pacemaker. Incompletely imaged distal thoracic esophagus and incompletely imaged descending thoracic aorta are normal. Liver: No worrisome hepatic lesion. Non-cirrhotic morphology. Gallbladder and bile ducts: Status post cholecystectomy. Unchanged mild intrahepatic and extrahepatic biliary ductal dilatation felt to be within normal limits status post cholecystectomy. Pancreas: No focal masses. No pancreatic duct dilatation. No peripancreatic inflammation. Spleen: Normal in size. No masses. Adrenal glands: Within normal limits. Kidneys: Kidneys enhance symmetrically. Stable post ablation changes of the left kidney upper pole, no evidence of disease recurrence in the ablation bed. No findings to suggest abscess or hematoma in or around the ablation bed. Unchanged mild right hydronephrosis and moderate right hydroureter with unchanged right ureteral wall thickening and periureteral inflammation. Unchanged punctate nonobstructing left renal calculi. No worrisome renal lesions. GI tract: Large bowel is decompressed which limits assessment. No abnormal wall thickening or visualized mass. No finding to suggest small or large bowel obstruction. Nonvisualized appendix. Vasculature: Severe aortoiliac atherosclerosis. No abdominal aortic aneurysm. Patent portal venous system. Lymph nodes: No lymphadenopathy. Peritoneum/Retroperitoneum: No free air. Small volume ascites in the dependent pelvis increased since the prior exam. Pelvic organs/Bladder: Urinary bladder is decompressed with Guzman catheter in place which limits assessment. Nonvisualized uterus and adnexal structures. Bones: No acute fractures. No worrisome osseous lesions. L5 laminectomy. Moderate degenerative changes of the lower lumbar spine. Soft tissues: No abdominal wall hernia. Extensive anasarca. Calcified injection granulomas in the anterior abdominal wall. IMPRESSION: 1. Extensive ground-glass and tree-in-bud opacities in the right lower and to a lesser degree right middle lobes most likely due to infection and/or aspiration. New small bilateral pleural effusions. 2. Stable post ablation changes of the left kidney upper pole, no evidence of disease recurrence in the ablation bed. No findings to suggest abscess or hematoma in or around the ablation bed. 3. Unchanged mild right hydronephrosis and moderate right hydroureter with unchanged right ureteral wall thickening and periureteral inflammation. Findings can be seen with ascending urinary tract infection. 4. Worsening fluid overload with interval increased small volume ascites and anasarca. Please note that all CT scans at this facility use dose modulation, iterative reconstruction, and/or weight-based dosing when appropriate to reduce radiation dose to as low as reasonably achievable. Dictated by Eugene Georges MD @ 01/23/2025 2:41:42 PM (Electronically Signed)
[2025-01-23 13:55] LABS: Lactate* 6.2 mmol/L (0.5-1.9)
[2025-01-23 13:57] LABS: Hematocrit* 35.7 % (33.0-51.0); Hemoglobin* 11.4 gm/dL (12.0-16.0); Immature Granulocytes Pct Auto 0.6 %; Mean Corpuscular HGB Conc 32 gm/dL (32-36); Mean Corpuscular Hemoglobin 28 pg (26-34); Mean Corpuscular Volume 89 fL (80-100); RDW Coefficient of Variation % 14.5 % (11.5-15.5); Red Blood Count* 4.03 m/uL (4.00-5.20)
[2025-01-23 14:08] LABS: Immature Granulocytes Abs Auto 0.20 K/uL (0.00-0.30); Lymphocytes Absolute Auto 0.40 K/uL (0.90-2.90); White Blood Count* 32.11 K/uL (4.50-11.00)
[2025-01-23 14:09] LABS: Slide Review Reflex Yes
[2025-01-23 14:11] LABS: Chloride* 96 mmol/L (96-114); Potassium* 3.7 mmol/L (3.6-5.1); Sodium* 131 mmol/L (135-149)
[2025-01-23 14:14] LABS: Blood Urea Nitrogen* 24 mg/dL (7-30); Creatinine* 1.2 mg/dL (0.5-1.5); Est. Creatinine Clearance* 23.13; Estimated Glomerular Filt Rate 44 ml/min
[2025-01-23 14:15] LABS: Anion Gap 15 mEq/L (7-15); Calcium* 8.8 mg/dL (8.4-10.6); Carbon Dioxide* 20 mmol/L (20-32); Glucose* 135 mg/dL (60-115)
[2025-01-23 15:05] LABS: Slide Review Acceptable Review (Acceptable)
[2025-01-23 16:01] LABS: Procalcitonin* 85.10 ng/mL (<0.50)
[2025-01-23 16:07] LABS: Slide Review Acceptable Review (Acceptable)
[2025-01-23] MEDS: MEROPENEM 1 GM in 0.9 % SODIUM CHLORIDE Mini-bag 100 ML IVPB ×2 (16:29→23:58)
[2025-01-23 16:37] LABS: Lactate* 4.7 mmol/L (0.5-1.9)
[2025-01-23 20:04] LABS: Lactate* 2.2 mmol/L (0.5-1.9)
[2025-01-23 20:19] LABS: HCO3 VBG 23 mmol/L (21-28); PCO2 VBG 32 mmHG (40-50); pH VBG 7.463 (7.32-7.43)
[2025-01-23 20:24] LABS: PO2 VBG 54.2 mmHG (25-47)
--- NOTE | 2025-01-23 20:28 | PC.NURSE ---
VS show oxygen 84-89%RA. B/P 93/60 [address] Braswell updated on sepsis status, VS. Order for 1 lpm oxygen per NC. Oxygen 90% on 1 lpm. MD aware of labs including VBG, carbon monoxide, lactate. Patient states she is feeling better.
[2025-01-23] MEDS: LATANOPROST 0.005% OPHTH 1 DROP EYE-BOTH (22:29)
[2025-01-24 03:00] VITALS: BP 105/60; PULSE 72; RESP 18; TEMP 36.4; O2SAT 95
[2025-01-24] MEDS: LACTATED RINGERS 1000 ML 1,000 ML 75 ML IV (05:47)
[2025-01-24 06:23] LABS: Hematocrit* 29.3 % (33.0-51.0); Hemoglobin* 9.3 gm/dL (12.0-16.0); Immature Granulocytes Pct Auto 1.5 %; Mean Corpuscular HGB Conc 32 gm/dL (32-36); Mean Corpuscular Hemoglobin 28 pg (26-34); Mean Corpuscular Volume 89 fL (80-100); RDW Coefficient of Variation % 15.0 % (11.5-15.5); Red Blood Count* 3.31 m/uL (4.00-5.20)
[2025-01-24 06:26] LABS: Lactate* 1.2 mmol/L (0.5-1.9)
[2025-01-24 06:45] LABS: Immature Granulocytes Abs Auto 0.50 K/uL (0.00-0.30); Lymphocytes Absolute Auto 1.40 K/uL (0.90-2.90); Slide Review Reflex No; White Blood Count* 32.82 K/uL (4.50-11.00)
[2025-01-24 06:52] LABS: Chloride* 96 mmol/L (96-114); Potassium* 3.8 mmol/L (3.6-5.1); Sodium* 130 mmol/L (135-149)
[2025-01-24 06:53] LABS: Albumin* 2.3 g/dL (3.3-5.0)
[2025-01-24 06:55] LABS: Anion Gap 9 mEq/L (7-15); Blood Urea Nitrogen* 26 mg/dL (7-30); Calcium* 8.3 mg/dL (8.4-10.6); Carbon Dioxide* 25 mmol/L (20-32); Creatinine* 1.2 mg/dL (0.5-1.5); Est. Creatinine Clearance* 23.13; Estimated Glomerular Filt Rate 44 ml/min; Glucose* 160 mg/dL (60-115)
[2025-01-24 06:56] LABS: Alanine Aminotransferase* 52 U/L (4-35); Alkaline Phosphatase* 111 U/L (40-150); Aspartate Amino Transferase* 72 U/L (12-35); Bilirubin Direct* 0.4 mg/dL (0.0-0.5); Bilirubin Total* 0.5 mg/dL (0.1-1.5); Total Protein* 4.8 g/dL (6.0-8.3)
[2025-01-24 07:00] VITALS: BP 111/59; PULSE 66; RESP 16; RESP 18; TEMP 36.4; O2SAT 95; O2SAT 97
--- NOTE | 2025-01-24 07:03 | PM.IMPN1 ---
Assessment and Plan Assessment and plan (1) Bacteremia: Problem comment: - both admission blood cultures from 01/22/25 are growing GPC in chains - on Meropenem (01/23), awaiting further culture results, TTE ordered Status: Acute (2) Lactic acidosis: Problem comment: - IV fluids and monitor, increased lactate 01/23/2025, will follow closely with gentle IV fluid resuscitation given anasarca on imaging - HOLDING home Fosinopril given lower BPs. No tachycardia, currently has no supplemental oxygen requirements Status: Acute (3) Leukocytosis: Problem comment: - WBC 25-32 this admission with PMN predominance - C Diff negative - has mounted WBC of 30s in the past during illness with improvement to baseline Status: Acute (4) Elevated LFTs: Problem comment: - elevated AST and ALT, presumably 2/2 acute illness - no acute findings on imaging - continue to follow Status: Acute (5) Acute pyelonephritis: Problem comment: - CT scan of abdomen and pelvis 01/22/2025 suggests acute right-sided pyelonephritis, new finding compared to previous - associated with leukocytosis, lactic acidosis, hyponatremia - urine culture only + for yeast 01/24, blood cultures + for GPC (possible PNA as source) Status: Acute (6) Hyponatremia: Problem comment: - sodium 129, suspect in setting of decreased oral intake, vomiting and diarrhea - normal saline IV, 2000 mL fluid restriction, monitor Status: Acute (7) Hydroureteronephrosis: Problem comment: - CT: severe right-sided hydroureteronephrosis and mild left-sided hydroureteronephrosis without obstructing mass or stones (chronic) patient without flank pain or fever - Most likely caused by bladder outlet obstruction, unchanged from previously - continue to follow UOP, Guzman in place Status: Acute (8) Chronic anemia: Problem comment: - follows with PCP for this, previous workup c/w iron deficiency - s/p Feraheme infusions 11/09/24 and 11/16/24, no evidence of acute bleeding, continue to follow Status: Acute (9) Renal cell carcinoma: Problem comment: - Clear-cell renal cell carcinoma, 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 Follows with Dr. Anthony of [facility] Status: Acute (10) Hypokalemia: Problem comment: - replacement and monitor, improved 01/23/25 Status: Acute (11) Diabetes mellitus type 2 in nonobese: Problem comment: - given lactic acidosis on admission, holding Metformin, on SSI - A1C 9.0, was 7.28 May 2024 Status: Acute (12) Frail elderly: Problem comment: - ambulating without assistance, therapies have evaluated Status: Acute (13) Mild protein-calorie malnutrition: Problem comment: - as evidenced by BMI of 18, hypoalbuminemia Status: Acute (14) S/P TAVR (transcatheter aortic valve replacement): Problem comment: - last TTE 05/2024 Final Impressions: 1. Normal left ventricular size, normal wall thickness, normal global systolic function, calculated EF of 66 %. 2. Right ventricular cavity size is normal, global systolic RV function is moderately reduced. 3. Mildly enlarged left atrium. 4. The aortic valve is [id number], no stenosis and no regurgitation. The aortic valve peak velocity is 1.3 m/s, the peak gradient is 7 mmHg, and the mean gradient is 5 mmHg. The aortic valve area is 2.84 cm?? with a dimensionless index of 0.92. The stroke volume index is 60.4 ml/m??. 5. The mitral valve is moderate mitral annular calcification (posterior), moderate mitral regurgitation. 6. The transmitral peak and mean gradients are 7.0 and 2.7 mmHg respectively (heart rate 59bpm). 7. Tricuspid valve is tethered and moderate tricuspid regurgitation. 8. No pericardial effusion. Status: Acute (15) Stage 3a chronic kidney disease: Problem comment: - baseline creatinine 1.1-1.2 Status: Acute (16) Recurrent UTI (urinary tract infection): Problem comment: - E coli, Klebsiella - Previously reviewed principles of prevention including optimal self-catheterization, hydration, cranberry juice consumption, and introduced idea of topical intravaginal estrogen which she will review with her primary manager intensive care. - now has chronic indwelling urethral catheter, recommended primary prevention with topical intravaginal estrogen started in the outpatient setting and consideration be given to the possibility of methenamine therapy, consider resuming intermittent caths, and only consider prophylactic antibiotic therapy if all other options fail. Did discuss the possibility of suprapubic catheterization, indicating that this would not necessarily decrease the risk of infection. - continue Urology f/u Status: Acute Plan - per above (follow blood cultures, labs, UOP, VS, continue Meropenem) - renally dosed Lovenox for ppx - family updated bedside, questions answered Subjective Date Seen: 01/24/25 Interval history: Delio was admitted on 01/22/25 for UTI and R sided pyelonephritis; associated with significant leukocytosis (WBC 25), hypotension (90s/50s), HR 90s, elevated lactate. IV Ceftriaxone initiated on admission, cultures pending. Since admission: - A1C noted to be 9.0 (BG 153-253), on Sliding Scale insulin, holding home Metformin. - 01/23: more pain the afternoon; repeat imaging obtained with + GGOs, tree-in-bud opacities R lower and middle lobes, pleural effusions, unchanged R sided hydronephrosis and inflammation - antibiotics broadened to Meropenem on 01/23 - Urine culture growing yeast, no bacteria - 01/24: both admission blood cultures are growing GPC in chains - BPs mildly decreased, MAP >65. No tachycardia, currently no hypoxia. HOLDING home Fosinopril - intermittent left-sided flank and abdominal pain Charley Summers is sitting in bedside chair when I see her this morning. She has no complaints of pain, tolerating increased po intake. Exam Narrative: Exam Narrative: GEN: Alert and oriented, answering questions appropriately HEENT: EOMIs bilaterally, no scleral icterus CV: RRR, Soft systolic murmur without concerning features R: Breathing comfortably, no tachypnea, no wheezing, fine bibasilar crackles Ext: 1-2+ BLE edema Skin: Scattered bruising on extremities, no other significant abnormalities Neuro: No focal deficits Psych: Appropriate Const: Vital Signs, click to edit/add: Vital Signs - 24 hr 01/23/25 11:00 01/23/25 15:00 01/23/25 15:00 Temperature 98.5 F Pulse Rate [Left P ulse Oximeter] 91 90 Respiratory Rate 16 16 16 Blood Pressure [Le ft Arm] Blood Pressure [Ri ght Arm] 139/86 Pulse Oximetry 97 95 Oxygen Delivery Me thod Room Air Room Air Oxygen Flow Rate 01/23/25 15:00 01/23/25 19:30 01/23/25 20:40 Temperature 98.5 F 98.3 F Pulse Rate [Left P ulse Oximeter] 90 95 Respiratory Rate 16 24 Blood Pressure [Le ft Arm] 96/62 93/60 Blood Pressure [Ri ght Arm] Pulse Oximetry 95 87 L 90 Oxygen Delivery Me thod Room Air Room Air Nasal Cannula Oxygen Flow Rate 1 01/23/25 21:59 01/23/25 21:59 01/24/25 03:00 Temperature 98.3 F 97.6 F Pulse Rate [Left P ulse Oximeter] 82 72 Respiratory Rate 20 18 Blood Pressure [Le ft Arm] 101/57 L 105/60 Blood Pressure [Ri ght Arm] Pulse Oximetry 91 91 95 Oxygen Delivery Me thod Nasal Cannula Nasal Cannula Nasal Cannula Oxygen Flow Rate 1 1 1 Labs Labs: Laboratory Results - last 24 hr 01/23/25 01/23/25 01/23/25 05:54 07:13 11:36 WBC RBC Hgb Hct MCV MCH MCHC RDW Coeff of Yoel Plt Count Neut % (Auto) Lymph % (Auto) [place] % (Auto) Eos % (Auto) Baso % (Auto) Neut # (Auto) Lymph # (Auto) [place] # (Auto) Eos # (Auto) Baso # (Auto) Abs Immat Gran (auto) Imm/Tot Granulo (auto) Diff Slide Review Acceptable Review VBG pH 7.362 VBG pCO2 47 VBG pO2 < 30.1 VBG HCO3 27 Sodium Potassium Chloride Carbon Dioxide Anion Gap BUN Creatinine Estimated Creat Clear Estimated GFR Glucose Lactate Calcium Total Bilirubin Direct Bilirubin AST ALT Alkaline Phosphatase C-Reactive Protein Total Protein Albumin Procalcitonin 85.10 H Stl C. diff Tox B Gene Negative Stl C. diff [id number]-NAP1-BI PRESUMPTIVE NEGATIVE Lab Acknowledgement Test Added 01/23/25 01/23/25 01/23/25 13:45 15:23 16:13 WBC 32.11 H* RBC 4.03 Hgb 11.4 L Hct 35.7 MCV 89 MCH 28 MCHC 32 RDW Coeff of Yoel 14.5 Plt Count 304 Neut % (Auto) 97.3 H Lymph % (Auto) 1.4 L [place] % (Auto) 0.5 Eos % (Auto) 0.1 Baso % (Auto) 0.1 Neut # (Auto) 31.20 H Lymph # (Auto) 0.40 L [place] # (Auto) 0.20 Eos # (Auto) 0.00 Baso # (Auto) 0.00 Abs Immat Gran (auto) 0.20 Imm/Tot Granulo (auto) 0.6 Diff Slide Review Acceptable Review VBG pH VBG pCO2 VBG pO2 VBG HCO3 Sodium 131 L Potassium 3.7 Chloride 96 Carbon Dioxide 20 Anion Gap 15 BUN 24 Creatinine 1.2 Estimated Creat Clear 23.13 Estimated GFR 44 Glucose 135 H Lactate 6.2 H* 4.7 H* Calcium 8.8 Total Bilirubin Direct Bilirubin AST ALT Alkaline Phosphatase C-Reactive Protein 11.6 H Total Protein Albumin Procalcitonin Stl C. diff Tox B Gene Stl C. diff -NAP1-BI Lab Acknowledgement Test Added 01/23/25 01/23/25 01/24/25 19:55 20:15 06:04 WBC 32.82 H* RBC 3.31 L Hgb 9.3 L Hct 29.3 L MCV 89 MCH 28 MCHC 32 RDW Coeff of Yoel 15.0 Plt Count 215 Neut % (Auto) 91.4 H Lymph % (Auto) 4.2 L [place] % (Auto) 2.7 Eos % (Auto) 0.0 Baso % (Auto) 0.2 Neut # (Auto) 30.00 H Lymph # (Auto) 1.40 [place] # (Auto) 0.90 Eos # (Auto) 0.00 Baso # (Auto) 0.10 Abs Immat Gran (auto) 0.50 H Imm/Tot Granulo (auto) 1.5 Diff Slide Review VBG pH 7.463 H VBG pCO2 32 L VBG pO2 54.2 H VBG HCO3 23 Sodium 130 L Potassium 3.8 Chloride 96 Carbon Dioxide 25 Anion Gap 9 BUN 26 Creatinine 1.2 Estimated Creat Clear 23.13 Estimated GFR 44 Glucose 160 H Lactate 2.2 H 1.2 Calcium 8.3 L Total Bilirubin 0.5 Direct Bilirubin 0.4 AST 72 H ALT 52 H Alkaline Phosphatase 111 C-Reactive Protein Total Protein 4.8 L Albumin 2.3 L Procalcitonin Stl C. diff Tox B Gene Stl C. diff [id number] Lab Acknowledgement Test Added
[2025-01-24] MEDS: MEROPENEM 1 GM in 0.9 % SODIUM CHLORIDE Mini-bag 100 ML IVPB ×2 (07:13→17:00)
[2025-01-24] MEDS: 0.9 % SODIUM CHLORIDE 250 ml 250 ML IV (07:35)
[2025-01-24 07:39] LABS: Procalcitonin* 139.00 ng/mL (<0.50)
--- NOTE | 2025-01-24 07:53 | PC.NURSE ---
Shift note ([id number]): Patient pleasant, alert and oriented. Transfers with walker, gait belt and assist of one. Urine ashely colored and odorous. Total urine output 450mL this shift. O2 sats 91-96% on 1 LPM. Denied pain. ?
[2025-01-24] MEDS: FOSINOPRIL SODIUM 20 MG TABLET PO (09:47)
[2025-01-24] MEDS: CLOPIDOGREL 75 MG TABLET PO (09:47)
[2025-01-24] MEDS: EZETIMIBE 10 MG TABLET PO (09:47)
[2025-01-24] MEDS: KETOROLAC OPHTH 0.5% 1 DROP EYE-BOTH ×2 (09:48→21:06)
[2025-01-24] MEDS: SODIUM CHLORIDE 0.9 % (FLUSH) 10 ML SYRINGE 5 ML IVF ×2 (09:48→21:07)
[2025-01-24] MEDS: timoloL maleate 0.5 % 1 DROP EYE-LEFT ×2 (09:48→21:06)
[2025-01-24 11:00] VITALS: BP 114/61; PULSE 67; RESP 16; TEMP 36.4; O2SAT 96
[2025-01-24] MEDS: LACTATED RINGERS 500 ML 500 ML 250 ML IV (11:43)
--- NOTE | 2025-01-24 11:53 | PC.SOCIAL ---
Discharge planning: This worker's co-worker completed the initial psychosocial assessment with the pt in November of 2024 and the pt's states/confirms that the below answers/responses are still correct. See the below results... Initial Psychosocial Assessment: 1.??? Assessment completed with: Patient. 2.??? Pt lives at address and phone number on face sheet? Patient lives at address on facesheet and phone number is correct. 3.?Insurance information? on face sheet is correct? Yes 4.?Contacts? on face sheet are correct? Yes 5.??? Does pt have a Healthcare Directive, POLST or Guardian? No 6.??? Who is the pt?s main source/sources of emotional/physical support? Family and friends 7.??? Prior to admission did pt need assistance? Yes/No Patient receives support from her children. 8.??? Who provided and what was the assistance needed? Patient's children bring her to the store for grocery shopping and assist with some activities around the house - yard work, driving, garbage disposal, etc. 9.??? Was Home Health being provided, by what agency? No 10. Does pt use/have medical equipment at home already? What? Cane 11. Will there be a need for additional assistance at discharge and is this available in previous setting? No 12. If pt needs to go to a higher level of care, are they open to this and do they have facilities they are interested in? N/A 13. How would pt plan to transport at discharge? Family 14. Is there anyone pt would like social problems specialist to contact to discuss discharge plans? No Other information: BRANDON met with patient to discuss resource/support needs. Patient states that her son Dudley lives with her precision devices inspector/tester and he doesn't work due to past strokes. Patient reports that he helps when she falls and she can always call for him. Patient states that she has another son that visits frequently and her daughter. Patient mentions that she has two friends that call her daily too. Patient states if her son isn't there, which doesn't happen often, she feels she could get to a phone if she fell and was not interested in any emergency alert buttons/pendants. Patient states she has no concerns or needs at this time. BRANDON met with daughter and patient and discussed that it's recommended patient decrease her driving more for safety and patient and daughter state they have alternatives to patient driving, like patient's friends, and son Dudley that lives with her. No other needs/requests at this time. SW to assist if any needs arise.
--- NOTE | 2025-01-24 13:52 | PC.SOCIAL ---
Discharge planning: bin worker met with pt and her son and completed the Initial Psychosocial Assessment. See the below answers... Initial Psychosocial Assessment: 1.??? Assessment completed with: Patient and patient's son. 2.??? Pt lives at address and phone number on face sheet? Patient lives at address on face sheet and phone number is correct. 3.?Insurance information? on face sheet is correct? Yes. 4.?Contacts? on face sheet are correct? Yes. 5.??? Does pt have a Healthcare Directive, POLST or Guardian? No. 6.??? Who is the pt?s main source/sources of emotional/physical support? Family and friends. 7.??? Prior to admission did pt need assistance? Yes. Patient receives support from her children. 8.??? Who provided and what was the assistance needed? Patient's children bring her to the store for grocery shopping and assist with some activities around the house - yard work, driving, garbage disposal, etc. 9.??? Was Home Health being provided, by what agency? No. 10. Does pt use/have medical equipment at home already? What? Cane. 11. Will there be a need for additional assistance at discharge and is this available in previous setting? No. 12. If pt needs to go to a higher level of care, are they open to this and do they have facilities they are interested in? N/A 13. How would pt plan to transport at discharge? Family. 14. Is there anyone pt would like social and political studies professor to contact to discuss discharge plans? Children. if needed. Other information: bin worker also provided the pt and her son with a list Medical Alert Device Agencies at their request. Pt was thankful for the information and had no other questions and/or concerns at this time. Social work to follow-up if needed.
--- NOTE | 2025-01-24 14:25 | CRLHL7_ITS ---
For Patients: As a result of the Century Cures Act, medical imaging exams and procedure reports are released immediately into your electronic medical record. You may view this report before your referring provider. If you have questions, please contact your health care provider. Indication: Swelling and pain. Technique: Ultrasound venous duplex upper left extremity. Compression venous exam was performed using salcedo-scale, color Doppler, and spectral Doppler imaging. Comparison: None. Findings: The left internal jugular, subclavian, axillary, brachial veins are patent with normal waveforms. The basilic, and cephalic veins are fully compressible. No soft tissue abnormalities seen. Impression: No left upper extremity DVT. Dictated by Sunil Grewal MD @ 01/24/2025 6:29:00 PM (Electronically Signed)
[2025-01-24 15:00] VITALS: BP 112/63; PULSE 73; RESP 16; TEMP 36.4; O2SAT 91
--- NOTE | 2025-01-24 15:38 | PM.EN ---
Chart Event Note Date Seen: 01/24/25 Chart Event Note: Charley's echo shows a preliminary EF of 25-30%, formal cardiology read pending, new diagnosis of HFrEF. Hemodynamically stable at this time, UOP under goal of 30mL/hr. Will give one dose of Lasix, add low dose Metoprolol, follow VS closely given low UOP and bacteremia.
[2025-01-24] MEDS: FUROSEMIDE 10 MG/ML inj 20 MG IVP (17:03)
[2025-01-24] MEDS: LATANOPROST 0.005% OPHTH 1 DROP EYE-BOTH (18:13)
[2025-01-24 20:11] VITALS: BP 101/61; PULSE 81; RESP 16; TEMP 36.8; O2SAT 90
[2025-01-24] MEDS: INSULIN ASPART 100 UNIT/ML SUBCUT (21:05)
[2025-01-24] MEDS: ENOXAPARIN 30 MG/0.3ML INJ SUBCUT (21:05)
[2025-01-24] MEDS: METOPROLOL TARTRATE 25 MG TABLET 12.5 MG PO (21:06)
[2025-01-24 23:00] VITALS: BP 105/69; PULSE 85; RESP 18; TEMP 36.8; O2SAT 90; O2SAT 92
[2025-01-25] MEDS: MEROPENEM 1 GM in 0.9 % SODIUM CHLORIDE Mini-bag 100 ML IVPB ×2 (00:49→07:33)
[2025-01-25 03:30] VITALS: BP 109/69; PULSE 73; RESP 16; TEMP 36.6; O2SAT 93
[2025-01-25 06:36] LABS: HCO3 VBG 26 mmol/L (21-28); PCO2 VBG 39 mmHG (40-50); PO2 VBG 37.3 mmHG (25-47); pH VBG 7.422 (7.32-7.43)
[2025-01-25 06:39] LABS: Hematocrit* 32.9 % (33.0-51.0); Hemoglobin* 10.5 gm/dL (12.0-16.0); Immature Granulocytes Pct Auto 0.6 %; Mean Corpuscular HGB Conc 32 gm/dL (32-36); Mean Corpuscular Hemoglobin 28 pg (26-34); Mean Corpuscular Volume 87 fL (80-100); RDW Coefficient of Variation % 14.8 % (11.5-15.5); Red Blood Count* 3.78 m/uL (4.00-5.20); White Blood Count* 23.96 K/uL (4.50-11.00)
[2025-01-25 06:46] LABS: Immature Granulocytes Abs Auto 0.10 K/uL (0.00-0.30); Lymphocytes Absolute Auto 2.50 K/uL (0.90-2.90); Slide Review Reflex No
[2025-01-25 07:00] VITALS: BP 128/77; PULSE 72; RESP 14; TEMP 36.6; O2SAT 91
[2025-01-25 07:03] LABS: Albumin* 2.6 g/dL (3.3-5.0); Chloride* 98 mmol/L (96-114); Potassium* 3.5 mmol/L (3.6-5.1); Sodium* 129 mmol/L (135-149)
[2025-01-25 07:06] LABS: Alanine Aminotransferase* 39 U/L (4-35); Alkaline Phosphatase* 105 U/L (40-150); Anion Gap 7 mEq/L (7-15); Aspartate Amino Transferase* 56 U/L (12-35); Bilirubin Total* 0.7 mg/dL (0.1-1.5); Blood Urea Nitrogen* 35 mg/dL (7-30); Calcium* 8.1 mg/dL (8.4-10.6); Carbon Dioxide* 24 mmol/L (20-32); Creatinine* 1.2 mg/dL (0.5-1.5); Est. Creatinine Clearance* 22.65; Estimated Glomerular Filt Rate 44 ml/min; Glucose* 162 mg/dL (60-115); Total Protein* 5.5 g/dL (6.0-8.3)
[2025-01-25 07:19] LABS: Procalcitonin* 85.60 ng/mL (<0.50)
--- NOTE | 2025-01-25 07:40 | PC.NURSE ---
End of shift: Pt alert, oriented and VSS. Pt denies pain. Left arm edematous throughout shift and top of forearm reddened, outlined with skin marker. Seemingly improved throughout shift. Pt SBA, tolerated well. Roughly 50 ccs of output per hour throughout shift. Guzman patent and draining. No sputum production. Pt in bed, appears to be resting, call light within reach.
[2025-01-25] MEDS: POTASSIUM BICARB 25 MEQ EFFERVESCENT TAB PO ×2 (08:41→11:27)
[2025-01-25] MEDS: METOPROLOL TARTRATE 25 MG TABLET 12.5 MG PO (08:42)
[2025-01-25] MEDS: EZETIMIBE 10 MG TABLET PO (08:42)
[2025-01-25] MEDS: TORSEMIDE 20 MG TABLET 10 MG PO (08:43)
[2025-01-25] MEDS: CLOPIDOGREL 75 MG TABLET PO (08:43)
[2025-01-25] MEDS: SODIUM CHLORIDE 0.9 % (FLUSH) 10 ML SYRINGE 5 ML IVF (08:49)
[2025-01-25] MEDS: KETOROLAC OPHTH 0.5% 1 DROP EYE-BOTH (08:50)
[2025-01-25] MEDS: timoloL maleate 0.5 % 1 DROP EYE-LEFT (08:50)
[2025-01-25 11:00] VITALS: BP 126/80; PULSE 65; RESP 16; TEMP 36.4; O2SAT 98
--- NOTE | 2025-01-25 13:22 | PM.DST ---
Transfer Discharge Sum: Prov Provider Date Seen: 01/25/25 Date of admission: 01/23/25 08:18 Primary care physician: Jhonny Guerrero MD Admitting clinician: Brandon Reyes Consults: Nutrition, PT, OT, SW, ID Attending physician on discharge: Laila Yoo Discharging clinician: Laila Yoo Anticipated date of transfer: 01/25/25 Receiving physician/facility: [facility] DS: Diagnosis Discharge Diagnosis (1) Bacteremia: Status: Acute Problem details: - admission blood cultures from 01/22/25 + for strep gordonii - on Meropenem (01/23), reviewed with Dr. Schmitt of [facility]; given history of TAVR and + this particular bacteria, needs transfer for KAREN - initially thought to have + blood cultures from pyelonephritis (recurrent UTIs, R perinephric stranding on 01/22 CT), but urine culture negative - also noted to have GGO and tree-in-bud opacities on RLL and RML on 01/23/25 CT; no cough, no fever, no hypoxia at rest (2) HFrEF (heart failure with reduced ejection fraction): Status: Acute Problem details: - new diagnosis by TTE 01/24/25: - initiated 12.5mg BID Metoprolol and 10mg of oral Torsemide daily on 01/25/25 - noted to have bilateral pleural effusions on , not requiring supplemental oxygen Final Impressions: 1. Normal left ventricular size, normal wall thickness, normal global systolic function, calculated EF of 66 %. 2. Right ventricular cavity size is normal, global systolic RV function is moderately reduced. 3. Mildly enlarged left atrium. 4. The aortic valve is EVOLUTFX-26, no stenosis and no regurgitation. The aortic valve peak velocity is 1.3 m/s, the peak gradient is 7 mmHg, and the mean gradient is 5 mmHg. The aortic valve area is 2.84 cm?? with a dimensionless index of 0.92. The stroke volume index is 60.4 ml/m??. 5. The mitral valve is moderate mitral annular calcification (posterior), moderate mitral regurgitation. 6. The transmitral peak and mean gradients are 7.0 and 2.7 mmHg respectively (heart rate 59bpm). 7. Tricuspid valve is tethered and moderate tricuspid regurgitation. 8. No pericardial effusion. (3) Leukocytosis: Status: Acute Problem details: - WBC 25-32 this admission with PMN predominance, improves to 23.9 on 01/25 - C Diff negative, + bacteremia - has mounted WBC of 30s in the past during illness with improvement to baseline of 9 (4) Elevated LFTs: Status: Acute Problem details: - elevated AST and ALT, presumably 2/2 acute illness vs congestive hepatopathy, no abnormal liver findings on CT A/P - on transfer 01/25: AST 56, ALT 39 (5) S/P TAVR (transcatheter aortic valve replacement): Status: Acute Problem details: - last TTE 05/2024 Final Impressions: 1. Normal left ventricular size, normal wall thickness, normal global systolic function, calculated EF of 66 %. 2. Right ventricular cavity size is normal, global systolic RV function is moderately reduced. 3. Mildly enlarged left atrium. 4. The aortic valve is EVOLUTFX-26, no stenosis and no regurgitation. The aortic valve peak velocity is 1.3 m/s, the peak gradient is 7 mmHg, and the mean gradient is 5 mmHg. The aortic valve area is 2.84 cm?? with a dimensionless index of 0.92. The stroke volume index is 60.4 ml/m??. 5. The mitral valve is moderate mitral annular calcification (posterior), moderate mitral regurgitation. 6. The transmitral peak and mean gradients are 7.0 and 2.7 mmHg respectively (heart rate 59bpm). 7. Tricuspid valve is tethered and moderate tricuspid regurgitation. 8. No pericardial effusion. 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 Follows with Dr. Anthony of [facility] (7) Mild protein-calorie malnutrition: Status: Acute Problem details: - as evidenced by BMI of 18, hypoalbuminemia (8) Diabetes mellitus type 2 in nonobese: Status: Acute Problem details: - given lactic acidosis on admission, holding Metformin, on SSI - A1C 9.0, was 7.28 May 2024 (9) Chronic anemia: Status: Acute Problem details: - follows with PCP for this, previous workup c/w iron deficiency - s/p Feraheme infusions 11/09/24 and 11/16/24, no evidence of acute bleeding, continue to follow (10) Lactic acidosis: Status: Acute Problem details: - lactate peaked at 6.2 on 01/23; normalized 01/24 after IVF resuscitation (11) Hyponatremia: Status: Acute Problem details: - mild (129-131), chronic Transfer Discharge Sum: Med Medications Active and Home Medications: Home Medications ketorolac 0.5 % eye drops 1 drp ophthalmic (eye) BID 03/26/23 [History Confirmed 01/23/25] metformin 500 mg tablet 500 mg PO BID 03/26/23 [History Confirmed 01/23/25] timolol maleate 0.5 % eye drops 1 drp ophthalmic (eye-left) BID 03/26/23 [History Confirmed 01/23/25] clopidogrel 75 mg tablet 75 mg PO DAILY 05/06/24 [History Confirmed 01/23/25] ezetimibe 10 mg tablet 10 mg PO DAILY 05/06/24 [History Confirmed 01/23/25] latanoprost 0.005 % eye drops 1 drp ophthalmic (eye) QPM 05/06/24 [History Confirmed 01/23/25] cyanocobalamin (vitamin B-12) 500 mcg tablet 500 mcg PO DAILY 12/13/24 [History Confirmed 01/23/25] fosinopril 20 mg tablet 20 mg PO DAILY 12/13/24 [History Confirmed 12/13/24] rosuvastatin 20 mg tablet 20 mg PO QPM 01/23/25 [History Confirmed 01/23/25] Active Medications Acetaminophen (Acetaminophen 325 Mg Tablet) 650 mg PO Q6H PRN Last Admin: 01/23/25 11:59 Dose: 650 mg Clopidogrel Bisulfate (Clopidogrel 75 Mg Tablet) 75 mg PO DAILY [facility] Last Admin: 01/25/25 08:43 Dose: 75 mg Ezetimibe (Ezetimibe 10 Mg Tablet) 10 mg PO DAILY [facility] Last Admin: 01/25/25 08:42 Dose: 10 mg Enoxaparin Sodium (Enoxaparin 30 Mg/0.3ml Inj) 30 mg SUBCUT HS [facility] Last Admin: 01/24/25 21:05 Dose: 30 mg Fosinopril Sodium (Fosinopril Sodium 20 Mg Tablet) 20 mg PO DAILY [facility] On Hold: 01/24/25 12:04 Last Admin: 01/24/25 09:47 Dose: 20 mg Meropenem 1 gm/ Sodium (Chloride) 100 mls @ 200 mls/hr IVPB Q8H [facility] Last Infusion: 01/25/25 08:21 Dose: Infused Insulin Aspart (Insulin Aspart 100 Unit/Ml) 0 unit SUBCUT ACHS [facility]; Protocol Last Admin: 01/25/25 08:42 Dose: Not Given Ketorolac Tromethamine (Ketorolac Ophth 0.5%) 1 drop EYE-BOTH BID [facility] Last Admin: 01/25/25 08:50 Dose: 1 drop Latanoprost (Latanoprost 0.005% Ophth) 1 drop EYE-BOTH QPM [facility] Last Admin: 01/24/25 18:13 Dose: 1 drop Metoprolol Tartrate (Metoprolol Tartrate 25 Mg Tablet) 12.5 mg PO BID [facility] Last Admin: 01/25/25 08:42 Dose: 12.5 mg Morphine Sulfate (Morphine 2 Mg/Ml Inj) 2 mg IVP Q2H PRN Last Admin: 01/23/25 13:58 Dose: 2 mg Ondansetron HCl (Ondansetron Odt 4 Mg Tab) 4 mg PO Q6H PRN Last Admin: 01/23/25 12:07 Dose: 4 mg Perflutren Lipid Microsphere (Perflutren Lipid Microspheres 2 Ml Vial) 2 ml IVP ONCE PRN Sodium Chloride (Sodium Chloride 0.9 % (Flush) 10 Ml Syringe) 5 ml IVF .FLUSH PRN Last Admin: 01/23/25 14:00 Dose: 5 ml Sodium Chloride (Sodium Chloride 0.9 % (Flush) 10 Ml Syringe) 5 ml IVF BID [facility] Last Admin: 01/25/25 08:49 Dose: 5 ml Timolol Maleate (Timolol Maleate 0.5 %) 1 drop EYE-LEFT BID [facility] Last Admin: 01/25/25 08:50 Dose: 1 drop Torsemide (Torsemide 20 Mg Tablet) 10 mg PO DAILY@0800 [facility] Last Admin: 01/25/25 08:43 Dose: 10 mg Transfer Discharge Sum: Hosp Hospital Course Hospital course: Delio was admitted to the hospital on 01/22/25 for weakness, nausea, diarrhea. Also noted to have significant leukocytosis (WBC 25), hypotension (90s/50s), HR 90s, elevated lactate. Concern for UTI and R sided pyelonephritis given history of indwelling greenberg and recurrent UTIs. IV Ceftriaxone initiated on admission, cultures collected. During stay: - 01/23: more pain the afternoon; repeat imaging obtained with + GGOs, tree-in-bud opacities R lower and middle lobes, pleural effusions, unchanged R sided hydronephrosis and inflammation. No hypoxia, no cough - 01/23: antibiotics broadened to Meropenem, urine culture negative (for bacteria, + yeast), received IVF resuscitation, did not require pressors - A1C 9.0 (blood sugars 116-250s), holding home Metformin, on Sliding Scale insulin - 01/24: both admission blood cultures are growing GPC in chains. More edema noted, ultrasound of LUE performed and negative for DVT (on renally dosed Lovenox for ppx). BP had improved, added IV Lasix x1 - 01/24: TTE performed with new diagnosis of HFrEF, added Torsemide 10mg Qd + 12.5mg Metoprolol BID - 01/25: Blood cultures + for Strep gordonii, reviewed with Dr. Schmitt of [facility] who recommends transfer for [facility] Accepted by Dr. Jimenes at [facility] on . Time Spent with Patient Time attestation: Total time spent providing and/or coordinating transfer services: Total time spent: Greater than 30 minutes Exam Narrative: Exam Narrative: GEN: Alert and oriented, sitting comfortably in bedside chair. Denies chest pain, no tachypnea at rest HEENT: EOMIs bilaterally, no scleral icterus CV: RRR, soft systolic murmur without concerning features R radiation R: LCTA bilaterally, no wheezing, fine bibasilar crackles Ext: 1+ BLE edema Skin: Scattered bruising on extremities, no other concerning skin findings Neuro: Nonfocal Psych: Appropriate Const: Vital Signs, click to edit/add: Vital Signs - 24 hr 01/24/25 15:00 01/24/25 15:00 01/24/25 15:00 Temperature 97.6 F Pulse Rate [Left P ulse Oximeter] 73 73 Respiratory Rate 16 16 16 Blood Pressure [Le ft Arm] 112/63 Blood Pressure [Ri ght Arm] Pulse Oximetry 91 91 Oxygen Delivery Me thod Room Air Room Air 01/24/25 20:11 01/24/25 23:00 01/24/25 23:00 Temperature 98.3 F 98.2 F Pulse Rate [Left P ulse Oximeter] 81 85 Respiratory Rate 16 18 Blood Pressure [Le ft Arm] 101/61 Blood Pressure [Ri ght Arm] 105/69 Pulse Oximetry 90 90 92 Oxygen Delivery Me thod Room Air Room Air Room Air 01/24/25 23:00 01/25/25 03:30 01/25/25 07:00 Temperature 97.8 F Pulse Rate [Left P ulse Oximeter] 85 73 72 Respiratory Rate 18 16 14 Blood Pressure [Le ft Arm] 109/69 Blood Pressure [Ri ght Arm] Pulse Oximetry 93 Oxygen Delivery Me thod Room Air 01/25/25 07:00 01/25/25 07:00 01/25/25 11:00 Temperature 97.8 F 97.6 F Pulse Rate [Left P ulse Oximeter] 72 65 Respiratory Rate 14 14 16 Blood Pressure [Le ft Arm] 128/77 Blood Pressure [Ri ght Arm] 126/80 Pulse Oximetry 91 91 98 Oxygen Delivery Me thod Room Air Room Air Room Air Transfer Discharge Sum: Data Data Completed and Pending Completed studies during hospitalization: 01/22/CT: Indication: Diarrhea, lymphocytosis, right-sided abdominal pain Technique: CT through the abdomen and pelvis following 46 mL Isovue 370 IV contrast Comparison: CT abdomen pelvis performed 12/12/2024 Findings: Lower chest: No acute abnormality appreciated. Hepatobiliary: No significant parenchymal abnormality is appreciated. Cholecystectomy. Spleen: Unremarkable. Pancreas: No acute abnormality appreciated. Adrenal glands: No acute abnormality appreciated. Kidneys: Suspected prior ablation in the left kidney again noted. Nonobstructing renal stones noted. Persistent right hydronephrosis. Increasing areas of ureteral wall thickening and perinephric stranding on the right with new small peripheral areas of hypoenhancement. Bowel: No obstruction. No focal perienteric or pericolonic stranding is appreciated. Vascular: Atherosclerosis again noted. Lymph nodes: No gross lymphadenopathy. Peritoneum: Small volume free fluid. : Marked wall thickening of the bladder which is decompressed by Greenberg catheter. Soft tissues: No significant interval change. Bones: No acute fracture. No lytic or blastic lesion. No significant interval change. Impression: Findings suspicious for interval development of UTI and right-sided pyelonephritis. Please note that all CT scans at this facility use dose modulation, iterative reconstruction, and/or weight-based dosing when appropriate to reduce radiation dose to as low as reasonably achievable. Dictated by Alberto Perry MD @ 01/22/2025 7:23:00 PM Ordering Physician: Laila Yoo M.D. Date of Service: 01/23/25 Procedure(s): CT abdomen pelvis w con Accession Number(s): [id number] cc: Laila Yoo M.D.; Jhonny Guerrero M.D.~ For Patients: As a result of the Century Cures Act, medical imaging exams and procedure reports are released immediately into your electronic medical record. You may view this report before your referring provider. If you have questions, please contact your health care provider. INDICATION: Worsening pain, assess for abscess, history of left renal mass ablation. TECHNIQUE: CT abdomen and pelvis following administration of 49 cc Isovue 370 IV contrast. COMPARISON: CT abdomen and pelvis 01/22/2025 and 12/22/2024. FINDINGS: Lower chest: New small bilateral pleural effusions. Extensive ground-glass and tree-in-bud opacities within the right lower lobe and to a lesser degree right middle lobe. Bibasilar compressive atelectasis. Prosthetic aortic valve. Mitral valve calcifications. Incompletely assessed cardiac pacemaker. Incompletely imaged distal thoracic esophagus and incompletely imaged descending thoracic aorta are normal. Liver: No worrisome hepatic lesion. Non-cirrhotic morphology. Gallbladder and bile ducts: Status post cholecystectomy. Unchanged mild intrahepatic and extrahepatic biliary ductal dilatation felt to be within normal limits status post cholecystectomy. Pancreas: No focal masses. No pancreatic duct dilatation. No peripancreatic inflammation. Spleen: Normal in size. No masses. Adrenal glands: Within normal limits. Kidneys: Kidneys enhance symmetrically. Stable post ablation changes of the left kidney upper pole, no evidence of disease recurrence in the ablation bed. No findings to suggest abscess or hematoma in or around the ablation bed. Unchanged mild right hydronephrosis and moderate right hydroureter with unchanged right ureteral wall thickening and periureteral inflammation. Unchanged punctate nonobstructing left renal calculi. No worrisome renal lesions. GI tract: Large bowel is decompressed which limits assessment. No abnormal wall thickening or visualized mass. No finding to suggest small or large bowel obstruction. Nonvisualized appendix. ' Vasculature: Severe aortoiliac atherosclerosis. No abdominal aortic aneurysm. Patent portal venous system. Lymph nodes: No lymphadenopathy. Peritoneum/Retroperitoneum: No free air. Small volume ascites in the dependent pelvis increased since the prior exam. Pelvic organs/Bladder: Urinary bladder is decompressed with Greenberg catheter in place which limits assessment. Nonvisualized uterus and adnexal structures. Bones: No acute fractures. No worrisome osseous lesions. L5 laminectomy. Moderate degenerative changes of the lower lumbar spine. Soft tissues: No abdominal wall hernia. Extensive anasarca. Calcified injection granulomas in the anterior abdominal wall. IMPRESSION: 1. Extensive ground-glass and tree-in-bud opacities in the right lower and to a lesser degree right middle lobes most likely due to infection and/or aspiration. New small bilateral pleural effusions. 2. Stable post ablation changes of the left kidney upper pole, no evidence of disease recurrence in the ablation bed. No findings to suggest abscess or hematoma in or around the ablation bed. 3. Unchanged mild right hydronephrosis and moderate right hydroureter with unchanged right ureteral wall thickening and periureteral inflammation. Findings can be seen with ascending urinary tract infection. 4. Worsening fluid overload with interval increased small volume ascites and anasarca. Please note that all CT scans at this facility use dose modulation, iterative reconstruction, and/or weight-based dosing when appropriate to reduce radiation dose to as low as reasonably achievable. Dictated by Eugene Georges MD @ 01/23/2025 2:41:42 PM (Electronically Signed) Discharge Plan Discharge Disposition: [facility] Date of Admission: 01/23/25 08:18 Attending Provider on Discharge: Laila Yoo Primary Care Provider: Jhonny Guerrero Discharge Orders: Transfer of Care to Other Hospital (ORDER); Ordered 01/25/25 Ordered By: Laila Yoo Oxygen: No Urinary Catheter: Yes Services not available here: [facility], [facility], Cardiology
[2025-01-25] MEDS: cefTRIAXone 1 GM in 0.9 % SODIUM CHLORIDE Mini-bag 100 ML IVPB (15:59)
[2025-01-25 16:00] VITALS: BP 112/64; PULSE 65; PULSE 69; RESP 16; TEMP 36.5; O2SAT 97; O2SAT 98
--- NOTE | 2025-01-25 17:19 | PC.NURSE ---
Transfer summary: The pt is transferred to other hospital at [facility] via EMS. Appeared without any acute distress at transfer time.
== END 2025-01-25 16:40 | disposition short-term general hospital (02) | DRG 871 ==
LOC: ED 19:30 → MEDSURG 21:13
PROVIDERS: Family Medicine; Student in an Organized Health Care Education/Training Program; Admitting Provider Internal Medicine; Emergency Provider Emergency Medicine; PCP Family Medicine; Visit Provider Internal Medicine
DX: R78.81 Bacteremia (principal); I50.21 Acute systolic (congestive) heart failure; C64.9 Malignant neoplasm of unspecified kidney, except renal pelvis; E87.21 Acute metabolic acidosis; I13.0 Hypertensive heart and chronic kidney disease with heart failure and stage 1 through stage 4 chronic kidney disease, or unspecified chronic kidney disease; E87.1 Hypo-osmolality and hyponatremia; N13.30 Unspecified hydronephrosis; E44.1 Mild protein-calorie malnutrition; Z68.1 Body mass index [BMI] 19.9 or less, adult; B95.4 Other streptococcus as the cause of diseases classified elsewhere; E11.22 Type 2 diabetes mellitus with diabetic chronic kidney disease; B96.89 Other specified bacterial agents as the cause of diseases classified elsewhere; R19.7 Diarrhea, unspecified; E78.5 Hyperlipidemia, unspecified; N18.31 Chronic kidney disease, stage 3a; I25.10 Atherosclerotic heart disease of native coronary artery without angina pectoris; E87.6 Hypokalemia; D64.9 Anemia, unspecified; E88.09 Other disorders of plasma-protein metabolism, not elsewhere classified; Z88.0 Allergy status to penicillin; Z88.2 Allergy status to sulfonamides; Z95.0 Presence of cardiac pacemaker; Z87.440 Personal history of urinary (tract) infections; Z79.84 Long term (current) use of oral hypoglycemic drugs; Z95.2 Presence of prosthetic heart valve; Z79.899 Other long term (current) drug therapy; Z79.02 Long term (current) use of antithrombotics/antiplatelets; Z79.4 Long term (current) use of insulin
CPT/HCPCS: 36415; 73562; 74177; 80048; 80053; 80061; 80076; 81001; 82803; 82962; 83036; 83605; 83735; 84100; 84145; 84443; 85025; 86140; 87040; 87086; 87186; 87449; 87493; 87899; 93306; 93971; 94761; 97116; 97161; 97165; 97535; 99284; 99285; A9270; G0378; J0696; J1650; J1938; J2185; J2270; J3010; J7030; J7050; J7120; Q9967

== ENCOUNTER 2025-01-25 16:31 | Outpatient (CLI) | payer MEDICARE, BC, SELFPAY | END 2025-01-25 16:32 | disposition home or self-care (01) | LOC: AMB 01-30 18:37 | PROVIDERS: PCP Family Medicine; Visit Provider Family Medicine | DX: I50.20 Unspecified systolic (congestive) heart failure (principal); R78.81 Bacteremia | CPT/HCPCS: A0425; A0427 ==